=== PATIENT | female | born 1960 | race Caucasian/White ===

== ENCOUNTER 2019-03-16 10:06 | Inpatient (IN) | payer MEDICAID, SELFPAY ==
[2019-03-16] VITALS (21 sets, daily range): BP systolic 80–133; BP diastolic 43–92; PULSE 63–97; RESP 15–21; TEMP 35.6–36.9; O2SAT 92–100; BMI 19.5
--- NOTE | ~2019-03-16 | XR_ITS ---
XR chest 1V portable DATE: 03/23/2019 05:57 INDICATION: Acute respiratory failure TECHNIQUE: Portable AP chest on 03/23/2019 at 0524 hours COMPARISON: 03/22/2019 portable AP chest at 0512 hours FINDINGS: ET tube in satisfactory position 2.2 cm above arsh. NG tube in stomach. No central lines. Persistent patchy infiltrate and/atelectasis is noted, greatest in the lower lung zones, with little interval change since 03/22/2019. Small bilateral pleural effusions are again suggested. IMPRESSION: No significant change since 03/22/2019 Reviewed, dictated and finalized at location A. OM TURNING LATHE TURNER
--- NOTE | ~2019-03-16 | CT_ITS ---
EXAMINATION: CT abdomen pelvis w con DATE: 03/16/2019 11:48 INDICATION: Abdominal pain. TECHNIQUE: Computed tomography (CT) of the abdomen and pelvis was performed with 100 mL Omnipaque 350 intravenous contrast. Automated exposure control and iterative reconstruction technique were employe d. The dose-length product was 241.22 mGy-cm. COMPARISON: None. FINDINGS: The visualized portions of the lung bases demonstrate mild atelectasis. There is smooth sep laura thickening, consistent with mild pulmonary edema. No pleural effusion. The heart size is normal. No pericardial effusion. The liver demonstrates periportal edema. There is focal steatosis adjacent t o ligamentum teres. The spleen is normal. The gallbladder is normal in size. Gallbladder wall thicken ing is likely secondary to interstitial edema. There is fat stranding around the pancreas and low att enuation in the body of the pancreas, consistent with pancreatitis. The adrenal glands and kidneys ar e normal. There are no dilated loops of bowel. The appendix is normal. There are no pathologically en larged lymph nodes. There is a small volume of ascites. There is dextrocurvature of lumbar spine. IMPRESSION: 1. Acute interstitial pancreatitis. 2. Mild pulmonary edema. 3. Small volume of ascites. Reviewed, dictated and finalized at location B. E GRAINER
--- NOTE | ~2019-03-16 | XR_ITS ---
XR abdomen/kub 1V INDICATION: Evaluate OG tube position. TECHNIQUE: Limited KUB perform for evaluating NG tube . COMPARISON: No prior studies for comparison. FINDINGS: OG tube tip in the stomach. Visualized bowel gas pattern is nonspecific. IMPRESSION: 1: NG tube tip in the stomach. Reviewed, dictated and finalized at location A. TIZER
--- NOTE | ~2019-03-16 | XR_ITS ---
XR chest 1V portable DATE: 03/25/2019 05:48 INDICATION: Acute respiratory failure TECHNIQUE: Portable AP chest on 03/25/2019 at 0510 hours COMPARISON: 03/24/2019 portable AP chest FINDINGS: ET tube in satisfactory position 3.2 cm above arsh. NG tube in stomach. No central lines. Bilateral hyperinflation. Mild bilateral apical capping. There is mild improvement of diffuse right pulmonary infiltrate since 03/24/2019. There is persistent left lower lobe atelectasis and/or consolidation. Small pleural effusions are suggested. IMPRESSION: Mild improvement of right lung infiltrate since 03/24/2019; otherwise little interval yonathan nge Reviewed, dictated and finalized at location A. ING CLEANER IMPRESSION: Mild improvement of right lung infiltrate since 03/24/2019; otherwi se little interval change
--- NOTE | ~2019-03-16 | XR_ITS ---
XR chest 1V portable 03/20/2019 14:50 Indication: Respiratory distress. Intubation. Procedure: AP portable chest Comparison: Comparison to multiple prior studies sequentially, with oldest reviewed study dated 12/2018. Findings: Interval placement of endotracheal tube, tube tip 2 cm above the arsh. NG tube passes int o the stomach, tip not evaluated. Persistent diffuse bilateral airspace disease. Impression: 1: Interval placement of endotracheal tube, tip 2 cm above the arsh. 2: Extensive bilateral airspace consolidation. Differential diagnosis includes edema, pneumonia and/ or ARDS. Reviewed, dictated and finalized at location A. AL PHYSIOLOGY TEACHER Impression: 1: Interval placement of endotracheal tube, tip 2 cm above the arsh. 2: Extensive bilateral airspace consolidation. Differential diagnosis includes edema, pneumonia and/or ARDS.
--- NOTE | ~2019-03-16 | XR_ITS ---
XR chest 2V 03/16/2019 11:04 Indication: Cough with weakness Procedure: AP and lateral views of the chest Comparison: No prior studies for comparison. Findings: Heart size is normal. Left lung clear. There are right upper and lower lobe infiltrates, co mpatible with pneumonia. No pleural effusion. Apical pleural thickening/scarring. The lungs are hyper inflated which is consistent with, but not diagnostic of chronic obstructive pulmonary disease. Impression: 1: Patchy right-sided infiltrates, compatible with pneumonia. Reviewed, dictated and finalized at location A. R PRINTING OPERATOR Impression: 1: Patchy right-sided infiltrates, compatible with pneumonia.
--- NOTE | ~2019-03-16 | XR_ITS ---
EXAMINATION: XR chest 1V portable INDICATION: Acute respiratory failure TECHNIQUE: Portable AP chest at 0512 hours COMPARISON: 05/22/2018 FINDINGS: The endotracheal tube ends approximately 3.9 cm above the arsh. The nasogastric tube is f ollowed as far as the stomach. Its tip is beyond the inferior margin of the radiograph. Diffuse inter stitial and airspace opacities persist but have improved. Small pleural effusions are again suggested . There is no pneumothorax. The cardiomediastinal silhouette is stable. IMPRESSION: 1. Diffuse lung disease with continued interval improvement, consistent with pneumonia and/or pulmona ry edema and/or atelectasis. Reviewed, dictated and finalized at location A. FORM PREPARER IMPRESSION: 1. Diffuse lung disease with continued interval improvement, consistent with pn eumonia and/or pulmonary edema and/or atelectasis.
--- NOTE | ~2019-03-16 | XR_ITS ---
XR chest 1V portable DATE: 03/27/2019 05:35 INDICATION: Acute respiratory failure TECHNIQUE: Portable AP chest on 03/27/2019 at 0453 hours COMPARISON: 03/26/2019 portable AP chest at 0510 hours 03/24/2019 portable AP chest FINDINGS: ET tube in satisfactory position 3.2 cm above arsh. Nasogastric tube is present in the pr oximal stomach, the proximal port in the lower thorax. Advancement of the tube is recommended. Heart size is within normal range. There has been serial improvement of bilateral infiltrates since 03/24/2019, but there is residual in terstitial infiltrate throughout much of the right lung, greater in the right lower lung zone, as wel l as persistent left lower lobe atelectasis and/or consolidation. Small pleural effusions. IMPRESSION: Proximal port of NG tube is in lower chest; recommend advancement of NG tube ET tube in satisfactory position Serial improvement of bilateral infiltrates since 03/24/2019, with some residual interstitial infiltr ate scattered throughout the right lung, left lower lung and persistent left lower lobe atelectasis a nd/or consolidation, small pleural effusions Reviewed, dictated and finalized at location A. GER QUALITY COMPLIANCE IMPRESSION: Proximal port of NG tube is in lower chest; recommend advancement o f NG tube ET tube in satisfactory position Serial improvement of bilateral infiltrates since 03/24/2019, with some residua l interstitial infiltrate scattered throughout the right lung, left lower lung and persistent left lower lobe atelectasis and/or consolidation, small pleural effusions
--- NOTE | ~2019-03-16 | XR_ITS ---
EXAMINATION: XR chest 1V portable INDICATION: Respiratory failure, ARDS TECHNIQUE: Portable AP chest at 0512 hours COMPARISON: 03/20/2019 FINDINGS: The endotracheal tube ends approximately 2.8 cm above the arsh. The nasogastric tube is f ollowed as far as the stomach. Its tip is beyond the inferior margin of the radiograph. Diffuse inter stitial and airspace opacities persist with improvement, particularly in the mid and upper lung zones . Small pleural effusions are suggested. There is no pneumothorax. The cardiomediastinal silhouette i s stable. IMPRESSION: 1. Diffuse lung disease with interval improvement, consistent with pneumonia and/or pulmonary edema a nd/or atelectasis. Reviewed, dictated and finalized at location A. MAKER HELPER IMPRESSION: 1. Diffuse lung disease with interval improvement, consistent with pneumonia an d/or pulmonary edema and/or atelectasis.
--- NOTE | ~2019-03-16 | XR_ITS ---
EXAMINATION: XR abdomen NG/feed tube rechec EXAM DATE: 03/24/2019 10:48 INDICATION: Feeding tube placement. TECHNIQUE: Frontal projection(s) of the abdomen for interpretation. Comparison is made to prior exami nation from yesterday. FINDINGS: Feeding tube tip projects over gastric antral region, side port over gastric body. This is adequate. There is patchy bilateral pneumonia or edema with interval improvement compared to yesterd ay. Nonobstructive bowel gas pattern. IMPRESSION: 1. Feeding tube in position. 2. Patchy bilateral edema or pneumonia. Reviewed, dictated and finalized at location B. ATOR SERVICEMAN
--- NOTE | ~2019-03-16 | XR_ITS ---
XR chest 1V portable 03/20/2019 13:23 Indication: Shortness of breath and respiratory failure Procedure: AP portable chest Comparison: Comparison to multiple prior studies sequentially, with oldest reviewed study dated 12/2018. Findings: Heart size normal. There is persistent diffuse bilateral airspace disease. Possible small e ffusions. There is apical pleural thickening/scarring. No significant change compared with 03/19/2019 Impression: 1: Stable diffuse bilateral airspace disease which may reflect edema, pneumonia and/or ARDS. 2: Small pleural effusions. Reviewed, dictated and finalized at location A. RUMENT ASSEMBLER Impression: 1: Stable diffuse bilateral airspace disease which may reflect edema, pneumonia and/or ARDS. 2: Small pleural effusions.
--- NOTE | ~2019-03-16 | XR_ITS ---
XR chest 1V portable DATE: 03/24/2019 05:46 INDICATION: Acute respiratory failure TECHNIQUE: Portable upright AP chest on 03/24/2019 at 0523 hours COMPARISON: 03/23/2019 portable AP chest FINDINGS: ET tube in satisfactory position, tip 3 cm above arsh. NG tube in stomach. No central lines. Bilateral hyperinflation suggesting COPD. There are persistent bilateral patchy infiltrates, involving much of the right lung. There is increas ed density and some air bronchograms in the retrocardiac area on the left consistent with increased l eft lower lobe atelectasis and/or consolidation. Small pleural effusions are suggested, right greater than left. Bilateral apical capping. Diffuse osteopenia. IMPRESSION: Persistent bilateral infiltrates, right greater than left, with increased atelectasis and /or consolidation involving the left lower lobe since 03/23/2019 Small pleural effusions, which appear mildly improved ET and NG tubes in satisfactory position Reviewed, dictated and finalized at location A. RINTENDENT POWER IMPRESSION: Persistent bilateral infiltrates, right greater than left, with inc reased atelectasis and/or consolidation involving the left lower lobe since Small pleural effusions, which appear mildly improved ET and NG tubes in satisfactory position
--- NOTE | ~2019-03-16 | XR_ITS ---
EXAMINATION: XR chest 1V portable DATE: 03/28/2019 05:51 INDICATION: Bilateral pulmonary infiltrates TECHNIQUE: frontal view of the chest was obtained. COMPARISON: Chest radiograph dated 03/27/2019 FINDINGS: Prior endotracheal and nasogastric tubes have been removed. Biapical pleural-parenchymal scarring. Pe rsistent mild opacities primarily reticular throughout the right lung and more hazy at the left lower lung zone. No pneumothorax. Cardiomediastinal silhouette is normal. IMPRESSION: 1. Persistent mild primarily reticular opacities throughout the right lung and hazy opacity left lowe r lung zone. Differential includes mild pulmonary edema, atelectasis or pneumonia possibly superimpos ed over small left pleural effusion. Reviewed, dictated and finalized at location A. ING HOME SOCIAL WORKER IMPRESSION: 1. Persistent mild primarily reticular opacities throughout the right lung and hazy opacity left lower lung zone. Differential includes mild pulmonary edema, atelectasis or pneumonia possibly superimposed over small left pleural effusion .
--- NOTE | ~2019-03-16 | US_ITS ---
EXAMINATION: US right upper quadrant EXAM DATE: 03/23/2019 11:56 INDICATION: Pancreatitis. TECHNIQUE: Multiple grayscale and Doppler images of the abdomen right upper quadrant were obtained (b y a technologist who performed the scan) and subsequently reviewed. Correlation is made to 03/16/2019. FINDINGS: The pancreatic head and body are normal in appearance. The pancreatic tail is not visualized. The l iver has normal echogenicity and contour. There are no focal liver lesions identified. There is no evidence of intrahepatic biliary duct dilation. Portal venous flow was seen in the hepatopedal, nor mal direction and has normal Doppler waveform. No right-sided hydronephrosis. Common bile duct measures 4 mm, which is normal. Gallbladder is contracted with borderline wall thick ness of 3 mm, no pericholecystic fluid. May well be reactive from patient's acute pancreatitis. No ca lcified cholelithiasis. Technologist performing exam reports patient did not demonstrate sonographic Garner's sign. Please note that this sign is less reliable in patients who have received pain medic ation. IMPRESSION: 1. Contracted gallbladder with borderline wall thickness likely reactive. 2. No cholelithiasis. Reviewed, dictated and finalized at location B. ER RESOURCE SPECIALIST
--- NOTE | ~2019-03-16 | XR_ITS ---
XR chest 1V portable DATE: 03/26/2019 05:30 INDICATION: Acute respiratory failure TECHNIQUE: Portable upright AP chest on 03/26/2019 at 0510 hours COMPARISON: 03/25/2019 portable AP chest at 0510 hours FINDINGS: ET tube in satisfactory position 3 x 3 cm above arsh. NG tube in stomach. Bilateral hyperinflation. There are infiltrates and/or atelectasis in the lower lung zones, involving primarily the lower lobes apparently. Small pleural effusions are suggested. There is mild improvement of pulmonary vascular congestion since 03/25/2019. There is a mildly displaced lateral left ninth rib recent fracture. Diffuse osteopenia. IMPRESSION: Mild improvement of pulmonary vascular congestion but persistent bilateral prominently lo wer lobe infiltrate/atelectasis since 03/25/2019 Mildly displaced lateral left ninth rib recent fracture Reviewed, dictated and finalized at location A. Y ASSISTANT IMPRESSION: Mild improvement of pulmonary vascular congestion but persistent bi lateral prominently lower lobe infiltrate/atelectasis since 03/25/2019 Mildly displaced lateral left ninth rib recent fracture
--- NOTE | ~2019-03-16 | XR_ITS ---
EXAMINATION: XR abdomen NG/feed tube insert INDICATION: OG tube placement TECHNIQUE: Portable AP KUB-NG at 2241 hours COMPARISON: 03/20/2019 FINDINGS: The OG tube is in the stomach. The bowel gas pattern is nonspecific. Again noted are airspa ce opacities in the right mid and lower lung zones. IMPRESSION: 1. OG tube in the stomach. Reviewed, dictated and finalized at location A. OR AGRICULTURAL ASSISTANT IMPRESSION: 1. OG tube in the stomach.
--- NOTE | ~2019-03-16 | XR_ITS ---
EXAMINATION: XR chest 1V portable DATE: 03/17/2019 06:10 INDICATION: Pneumonia. COPD. TECHNIQUE: frontal view of the chest was obtained. COMPARISON: Chest radiograph dated 03/16/2019 FINDINGS: Biapical pleural-parenchymal scarring. Increasing airspace opacity in the right upper lobe. Mild incr eased reticular opacities at the lung bases which could represent mild pulmonary edema or atelectasis . No pleural effusion or pneumothorax. The cardiomediastinal silhouette is normal. A couple of midtho racic compression fractures. IMPRESSION: 1. Increasing opacity in the right upper lobe concerning for pneumonia. 2. Mild bibasilar pulmonary edema versus atelectasis. Reviewed, dictated and finalized at location A. OWS FILLER
--- NOTE | ~2019-03-16 | XR_ITS ---
EXAMINATION: XR chest ET placement INDICATION: Endotracheal tube placement TECHNIQUE: Portable AP chest at 2243 hours COMPARISON: 0520 hours FINDINGS: The endotracheal tube is 4.2 cm above the arsh. The nasogastric tube is followed as far a s the stomach. Its tip is beyond the inferior margin of the radiograph. There are increasing airspace opacities in the right mid and lower lung zones. A small right pleural effusion is present. No pneum othorax is identified. The cardiomediastinal silhouette is stable. IMPRESSION: 1. Endotracheal tube 4.2 cm above the arsh. 2. Increasing airspace opacities of the right mid and lower lung zones, consistent with atelectasis a nd/or pneumonia and/or pulmonary edema. 3. Likely small right pleural effusion. Reviewed, dictated and finalized at location A. SEARCH MARKETING ANALYST IMPRESSION: 1. Endotracheal tube 4.2 cm above the arsh. 2. Increasing airspace opacities of the right mid and lower lung zones, consist ent with atelectasis and/or pneumonia and/or pulmonary edema. 3. Likely small right pleural effusion.
--- NOTE | ~2019-03-16 | XR_ITS ---
EXAMINATION: XR chest 1V portable DATE: 03/19/2019 03:55 INDICATION: Acute respiratory failure TECHNIQUE: frontal view of the chest was obtained. COMPARISON: Chest radiograph dated 03/17/2019 FINDINGS: Interval worsening of indistinct interstitial and patchy airspace opacities throughout both lungs spa ring the apices and a portion of the lateral right mid to lower lung zone. Small bilateral pleural ef fusions. No pneumothorax. The cardiomediastinal silhouette is normal. IMPRESSION: 1. Significant increase in bilateral interstitial and airspace disease consistent with moderate pulmo nary edema although could not exclude superimposed pneumonia. 2. Small bilateral pleural effusions. Reviewed, dictated and finalized at location A. SANDER IMPRESSION: 1. Significant increase in bilateral interstitial and airspace disease consiste nt with moderate pulmonary edema although could not exclude superimposed pneumo jennifer. 2. Small bilateral pleural effusions.
--- NOTE | 2019-03-16 10:32 | ECG_ITS ---
Measurements Intervals [place] Rate: 82 P: -14 GA: 171 QRS: 15 QRSD: 114 T: 15 QT: 389 QTc: 456 Interpretive Statements SINUS RHYTHM ATRIAL PREMATURE COMPLEX INTRAVENTRICULAR CONDUCTION DELAY BORDERLINE ECG Electronically Signed On 03-16-2019 10:44:41 DIRECTOR PRESALES by Nick Whitt D.O.
--- NOTE | 2019-03-16 10:57 | ED.GENADULT ---
HPI - General Adult General Chief complaint: Weakness <DO Raina Cooper Last Filed: 03/16/19 12:34> Stated complaint: WEAKNESS <DO Raina Cooper Last Filed: 03/16/19 12:34> Time Seen by Provider: 03/16/19 10:26 <DO Raina Cooper Last Filed: 03/16/19 12:34> Source: patient and family <KESHAWN Kelsey Last Filed: 03/16/19 13:06> Mode of arrival: ambulatory <KESHAWN Kelsey Last Filed: 03/16/19 13:06> Limitations: no limitations <KESHAWN Kelsey Last Filed: 03/16/19 13:06> History of Present Illness HPI narrative: Patient is a 58-year-old female who presents to emergency department for evaluation of generalized weakness noting for the last 6 days she has had congestion rhinorrhea nonproductive cough noting that she also had some emesis on the first day and has had generalized abdominal pain at the same time patient notes history of chronic abdominal pain also admits to frequent alcohol use but has not drank in the last several days given that she has not felt well patient notes she has had some brown stools but denies melena hematemesis patient has not been seen for this complaint and has been lying in bed during this. Patient presents per private vehicle with her partner patient is acutely ill upon arrival. Symptoms are worse with any activity. Symptoms improved with lying and rest <KESHAWN Kelsey Last Filed: 03/16/19 13:06> Related Data Allergies/adverse reactions: Allergies Allergy/AdvReac Type Severity Reaction Status Date / Time Penicillins Allergy Unknown Verified 03/16/19 10:35 <DO Raina Cooper Last Filed: 03/16/19 12:34> Review of Systems Review of Systems: Narrative: CONSTITUTIONAL: Denies fever, chills, or sweats. Positive for fatigue EYES: Denies redness, or discharge. ENT: Positive rhinorrhea, congestion, sore throat, denies otalgia. CARDIOVASCULAR: Denies chest pain, or edema. RESPIRATORY: Positive for cough and dyspnea GASTROINTESTINAL: Positive for abdominal pain, nausea, vomiting, and loose stools. Denies hematemesis rectal bleeding or melena GENITOURINARY: Denies dysuria or hematuria. SKIN: Denies rash or itching. MUSCULOSKELETAL: Denies joint pain, or myalgia. Positive for low back pain NEUROLOGIC: Denies headache, numbness, dizziness <Jose Ceballos PA-C - Last Filed: 03/16/19 13:06> PMFSH Past Medical History Medical History: Medical History History of alcohol abuse <Vincent Sebastian DO - Last Filed: 03/16/19 12:34> Surgical History Surgical History: Surgical History History of section <Vincent Sebastian DO - Last Filed: 03/16/19 12:34> Social History Social History: Social History Smoking status: Never smoker Alcohol intake: current Gender identity (if verbalized by the patient): Female <DO Raina Cooper Last Filed: 03/16/19 12:34> Exam Narrative: Exam Narrative: GENERAL: Ill-appearing, well-nourished, and in no acute distress. HEAD: Normocephalic, atraumatic. EYES: PERRLA and EOMI. ENT: Nares clear, no rhinorrhea or epistaxis. Mucous membranes dry. Oropharynx without tonsillar hypertrophy exudate or other lesions. NECK: Supple. No adenopathy or masses. CHEST: Clear to auscultation. No respiratory distress. Coarse breath sounds on auscultation no wheezes HEART: Regular rate and rhythm. No murmur heard. Normal peripheral pulses. ABDOMEN: Soft, generalized tenderness to palpation, nondistended. Guaiac negative EXTREMITIES: Normal range of motion. No edema. SKIN: Warm, dry, no rash. NEURO: No focal deficits. Alert and oriented x3. Cranial nerves II through XII grossly intact PSYCH: Normal mood and affect. <Jose Ceballos PA-C - Last Filed: 03/16/19 13:06>
[2019-03-16 11:03] LABS: Add Urine Microscopic? YES; Appearance Urine Clear (Clear); Bacteria Urine Trace /hpf; Bilirubin Urine Negative (Negative); Blood Urine 2+ (Negative); Color Urine Yellow (Yellow); Glucose Urine UA Negative (Negative); Hyaline Casts Urine 30-49 /lpf; Ketones Urine Trace mg/dL (Negative); Leukocyte Esterase Ur Negative LEU/UL (Negative); Mucus Urine Rare /lpf; Nitrate Urine Negative (Negative); Protein Urine 1+ mg/dL (Negative); Specific Grav Ur 1.012 (1.001-1.035); Squamous Epithelial Cell Urine Rare /hpf (Few); Urobilinogen Urine Negative mg/dL (<2.0)
[2019-03-16] MEDS: ONDANSETRON INJ 4 MG/2 ML VIAL IV PUSH (11:10)
[2019-03-16] MEDS: FAMOTIDINE 20 MG/2 ML VIAL IV PUSH (11:10)
[2019-03-16 11:17] LABS: INR 1.8; Partial Thromboplastin Time 36.6 SECONDS (22.3-36.8); Prothrombin Time 20.4 Seconds (11.1-14.7)
[2019-03-16 11:19] LABS: Basophils Percent Auto 0.1 % (0.2-1.2); Immature Granulocyte Absolute 0.22 K/mm3 (0.00-0.031); Immature Granulocyte Percent A 1.8 % (0-0.5); Immature Platelet Fraction Pct 2.2 % (0.9-11.2); Lymphocytes Absolute Auto 0.75 K/mm3 (0.9-3.2); Lymphocytes Percent Auto 6.3 % (18.3-44.2); Mean Corpuscular HGB Conc 28.3 g/dl (32-36); Mean Corpuscular Volume 70.6 fl (80-100); Mean Platelet Volume 9.2 fl (7.4-10.4); Monocytes Absolute Auto 0.5 K/mm3 (0.1-0.6); Monocytes Percent Auto 4.4 % (2.6-8.5); Neutrophils Absolute Auto 10.4 K/mm3 (1.3-6.7); Neutrophils Percent Auto 87.4 % (45.5-73.1); Nucleated Red Blood Cells Absolute Auto 0.2 K/mm3 (0.0-0.012); Nucleated Red Blood Cells Perc 1.9 % (0.0-0.2); Platelet Count Result 655 k/mm3 (150-375); Red Cell Distribution Width 19.9 % (11.5-14.5); White Blood Count 11.9 K/mm3 (4.5-10.0)
[2019-03-16 11:20] LABS: Alanine Aminotransferase 189 U/L (4-35); Alkaline Phosphatase 96 U/L (38-126); Aspartate Amino Transferase 589 U/L (14-36); Bilirubin,Total 0.2 mg/dL (0.2-1.3); Blood Urea Nitrogen 15 mg/dL (7-17); CRP 7.6 mg/dL (<1.0); Carbon Dioxide 17 mmol/L (22-30); Chloride 89 mmol/L (98-107); Estimated Glomerular Filt Rate 38; Glucose 103 mg/dL (65-105); Magnesium 2.1 mg/dL (1.6-2.3); Potassium 4.2 mmol/L (3.4-5.0); Sodium 124 mmol/L (137-145)
[2019-03-16] MEDS: LACTATED RINGERS 1,000 ML 999 ML IV CONT (11:20)
[2019-03-16 11:23] LABS: Hemoglobin 3.4 g/dL (12.0-15.0)
[2019-03-16 11:25] LABS: Anisocytosis 2+ (NORMAL); Hypochromasia 2+ (NORMAL); Platelet Estimate Increased (Adequate)
[2019-03-16 11:26] LABS: Stomatocytes 1+ (NORMAL)
--- NOTE | 2019-03-16 11:41 | PC.NURSE ---
Pt in CT, no able to draw blood at this time.
--- NOTE | 2019-03-16 12:02 | PC.NURSE ---
Called pharmacy to verify a banana bag was to be sent up for pt. Pharmacy did not answer, left message
[2019-03-16 12:17] LABS: Hemoglobin 3.1 g/dL (12.0-15.0)
[2019-03-16 12:18] LABS: Hematocrit 11.1 % (37.0-47.0)
[2019-03-16 12:26] LABS: Lipase 2805 U/L (23-300)
[2019-03-16 12:31] LABS: Ethanol < 10 mg/dL (<10)
--- NOTE | 2019-03-16 13:41 | WPDCNINT ---
Assessment and Plan Assessment and plan (1) Anemia: Qualifiers: Anemia type: unspecified type Qualified Code(s): D64.9 - Anemia, unspecified Code(s): D64.9 - Anemia, unspecified Status: Acute Assessment and Plan: severe anemia with hemoglobin of 3.1. Patient has a history of gastritis and colitis. likely GI bleed - CT scan of the abdomen and pelvis showed acute interstitial pancreatitis - patient initially hypotensive, received 2.5 L IV fluids with improvement in blood pressures - transfuse 2 units of packed RBCs re-evaluate hemoglobin and will transfuse further if required - GI has been consulted and await evaluation and recommendation - H&H q.6 hours (2) Acute alcoholic pancreatitis: Qualifiers: Acute pancreatitis complication: unspecified Qualified Code(s): K85.20 - Alcohol induced acute pancreatitis without necrosis or infection Code(s): K85.20 - Alcohol induced acute pancreatitis without necrosis or infection Status: Acute Assessment and Plan: CT scan of the abdomen pelvis showed acute interstitial pancreatitis most likely related to alcohol use - continue NPO with ice chips - will start maintenance IV fluids - recheck lipase in a.m. (3) Acute hyponatremia: Code(s): E87.1 - Hypo-osmolality and hyponatremia Status: Acute Assessment and Plan: likely related to alcohol abuse - continue maintenance IV fluids - will monitor levels, patient currently awake and alert (4) Pneumonia: Qualifiers: Laterality: unspecified laterality Lung location: unspecified part of lung Pneumonia type: due to unspecified organism Qualified Code(s): J18.9 - Pneumonia, unspecified organism Code(s): J18.9 - Pneumonia, unspecified organism Status: Acute Assessment and Plan: chest x-ray shows patchy right-sided infiltrates compatible with pneumonia, patient started on azithromycin and ceftriaxone - CRP of 7.6, WBC count of 11 point - continue supplemental oxygen - blood cultures have been obtained (5) GI bleed: Code(s): K92.2 - Gastrointestinal hemorrhage, unspecified Status: Acute Assessment and Plan: severe anemia likely related to GI bleed - will transfuse packed RBCs and maintain hemoglobin greater than 7.0 - GI has been consulted - started on Protonix infusion (6) Elevated LFTs: Code(s): R94.5 - Abnormal results of liver function studies Status: Acute Assessment and Plan: elevated LFTs likely related to alcoholism, pancreatitis - continue to monitor (7) Acute kidney injury: Code(s): N17.9 - Acute kidney failure, unspecified Status: Acute Assessment and Plan: patient with creatinine of 1.4 on admission, acute kidney injury likely related to hypovolemia secondary to GI bleed and hypotension, hypoxia. - will maintain mean arterial pressure is greater than 65 mmHg - transfuse packed RBCs which will improve oxygenation and blood pressure - monitor urine output, electrolytes and renal function (8) DVT prophylaxis: Code(s): Z29.9 - Encounter for prophylactic measures, unspecified Status: Acute Assessment and Plan: SCDs Additional Plan discussed with patient and her boyfriend and updated them with her condition and plan of care. Will obtain records from the GI doctor in [facility] Code status: full code critical care time spent: 43 minutes Due to a high probability of clinically significant, life threatening deterioration, the patient required my highest level of preparedness to intervene emergently and I personally spent this critical care time directly and personally managing the patient. This critical care time included obtaining a history; examining the patient; pulse oximetry; ordering and review of studies; arranging urgent treatment with development of a management plan; evaluation of patient's response to treatment;
[2019-03-16] MEDS: ALBUTEROL SULFATE NEB 2.5 MG/0.5 ML INH 5 MG INHALATION ×2 (14:38→20:30)
[2019-03-16] MEDS: IPRATROPIUM BR 0.02% INH SOLN 0.5 MG/2.5 ML VIAL INHALATION ×2 (14:38→20:30)
--- NOTE | 2019-03-16 15:20 | PM.IMHP ---
H&P: HPI History of Present Illness Chief complaint: Acute pancreatitis/hyponatremia/anemia/pneumonia Narrative: Anita Cutler is a 58 year old female who came to the emergency room after feeling ill for about 6 days. The patient had some generalized weakness and has cholangitis colitis. When she has episodes like that she does not eat. She has had a poor appetite. She has had some abdominal cramping pain. She said that on some days her stools a little bit darker nothing black or bloody. She did not vomit. Patient has had a cough and fever and chills. Patient was brought in by private vehicle. Her hemoglobin a nasally was 3.4 and with the recheck was 3.1. Her blood pressure initially was 80/69. She was bolused with 2.5 L of fluid. Chest x-ray shows patchy right-sided infiltrates, compatible with pneumonia. Abdominal CT scan showed acute interstitial pancreatitis, mild pulmonary edema, and small volume ascites patient stated she drinks approximately 16 oz of wine per day but has not had anything to drink for a week. Influenza a and B were negative. Lipase 2805. Patient has a sallow color. She has a history of COPD as well.She sees Dr Colvin in [place] for colonoscopy and endoscopy with him in the past and was told that she has cholangio colitis. She has been admitted to ICU for severe anemia, alcoholism, and pancreatitis. Review of Systems Review of Systems: Narrative: Weak and decreased appetite. All systems reviewed & are unremarkable except as noted in HPI and below Constitutional: Constitutional: Reports as per HPI, Reports anorexia, Reports fatigue, Reports fever(s) and Reports poor appetite Eyes: Eyes: Reports as per HPI and Reports no additional eye complaints ENT: Reports system reviewed and no additional complaints, except as documented and Reports hearing normal Cardiovascular: Cardiovascular: Reports no additional cardiovascular complaints Respiratory: Respiratory: Reports no additional respiratory complaints, Reports cough, Reports dyspnea on exertion and Reports wheezing Gastrointestinal: Gastrointestinal: Reports as per HPI and Reports no additional gastrointestinal complaints Musculoskeletal: Musculoskeletal: Reports no additional musculoskeletal complaints Integumentary/Breasts: Skin/Breast: Reports system reviewed and no additional complaints, except as docu and Reports as per HPI Neurologic: Reports system reviewed and no additional complaints, except as documented, Reports as per HPI and Reports Normal hearing present Psychiatric: Psychiatric: Reports no additional psychiatric complaints, Reports as per HPI, Reports anxiety and Reports depression Comments: History of depression and anxiety weaned herself off medication. Endocrine: Endocrine: Reports no additional endocrine complaints Hematologic/Lymphatic: Hematologic/Lymphatic: Reports no additional hematologic/lymphatic complaints Allergic/Immunologic: Allergic/Immunologic: Reports no additional allergic/immunologic complaints [facility] Past Medical History Medical History (Updated 03/16/19 @ 16:16 by Mohamud Sher MD) Alcoholic hepatitis Collagenous colitis COPD (chronic obstructive pulmonary disease) Gastritis GERD (gastroesophageal reflux disease) History of alcohol abuse History of asthma Surgical History Surgical History (Updated 03/16/19 @ 15:38 by Nubia Noel NP) History of bilateral cataract extraction History of section History of D&C History of tonsillectomy Social History Social History (Updated 03/16/19 @ 15:43 by Nubia Noel NP) Social History: Quit smoking about a year back, prior to which she was used to smoke half a packet for many years and prior to that about a packet for many years. Patient drinks 4-8 oz of wine daily for many years. Smokes marijuana occasionally that helps a with her chronic abdominal pain. lives with boyfriend, does not work. Full code. Hiram is the boyfriend who is h
--- NOTE | 2019-03-16 16:06 | WPDGICN ---
Assessment and Plan Assessment and plan (1) Acute alcoholic pancreatitis: Qualifiers: Acute pancreatitis complication: unspecified Qualified Code(s): K85.20 - Alcohol induced acute pancreatitis without necrosis or infection Code(s): K85.20 - Alcohol induced acute pancreatitis without necrosis or infection Status: Acute Assessment and Plan: alcoholic hepatitis, npo. Banana bag, ivf and admitted to ICU. Supportive care (2) Alcoholic hepatitis: Qualifiers: Ascites presence: unspecified Qualified Code(s): K70.10 - Alcoholic hepatitis without ascites Code(s): K70.10 - Alcoholic hepatitis without ascites Status: Acute (3) Elevated LFTs: Code(s): R94.5 - Abnormal results of liver function studies Status: Acute Assessment and Plan: consistent with heavy alcohol use. Normal platelets (Actually elevated c/w inflammatory response). Will get hepatitis panel (4) Severe anemia: Code(s): D64.9 - Anemia, unspecified Status: Acute Assessment and Plan: iv protonix, EGD tomorrow. Also will get recent GI records. (5) Collagenous colitis: Code(s): K52.831 - Collagenous colitis Status: Acute (6) COPD (chronic obstructive pulmonary disease): Qualifiers: COPD type: unspecified COPD Qualified Code(s): J44.9 - Chronic obstructive pulmonary disease, unspecified Code(s): J44.9 - Chronic obstructive pulmonary disease, unspecified Status: Acute (7) Pneumonia: Qualifiers: Laterality: unspecified laterality Lung location: unspecified part of lung Pneumonia type: due to unspecified organism Qualified Code(s): J18.9 - Pneumonia, unspecified organism Code(s): J18.9 - Pneumonia, unspecified organism Status: Acute Assessment and Plan: also pneumonia, on iv abx (8) Acute hyponatremia: Code(s): E87.1 - Hypo-osmolality and hyponatremia Status: Acute GI Consult Note Consult date/time: 03/16/19 16:06 re: severe anemia, abdominal pain, pancreatitis HPI: Anita Cutler is a 58 year old female alcoholic (did not drink for a week because has been sick), former smoker, gastritis on ppi, collagenous colitis using ib-inés (GI physician at [place], Dr Colvin, did EGD and colonoscopy about 1-2 years ago) here with 6 days of anorexia, nausea with worsening epigastric pain, moderate-severe cramping pain. Also cough and chills. Her hemoglobin was 3.4 and Sodium levels of 124, potassium 4.2, chloride 89, CO2 17, BUN 15, creatinine 1.4, glucose 103. WBC count 11.9, platelets 655. INR 1.8, PTT 36.6. Lactic acid of 1.0. AST 589, ALT 189, alk phos 96, C-reactive protein 7.6, total bilirubin 0.2. Lipase 2805. alcohol level <10. Influenza a and B were negative. Chest x-ray shows patchy right-sided infiltrates, compatible with pneumonia. Abdominal CT scan showed acute interstitial pancreatitis, mild pulmonary edema, small volume Ascites. Her blood pressure initially was 80/69. She was bolused with 3 L of fluid. Review of Systems Constitutional: Constitutional: Reports fatigue, Denies headache(s) and Reports malaise Eyes: Eyes: Denies blurry vision ENT: Reports hearing normal, Denies headache(s) and Denies neck pain Cardiovascular: Cardiovascular: Denies chest pain and Denies dyspnea Respiratory: Respiratory: Reports change in phlegm color and Reports cough Gastrointestinal: Gastrointestinal: Reports abdominal pain, Reports GI cramping and Reports nausea Genitourinary: Genitourinary: Denies dysuria Musculoskeletal: Musculoskeletal: Denies neck pain Integumentary/Breasts: Skin/Breast: Denies dry skin Neurologic: Reports Normal hearing present, Denies headache(s) and Denies weakness Psychiatric: Psychiatric: Denies anxiety Endocrine: Endocrine: Denies change in body appearance Hematologic/Lymphatic: Hematologic/Lymphatic: Denies lymphadenopathy Allergic/Immunologic: Allergic/Immu
[2019-03-16] MEDS: TUBING, BLOOD PLUM PUMP TUBING 1 EACH XX (17:30)
[2019-03-16] MEDS: SODIUM CHLORIDE 0.9% IV 250 ML 30 ML IV CONT (17:30)
[2019-03-16] MEDS: PANTOPRAZOLE SODIUM IV 40 MG VIAL IV PUSH (17:31)
[2019-03-16 21:18] LABS: Hematocrit 23.5 % (37.0-47.0); Hemoglobin 7.6 g/dL (12.0-15.0)
[2019-03-17] VITALS (22 sets, daily range): BP systolic 116–174; BP diastolic 56–85; PULSE 81–115; RESP 15–24; TEMP 36.4–37.3; O2SAT 95–100; BMI 20.5
[2019-03-17 01:32] LABS: Hematocrit 24.4 % (37.0-47.0); Hemoglobin 7.6 g/dL (12.0-15.0)
[2019-03-17] MEDS: ALBUTEROL SULFATE NEB 2.5 MG/0.5 ML INH 5 MG INHALATION ×4 (02:58→21:32)
[2019-03-17] MEDS: IPRATROPIUM BR 0.02% INH SOLN 0.5 MG/2.5 ML VIAL INHALATION ×4 (02:58→21:32)
[2019-03-17] MEDS: MORPHINE SULFATE 2 MG/ML INJ IV PUSH (03:21)
[2019-03-17 05:05] LABS: Hemoglobin 7.5 g/dL (12.0-15.0); Mean Corpuscular HGB Conc 32.6 g/dl (32-36); Mean Corpuscular Hemoglobin 25.5 pg (26-34); Mean Corpuscular Volume 78.2 fl (80-100); Mean Platelet Volume 8.6 fl (7.4-10.4); Platelet Count Result 467 k/mm3 (150-375); Red Blood Count 2.94 M/mm3 (4.2-5.4); Red Cell Distribution Width 18.5 % (11.5-14.5)
[2019-03-17 05:16] LABS: INR 1.4; Partial Thromboplastin Time 32.6 SECONDS (22.3-36.8); Prothrombin Time 16.8 Seconds (11.1-14.7)
[2019-03-17 05:22] LABS: Lactic Acid 0.9 mmol/L (0.7-2.1)
[2019-03-17 05:31] LABS: Alanine Aminotransferase 153 U/L (4-35); Albumin Level 2.9 g/dL (3.5-5.1); Alkaline Phosphatase 162 U/L (38-126); Aspartate Amino Transferase 381 U/L (14-36); Bilirubin,Total 1.3 mg/dL (0.2-1.3); Blood Urea Nitrogen 16 mg/dL (7-17); Calcium 7.8 mg/dL (8.4-10.2); Carbon Dioxide 18 mmol/L (22-30); Chloride 95 mmol/L (98-107); Estimated CRCL calculation 40 ml/min; Estimated Glomerular Filt Rate 51; Glucose 90 mg/dL (65-105); Magnesium 2.3 mg/dL (1.6-2.3); Phosphorus 3.3 mg/dL (2.5-4.5); Potassium 3.6 mmol/L (3.4-5.0); Sodium 125 mmol/L (137-145)
[2019-03-17 05:48] LABS: Band Neutrophils Percent 1 % (0-6); Hypochromasia 1+ (NORMAL); Lymphocytes Absolute Manual 0.39 K/mm3 (1.1-4.5); Monocytes Absolute Manual 0.52 K/mm3 (0.1-0.90); Monocytes Percent Manual 4 % (3-9); Neutrophils Absolute Manual 12.09 K/mm3 (1.7-7.2); Neutrophils Percent Manual 92 % (46-73); Nucleated Red Blood Cells 7 %; Ovalocytes 1+ (NORMAL); Platelet Estimate Adequate (Adequate); Total Cells Counted 100
[2019-03-17 05:52] LABS: Hepatitis B Surface Antigen Negative (Negative)
[2019-03-17 05:58] LABS: HAV RESULT Negative (Negative); Hepatitis B Core IgM Result Negative (Negative)
[2019-03-17 06:09] LABS: Hepatitis C Virus Antibody Negative (Negative)
[2019-03-17 06:36] LABS: Lipase 4320 U/L (23-300)
--- NOTE | 2019-03-17 07:25 | WPDINTPN ---
Progress Note: A&P Assessment and Plan (1) GI bleed: Code(s): K92.2 - Gastrointestinal hemorrhage, unspecified Status: Acute Assessment and Plan: Severe anemia likely related to Upper GI bleed Pt was transfused 2 units PRBC. Now Hb stable and no signs of active bleeding Seen by GI. Plan for EGD today Continue PPI infusion Serial Hb Transfuse as needed (2) Anemia: Qualifiers: Anemia type: unspecified type Qualified Code(s): D64.9 - Anemia, unspecified Code(s): D64.9 - Anemia, unspecified Status: Acute Assessment and Plan: See aboves (3) Acute alcoholic pancreatitis: Qualifiers: Acute pancreatitis complication: unspecified Qualified Code(s): K85.20 - Alcohol induced acute pancreatitis without necrosis or infection Code(s): K85.20 - Alcohol induced acute pancreatitis without necrosis or infection Status: Acute Assessment and Plan: CT scan of the abdomen pelvis showed acute interstitial pancreatitis most likely related to alcohol use - continue NPO with ice chips - IV fluids were given but now on hold due to suspected Pulm edema - Monitor lipase - Check trigs - Pain control (4) Pneumonia: Qualifiers: Laterality: unspecified laterality Lung location: unspecified part of lung Pneumonia type: due to unspecified organism Qualified Code(s): J18.9 - Pneumonia, unspecified organism Code(s): J18.9 - Pneumonia, unspecified organism Status: Acute Assessment and Plan: chest x-ray shows patchy right-sided infiltrates compatible with pneumonia, patient started on azithromycin and ceftriaxone - CRP of 7.6, WBC count of 11 point - continue supplemental oxygen - blood cultures have been obtained - On Empiiric Abx (5) Elevated LFTs: Code(s): R94.5 - Abnormal results of liver function studies Status: Acute Assessment and Plan: elevated LFTs likely related to alcoholism, pancreatitis - continue to monitor (6) Acute kidney injury: Code(s): N17.9 - Acute kidney failure, unspecified Status: Acute Assessment and Plan: patient with creatinine of 1.4 on admission, acute kidney injury likely related to hypovolemia secondary to GI bleed and hypotension, ? NSAID induced as pt takes lots of ASA at home - will maintain mean arterial pressure is greater than 65 mmHg - Agriculture Laborer is improving and down to 1.1 - monitor urine output, electrolytes and renal function (7) DVT prophylaxis: Code(s): Z29.9 - Encounter for prophylactic measures, unspecified Status: Acute Assessment and Plan: SCDs (8) Hyponatremia: Code(s): E87.1 - Hypo-osmolality and hyponatremia Status: Acute Assessment and Plan: Acute vs Chronic Baseline unknown Likley secondary to ETOH Monitor levels. Pt asymptomatic at this time (9) COPD (chronic obstructive pulmonary disease): Qualifiers: COPD type: unspecified COPD Qualified Code(s): J44.9 - Chronic obstructive pulmonary disease, unspecified Code(s): J44.9 - Chronic obstructive pulmonary disease, unspecified Status: Acute Assessment and Plan: Appears in Exacerbation with wheezing and cough - Duoned - Start Steroids - Already on Abx - Check BNP and ECHO Subjective Interval history: Pt seen and examined Feels better but continues to have following complaints Headache - Intermittent, mild, chronic, Admits to taking lot of ASA at home Backpain 10/15, intermittent, chronic Cough - Dry, unable to cough out anything Pain in her abdomen at 'diaphragm', -11/15, sharp Unable to sleep last night Last alcohol drink was more than 1 week ago, drinks daily, wine All other systems were reviewed and were negative Review of Systems Review of Systems: All systems reviewed & are unremarkable except as noted in HPI and below Exam Const: General: comfortable and no acute distress HENMT: Mouth: Yes dry mucous
[2019-03-17 08:04] LABS: Triglycerides 69 mg/dL (<150)
--- NOTE | 2019-03-17 08:05 | ECHO_ITS ---
Patient Info Name: Anita Cutler Age: 58 years : 1960 Gender: Female Ht: 63 in Wt: 116 lbs BSA: 1.53 m2 HR: 100 bpm BP: 138 / 79 mmHg Heart Rhythm: Tachycardia, Sinus Rhythm Technical Quality: Good Exam Date: 03/17/2019 10:27 AM Exam Location: [facility] Pulmonary Patient Status: Inpatient Admit Date: 03/16/2019 Staff Ordering Physician: Blair Peck MD Education And Training Coordinator: Akira Sung RDCS Attending Provider: Erica Thomas MD Exam Type: CA echo dop color flow w con Study Info Indications I50.40 - Unspecified combined systolic (congestive) and diastolic (congestive) heart failure Complete two-dimensional, color flow and Doppler transthoracic echocardiogram is performed with contrast to opacify the left ventricle and to improve the deliniation of the left ventricle endocardial borders. Contrast/Agitated Saline Contrast/Ag. Saline: Definity Amount: 3.00 ml Administered By: Benjamin Breen RN History/Risk Factors EtOH abuse; acute pancreatitis, Upper GIB, anemia, CHF w/ BNP 1760. Summary 1. Left ventricular systolic function is normal, estimated at 55-60%. 2. There is no increased left ventricular wall thickness. 3. The left ventricular diastolic function is normal. 4. There is trace tricuspid valve regurgitation. 5. Unable to estimate PA systolic pressure due to poor spectral resolution of tricuspid regurgitant jet. Left Ventricle Left ventricular chamber dimension is normal. Left ventricular systolic function is normal, estimated at 55-60%. There is no increased left ventricular wall thickness. Left ventricular septal wall motion is normal. The left ventricular diastolic function is normal. Right Ventricle Right ventricular chamber dimension is normal. Right ventricular systolic function is normal. Left Atria Left atrial chamber dimension is normal. Right Atria Right atrial chamber dimension is normal. Aortic Valve The aortic valve is probable trileaflet. There is no aortic valve stenosis. There is no aortic valve regurgitation. Pulmonic Valve The pulmonic valve is not well visualized. Mitral Valve The mitral valve has normal leaflets. There is trace mitral valve regurgitation. Tricuspid Valve The tricuspid valve leaflets are normal. There is trace tricuspid valve regurgitation. Unable to estimate PA systolic pressure due to poor spectral resolution of tricuspid regurgitant jet. Pericardium/Pleural The pericardium appears normal. There is no pericardial effusion. Inferior Vena Cava Normal inferior vena cava with >50% collapse upon inspiration consistent with normal right atrial pressure, 5 mmHg. Aorta The aortic root size at the sinus of Valsalva is normal. Left Ventricular Outflow Tract Name Value Normal LVOT 2D LVOT Diameter 2.05 cm LVOT Doppler LVOT Peak Velocity 152.49 cm/s LVOT Peak Gradient 9 mmHg LVOT Mean Gradient 5 mmHg LVOT VTI 24.65 cm LVOT VTI/AV VTI Ratio
[2019-03-17 08:26] LABS: NT Pro B Type Natriuretic Pept 1760 PG/ML (5-100)
--- NOTE | 2019-03-17 08:28 | WPDANESEPPF ---
Anes - Initial Pre Proc Eval Procedure: Operation Date: 03/17/19 08:45 Proposed Procedures p Esophagogastroduodenoscopy - Mohamud Sher MD Date/Time: 03/17/19 08:28 Surgeon: Erica Das MD Pre Op Diagnosis: Acute pancreatitis/hyponatremia/anemia/pneumonia Patient Data Age: 58 Gender: F Height: 1.6 m Weight: 52.6 kg Last Vital Signs Temp 36.8 C 03/17/19 08:15 Pulse 92 03/17/19 08:15 Resp 17 03/17/19 08:15 BP 138/79 03/17/19 08:15 Pulse Ox 100 03/17/19 08:15 Allergies Allergy/AdvReac Type Severity Reaction Status Date / Time Penicillins Allergy Hives Verified 03/17/19 08:17 azithromycin AdvReac Cramping Verified 03/17/19 08:17 of the Muscles bupropion [From Wellbutrin] AdvReac Gastrointestinal Verified 03/17/19 08:17 Upset Home Medications Medication Instructions Recorded Confirmed Type aspirin 650 mg PO DAILY 03/16/19 03/16/19 History Laboratory Tests 03/16/19 03/16/19 03/16/19 10:49 10:59 10:59 WBC 11.9 K/mm3 H K/mm3 (4.5-10.0) RBC 1.70 M/mm3 L M/mm3 (4.2-5.4) Hgb 3.4 g/dL L* g/dL (12.0-15.0) Hct 12.0 % L* % (37.0-47.0) MCV 70.6 fl L fl (80-100) MCH 20.0 pg L pg (26-34) MCHC 28.3 g/dl L g/dl (32-36) RDW 19.9 % H % (11.5-14.5) Plt Count 655 k/mm3 H k/mm3 (150-375) MPV 9.2 fl fl (7.4-10.4) Immature Gran % (Auto) 1.8 % H % (0-0.5) Neut % (Auto) 87.4 % H % (45.5-73.1) Lymph % (Auto) 6.3 % L % (18.3-44.2) Moffat % (Auto) 4.4 % % (2.6-8.5) Eos % (Auto) 0.0 % % (0-4.4) Baso % (Auto) 0.1 % L % (0.2-1.2) Lymph # (Auto) 0.75 K/mm3 L K/mm3 (0.9-3.2) Moffat # (Auto) 0.5 K/mm3 K/mm3 (0.1-0.6) Eos # (Auto) 0.0 K/mm3 K/mm3 (0-0.3) Baso # (Auto) 0.0 K/mm3 K/mm3 (0.0-0.1) Abs Immat Gran (auto) 0.22 K/mm3 H K/mm3 (0.00-0.031) Absolute Neuts (auto) 10.4 K/mm3 H K/mm3 (1.3-6.7) Absolute Nucleated RBC 0.2 K/mm3 H K/mm3 (0.0-0.012) Total Counted Neutrophils % (Manual) Band Neutrophils % Lymphocytes % (Manual) Monocytes % (Manual) Nucleated RBC % 1.9 % H % (0.0-0.2) Abs Neuts (Manual) Abs Lymphs (Manual) Abs Monocytes (Manual) Nucleated RBCs Platelet Estimate Increased (Adequate) % Immature Plt Fraction 2.2 % % (0.9-11.2) Hypochromasia 2+ (NORMAL) Anisocytosis 2+ (NORMAL) Ovalocytes Stomatocytes 1+ (NORMAL) PT 20.4 Seconds H Seconds (11.1-14.7) INR 1.8 APTT 36.6 SECONDS SECONDS (22.3-36.8) Sodium Potassium Chloride Carbon Dioxide BUN Creatinine Estim Creat Clear Calc Estimated GFR Glucose Lactic Acid Calcium Phosphorus Magnesium Total Bilirubin AST ALT Alkaline Phosphatase C-Reactive Protein NT-Pro-B Natriuret Pep Total Protein Albumin Triglycerides Lipase TSH Urine Color Yellow (Yellow) Urine Appearance Clear (Clear) Urine pH 5.0 (5.0-9.0) Ur Specific Loving 1.012 (1.001-1.035) Urine Protein 1+ mg/dL H mg/dL (Negative) Urine Glucose (UA) Negative mg/dL mg/dL (Negative) Urine Ketones Trace mg/dL mg/dL (Negative) Ur Blood (Man) 2+ H (Negative) Urine Nitrate Negative (Negative) Urine Bilirubin Negative (Negative) Urine Urobilinogen Negative m
[2019-03-17] MEDS: LACTATED RINGERS 1,000 ML 150 ML IV CONT (08:29)
[2019-03-17 10:54] LABS: Hematocrit 24.3 % (37.0-47.0); Hemoglobin 7.7 g/dL (12.0-15.0)
[2019-03-17] MEDS: PERFLUTREN LIPID MICROSPHERES 1.5 ML VIAL DILUTED TO 10 ML TOTAL VOLUME IV PUSH (11:00)
[2019-03-17 11:38] LABS: Lipase 3458 U/L (23-300)
[2019-03-17] MEDS: KCL 20 MEQ/SW 100 ML 100 ML 50 MEQ IVPB ×2 (12:26→15:08)
[2019-03-17] MEDS: THIAMINE HCL 200 MG/2 ML VIAL 100 MG IV PUSH (12:30)
[2019-03-17] MEDS: methylPREDNISolone SOD SUCC 125 MG VIAL 60 MG IV PUSH ×2 (12:30→21:25)
[2019-03-17] MEDS: FOLIC ACID 1 MG/0.2 ML INJ IV PUSH (12:34)
--- NOTE | 2019-03-17 13:42 | P.PNIM_ITS ---
Progress Note: A&P Assessment and Plan (1) Severe anemia: Code(s): D64.9 - Anemia, unspecified Status: Acute Assessment and Plan: * due to acute gi blood loss * stabilized after transfusion (2) Acute kidney injury: Code(s): N17.9 - Acute kidney failure, unspecified Status: Acute (3) GI bleed: Qualifiers: GI bleed type/associated pathology: gastric ulcer Qualified Code(s): K25.4 - Chronic or unspecified gastric ulcer with hemorrhage Code(s): K92.2 - Gastrointestinal hemorrhage, unspecified Status: Acute (4) Pneumonia: Qualifiers: Laterality: unspecified laterality Lung location: unspecified part of lung Pneumonia type: due to unspecified organism Qualified Code(s): J18.9 - Pneumonia, unspecified organism Code(s): J18.9 - Pneumonia, unspecified organism Status: Acute Assessment and Plan: * continue azithromycin, ceftriaxone (5) Elevated LFTs: Code(s): R94.5 - Abnormal results of liver function studies Status: Acute Assessment and Plan: * clinically due to acute on chronic alcoholic hepatitis * f/u lab * monitor for sx/signs w/d (by hx last drink 1 wk PRODUCT REPRESENTATIVE) (6) Acute alcoholic pancreatitis: Qualifiers: Acute pancreatitis complication: unspecified Qualified Code(s): K85.20 - Alcohol induced acute pancreatitis without necrosis or infection Code(s): K85.20 - Alcohol induced acute pancreatitis without necrosis or infection Status: Acute Assessment and Plan: * clear liquids * ivf * analgesics (7) Hyponatremia: Code(s): E87.1 - Hypo-osmolality and hyponatremia Status: Acute Assessment and Plan: * likely due to dehydration, alcoholism * 125 `03/17 * continue ivf * f/u lab (8) Gastric ulcer: Code(s): K25.9 - Gastric ulcer, unspecified as acute or chronic, without hemorrhage or perforation Status: Acute Assessment and Plan: * not actively bleeding by 03/17 egd * continue ppi * f/u h/h (9) Collagenous colitis: Code(s): K52.831 - Collagenous colitis Status: Acute Assessment and Plan: * clinically stable Subjective Interval history: * Admitted 03/16 with low hemoglobin * No further bleeding noted * Headache - Intermittent, mild, chronic, Admits to taking lot of ASA at home * Back pain 10/15, intermittent, chronic * Cough rattling, unable to cough out anything, interfering with sleep * Pain in her upper abdomen, 7-11/15, sharp, intermittently waxing and waning * Diarrhea, chronic, intermittent, no bleeding Review of Systems Review of Systems: All systems reviewed & are unremarkable except as noted in HPI and below Exam Narrative: Exam Narrative: HEENT: EOMI, PERRL, pharyngeal mucosa pink and intact NECK: No JVD CHEST: COARSE RHONCHI. Normal effort. HEART: NL S1/S2, regular, no murmur ABDOMEN: BS+, soft, MILD UPPER ABDOMINAL TENDERNESS, no mass, no bruits EXTREMITIES: No cyanosis, edema, or clubbing NEUROLOGIC: CN intact and symmetric to inspection. MUSCULOSKELETAL: Tone and strength symmetric. PSYCH: Alert. Oriented to person, place, and time. Objective Data Vital Signs Vital Signs: Vital Signs - 24 hr 03/16/19 14:00 03/16/19 14:35 03/16/19 14:45 Temperature Pulse Rate 89 86 87 Pulse Rate [Radial Palpation] Respiratory Rate 20 20 20 Blood Pressure 109/65 Pulse Oximet
--- NOTE | 2019-03-17 13:42 | PM.IMPN ---
Progress Note: A&P Assessment and Plan (1) Severe anemia: Code(s): D64.9 - Anemia, unspecified Status: Acute Assessment and Plan: due to acute gi blood loss stabilized after transfusion (2) Acute kidney injury: Code(s): N17.9 - Acute kidney failure, unspecified Status: Acute (3) GI bleed: Qualifiers: GI bleed type/associated pathology: gastric ulcer Qualified Code(s): K25.4 - Chronic or unspecified gastric ulcer with hemorrhage Code(s): K92.2 - Gastrointestinal hemorrhage, unspecified Status: Acute (4) Pneumonia: Qualifiers: Laterality: unspecified laterality Lung location: unspecified part of lung Pneumonia type: due to unspecified organism Qualified Code(s): J18.9 - Pneumonia, unspecified organism Code(s): J18.9 - Pneumonia, unspecified organism Status: Acute Assessment and Plan: continue azithromycin, ceftriaxone (5) Elevated LFTs: Code(s): R94.5 - Abnormal results of liver function studies Status: Acute Assessment and Plan: clinically due to acute on chronic alcoholic hepatitis f/u lab monitor for sx/signs w/d (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) (6) Acute alcoholic pancreatitis: Qualifiers: Acute pancreatitis complication: unspecified Qualified Code(s): K85.20 - Alcohol induced acute pancreatitis without necrosis or infection Code(s): K85.20 - Alcohol induced acute pancreatitis without necrosis or infection Status: Acute Assessment and Plan: clear liquids ivf analgesics (7) Hyponatremia: Code(s): E87.1 - Hypo-osmolality and hyponatremia Status: Acute Assessment and Plan: likely due to dehydration, alcoholism 125 `03/17 continue ivf f/u lab (8) Gastric ulcer: Code(s): K25.9 - Gastric ulcer, unspecified as acute or chronic, without hemorrhage or perforation Status: Acute Assessment and Plan: not actively bleeding by 03/17 egd continue ppi f/u h/h (9) Collagenous colitis: Code(s): K52.831 - Collagenous colitis Status: Acute Assessment and Plan: clinically stable Subjective Interval history: Admitted 03/16 with low hemoglobin No further bleeding noted Headache - Intermittent, mild, chronic, Admits to taking lot of ASA at home Back pain 10/15, intermittent, chronic Cough rattling, unable to cough out anything, interfering with sleep Pain in her upper abdomen, 7-8/10, sharp, intermittently waxing and waning Diarrhea, chronic, intermittent, no bleeding Review of Systems Review of Systems: All systems reviewed & are unremarkable except as noted in HPI and below Exam Narrative: Exam Narrative: HEENT: EOMI, PERRL, pharyngeal mucosa pink and intact NECK: No JVD CHEST: COARSE RHONCHI. Normal effort. HEART: NL S1/S2, regular, no murmur ABDOMEN: BS+, soft, MILD UPPER ABDOMINAL TENDERNESS, no mass, no bruits EXTREMITIES: No cyanosis, edema, or clubbing NEUROLOGIC: CN intact and symmetric to inspection. MUSCULOSKELETAL: Tone and strength symmetric. PSYCH: Alert. Oriented to person, place, and time. Objective Data Vital Signs Vital Signs: Vital Signs - 24 hr 03/16/19 14:00 03/16/19 14:35 03/16/19 14:45 Temperature Pulse Rate 89 86 87 Pulse Rate [Radial Palpation] Respiratory Rate 20 20 20 Blood Pressure 109/65 Pulse Oximetry 100 03/16/19 14:50 03/16/19 14:58 03/16/19 15:00 Temperature 96.0 F L 96.7 F L Pulse Rate 93 97 97 Pulse Rate [Radial Palpation] Respiratory Rate 21 H 19 21 H Blood Pressure 115/64 108/53 L 106/74 Pulse Oximetry 93 100 100 03/16/19 16:00 03/16/19 17:18 03/16/19 17:25 Temperature 98.5 F Pulse Rate 85 88 Pulse Rate [Radial Palpation] Respiratory Rate 20 19 Blood Pressure 101/55 L 102/68 Pulse Oximetry 100 96 100 03/16/19 18:00 03/16/19 20:00 03/16/19 20:30 Temperature 98.5 F Pulse Rate 83 79 74 Pulse Rate [Radial Palpati
--- NOTE | 2019-03-17 14:26 | PC.NURSE ---
pt left unit for EGD at 0800
--- NOTE | 2019-03-17 14:26 | PC.NURSE ---
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
--- NOTE | 2019-03-17 14:27 | PC.NURSE ---
Echo complete 1100
[2019-03-17] MEDS: BENZONATATE 100 MG CAPSULE PO ×2 (14:43→21:25)
--- NOTE | 2019-03-17 18:58 | PC.NURSE ---
Transferred pt to 253, report given to Maggi FALCON
[2019-03-17] MEDS: PANTOPRAZOLE SODIUM IV 40 MG VIAL IV PUSH (21:25)
[2019-03-18] VITALS (13 sets, daily range): BP systolic 133–144; BP diastolic 66–83; PULSE 93–116; RESP 18–20; TEMP 36.4–37.3; O2SAT 90–97
[2019-03-18] MEDS: ALBUTEROL SULFATE NEB 2.5 MG/0.5 ML INH 5 MG INHALATION ×4 (02:22→21:31)
[2019-03-18] MEDS: IPRATROPIUM BR 0.02% INH SOLN 0.5 MG/2.5 ML VIAL INHALATION ×4 (02:23→21:31)
[2019-03-18] MEDS: methylPREDNISolone SOD SUCC 125 MG VIAL 60 MG IV PUSH ×3 (06:08→20:55)
[2019-03-18 06:34] LABS: Hematocrit 24.5 % (37.0-47.0); Hemoglobin 7.7 g/dL (12.0-15.0); Mean Corpuscular HGB Conc 31.4 g/dl (32-36); Mean Corpuscular Hemoglobin 25.4 pg (26-34); Mean Corpuscular Volume 80.9 fl (80-100); Mean Platelet Volume 8.7 fl (7.4-10.4); Platelet Count Result 436 k/mm3 (150-375); Red Blood Count 3.03 M/mm3 (4.2-5.4); White Blood Count 15.5 K/mm3 (4.5-10.0)
[2019-03-18 06:51] LABS: Lipase 1196 U/L (23-300)
[2019-03-18 07:07] LABS: Alanine Aminotransferase 107 U/L (4-35); Alkaline Phosphatase 152 U/L (38-126); Aspartate Amino Transferase 137 U/L (14-36); Bilirubin,Total 0.5 mg/dL (0.2-1.3); Blood Urea Nitrogen 7 mg/dL (7-17); Calcium 8.2 mg/dL (8.4-10.2); Carbon Dioxide 21 mmol/L (22-30); Chloride 101 mmol/L (98-107); Estimated CRCL calculation 71 ml/min; Estimated Glomerular Filt Rate > 60; Glucose 107 mg/dL (65-105); Magnesium 2.2 mg/dL (1.6-2.3); Potassium 3.9 mmol/L (3.4-5.0); Sodium 131 mmol/L (137-145)
[2019-03-18] MEDS: PANTOPRAZOLE SODIUM IV 40 MG VIAL IV PUSH ×2 (08:06→20:55)
[2019-03-18] MEDS: THIAMINE HCL 200 MG/2 ML VIAL 100 MG IV PUSH (08:07)
[2019-03-18] MEDS: FOLIC ACID 1 MG/0.2 ML INJ IV PUSH (09:49)
[2019-03-18] MEDS: BENZONATATE 100 MG CAPSULE PO ×2 (12:28→20:56)
--- NOTE | 2019-03-18 13:14 | WPDGIPROGNO ---
Progress Note: A&P Assessment and Plan (1) Gastric ulcer: Qualifiers: Gastric ulcer chronicity: acute Gastric ulcer complication status: unspecified whether hemorrhage or perforation present Qualified Code(s): K25.3 - Acute gastric ulcer without hemorrhage or perforation Code(s): K25.9 - Gastric ulcer, unspecified as acute or chronic, without hemorrhage or perforation Status: Acute Assessment and Plan: last gastric ulcer found yesterday, no bleeding. Probably from daily aspirin use, etoh, etc. continue with ppi bid. will need EGD in 3-4 months to assess healing (2) Acute blood loss anemia: Code(s): D62 - Acute posthemorrhagic anemia Status: Acute Assessment and Plan: hb mid 7's after blood transfusion and stable now. (3) Acute alcoholic pancreatitis: Qualifiers: Acute pancreatitis complication: unspecified Qualified Code(s): K85.20 - Alcohol induced acute pancreatitis without necrosis or infection Code(s): K85.20 - Alcohol induced acute pancreatitis without necrosis or infection Status: Acute Assessment and Plan: on liquid diet, advance as tolerated. (4) Elevated LFTs: Code(s): R94.5 - Abnormal results of liver function studies Status: Acute (5) Collagenous colitis: Code(s): K52.831 - Collagenous colitis Status: Acute (6) COPD (chronic obstructive pulmonary disease): Qualifiers: COPD type: unspecified COPD Qualified Code(s): J44.9 - Chronic obstructive pulmonary disease, unspecified Code(s): J44.9 - Chronic obstructive pulmonary disease, unspecified Status: Acute (7) Pneumonia: Qualifiers: Laterality: unspecified laterality Lung location: unspecified part of lung Pneumonia type: due to unspecified organism Qualified Code(s): J18.9 - Pneumonia, unspecified organism Code(s): J18.9 - Pneumonia, unspecified organism Status: Acute Assessment and Plan: on iv abx, symptomatic Subjective Interval history: she was moved to floor, no melena. Main complain is cough, shortness of breath. Still with abdominal pain but improving. Review of Systems Review of Systems: All systems reviewed & are unremarkable except as noted in HPI and below Exam Const: General: comfortable, alert, awake and active Other: ill appearing HENMT: General nose exam: nares normal Eyes: General: appearance normal, both eyes and all related structures Neck: Neck: no JVD Resp: Auscultation: rales, rhonchi and wheezes Cardio: Rate: regular rate Rhythm: regular rhythm GI: Inspection: non-distended GI Palp: Yes soft and Yes tender (mild ttp in epigastric area, no rebound) Auscultation: normal bowel sounds Skin: General skin exam: pallor Other: pale Neuro: General: gait normal Speech: normal speech Extrem: General: normal to inspection Psych: Mental Status: mental status grossly normal Objective Data Vital Signs Vital Signs: Vital Signs - 24 hr 03/17/19 16:00 03/17/19 16:31 03/17/19 16:38 Temperature 98.5 F Pulse Rate 100 96 96 Respiratory Rate 18 16 16 Blood Pressure 135/74 Pulse Oximetry 96 03/17/19 19:00 03/17/19 21:34 03/17/19 21:35 Temperature 98.4 F Pulse Rate 107 H 97 Respiratory Rate 18 18 Blood Pressure 145/77 H Pulse Oximetry 97 95 03/17/19 21:44 03/17/19 22:00 03/18/19 02:24 Temperature 98.9 F Pulse Rate 101 H 115 H 96 Respiratory Rate 18 20 18 Blood Pressure 174/85 H Pulse Oximetry 98 03/18/19 02:34 03/18/19 06:00 03/18/19 10:16 Temperature 97.5 F L Pulse Rate 99 97 Respiratory Rate 18 18 Blood Pressure 136/66 Pulse Oximetry 97 91 03/18/19 10:17 03/18/19 10:27 Temperature Pulse Rate 94 93 Respiratory Rate 18 18 Blood Pressure Pulse Oximetry Intake/Output Intake/Output: Intake & Output 03/15/19 03/16/19 03/17/19 03/18/19 23:59 23:59 23:59 23:59 Intake Total 4863.2 1950 1040 O
--- NOTE | 2019-03-18 17:11 | P.PNIM_ITS ---
Progress Note: A&P Assessment and Plan (1) Severe anemia: Code(s): D64.9 - Anemia, unspecified Status: Acute Assessment and Plan: * due to acute gi blood loss * stabilized after transfusion (2) Acute kidney injury: Code(s): N17.9 - Acute kidney failure, unspecified Status: Acute Assessment and Plan: * resolved (3) GI bleed: Qualifiers: GI bleed type/associated pathology: gastric ulcer Qualified Code(s): K25.4 - Chronic or unspecified gastric ulcer with hemorrhage Code(s): K92.2 - Gastrointestinal hemorrhage, unspecified Status: Acute Assessment and Plan: * resolved (4) Pneumonia: Qualifiers: Laterality: unspecified laterality Lung location: unspecified part of lung Pneumonia type: due to unspecified organism Qualified Code(s): J18.9 - Pneumonia, unspecified organism Code(s): J18.9 - Pneumonia, unspecified organism Status: Acute Assessment and Plan: * continue azithromycin, ceftriaxone (5) Elevated LFTs: Code(s): R94.5 - Abnormal results of liver function studies Status: Acute Assessment and Plan: * clinically due to acute on chronic alcoholic hepatitis * f/u lab * monitor for sx/signs w/d (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) (6) Acute alcoholic pancreatitis: Qualifiers: Acute pancreatitis complication: unspecified Qualified Code(s): K85.20 - Alcohol induced acute pancreatitis without necrosis or infection Code(s): K85.20 - Alcohol induced acute pancreatitis without necrosis or infection Status: Acute Assessment and Plan: * clear liquids * analgesics (7) Hyponatremia: Code(s): E87.1 - Hypo-osmolality and hyponatremia Status: Acute Assessment and Plan: * likely due to dehydration, alcoholism * 125 `03/17 * 03/18 131 * f/u lab (8) Gastric ulcer: Qualifiers: Gastric ulcer chronicity: acute Gastric ulcer complication status: unspecified whether hemorrhage or perforation present Qualified Code(s): K25.3 - Acute gastric ulcer without hemorrhage or perforation Code(s): K25.9 - Gastric ulcer, unspecified as acute or chronic, without hemorrhage or perforation Status: Acute Assessment and Plan: * not actively bleeding by 03/17 egd * continue ppi * f/u h/h (9) Collagenous colitis: Code(s): K52.831 - Collagenous colitis Status: Acute Assessment and Plan: * clinically stable (10) COPD (chronic obstructive pulmonary disease): Qualifiers: COPD type: unspecified COPD Qualified Code(s): J44.9 - Chronic obstructive pulmonary disease, unspecified Code(s): J44.9 - Chronic obstructive pulmonary disease, unspecified Status: Acute Assessment and Plan: * with acute LRTI * continue antibiotics, steroids, bronchodilators, pulmonary toilet, mucolytic Subjective Interval history: * Admitted 03/16 with low hemoglobin * No further bleeding noted * Back pain 10/15, intermittent, chronic * Cough rattling, wheezing, unable to cough out anything, interfering with sleep * Diarrhea, chronic, intermittent, no bleeding, now no stool for 2 days Exam Narrative: Exam Narrative: HEENT: EOMI, PERRL, pharyngeal mucosa pink and intact NECK: No JVD CHEST: COARSE RHONCHI. Normal effort. HEART: NL S1/S2, regular, no murmur ABDOMEN: BS+, soft, NO UPPER ABDOMINAL TENDERNESS, no mass, no bruits EXTREMITIES: No cyanosis, edema, or clubbing NEUROLOGIC: CN intact and symmetric to inspection
--- NOTE | 2019-03-18 17:11 | PM.IMPN ---
Progress Note: A&P Assessment and Plan (1) Severe anemia: Code(s): D64.9 - Anemia, unspecified Status: Acute Assessment and Plan: due to acute gi blood loss stabilized after transfusion (2) Acute kidney injury: Code(s): N17.9 - Acute kidney failure, unspecified Status: Acute Assessment and Plan: resolved (3) GI bleed: Qualifiers: GI bleed type/associated pathology: gastric ulcer Qualified Code(s): K25.4 - Chronic or unspecified gastric ulcer with hemorrhage Code(s): K92.2 - Gastrointestinal hemorrhage, unspecified Status: Acute Assessment and Plan: resolved (4) Pneumonia: Qualifiers: Laterality: unspecified laterality Lung location: unspecified part of lung Pneumonia type: due to unspecified organism Qualified Code(s): J18.9 - Pneumonia, unspecified organism Code(s): J18.9 - Pneumonia, unspecified organism Status: Acute Assessment and Plan: continue azithromycin, ceftriaxone (5) Elevated LFTs: Code(s): R94.5 - Abnormal results of liver function studies Status: Acute Assessment and Plan: clinically due to acute on chronic alcoholic hepatitis f/u lab monitor for sx/signs w/d (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) (6) Acute alcoholic pancreatitis: Qualifiers: Acute pancreatitis complication: unspecified Qualified Code(s): K85.20 - Alcohol induced acute pancreatitis without necrosis or infection Code(s): K85.20 - Alcohol induced acute pancreatitis without necrosis or infection Status: Acute Assessment and Plan: clear liquids analgesics (7) Hyponatremia: Code(s): E87.1 - Hypo-osmolality and hyponatremia Status: Acute Assessment and Plan: likely due to dehydration, alcoholism 125 `03/17 03/18 131 f/u lab (8) Gastric ulcer: Qualifiers: Gastric ulcer chronicity: acute Gastric ulcer complication status: unspecified whether hemorrhage or perforation present Qualified Code(s): K25.3 - Acute gastric ulcer without hemorrhage or perforation Code(s): K25.9 - Gastric ulcer, unspecified as acute or chronic, without hemorrhage or perforation Status: Acute Assessment and Plan: not actively bleeding by 03/17 egd continue ppi f/u h/h (9) Collagenous colitis: Code(s): K52.831 - Collagenous colitis Status: Acute Assessment and Plan: clinically stable (10) COPD (chronic obstructive pulmonary disease): Qualifiers: COPD type: unspecified COPD Qualified Code(s): J44.9 - Chronic obstructive pulmonary disease, unspecified Code(s): J44.9 - Chronic obstructive pulmonary disease, unspecified Status: Acute Assessment and Plan: with acute LRTI continue antibiotics, steroids, bronchodilators, pulmonary toilet, mucolytic Subjective Interval history: Admitted 03/16 with low hemoglobin No further bleeding noted Back pain 10/15, intermittent, chronic Cough rattling, wheezing, unable to cough out anything, interfering with sleep Diarrhea, chronic, intermittent, no bleeding, now no stool for 2 days Exam Narrative: Exam Narrative: HEENT: EOMI, PERRL, pharyngeal mucosa pink and intact NECK: No JVD CHEST: COARSE RHONCHI. Normal effort. HEART: NL S1/S2, regular, no murmur ABDOMEN: BS+, soft, NO UPPER ABDOMINAL TENDERNESS, no mass, no bruits EXTREMITIES: No cyanosis, edema, or clubbing NEUROLOGIC: CN intact and symmetric to inspection. MUSCULOSKELETAL: Tone and strength symmetric. PSYCH: Alert. Oriented to person, place, and time. Objective Data Vital Signs Vital Signs: Vital Signs - 24 hr 03/17/19 19:00 03/17/19 21:34 03/17/19 21:35 Temperature 98.4 F Pulse Rate 107 H 97 Respiratory Rate 18 18 Blood Pressure 145/77 H Pulse Oximetry 97 95 03/17/19 21:44 03/17/19 22:00 03/18/19 02:24 Temperature 98.9 F Pulse Rate 101 H 115 H 96 Respiratory Rate 1
[2019-03-19] VITALS (27 sets, daily range): BP systolic 95–143; BP diastolic 59–99; PULSE 24–135; RESP 14–120; TEMP 36.1–36.8; O2SAT 84–100
[2019-03-19] MEDS: ALBUTEROL SULFATE NEB 2.5 MG/0.5 ML INH 5 MG INHALATION ×4 (03:26→19:49)
[2019-03-19] MEDS: IPRATROPIUM BR 0.02% INH SOLN 0.5 MG/2.5 ML VIAL INHALATION ×4 (03:26→19:49)
[2019-03-19] MEDS: FUROSEMIDE INJ 40 MG/4 ML VIAL IV PUSH ×3 (03:53→17:00)
[2019-03-19 03:56] LABS: Alveolar/Arterial O2 Gradient 170.9 mmHg; Base Excess ABG -7.6 mEq/l (+/-2.0); Fractional Inspired Oxygen 36 %; HCO3 ABG 18.2 mEq/l (22.0-26.0); Oxygen Content ABG 9.7 %vol (16.0-22.0); Oxyhemoglobin 71.5 % THb (90.0-100.0); PCO2 ABG 38.1 mmHg (35.0-45.0); PO2 FiO2 Ratio Arterial Blood 1.16 %; Total Hemoglobin 9.6 g/dL (12.0-18.0); pH ABG 7.297 (7.350-7.450)
--- NOTE | 2019-03-19 03:56 | PM.EVENT ---
Event Note Event Note: Called by nursing staff to assess this 58 year old female who is being treated for severe anemia, GI bleed, and pneumonia secondary to acute respiratory distress. On my arrival to bedside the patient is breathing with a respiratory rate in the mid 30s and using accessory muscles. She cannot speak in full sentences. CXR was obtained which demonstrated diffuse pulmonary edema. She is not currently on any IV fluids. ABG was obtained. A/P Acute Hypoxemic respiratory failure secondary to pulmonary edema ~Transfer to IMU ~Check am labs now including ABG, H/H, troponin, CBCd ~Bipap initiation ~Ativan PRN for anxiety ~Continuous pulse oximetry ~Repeat ABG in 1 hour. ~I will continue to reassess as needed overnight.
[2019-03-19 03:58] LABS: PO2 ABG 41.6 mmHg (80.0-100.0)
[2019-03-19 03:59] LABS: Device NASAL CANNULA; Modified Allen's Test Pass; Oxygen Saturation ABG 72.1 % (95.0-100.0); Site Drawn RIGHT RADIAL
--- NOTE | 2019-03-19 03:59 | ECG_ITS ---
Measurements Intervals [place] Rate: 112 P: 63 IL: 124 QRS: 55 QRSD: 104 T: 111 QT: 329 QTc: 449 Interpretive Statements SINUS TACHYCARDIA BORDERLINE ST-T WAVE ABNORMALITY- DIFFUSE LEADS ABNORMAL ECG Electronically Signed On 03-19-2019 7:13:20 DATA MANAGER by Nick Whitt D.O.
--- NOTE | 2019-03-19 04:11 | PC.NURSE ---
Transferred patient to room 200, gave report to EZEKIEL Royal at 0405. All belongings brought with patient. Called family to notify them.
[2019-03-19] MEDS: LORAZEPAM INJ 2 MG/ML VIAL 1 MG IV PUSH (04:23)
[2019-03-19 04:26] LABS: Hematocrit 28.3 % (37.0-47.0); Hemoglobin 8.5 g/dL (12.0-15.0); Mean Corpuscular Hemoglobin 25.1 pg (26-34); Mean Corpuscular Volume 83.5 fl (80-100); Mean Platelet Volume 8.8 fl (7.4-10.4); Platelet Count Result 585 k/mm3 (150-375); Red Blood Count 3.39 M/mm3 (4.2-5.4); Red Cell Distribution Width 20.1 % (11.5-14.5); White Blood Count 25.7 K/mm3 (4.5-10.0)
[2019-03-19 04:42] LABS: Albumin Level 3.3 g/dL (3.5-5.1); Alkaline Phosphatase 184 U/L (38-126); Aspartate Amino Transferase 96 U/L (14-36); Bilirubin,Total 0.8 mg/dL (0.2-1.3); Blood Urea Nitrogen 8 mg/dL (7-17); Calcium 8.7 mg/dL (8.4-10.2); Carbon Dioxide 19 mmol/L (22-30); Chloride 94 mmol/L (98-107); Estimated CRCL calculation 62 ml/min; Estimated Glomerular Filt Rate > 60; Glucose 186 mg/dL (65-105); Magnesium 2.2 mg/dL (1.6-2.3); Potassium 4.6 mmol/L (3.4-5.0); Sodium 128 mmol/L (137-145)
[2019-03-19 04:59] LABS: Alanine Aminotransferase 91 U/L (4-35)
--- NOTE | 2019-03-19 04:59 | PC.NURSE ---
This patient, Anita Cutler, was received from [facility] 03/19/19 0400 TO RM 200 DUE TO RESP. DISTRESS AND BIPAP. Personal belongings list checked and signed. Patient/family oriented to unit policies and routines
[2019-03-19 05:00] LABS: Troponin I 0.136 ng/mL (0.000-0.034)
[2019-03-19 05:59] LABS: Alveolar/Arterial O2 Gradient 303.9 mmHg; Base Excess ABG -2.6 mEq/l (+/-2.0); Fractional Inspired Oxygen 60 %; HCO3 ABG 23.9 mEq/l (22.0-26.0); Oxygen Content ABG 11.9 %vol (16.0-22.0); Oxyhemoglobin 90.6 % THb (90.0-100.0); PCO2 ABG 49.6 mmHg (35.0-45.0); PO2 ABG 69.3 mmHg (80.0-100.0); PO2 FiO2 Ratio Arterial Blood 1.16 %; Total Hemoglobin 9.3 g/dL (12.0-18.0)
[2019-03-19 06:00] LABS: Device NON-INVASIVE VENT; Non-Invasive Expiratory Pressure 6 CMH2O; Non-Invasive Inspiratory Pressure 12 CMH2O; Non-Invasive Vent Rate 14 /MIN; Site Drawn LEFT BRACHIAL
[2019-03-19] MEDS: methylPREDNISolone SOD SUCC 125 MG VIAL 60 MG IV PUSH ×3 (06:12→20:49)
[2019-03-19 08:19] LABS: Lipase 355 U/L (23-300)
--- NOTE | 2019-03-19 08:30 | ECG_ITS ---
Measurements Intervals [place] Rate: 113 P: 77 CT: 146 QRS: 61 QRSD: 104 T: 121 QT: 307 QTc: 422 Interpretive Statements SINUS TACHYCARDIA ST-T WAVE ABNORMALITY IN LATERAL LEADS- CONSIDER ISCHEMIA ABNORMAL ECG Electronically Signed On 03-19-2019 9:37:25 SOFTWARE MAINTENANCE ENGINEER by Nick Whitt D.O.
[2019-03-19 08:46] LABS: Troponin I 0.217 ng/mL (0.000-0.034)
--- NOTE | 2019-03-19 09:23 | P.PNIM_ITS ---
Progress Note: A&P Assessment and Plan (1) Acute respiratory failure: Qualifiers: Respiratory failure complication: hypoxia and hypercapnia Qualified Code(s): J96.01 - Acute respiratory failure with hypoxia; J96.02 - Acute respiratory failure with hypercapnia Code(s): J96.00 - Acute respiratory failure, unspecified whether with hypoxia or hypercapnia Status: Acute Assessment and Plan: * due to pulmonary edema superimposed on pneumonia and copd * continue diuresis, antibiotics, steroids, bronchodilators * wean bipap as tolerated (2) Pulmonary edema: Qualifiers: Chronicity: acute Qualified Code(s): J81.0 - Acute pulmonary edema Code(s): J81.1 - Chronic pulmonary edema Status: Acute Assessment and Plan: * possible redistribution of 3rd spaced fluid * LVEF was good on 03/17 echo (55-60%) * elevated troponin suggests type 2 infarct * ACS less likely * EKG with mild ST depression * repeat troponin * f/u ekg * diuresis * cardiology to see (3) Severe anemia: Code(s): D64.9 - Anemia, unspecified Status: Acute Assessment and Plan: * due to acute gi blood loss * stabilized after transfusion (4) Pneumonia: Qualifiers: Laterality: unspecified laterality Lung location: unspecified part of lung Pneumonia type: due to unspecified organism Qualified Code(s): J18.9 - Pneumonia, unspecified organism Code(s): J18.9 - Pneumonia, unspecified organism Status: Acute Assessment and Plan: * continue azithromycin, ceftriaxone day 4 (5) Acute kidney injury: Code(s): N17.9 - Acute kidney failure, unspecified Status: Acute Assessment and Plan: * resolved (6) Elevated LFTs: Code(s): R94.5 - Abnormal results of liver function studies Status: Acute Assessment and Plan: * clinically due to acute on chronic alcoholic hepatitis * f/u lab * monitor for sx/signs w/d (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) (7) GI bleed: Qualifiers: GI bleed type/associated pathology: gastric ulcer Qualified Code(s): K25.4 - Chronic or unspecified gastric ulcer with hemorrhage Code(s): K92.2 - Gastrointestinal hemorrhage, unspecified Status: Acute Assessment and Plan: * resolved (8) Acute alcoholic pancreatitis: Qualifiers: Acute pancreatitis complication: unspecified Qualified Code(s): K85.20 - Alcohol induced acute pancreatitis without necrosis or infection Code(s): K85.20 - Alcohol induced acute pancreatitis without necrosis or infection Status: Acute Assessment and Plan: * clear liquids * analgesics (9) Hyponatremia: Code(s): E87.1 - Hypo-osmolality and hyponatremia Status: Acute Assessment and Plan: * likely due to dehydration, alcoholism * 125 `03/17 * 03/18 131 * f/u lab (10) Gastric ulcer: Qualifiers: Gastric ulcer chronicity: acute Gastric ulcer complication status: unspecified whether hemorrhage or perforation present Qualified Code(s): K25.3 - Acute gastric ulcer without hemorrhage or perforation Code(s): K25.9 - Gastric ulcer, unspecified as acute or chronic, without hemorrhage or perforation Status: Acute Assessment and Plan: * not actively bleeding by 03/17 egd * continue ppi * f/u h/h (11) Collagenous colitis: Code(s): K52.831 - Collagenous colitis Status: Acute Assessment and Plan: * clinically stable (12) COPD (chronic obstructive pulmonary dise
--- NOTE | 2019-03-19 09:23 | PM.IMPN ---
Progress Note: A&P Assessment and Plan (1) Acute respiratory failure: Qualifiers: Respiratory failure complication: hypoxia and hypercapnia Qualified Code(s): J96.01 - Acute respiratory failure with hypoxia; J96.02 - Acute respiratory failure with hypercapnia Code(s): J96.00 - Acute respiratory failure, unspecified whether with hypoxia or hypercapnia Status: Acute Assessment and Plan: due to pulmonary edema superimposed on pneumonia and copd continue diuresis, antibiotics, steroids, bronchodilators wean bipap as tolerated (2) Pulmonary edema: Qualifiers: Chronicity: acute Qualified Code(s): J81.0 - Acute pulmonary edema Code(s): J81.1 - Chronic pulmonary edema Status: Acute Assessment and Plan: possible redistribution of 3rd spaced fluid LVEF was good on 03/17 echo (55-60%) elevated troponin suggests type 2 infarct ACS less likely EKG with mild ST depression repeat troponin f/u ekg diuresis cardiology to see (3) Severe anemia: Code(s): D64.9 - Anemia, unspecified Status: Acute Assessment and Plan: due to acute gi blood loss stabilized after transfusion (4) Pneumonia: Qualifiers: Laterality: unspecified laterality Lung location: unspecified part of lung Pneumonia type: due to unspecified organism Qualified Code(s): J18.9 - Pneumonia, unspecified organism Code(s): J18.9 - Pneumonia, unspecified organism Status: Acute Assessment and Plan: continue azithromycin, ceftriaxone day 4 (5) Acute kidney injury: Code(s): N17.9 - Acute kidney failure, unspecified Status: Acute Assessment and Plan: resolved (6) Elevated LFTs: Code(s): R94.5 - Abnormal results of liver function studies Status: Acute Assessment and Plan: clinically due to acute on chronic alcoholic hepatitis f/u lab monitor for sx/signs w/d (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) (7) GI bleed: Qualifiers: GI bleed type/associated pathology: gastric ulcer Qualified Code(s): K25.4 - Chronic or unspecified gastric ulcer with hemorrhage Code(s): K92.2 - Gastrointestinal hemorrhage, unspecified Status: Acute Assessment and Plan: resolved (8) Acute alcoholic pancreatitis: Qualifiers: Acute pancreatitis complication: unspecified Qualified Code(s): K85.20 - Alcohol induced acute pancreatitis without necrosis or infection Code(s): K85.20 - Alcohol induced acute pancreatitis without necrosis or infection Status: Acute Assessment and Plan: clear liquids analgesics (9) Hyponatremia: Code(s): E87.1 - Hypo-osmolality and hyponatremia Status: Acute Assessment and Plan: likely due to dehydration, alcoholism 125 `03/17 03/18 131 f/u lab (10) Gastric ulcer: Qualifiers: Gastric ulcer chronicity: acute Gastric ulcer complication status: unspecified whether hemorrhage or perforation present Qualified Code(s): K25.3 - Acute gastric ulcer without hemorrhage or perforation Code(s): K25.9 - Gastric ulcer, unspecified as acute or chronic, without hemorrhage or perforation Status: Acute Assessment and Plan: not actively bleeding by 03/17 egd continue ppi f/u h/h (11) Collagenous colitis: Code(s): K52.831 - Collagenous colitis Status: Acute Assessment and Plan: clinically stable (12) COPD (chronic obstructive pulmonary disease): Qualifiers: COPD type: unspecified COPD Qualified Code(s): J44.9 - Chronic obstructive pulmonary disease, unspecified Code(s): J44.9 - Chronic obstructive pulmonary disease, unspecified Status: Acute Assessment and Plan: with acute LRTI continue antibiotics, steroids, bronchodilators, pulmonary toilet, mucolytic Subjective Interval history: 03/19 PM worsened dyspnea with pulmonary edema on CXR, so transfe
[2019-03-19] MEDS: THIAMINE HCL 200 MG/2 ML VIAL 100 MG IV PUSH (10:34)
[2019-03-19] MEDS: FOLIC ACID 1 MG/0.2 ML INJ IV PUSH (10:36)
[2019-03-19] MEDS: PANTOPRAZOLE SODIUM IV 40 MG VIAL IV PUSH ×2 (10:36→20:49)
[2019-03-19] MEDS: POTASSIUM CHLORIDE 20 MEQ PACKET (FOR LIQUID) PO (10:37)
[2019-03-19 12:23] LABS: Troponin I 0.245 ng/mL (0.000-0.034)
--- NOTE | 2019-03-19 15:39 | PM.CNCAR ---
Assessment and Plan Assessment and plan (1) Acute alcoholic pancreatitis: Qualifiers: Acute pancreatitis complication: unspecified Qualified Code(s): K85.20 - Alcohol induced acute pancreatitis without necrosis or infection Code(s): K85.20 - Alcohol induced acute pancreatitis without necrosis or infection Status: Acute Assessment and Plan: Resolving with bowel rest, hydration. Defer to GI and primary service. (2) Pneumonia: Qualifiers: Laterality: unspecified laterality Lung location: unspecified part of lung Pneumonia type: due to unspecified organism Qualified Code(s): J18.9 - Pneumonia, unspecified organism Code(s): J18.9 - Pneumonia, unspecified organism Status: Acute Assessment and Plan: Continue IV antibiotics per primary service. Chest x-ray suggestive of pneumonia however also pulmonary edema most recent study. (3) Elevated troponin I level: Code(s): R79.89 - Other specified abnormal findings of blood chemistry Status: Acute Assessment and Plan: Most likely type 2 infarct supply demand mismatch not acute coronary syndrome and/or plaque rupture given profound anemia presentation requiring aggressive fluid resuscitation, transfusion in setting of relative hypotension, malnutrition and acute hypoxic respiratory failure. While I cannot exclude underlying CAD she denied prior symptoms of myocardial ischemia. Her EKG nor troponin trend are highly suggestive of acute coronary syndrome. I would exercise caution with diuresis. Continue BiPAP support, bronchodilator, antibiotic therapy. (4) Acute respiratory failure: Qualifiers: Respiratory failure complication: hypoxia and hypercapnia Qualified Code(s): J96.01 - Acute respiratory failure with hypoxia; J96.02 - Acute respiratory failure with hypercapnia Code(s): J96.00 - Acute respiratory failure, unspecified whether with hypoxia or hypercapnia Status: Acute Assessment and Plan: Possibly related to high-output failure aggressive volume resuscitation, myocardial strain with profound anemia and now with hypoxic respiratory failure. I do not feel she had a primary myocardial infarction acutely which further decompensated her, however, this cannot be entirely excluded. Nonetheless, she clearly is not a candidate for antiplatelet and/or anticoagulant therapy given profound anemia, GI blood loss and active acute gastric ulcer. Conservative management. May consider ischemic evaluation infusion which patient has recovered further. Avoid dehydration, hypovolemia with IV diuresis. Accurate input and output. Repeat chest x-ray in a.m.. Repeat 12 lead EKG in a.m.. Patient is very ill and complicated. SCDs for DVT prophylaxis. Patient is not a candidate for antiplatelet and anticoagulant therapy. Caution to avoid hypotension. Follow H&H closely. Further recommendation to follow based on patient's clinical response to therapy. (5) Pulmonary edema: Qualifiers: Chronicity: acute Qualified Code(s): J81.0 - Acute pulmonary edema Code(s): J81.1 - Chronic pulmonary edema Status: Acute Assessment and Plan: As above. (6) Acute blood loss anemia: Code(s): D62 - Acute posthemorrhagic anemia Status: Acute Assessment and Plan: As above, secondary to gastric ulcer. (7) Gastric ulcer: Qualifiers: Gastric ulcer chronicity: acute Gastric ulcer complication status: unspecified whether hemorrhage or perforation present Qualified Code(s): K25.3 - Acute gastric ulcer without hemorrhage or perforation Code(s): K25.9 - Gastric ulcer, unspecified as acute or chronic, without hemorrhage or perforation Status: Acute Assessment and Plan: As above. GI following. Continue IV ppi. Monitor for bleeding. Transfuse as needed. Secondary to NSAID use and alcohol. (8) Alcoholic hepatitis: Qualifiers: A
--- NOTE | 2019-03-19 16:20 | WPDGIPROGNO ---
Progress Note: A&P Assessment and Plan (1) Gastric ulcer: Qualifiers: Gastric ulcer chronicity: acute Gastric ulcer complication status: unspecified whether hemorrhage or perforation present Qualified Code(s): K25.3 - Acute gastric ulcer without hemorrhage or perforation Code(s): K25.9 - Gastric ulcer, unspecified as acute or chronic, without hemorrhage or perforation Status: Acute Assessment and Plan: large gastric ulcer- no need of endoscopic intervention. Continue high dose iv ppi (2) GI bleed: Qualifiers: GI bleed type/associated pathology: gastric ulcer Qualified Code(s): K25.4 - Chronic or unspecified gastric ulcer with hemorrhage Code(s): K92.2 - Gastrointestinal hemorrhage, unspecified Status: Acute (3) Severe anemia: Code(s): D64.9 - Anemia, unspecified Status: Acute Assessment and Plan: hb stable after blood transfusion (4) Pulmonary edema: Qualifiers: Chronicity: acute Qualified Code(s): J81.0 - Acute pulmonary edema Code(s): J81.1 - Chronic pulmonary edema Status: Acute Assessment and Plan: cardiology on board now. (5) Acute respiratory failure: Qualifiers: Respiratory failure complication: hypoxia and hypercapnia Qualified Code(s): J96.01 - Acute respiratory failure with hypoxia; J96.02 - Acute respiratory failure with hypercapnia Code(s): J96.00 - Acute respiratory failure, unspecified whether with hypoxia or hypercapnia Status: Acute Assessment and Plan: she is sicker with pulmonary edema, had more respiratory issues and requiring bipap, on medical treatment. Primary called cardiology. (6) Acute blood loss anemia: Code(s): D62 - Acute posthemorrhagic anemia Status: Acute Assessment and Plan: monitor for signs of rebleeding (7) Alcoholic hepatitis: Qualifiers: Ascites presence: unspecified Qualified Code(s): K70.10 - Alcoholic hepatitis without ascites Code(s): K70.10 - Alcoholic hepatitis without ascites Status: Acute Subjective Interval history: worsening shortness of breath last night and hypoxemia, noted more pulmonary edema also had positive troponin. Now she is on bipap. No report of GI bleeding. Review of Systems Review of Systems: All systems reviewed & are unremarkable except as noted in HPI and below Exam Const: General: alert, awake and acute distress moderate and respiratory Other: ill appearing, using bipap HENMT: General nose exam: nares normal Eyes: General: appearance normal, both eyes and all related structures Neck: Neck: no JVD Resp: Auscultation: crackles, rales, rhonchi and wheezes Cardio: Rate: regular rate Rhythm: regular rhythm GI: Inspection: non-distended GI Palp: Yes soft and Yes tender (mild ttp in epigastric area, no rebound) Auscultation: normal bowel sounds Skin: General skin exam: pallor Other: pale Neuro: General: oriented to place and oriented to time Extrem: General: normal to inspection Psych: Mental Status: mental status grossly normal Objective Data Vital Signs Vital Signs: Vital Signs - 24 hr 03/18/19 20:59 03/18/19 21:32 03/18/19 21:35 Temperature 97.9 F Pulse Rate 116 H 102 H Pulse Rate [Bilateral Pedal (Dorsalis Pedis)] Respiratory Rate 20 18 Blood Pressure 133/77 Pulse Oximetry 90 90 03/18/19 21:40 03/19/19 00:00 03/19/19 03:27 Temperature 97.6 F Pulse Rate 113 H 87 126 H Pulse Rate [Bilateral Pedal (Dorsalis Pedis)] Respiratory Rate 18 20 18 Blood Pressure 143/99 H Pulse Oximetry 100 03/19/19 03:42 03/19/19 04:00 03/19/19 04:04 Temperature 98.2 F Pulse Rate 121 H 125 H 135 H Pulse Rate [Bilateral Pedal (Dorsalis Pedis)] 125 H Respiratory Rate 18 28 H 33 H Blood Pressure 120/87 Pulse Oximetry 94 94 03/19/19 06:00 03/19/19 06:01 03/19/19 08:00 Temperature 97.4 F L Pulse Rate 105 H 120 H 102 H
[2019-03-19] MEDS: LORAZEPAM INJ 2 MG/ML VIAL 0.5 MG IV PUSH (23:34)
[2019-03-20] VITALS (27 sets, daily range): BP systolic 103–132; BP diastolic 64–92; PULSE 77–133; RESP 16–108; TEMP 36.3–37.2; O2SAT 90–100
--- NOTE | 2019-03-20 | ECHOL_ITS ---
Patient Info Name: Anita Cutler Age: 58 years : 1960 Gender: Female Ht: 63 in Wt: 118 lbs BSA: 1.54 m2 HR: 120 bpm BP: 117 / 64 mmHg Heart Rhythm: Sinus Rhythm, Tachycardia Technical Quality: Good Exam Date: 03/20/2019 12:10 PM Exam Location: [facility] Pulmonary Exam Room: 1999-04 Patient Status: Inpatient Admit Date: 03/16/2019 Staff Ordering Physician: Jorge Stubbs MD Sponge Clipper: Rohini Doe RDCS Attending Provider: Erica Thomas MD Referring Physician: Enoc JENNINGS; Exam Type: CA echo limited Study Info Indications - chf elevated trops eval, lv rv pulm htn Limited two-dimensional transthoracic echocardiogram is performed. Summary 1. Left ventricular systolic function is severely reduced, estimated at 25-30%. 2. Akinesis of the apical septal, mid anteroseptal, mid inferoseptal, and mid anterior koehler. There is relative sparing of the apical and basal inferior, basal inferolateral, and mid and basal anterolateral wall. 3. Right ventricular systolic function is mildly reduced. 4. There is trace tricuspid valve regurgitation. 5. No pulmonary hypertension, estimated pulmonary arterial systolic pressure is 24 mmHg. 6. Normal inferior vena cava with >50% collapse upon inspiration consistent with normal right atrial pressure, 10 mmHg. 7. Dilated coronary sinus. 8. Compared to prior study 03/17/2019, severe LV dysfunction with wall motion abnormalities is now appreciated. Left Ventricle Left ventricular chamber dimension is normal. Left ventricular systolic function is severely reduced, estimated at 25-30%. There is no increased left ventricular wall thickness. Akinesis of the apical septal, mid anteroseptal, mid inferoseptal, and mid anterior koehler. There is relative sparing of the apical and basal inferior, basal inferolateral, and mid and basal anterolateral wall. Right Ventricle Right ventricular chamber dimension is normal. Right ventricular systolic function is mildly reduced. Left Atria Left atrial chamber dimension is normal. Right Atria Right atrial chamber dimension is normal. Aortic Valve The aortic valve is trileaflet. Pulmonic Valve The pulmonic valve is normal. Mitral Valve The mitral valve has normal leaflets. Tricuspid Valve The tricuspid valve leaflets are normal. There is trace tricuspid valve regurgitation. No pulmonary hypertension, estimated pulmonary arterial systolic pressure is 24 mmHg. Other Findings Dilated coronary sinus. Pericardium/Pleural The pericardium appears normal. There is trivial pericardial effusion. Inferior Vena Cava Normal inferior vena cava with >50% collapse upon inspiration consistent with normal right atrial pressure, 10 mmHg. Aorta The aortic root size at the sinus of Valsalva is normal. Tricuspid Valve Name Value Normal TV Regurgitation Doppler TR Peak Velocity 187 cm/s TR Peak Gradient 12 mmHg Estimated PAP/RSVP RA Pressure 10 mmHg <=5 PA Systolic Pressure 24 mmHg <36 RV Systolic Pressure 24 mmHg
[2019-03-20] MEDS: ALBUTEROL SULFATE NEB 2.5 MG/0.5 ML INH 5 MG INHALATION ×3 (01:06→14:43)
[2019-03-20] MEDS: IPRATROPIUM BR 0.02% INH SOLN 0.5 MG/2.5 ML VIAL INHALATION ×4 (01:06→20:18)
[2019-03-20 05:04] LABS: Hematocrit 24.7 % (37.0-47.0); Hemoglobin 7.7 g/dL (12.0-15.0); Mean Corpuscular HGB Conc 31.2 g/dl (32-36); Mean Corpuscular Hemoglobin 25.1 pg (26-34); Mean Corpuscular Volume 80.5 fl (80-100); Mean Platelet Volume 8.8 fl (7.4-10.4); Platelet Count Result 412 k/mm3 (150-375); Red Blood Count 3.07 M/mm3 (4.2-5.4); Red Cell Distribution Width 21.2 % (11.5-14.5); White Blood Count 21.5 K/mm3 (4.5-10.0)
[2019-03-20 05:34] LABS: Alanine Aminotransferase 66 U/L (4-35); Albumin Level 2.8 g/dL (3.5-5.1); Alkaline Phosphatase 221 U/L (38-126); Aspartate Amino Transferase 48 U/L (14-36); Bilirubin,Total 0.5 mg/dL (0.2-1.3); Blood Urea Nitrogen 9 mg/dL (7-17); Calcium 8.2 mg/dL (8.4-10.2); Carbon Dioxide 33 mmol/L (22-30); Chloride 90 mmol/L (98-107); Estimated CRCL calculation 62 ml/min; Estimated Glomerular Filt Rate > 60; Glucose 118 mg/dL (65-105); Magnesium 1.9 mg/dL (1.6-2.3); Potassium 3.8 mmol/L (3.4-5.0); Sodium 130 mmol/L (137-145)
[2019-03-20] MEDS: methylPREDNISolone SOD SUCC 125 MG VIAL 60 MG IV PUSH ×3 (05:35→21:50)
[2019-03-20 07:09] LABS: Lipase 487 U/L (23-300)
[2019-03-20] MEDS: FUROSEMIDE INJ 40 MG/4 ML VIAL IV PUSH (09:00)
[2019-03-20] MEDS: PANTOPRAZOLE SODIUM IV 40 MG VIAL IV PUSH ×2 (09:00→21:16)
[2019-03-20] MEDS: THIAMINE HCL 200 MG/2 ML VIAL 100 MG IV PUSH (09:00)
[2019-03-20] MEDS: POTASSIUM CHLORIDE 20 MEQ PACKET (FOR LIQUID) PO (09:01)
[2019-03-20] MEDS: FOLIC ACID 1 MG/0.2 ML INJ IV PUSH (09:06)
[2019-03-20 10:14] LABS: Alveolar/Arterial O2 Gradient 321.4 mmHg; Base Excess ABG 5.7 mEq/l (+/-2.0); Carboxyhemoglobin 0.3 % THb (0-2.0); Fractional Inspired Oxygen 60 %; HCO3 ABG 30.2 mEq/l (22.0-26.0); Methemoglobin ABG 0.1 %THb (0-1.5); Oxygen Content ABG 12.6 %vol (16.0-22.0); Oxygen Saturation ABG 91.6 % (95.0-100.0); Oxyhemoglobin 89.9 % THb (90.0-100.0); PCO2 ABG 43.5 mmHg (35.0-45.0); PO2 ABG 58.6 mmHg (80.0-100.0); PO2 FiO2 Ratio Arterial Blood 0.98 %; Reduced Hemoglobin 9.7 %THb (0-5.0); Total Hemoglobin 9.9 g/dL (12.0-18.0); pH ABG 7.459 (7.350-7.450)
[2019-03-20 10:19] LABS: Modified Allen's Test Pass; Site Drawn LEFT RADIAL
[2019-03-20 10:20] LABS: Device NON-INVASIVE VENT; Non-Invasive Expiratory Pressure 6 CMH2O; Non-Invasive Inspiratory Pressure 12 CMH2O; Non-Invasive Vent Rate 14 /MIN
--- NOTE | 2019-03-20 11:23 | PCDIET ---
Nutrition Follow-Up Complete: Nutrition Diagnosis: Inadequate oral intake related to pancreatitis as evidenced by NPO/clear liquid diet since admission. Nutrition Goal: Intakes >50% on advanced diet. Goal not met. Patient on clear liquid diet with 1L fluid restriction and now requiring bipap. Patient communicates (via notepad) she would be able to tolerate more clear liquids if she could tolerate being off bipap for longer periods of time. Average recorded intake 54% of meals. Last recorded weight is 53.9 kg which is increased. CXR showed possible pulmonary edema. Bowel Motility: Last recorded bowel movement on 03/14/19. Labs Reviewed: Glu (118), Na (130), Lipase (487) Meds Noted: Folic Acid, Lasix, Solu Medrol, Protonix, KCl, Thiamine Additional Notes: Patient does not care for Ensure Clear. If unable to advance diet in the next few days, would consider nutrition support. Recommend adding medication for bowel movement, if medically appropriate. Will follow closely with same goals. Nutrition Monitoring and Evaluation: Follow up in 3 days.
--- NOTE | 2019-03-20 11:48 | PM.PNCARD ---
Progress Note: A&P Assessment and Plan (1) Acute alcoholic pancreatitis: Qualifiers: Acute pancreatitis complication: unspecified Qualified Code(s): K85.20 - Alcohol induced acute pancreatitis without necrosis or infection Code(s): K85.20 - Alcohol induced acute pancreatitis without necrosis or infection Status: Acute Assessment and Plan: Resolving with bowel rest, hydration. Defer to GI and primary service. (2) Pneumonia: Qualifiers: Laterality: unspecified laterality Lung location: unspecified part of lung Pneumonia type: due to unspecified organism Qualified Code(s): J18.9 - Pneumonia, unspecified organism Code(s): J18.9 - Pneumonia, unspecified organism Status: Acute Assessment and Plan: Continue IV antibiotics per primary service. Chest x-ray suggestive of pneumonia however also pulmonary edema most recent study. Less remain compliant with BiPAP. (3) Elevated troponin I level: Code(s): R79.89 - Other specified abnormal findings of blood chemistry Status: Acute Assessment and Plan: Most likely type 2 infarct supply demand mismatch not acute coronary syndrome and/or plaque rupture given profound anemia presentation requiring aggressive fluid resuscitation, transfusion in setting of relative hypotension, malnutrition and acute hypoxic respiratory failure. Continue BiPAP support, bronchodilator, antibiotic therapy. (4) Acute respiratory failure: Qualifiers: Respiratory failure complication: hypoxia and hypercapnia Qualified Code(s): J96.01 - Acute respiratory failure with hypoxia; J96.02 - Acute respiratory failure with hypercapnia Code(s): J96.00 - Acute respiratory failure, unspecified whether with hypoxia or hypercapnia Status: Acute Assessment and Plan: Repeat 2D Echo to assess LV/RV function/size/pulmonary pressures given lack of improvement with IV diuresis. Worsening respiratory status differential includes worsening pneumonia/inflammation, pulmonary edema, pulmonary embolism, less likely OR/CAD although cannot be entirely excluded. Pulmonary consultation. ABG and clinical picture suggestive of probably ARDS, at very least acute lung injury.I would avoid anxiolytics/sedatives given her respiratory status. Repeat Trop I and 12 lead EKG. Repeat CXR. -She is negative 615ml only If PE very dangerous situation as pt is not really a candidate for anticoagulation given presenting profound anemia, s/p transfusions, acute gastric ulcer and GI bleed. Explained all my concerns at the bedside patient and her significant other. They verbalized understanding and agreed with plan of care. All questions answered to their satisfaction. Explained the risks/dangers of anxiolytic, sedating medications with regards to compromised respiratory status potentially leading to intubation mechanical ventilatory support Patient is very ill and complicated. SCDs for DVT prophylaxis. Patient is not a candidate for antiplatelet and anticoagulant therapy. Caution to avoid hypotension. Follow H&H closely. Further recommendation to follow based on patient's clinical response to therapy. (5) Pulmonary edema: Qualifiers: Chronicity: acute Qualified Code(s): J81.0 - Acute pulmonary edema Code(s): J81.1 - Chronic pulmonary edema Status: Acute Assessment and Plan: As above. (6) Acute blood loss anemia: Code(s): D62 - Acute posthemorrhagic anemia Status: Acute Assessment and Plan: As above, secondary to gastric ulcer. (7) Gastric ulcer: Qualifiers: Gastric ulcer chronicity: acute Gastric ulcer complication status: unspecified whether hemorrhage or perforation present Qualified Code(s): K25.3 - Acute gastric ulcer without hemorrhage or perforation Code(s): K25.9 - Gastric ulcer, unspecified as acute or chronic, without hemorrhage or perforation Status: Acute
[2019-03-20 14:00] LABS: Troponin I 0.203 ng/mL (0.000-0.034)
--- NOTE | 2019-03-20 14:25 | WPDINTPN ---
Progress Note: A&P Assessment and Plan (1) ARDS (adult respiratory distress syndrome): Code(s): J80 - Acute respiratory distress syndrome Status: Acute Assessment and Plan: patient with acute respiratory failure, chest x-ray shows bilateral diffuse infiltrates, patient requiring 60% FiO2 on BiPAP, hypoxemic on ABGs - patient successfully intubate on 03/20/2019 - will place patient on low tidal volume and high peep strategy for now, - repeat ABGs - continue ceftriaxone and azithromycin - continue bronchodilators (2) Acute respiratory failure: Qualifiers: Respiratory failure complication: hypoxia and hypercapnia Qualified Code(s): J96.01 - Acute respiratory failure with hypoxia; J96.02 - Acute respiratory failure with hypercapnia Code(s): J96.00 - Acute respiratory failure, unspecified whether with hypoxia or hypercapnia Status: Acute Assessment and Plan: acute respiratory failure likely to related to ARDS, possible due to transfusion related acute lung injury, transfusion associated cardiac overload - patient has been diuresing well - placed on tidal volume 370, rate of 24, peep of 10, 100% FiO2 for now, will wean FiO2 after repeat ABG post intubation - sedation with propofol, maintain RASS of 0 to -2, daily sedation vacation (3) Acute blood loss anemia: Code(s): D62 - Acute posthemorrhagic anemia Status: Acute Assessment and Plan: hemoglobin has been stable - will continue to monitor (4) Gastric ulcer: Qualifiers: Gastric ulcer chronicity: acute Gastric ulcer complication status: unspecified whether hemorrhage or perforation present Qualified Code(s): K25.3 - Acute gastric ulcer without hemorrhage or perforation Code(s): K25.9 - Gastric ulcer, unspecified as acute or chronic, without hemorrhage or perforation Status: Acute Assessment and Plan: GI has been following - patient on PPI IV Q12H (5) COPD (chronic obstructive pulmonary disease): Qualifiers: COPD type: unspecified COPD Qualified Code(s): J44.9 - Chronic obstructive pulmonary disease, unspecified Code(s): J44.9 - Chronic obstructive pulmonary disease, unspecified Status: Acute Assessment and Plan: continue bronchodilators, now intubated (6) Elevated LFTs: Code(s): R94.5 - Abnormal results of liver function studies Status: Acute Assessment and Plan: elevated LFTs likely related to alcoholism, trending down, continue monitor - (7) Elevated troponin: Code(s): R79.89 - Other specified abnormal findings of blood chemistry Status: Acute Assessment and Plan: troponins elevated but plateaued in trending down, cardiology following the patient - likely secondary to respiratory distress /stress. Type 2 infarct /ischemic demand - repeat limited echocardiogram on 04/06/2019 showed a EF of 20-25% (8) Acute alcoholic pancreatitis: Qualifiers: Acute pancreatitis complication: unspecified Qualified Code(s): K85.20 - Alcohol induced acute pancreatitis without necrosis or infection Code(s): K85.20 - Alcohol induced acute pancreatitis without necrosis or infection Status: Acute Assessment and Plan: Alcoholic pancreatitis, patient was given adequate IV fluids on admission - lipase trending up, will hold diuresis and start gentle hydration - will keep NPO for today (9) DVT prophylaxis: Code(s): Z29.9 - Encounter for prophylactic measures, unspecified Status: Acute Assessment and Plan: SCDs Additional Plan discussed with patient prior to intubation updated her with her condition and plan of care. the information technology consultant was also present at bedside, also discussed with Dr. Glass, black top spreader machine operator and they are in agreement for intubation of the patient. Also updated the hospitalist code status: full code critical care time spent:
--- NOTE | 2019-03-20 14:36 | PC.NURSE ---
This patient, Anita Cutler, was transferred to ICU-5 on 03/20/19 at 1405. Personal belongings sent with patient. Belongings list checked and signed with receiving RN. Report given to EZEKIEL Pacheco. Appropriate documentation sent with patient.
[2019-03-20] MEDS: PROPOFOL IV EMULSION 100 ML 1.6 MG IV CONT (15:00)
--- NOTE | 2019-03-20 15:13 | P.PCNBED_ITS ---
Procedures Intubation: Intubation Date: 03/20/19 Intubation Time: 14:14 A pre- procedural Time-Out was completed immediately before starting the procedure and confirmed: Patient Identification, Site, Procedure, Patient Position and the Availability of Requisite Equipment: Yes Sedative: etomidate Paralytic: succinylcholine Laryngoscope: fiber optic video scope Assist device used: fiber optic device ET tube size: 7.5 Tube secured depth (cm): 23 Tube secured location: lips Tube placement confirmation: visualized tube passing through cords, equal breath sounds bilaterally, no breath sounds over epigastrium and confirmation by capnometry Patient tolerated procedure: well and no complications Intubation complications: none Additional comments: After obtaining consent from the Patient and explaining the rationale for intubation. it was decided to go ahead and intubate the patient. The patient was lying in the supine position. Preoxygenation via BVM was provided for a minimum of 3 minutes. The patient had continuous cardiac as well as pulse oximetry monitoring during the procedure. Rapid sequence induction was provided by administration of Etomidate and Succinylcholine. A Glidescope blade 4 was used to directly visualize the vocal cords. A 7.5 mm endotracheal tube was visualized advancing between the cords to a level of 23 cm at the lip. The stylette was then removed. Tube placement was also noted by fogging in the tube, equal and bilateral breath sounds, no sounds over the epigastrium, and end-tidal colorimetric monitoring. The cuff was then inflated with 10 ml of air and the tube secured using a commercially available device. A good pulse oximetry wave form was seen on the monitor throughout the procedure. The patient was then connected to the ventilator at a tidal volume of 370 ml; rate of 24; FiO2 of 100%; and PEEP of 10. A portable chest x-ray has been ordered for placement. Continued sedation will be provided by Propofol and Versed continuous infusion titrated to a RASS of -2. The patient tolerated the procedure well.
[2019-03-20] MEDS: RAPID SEQUENCE INTUBATION KIT 1 EACH (15:29)
[2019-03-20] MEDS: SODIUM CHLORIDE 0.9% IV 1,000 ML 50 ML IV CONT (15:36)
[2019-03-20 15:54] LABS: Alveolar/Arterial O2 Gradient 453.6 mmHg; Base Excess ABG 6.1 mEq/l (+/-2.0); Carboxyhemoglobin 0.3 % THb (0-2.0); Device VENTILATOR; Fractional Inspired Oxygen 100 %; Methemoglobin ABG 0.6 %THb (0-1.5); Modified Allen's Test Pass; Oxygen Content ABG 12.6 %vol (16.0-22.0); Oxygen Saturation ABG 99.5 % (95.0-100.0); Oxyhemoglobin 97.7 % THb (90.0-100.0); PCO2 ABG 40.3 mmHg (35.0-45.0); PO2 ABG 219.1 mmHg (80.0-100.0); PO2 FiO2 Ratio Arterial Blood 2.19 %; Reduced Hemoglobin 1.4 %THb (0-5.0); Site Drawn RIGHT RADIAL; Total Hemoglobin 8.8 g/dL (12.0-18.0); pH ABG 7.489 (7.350-7.450)
[2019-03-20 15:55] LABS: Arterial Blood Gas Minute Volume 0 LPM; Arterial Blood Gas PEEP 10 cmH2O; Arterial Blood Gas Pressure Support 0 cmH2O; Arterial Blood Gas Tidal Volume 370 ml; Arterial Blood Gas Vent Mode CMV; Arterial Blood Gas Ventilator rate 24 /MIN
[2019-03-20] MEDS: MIDAZOLAM HCL 50 MG in DEXTROSE 5% 90 ML IV CONT (15:55)
--- NOTE | 2019-03-20 16:20 | PC.NURSE ---
1400-Patient transferred from [address] Perla at bedside.
--- NOTE | 2019-03-20 16:21 | PC.NURSE ---
3815-Talked to patients son Shant Cutler. Updated son on patients condition and plan of care. All questions answered. Phone number [phone].
--- NOTE | 2019-03-20 16:33 | P.PNIM_ITS ---
Progress Note: A&P Assessment and Plan (1) Acute respiratory failure: Qualifiers: Respiratory failure complication: hypoxia and hypercapnia Qualified Code(s): J96.01 - Acute respiratory failure with hypoxia; J96.02 - Acute respiratory failure with hypercapnia Code(s): J96.00 - Acute respiratory failure, unspecified whether with hypoxia or hypercapnia Status: Acute Assessment and Plan: * due to pulmonary edema superimposed on pneumonia and copd * pt was emergently intubated due to exhaustion and loss of respirastory drive * see above notes (2) Pulmonary edema: Qualifiers: Chronicity: acute Qualified Code(s): J81.0 - Acute pulmonary edema Code(s): J81.1 - Chronic pulmonary edema Status: Acute Assessment and Plan: * sudden loss of EF * hold diuresis as per cardiology note (3) Severe anemia: Code(s): D64.9 - Anemia, unspecified Status: Acute Assessment and Plan: * due to acute gi blood loss, secondary to ulcer hb still low at 7 * stabilized after transfusion (4) Pneumonia: Qualifiers: Laterality: unspecified laterality Lung location: unspecified part of lung Pneumonia type: due to unspecified organism Qualified Code(s): J18.9 - Pneumonia, unspecified organism Code(s): J18.9 - Pneumonia, unspecified organism Status: Acute Assessment and Plan: * continue azithromycin, ceftriaxone day 5 with iv steroids (5) Acute kidney injury: Code(s): N17.9 - Acute kidney failure, unspecified Status: Resolved Assessment and Plan: * resolved (6) Elevated LFTs: Code(s): R94.5 - Abnormal results of liver function studies Status: Acute Assessment and Plan: * clinically due to acute on chronic alcoholic hepatitis * f/u lab * monitor for sx/signs w/d (by hx last drink 1 wk [employer]) (7) GI bleed: Qualifiers: GI bleed type/associated pathology: gastric ulcer Qualified Code(s): K25.4 - Chronic or unspecified gastric ulcer with hemorrhage Code(s): K92.2 - Gastrointestinal hemorrhage, unspecified Status: Acute Assessment and Plan: * resolved, hb still low continue to watch (8) Acute alcoholic pancreatitis: Qualifiers: Acute pancreatitis complication: unspecified Qualified Code(s): K85.20 - Alcohol induced acute pancreatitis without necrosis or infection Code(s): K85.20 - Alcohol induced acute pancreatitis without necrosis or infection Status: Acute Assessment and Plan: * clear liquids * analgesics (9) Hyponatremia: Code(s): E87.1 - Hypo-osmolality and hyponatremia Status: Acute Assessment and Plan: * likely due to dehydration, alcoholism (10) Gastric ulcer: Qualifiers: Gastric ulcer chronicity: acute Gastric ulcer complication status: unspecified whether hemorrhage or perforation present Qualified Code(s): K25.3 - Acute gastric ulcer without hemorrhage or perforation Code(s): K25.9 - Gastric ulcer, unspecified as acute or chronic, without hemorrhage or perforation Status: Acute Assessment and Plan: * not actively bleeding by 03/17 egd * continue ppi * f/u h/h (11) Collagenous colitis: Code(s): K52.831 - Collagenous colitis Status: Acute Assessment and Plan: * clinically stable (12) COPD (chronic obstructive pulmonary disease): Qualifiers: COPD type: unspecified COPD Qualified Code(s): J44.9 - Chronic obstructive pulmonary disease, unspecif
--- NOTE | 2019-03-20 16:33 | PM.IMPN ---
Progress Note: A&P Assessment and Plan (1) Acute respiratory failure: Qualifiers: Respiratory failure complication: hypoxia and hypercapnia Qualified Code(s): J96.01 - Acute respiratory failure with hypoxia; J96.02 - Acute respiratory failure with hypercapnia Code(s): J96.00 - Acute respiratory failure, unspecified whether with hypoxia or hypercapnia Status: Acute Assessment and Plan: due to pulmonary edema superimposed on pneumonia and copd pt was emergently intubated due to exhaustion and loss of respirastory drive see above notes (2) Pulmonary edema: Qualifiers: Chronicity: acute Qualified Code(s): J81.0 - Acute pulmonary edema Code(s): J81.1 - Chronic pulmonary edema Status: Acute Assessment and Plan: sudden loss of EF hold diuresis as per cardiology note (3) Severe anemia: Code(s): D64.9 - Anemia, unspecified Status: Acute Assessment and Plan: due to acute gi blood loss, secondary to ulcer hb still low at 7 stabilized after transfusion (4) Pneumonia: Qualifiers: Laterality: unspecified laterality Lung location: unspecified part of lung Pneumonia type: due to unspecified organism Qualified Code(s): J18.9 - Pneumonia, unspecified organism Code(s): J18.9 - Pneumonia, unspecified organism Status: Acute Assessment and Plan: continue azithromycin, ceftriaxone day 5 with iv steroids (5) Acute kidney injury: Code(s): N17.9 - Acute kidney failure, unspecified Status: Resolved Assessment and Plan: resolved (6) Elevated LFTs: Code(s): R94.5 - Abnormal results of liver function studies Status: Acute Assessment and Plan: clinically due to acute on chronic alcoholic hepatitis f/u lab monitor for sx/signs w/d (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) (7) GI bleed: Qualifiers: GI bleed type/associated pathology: gastric ulcer Qualified Code(s): K25.4 - Chronic or unspecified gastric ulcer with hemorrhage Code(s): K92.2 - Gastrointestinal hemorrhage, unspecified Status: Acute Assessment and Plan: resolved, hb still low continue to watch (8) Acute alcoholic pancreatitis: Qualifiers: Acute pancreatitis complication: unspecified Qualified Code(s): K85.20 - Alcohol induced acute pancreatitis without necrosis or infection Code(s): K85.20 - Alcohol induced acute pancreatitis without necrosis or infection Status: Acute Assessment and Plan: clear liquids analgesics (9) Hyponatremia: Code(s): E87.1 - Hypo-osmolality and hyponatremia Status: Acute Assessment and Plan: likely due to dehydration, alcoholism (10) Gastric ulcer: Qualifiers: Gastric ulcer chronicity: acute Gastric ulcer complication status: unspecified whether hemorrhage or perforation present Qualified Code(s): K25.3 - Acute gastric ulcer without hemorrhage or perforation Code(s): K25.9 - Gastric ulcer, unspecified as acute or chronic, without hemorrhage or perforation Status: Acute Assessment and Plan: not actively bleeding by 03/17 egd continue ppi f/u h/h (11) Collagenous colitis: Code(s): K52.831 - Collagenous colitis Status: Acute Assessment and Plan: clinically stable (12) COPD (chronic obstructive pulmonary disease): Qualifiers: COPD type: unspecified COPD Qualified Code(s): J44.9 - Chronic obstructive pulmonary disease, unspecified Code(s): J44.9 - Chronic obstructive pulmonary disease, unspecified Status: Acute Assessment and Plan: intubated in icu continue antibiotics, steroids, bronchodilators, pulmonary toilet, mucolytic Subjective Interval history: 58 year old female who came to the emergency room after feeling ill for about 6 days. The patient had some generalized weakness and has cholangitis colitis. Pt has histo
[2019-03-20] MEDS: ALBUTEROL SULFATE NEB 2.5 MG/0.5 ML INH INHALATION (20:18)
[2019-03-20] MEDS: PROPOFOL IV EMULSION 100 ML 11.3 MG IV CONT (21:09)
[2019-03-21] VITALS (29 sets, daily range): BP systolic 109–135; BP diastolic 68–92; PULSE 72–99; RESP 15–22; TEMP 36.2–36.8; O2SAT 99–100
[2019-03-21] MEDS: ALBUTEROL SULFATE NEB 2.5 MG/0.5 ML INH INHALATION ×4 (02:10→19:09)
[2019-03-21] MEDS: IPRATROPIUM BR 0.02% INH SOLN 0.5 MG/2.5 ML VIAL INHALATION ×4 (02:10→19:09)
[2019-03-21 04:38] LABS: Basophils Percent Auto 0.2 % (0.2-1.2); Hematocrit 26.5 % (37.0-47.0); Hemoglobin 7.8 g/dL (12.0-15.0); Immature Granulocyte Absolute 0.08 K/mm3 (0.00-0.031); Immature Granulocyte Percent A 0.7 % (0-0.5); Lymphocytes Absolute Auto 0.19 K/mm3 (0.9-3.2); Lymphocytes Percent Auto 1.6 % (18.3-44.2); Mean Corpuscular HGB Conc 29.4 g/dl (32-36); Mean Corpuscular Hemoglobin 25.3 pg (26-34); Mean Platelet Volume 8.9 fl (7.4-10.4); Monocytes Absolute Auto 0.4 K/mm3 (0.1-0.6); Monocytes Percent Auto 3.6 % (2.6-8.5); Neutrophils Percent Auto 93.9 % (45.5-73.1); Nucleated Red Blood Cells Absolute Auto 0.2 K/mm3 (0.0-0.012); Platelet Count Result 326 k/mm3 (150-375); Red Blood Count 3.08 M/mm3 (4.2-5.4); Red Cell Distribution Width 22.4 % (11.5-14.5); White Blood Count 11.7 K/mm3 (4.5-10.0)
[2019-03-21 04:55] LABS: Lactic Acid 1.1 mmol/L (0.7-2.1)
[2019-03-21 04:57] LABS: Alanine Aminotransferase 50 U/L (4-35); Albumin Level 2.8 g/dL (3.5-5.1); Alkaline Phosphatase 189 U/L (38-126); Aspartate Amino Transferase 37 U/L (14-36); Bilirubin,Total 0.7 mg/dL (0.2-1.3); Blood Urea Nitrogen 10 mg/dL (7-17); Calcium 8.4 mg/dL (8.4-10.2); Carbon Dioxide 30 mmol/L (22-30); Chloride 93 mmol/L (98-107); Estimated CRCL calculation 71 ml/min; Estimated Glomerular Filt Rate > 60; Glucose 113 mg/dL (65-105); Magnesium 2.1 mg/dL (1.6-2.3); Potassium 3.4 mmol/L (3.4-5.0); Sodium 131 mmol/L (137-145)
[2019-03-21 05:00] LABS: CRP 3.8 mg/dL (<1.0); Lipase 442 U/L (23-300); Phosphorus 3.3 mg/dL (2.5-4.5)
[2019-03-21 05:02] LABS: Alveolar/Arterial O2 Gradient 146.1 mmHg; Base Excess ABG 7.7 mEq/l (+/-2.0); Carboxyhemoglobin 0.3 % THb (0-2.0); Fractional Inspired Oxygen 40 %; Methemoglobin ABG 0.4 %THb (0-1.5); Oxygen Content ABG 14.1 %vol (16.0-22.0); Oxygen Saturation ABG 98.3 % (95.0-100.0); Oxyhemoglobin 96.4 % THb (90.0-100.0); PCO2 ABG 33.5 mmHg (35.0-45.0); PO2 ABG 100.6 mmHg (80.0-100.0); PO2 FiO2 Ratio Arterial Blood 2.51 %; Reduced Hemoglobin 2.9 %THb (0-5.0); Total Hemoglobin 10.3 g/dL (12.0-18.0)
[2019-03-21 05:04] LABS: Device VENTILATOR; Site Drawn LEFT BRACHIAL
[2019-03-21 05:05] LABS: Arterial Blood Gas PEEP 10 cmH2O; Arterial Blood Gas Tidal Volume 370 ml; Arterial Blood Gas Vent Mode CMV; Arterial Blood Gas Ventilator rate 20 /MIN
[2019-03-21] MEDS: methylPREDNISolone SOD SUCC 125 MG VIAL 60 MG IV PUSH ×3 (06:14→21:11)
[2019-03-21] MEDS: MIDAZOLAM HCL 50 MG in DEXTROSE 5% 90 ML 6 MG IV CONT ×2 (06:45→22:08)
[2019-03-21] MEDS: PANTOPRAZOLE SODIUM IV 40 MG VIAL IV PUSH ×2 (08:08→21:11)
[2019-03-21] MEDS: THIAMINE HCL 200 MG/2 ML VIAL 100 MG IV PUSH (08:09)
[2019-03-21] MEDS: POTASSIUM CHLORIDE 20 MEQ PACKET (FOR LIQUID) 40 MEQ PO (08:15)
[2019-03-21] MEDS: FOLIC ACID 1 MG/0.2 ML INJ IV PUSH (08:15)
[2019-03-21] MEDS: SODIUM CHLORIDE 0.9% IV 1,000 ML 50 ML IV CONT (08:37)
--- NOTE | 2019-03-21 10:37 | WPDINTPN ---
Progress Note: A&P Assessment and Plan (1) ARDS (adult respiratory distress syndrome): Code(s): J80 - Acute respiratory distress syndrome Status: Acute Assessment and Plan: patient with acute respiratory failure, chest x-ray shows bilateral diffuse infiltrates, patient requiring 60% FiO2 on BiPAP, hypoxemic on ABGs - patient successfully intubate on 03/20/2019 - patient on low tidal volume and high peep strategy for now, - chest x-ray shows improvement in bilateral infiltrates, ABGs reviewed, ventilator adjusted - continue ceftriaxone and azithromycin - continue bronchodilators (2) Acute respiratory failure: Qualifiers: Respiratory failure complication: hypoxia and hypercapnia Qualified Code(s): J96.01 - Acute respiratory failure with hypoxia; J96.02 - Acute respiratory failure with hypercapnia Code(s): J96.00 - Acute respiratory failure, unspecified whether with hypoxia or hypercapnia Status: Acute Assessment and Plan: acute respiratory failure likely to related to ARDS, possible due to transfusion related acute lung injury, transfusion associated cardiac overload - as above - sedation with propofol, maintain RASS of 0 to -2, daily sedation vacation (3) Acute blood loss anemia: Code(s): D62 - Acute posthemorrhagic anemia Status: Acute Assessment and Plan: hemoglobin has been stable - will continue to monitor (4) Gastric ulcer: Qualifiers: Gastric ulcer chronicity: acute Gastric ulcer complication status: unspecified whether hemorrhage or perforation present Qualified Code(s): K25.3 - Acute gastric ulcer without hemorrhage or perforation Code(s): K25.9 - Gastric ulcer, unspecified as acute or chronic, without hemorrhage or perforation Status: Acute Assessment and Plan: GI has been following - patient on PPI IV Q12H (5) COPD (chronic obstructive pulmonary disease): Qualifiers: COPD type: unspecified COPD Qualified Code(s): J44.9 - Chronic obstructive pulmonary disease, unspecified Code(s): J44.9 - Chronic obstructive pulmonary disease, unspecified Status: Acute Assessment and Plan: continue bronchodilators, now intubated (6) Elevated LFTs: Code(s): R94.5 - Abnormal results of liver function studies Status: Acute Assessment and Plan: elevated LFTs likely related to alcoholism, trending down, continue monitor - (7) Elevated troponin: Code(s): R79.89 - Other specified abnormal findings of blood chemistry Status: Acute Assessment and Plan: troponins elevated but plateaued in trending down, cardiology following the patient - likely secondary to respiratory distress /stress. Type 2 infarct /ischemic demand - repeat limited echocardiogram on 04/06/2019 showed a EF of 20-25% (8) Acute alcoholic pancreatitis: Qualifiers: Acute pancreatitis complication: unspecified Qualified Code(s): K85.20 - Alcohol induced acute pancreatitis without necrosis or infection Code(s): K85.20 - Alcohol induced acute pancreatitis without necrosis or infection Status: Acute Assessment and Plan: Alcoholic pancreatitis, patient was given adequate IV fluids on admission - lipase trending down this morning, continue NPO, gentle hydration - may start tube feeds on 03/22/2019 (9) DVT prophylaxis: Code(s): Z29.9 - Encounter for prophylactic measures, unspecified Status: Acute Assessment and Plan: SCDs, unable to give chemoprophylaxis as patient presented with severe anemia with hemoglobin of 3.1. Additional Plan Discussed with significant other and updated with her condition and plan of care. I answered all questions. He is aware that the chest x-ray has slightly improved code status: full code critical care time spent: 35 minutes Due to a high probability of clinically significant, lif
--- NOTE | 2019-03-21 12:25 | PM.PNCARD ---
Progress Note: A&P Assessment and Plan (1) Acute alcoholic pancreatitis: Qualifiers: Acute pancreatitis complication: unspecified Qualified Code(s): K85.20 - Alcohol induced acute pancreatitis without necrosis or infection Code(s): K85.20 - Alcohol induced acute pancreatitis without necrosis or infection Status: Acute Assessment and Plan: Resolving with bowel rest, hydration. Defer to GI and primary service. (2) Pneumonia: Qualifiers: Laterality: unspecified laterality Lung location: unspecified part of lung Pneumonia type: due to unspecified organism Qualified Code(s): J18.9 - Pneumonia, unspecified organism Code(s): J18.9 - Pneumonia, unspecified organism Status: Acute Assessment and Plan: Continue IV antibiotics per primary service. Chest x-ray suggestive of pneumonia however also pulmonary edema most recent study. Less remain compliant with BiPAP. (3) Elevated troponin I level: Code(s): R79.89 - Other specified abnormal findings of blood chemistry Status: Acute Assessment and Plan: Most likely type 2 infarct supply demand mismatch not acute coronary syndrome and/or plaque rupture given profound anemia presentation requiring aggressive fluid resuscitation, transfusion in setting of relative hypotension, malnutrition and acute hypoxic respiratory failure. Continue BiPAP support, bronchodilator, antibiotic therapy. (4) Acute respiratory failure: Qualifiers: Respiratory failure complication: hypoxia and hypercapnia Qualified Code(s): J96.01 - Acute respiratory failure with hypoxia; J96.02 - Acute respiratory failure with hypercapnia Code(s): J96.00 - Acute respiratory failure, unspecified whether with hypoxia or hypercapnia Status: Acute Assessment and Plan: ARDS s/p intubation, improving on vent. FIO2 requirements reduced. Wean vent as tolerated per Critical Care. Pt does not appear to be volume overloaded at this time. Hold diuretics but monitor volume status given LV dysfunction. Patient is critically ill. SCDs for DVT prophylaxis. Patient is not a candidate for antiplatelet or anticoagulant therapy. (5) Pulmonary edema: Qualifiers: Chronicity: acute Qualified Code(s): J81.0 - Acute pulmonary edema Code(s): J81.1 - Chronic pulmonary edema Status: Acute Assessment and Plan: Morer consistent with ARDS. Improving on current therapy. (6) Acute blood loss anemia: Code(s): D62 - Acute posthemorrhagic anemia Status: Acute Assessment and Plan: As above, secondary to gastric ulcer. H/H stable, avoid NSAIDs. (7) Gastric ulcer: Qualifiers: Gastric ulcer chronicity: acute Gastric ulcer complication status: unspecified whether hemorrhage or perforation present Qualified Code(s): K25.3 - Acute gastric ulcer without hemorrhage or perforation Code(s): K25.9 - Gastric ulcer, unspecified as acute or chronic, without hemorrhage or perforation Status: Acute Assessment and Plan: As above. GI following. Continue IV PPI. Monitor for bleeding. Transfuse as needed. Secondary to NSAID use and alcohol. (8) Alcoholic hepatitis: Qualifiers: Ascites presence: unspecified Qualified Code(s): K70.10 - Alcoholic hepatitis without ascites Code(s): K70.10 - Alcoholic hepatitis without ascites Status: Acute Assessment and Plan: Improving. Alcohol withdrawal protocol. Nutritional support. Monitor coagulation given coagulopathy presentation. Counseled on the importance of abstinence from alcohol. Patient and verbalized understanding. (9) Acute kidney injury: Code(s): N17.9 - Acute kidney failure, unspecified Status: Resolved Assessment and Plan: Resolved with volume resuscitation. (10) Elevated LFTs: Code(s): R94.5 - Abnormal results of liver function studies Status: Acute
[2019-03-21] MEDS: PROPOFOL IV EMULSION 100 ML 11.3 MG IV CONT ×2 (14:19→22:05)
[2019-03-21 15:18] LABS: Alveolar/Arterial O2 Gradient 107.4 mmHg; Arterial Blood Gas Vent Mode CMV; Arterial Blood Gas Ventilator rate 15 /MIN; Base Excess ABG 3.2 mEq/l (+/-2.0); Carboxyhemoglobin 0.3 % THb (0-2.0); Device VENTILATOR; Fractional Inspired Oxygen 35 %; HCO3 ABG 26.6 mEq/l (22.0-26.0); Methemoglobin ABG 0.6 %THb (0-1.5); Modified Allen's Test Pass; Oxygen Content ABG 11.8 %vol (16.0-22.0); Oxyhemoglobin 95.2 % THb (90.0-100.0); PCO2 ABG 35.9 mmHg (35.0-45.0); PO2 ABG 100.4 mmHg (80.0-100.0); PO2 FiO2 Ratio Arterial Blood 2.87 %; Reduced Hemoglobin 3.9 %THb (0-5.0); Site Drawn RIGHT RADIAL; Total Hemoglobin 8.7 g/dL (12.0-18.0); pH ABG 7.488 (7.350-7.450)
[2019-03-21 15:19] LABS: Arterial Blood Gas PEEP 10 cmH2O; Arterial Blood Gas Tidal Volume 370 ml
--- NOTE | 2019-03-21 16:12 | P.PNIM_ITS ---
Progress Note: A&P Assessment and Plan (1) Acute respiratory failure: Qualifiers: Respiratory failure complication: hypoxia and hypercapnia Qualified Code(s): J96.01 - Acute respiratory failure with hypoxia; J96.02 - Acute respiratory failure with hypercapnia Code(s): J96.00 - Acute respiratory failure, unspecified whether with hypoxia or hypercapnia Status: Acute Assessment and Plan: * due to pulmonary edema superimposed on pneumonia and copd * pt was emergently intubated due to exhaustion and loss of respirastory drive * see above notes (2) Pulmonary edema: Qualifiers: Chronicity: acute Qualified Code(s): J81.0 - Acute pulmonary edema Code(s): J81.1 - Chronic pulmonary edema Status: Acute Assessment and Plan: * sudden loss of EF * stress induced cardiomyopathy (3) Severe anemia: Code(s): D64.9 - Anemia, unspecified Status: Acute Assessment and Plan: * due to acute gi blood loss, secondary to ulcer hb still low at 7 * stabilized after transfusion * secondary to ASA, ibuprofen and Alcholol (4) Pneumonia: Qualifiers: Laterality: unspecified laterality Lung location: unspecified part of lung Pneumonia type: due to unspecified organism Qualified Code(s): J18.9 - Pneumonia, unspecified organism Code(s): J18.9 - Pneumonia, unspecified organism Status: Acute Assessment and Plan: * continue azithromycin, ceftriaxone day 6 with iv steroids (5) Acute kidney injury: Code(s): N17.9 - Acute kidney failure, unspecified Status: Resolved Assessment and Plan: * resolved (6) Elevated LFTs: Code(s): R94.5 - Abnormal results of liver function studies Status: Acute Assessment and Plan: * clinically due to acute on chronic alcoholic hepatitis (7) GI bleed: Qualifiers: GI bleed type/associated pathology: gastric ulcer Qualified Code(s): K25.4 - Chronic or unspecified gastric ulcer with hemorrhage Code(s): K92.2 - Gastrointestinal hemorrhage, unspecified Status: Acute Assessment and Plan: * resolved, hb still low continue to watch (8) Acute alcoholic pancreatitis: Qualifiers: Acute pancreatitis complication: unspecified Qualified Code(s): K85.20 - Alcohol induced acute pancreatitis without necrosis or infection Code(s): K85.20 - Alcohol induced acute pancreatitis without necrosis or infection Status: Acute Assessment and Plan: * most likley alcholol related * analgesics (9) Hyponatremia: Code(s): E87.1 - Hypo-osmolality and hyponatremia Status: Acute Assessment and Plan: * likely due to dehydration, alcoholism (10) Gastric ulcer: Qualifiers: Gastric ulcer chronicity: acute Gastric ulcer complication status: unspecified whether hemorrhage or perforation present Qualified Code(s): K25.3 - Acute gastric ulcer without hemorrhage or perforation Code(s): K25.9 - Gastric ulcer, unspecified as acute or chronic, without hemorrhage or perforation Status: Acute Assessment and Plan: * not actively bleeding by 03/17 egd * continue ppi * f/u h/h (11) Collagenous colitis: Code(s): K52.831 - Collagenous colitis Status: Acute Assessment and Plan: * clinically stable (12) COPD (chronic obstructive pulmonary disease): Qualifiers: COPD type: unspecified COPD Qualified Code(s): J44.9 - Chronic obstructive pulmonary disease, unspecified
--- NOTE | 2019-03-21 16:12 | PM.IMPN ---
Progress Note: A&P Assessment and Plan (1) Acute respiratory failure: Qualifiers: Respiratory failure complication: hypoxia and hypercapnia Qualified Code(s): J96.01 - Acute respiratory failure with hypoxia; J96.02 - Acute respiratory failure with hypercapnia Code(s): J96.00 - Acute respiratory failure, unspecified whether with hypoxia or hypercapnia Status: Acute Assessment and Plan: due to pulmonary edema superimposed on pneumonia and copd pt was emergently intubated due to exhaustion and loss of respirastory drive see above notes (2) Pulmonary edema: Qualifiers: Chronicity: acute Qualified Code(s): J81.0 - Acute pulmonary edema Code(s): J81.1 - Chronic pulmonary edema Status: Acute Assessment and Plan: sudden loss of EF stress induced cardiomyopathy (3) Severe anemia: Code(s): D64.9 - Anemia, unspecified Status: Acute Assessment and Plan: due to acute gi blood loss, secondary to ulcer hb still low at 7 stabilized after transfusion secondary to ASA, ibuprofen and Alcholol (4) Pneumonia: Qualifiers: Laterality: unspecified laterality Lung location: unspecified part of lung Pneumonia type: due to unspecified organism Qualified Code(s): J18.9 - Pneumonia, unspecified organism Code(s): J18.9 - Pneumonia, unspecified organism Status: Acute Assessment and Plan: continue azithromycin, ceftriaxone day 6 with iv steroids (5) Acute kidney injury: Code(s): N17.9 - Acute kidney failure, unspecified Status: Resolved Assessment and Plan: resolved (6) Elevated LFTs: Code(s): R94.5 - Abnormal results of liver function studies Status: Acute Assessment and Plan: clinically due to acute on chronic alcoholic hepatitis (7) GI bleed: Qualifiers: GI bleed type/associated pathology: gastric ulcer Qualified Code(s): K25.4 - Chronic or unspecified gastric ulcer with hemorrhage Code(s): K92.2 - Gastrointestinal hemorrhage, unspecified Status: Acute Assessment and Plan: resolved, hb still low continue to watch (8) Acute alcoholic pancreatitis: Qualifiers: Acute pancreatitis complication: unspecified Qualified Code(s): K85.20 - Alcohol induced acute pancreatitis without necrosis or infection Code(s): K85.20 - Alcohol induced acute pancreatitis without necrosis or infection Status: Acute Assessment and Plan: most likley alcholol related analgesics (9) Hyponatremia: Code(s): E87.1 - Hypo-osmolality and hyponatremia Status: Acute Assessment and Plan: likely due to dehydration, alcoholism (10) Gastric ulcer: Qualifiers: Gastric ulcer chronicity: acute Gastric ulcer complication status: unspecified whether hemorrhage or perforation present Qualified Code(s): K25.3 - Acute gastric ulcer without hemorrhage or perforation Code(s): K25.9 - Gastric ulcer, unspecified as acute or chronic, without hemorrhage or perforation Status: Acute Assessment and Plan: not actively bleeding by 03/17 egd continue ppi f/u h/h (11) Collagenous colitis: Code(s): K52.831 - Collagenous colitis Status: Acute Assessment and Plan: clinically stable (12) COPD (chronic obstructive pulmonary disease): Qualifiers: COPD type: unspecified COPD Qualified Code(s): J44.9 - Chronic obstructive pulmonary disease, unspecified Code(s): J44.9 - Chronic obstructive pulmonary disease, unspecified Status: Acute Assessment and Plan: intubated in icu continue antibiotics, steroids, bronchodilators, pulmonary toilet, mucolytic Subjective Interval history: 58 year old female who came to the emergency room after feeling ill for about 6 days. The patient had some generalized weakness and has cholangitis colitis. Pt has history of pne
[2019-03-22] VITALS (31 sets, daily range): BP systolic 109–148; BP diastolic 65–104; PULSE 85–110; RESP 14–24; TEMP 36.7–37.1; O2SAT 92–100
[2019-03-22] MEDS: IPRATROPIUM BR 0.02% INH SOLN 0.5 MG/2.5 ML VIAL INHALATION ×4 (01:54→19:54)
[2019-03-22] MEDS: ALBUTEROL SULFATE NEB 2.5 MG/0.5 ML INH INHALATION ×4 (01:54→19:54)
[2019-03-22 04:03] LABS: Hematocrit 25.2 % (37.0-47.0); Hemoglobin 7.6 g/dL (12.0-15.0); Mean Corpuscular HGB Conc 30.2 g/dl (32-36); Mean Corpuscular Hemoglobin 25.2 pg (26-34); Mean Corpuscular Volume 83.4 fl (80-100); Mean Platelet Volume 8.9 fl (7.4-10.4); Platelet Count Result 356 k/mm3 (150-375); Red Blood Count 3.02 M/mm3 (4.2-5.4); Red Cell Distribution Width 22.1 % (11.5-14.5); White Blood Count 16.8 K/mm3 (4.5-10.0)
[2019-03-22 04:15] LABS: Lactic Acid 0.8 mmol/L (0.7-2.1)
[2019-03-22] MEDS: SODIUM CHLORIDE 0.9% IV 1,000 ML 50 ML IV CONT ×2 (04:16→22:43)
[2019-03-22 04:17] LABS: Alanine Aminotransferase 39 U/L (4-35); Albumin Level 2.7 g/dL (3.5-5.1); Alkaline Phosphatase 149 U/L (38-126); Aspartate Amino Transferase 26 U/L (14-36); Bilirubin,Total 0.6 mg/dL (0.2-1.3); Blood Urea Nitrogen 16 mg/dL (7-17); Calcium 8.6 mg/dL (8.4-10.2); Carbon Dioxide 29 mmol/L (22-30); Chloride 96 mmol/L (98-107); Estimated CRCL calculation 71 ml/min; Estimated Glomerular Filt Rate > 60; Glucose 135 mg/dL (65-105); Magnesium 2.1 mg/dL (1.6-2.3); Potassium 4.1 mmol/L (3.4-5.0); Sodium 132 mmol/L (137-145)
[2019-03-22 04:21] LABS: Lipase 452 U/L (23-300); Phosphorus 3.9 mg/dL (2.5-4.5)
[2019-03-22 05:07] LABS: Alveolar/Arterial O2 Gradient 171.3 mmHg; Base Excess ABG 4.8 mEq/l (+/-2.0); Carboxyhemoglobin 0.3 % THb (0-2.0); Fractional Inspired Oxygen 35 %; HCO3 ABG 28.6 mEq/l (22.0-26.0); Methemoglobin ABG 0.5 %THb (0-1.5); Oxyhemoglobin 64.1 % THb (90.0-100.0); PCO2 ABG 38.9 mmHg (35.0-45.0); PO2 FiO2 Ratio Arterial Blood 0.94 %; Reduced Hemoglobin 35.1 %THb (0-5.0); Total Hemoglobin 8.9 g/dL (12.0-18.0); pH ABG 7.484 (7.350-7.450)
[2019-03-22 05:09] LABS: Arterial Blood Gas Vent Mode CMV; Arterial Blood Gas Ventilator rate 15 /MIN; Device VENTILATOR; Modified Allen's Test Pass; Oxygen Saturation ABG 68.4 % (95.0-100.0); Site Drawn LEFT RADIAL
[2019-03-22 05:10] LABS: Arterial Blood Gas PEEP 10 cmH2O; Arterial Blood Gas Tidal Volume 370 ml
[2019-03-22 06:22] LABS: Alveolar/Arterial O2 Gradient 115.4 mmHg; Base Excess ABG 3.7 mEq/l (+/-2.0); Carboxyhemoglobin 0.3 % THb (0-2.0); Fractional Inspired Oxygen 35 %; HCO3 ABG 27.3 mEq/l (22.0-26.0); Methemoglobin ABG 0.4 %THb (0-1.5); Oxygen Content ABG 12.6 %vol (16.0-22.0); Oxygen Saturation ABG 97.5 % (95.0-100.0); Oxyhemoglobin 95.4 % THb (90.0-100.0); PCO2 ABG 37.1 mmHg (35.0-45.0); Reduced Hemoglobin 3.9 %THb (0-5.0); Total Hemoglobin 9.3 g/dL (12.0-18.0); pH ABG 7.485 (7.350-7.450)
[2019-03-22 06:23] LABS: Device VENTILATOR; Modified Allen's Test Pass; Site Drawn LEFT RADIAL
[2019-03-22 06:24] LABS: Arterial Blood Gas PEEP 10 cmH2O; Arterial Blood Gas Tidal Volume 370 ml; Arterial Blood Gas Vent Mode CMV; Arterial Blood Gas Ventilator rate 15 /MIN
[2019-03-22] MEDS: methylPREDNISolone SOD SUCC 125 MG VIAL 60 MG IV PUSH ×3 (06:54→21:20)
[2019-03-22] MEDS: PROPOFOL IV EMULSION 100 ML 11.3 MG IV CONT (07:04)
[2019-03-22] MEDS: PANTOPRAZOLE SODIUM IV 40 MG VIAL IV PUSH ×2 (08:50→21:20)
[2019-03-22] MEDS: POTASSIUM CHLORIDE 20 MEQ PACKET (FOR LIQUID) PO (08:52)
[2019-03-22] MEDS: THIAMINE HCL 200 MG/2 ML VIAL 100 MG IV PUSH (08:52)
[2019-03-22] MEDS: FOLIC ACID 1 MG/0.2 ML INJ IV PUSH (09:18)
--- NOTE | 2019-03-22 11:11 | WPDINTPN ---
Progress Note: A&P Assessment and Plan (1) ARDS (adult respiratory distress syndrome): Code(s): J80 - Acute respiratory distress syndrome Status: Acute Assessment and Plan: patient with acute respiratory failure, chest x-ray shows bilateral diffuse infiltrates, patient requiring 60% FiO2 on BiPAP, hypoxemic on ABGs - patient successfully intubate on 03/20/2019 - patient on low tidal volume and high peep strategy for now, - chest x-ray shows improvement in bilateral infiltrates, ABGs reviewed, ventilator adjusted, currently on 35% FiO2 - continue ceftriaxone and azithromycin - continue bronchodilators (2) Acute respiratory failure: Qualifiers: Respiratory failure complication: hypoxia and hypercapnia Qualified Code(s): J96.01 - Acute respiratory failure with hypoxia; J96.02 - Acute respiratory failure with hypercapnia Code(s): J96.00 - Acute respiratory failure, unspecified whether with hypoxia or hypercapnia Status: Acute Assessment and Plan: acute respiratory failure likely to related to ARDS, possible due to transfusion related acute lung injury, transfusion associated cardiac overload - as above - sedation with Versed and propofol, maintain RASS of 0 to -2, daily sedation vacation (3) Acute blood loss anemia: Code(s): D62 - Acute posthemorrhagic anemia Status: Acute Assessment and Plan: hemoglobin has been stable - will continue to monitor (4) Gastric ulcer: Qualifiers: Gastric ulcer chronicity: acute Gastric ulcer complication status: unspecified whether hemorrhage or perforation present Qualified Code(s): K25.3 - Acute gastric ulcer without hemorrhage or perforation Code(s): K25.9 - Gastric ulcer, unspecified as acute or chronic, without hemorrhage or perforation Status: Acute Assessment and Plan: GI has been following - patient on PPI IV Q12H (5) COPD (chronic obstructive pulmonary disease): Qualifiers: COPD type: unspecified COPD Qualified Code(s): J44.9 - Chronic obstructive pulmonary disease, unspecified Code(s): J44.9 - Chronic obstructive pulmonary disease, unspecified Status: Acute Assessment and Plan: continue bronchodilators, steroids, now intubated (6) Elevated LFTs: Code(s): R94.5 - Abnormal results of liver function studies Status: Acute Assessment and Plan: elevated LFTs likely related to alcoholism, trending down, continue monitor - (7) Elevated troponin: Code(s): R79.89 - Other specified abnormal findings of blood chemistry Status: Acute Assessment and Plan: troponins elevated but plateaued in trending down, cardiology following the patient - likely secondary to respiratory distress /stress. Type 2 infarct /ischemic demand - repeat limited echocardiogram on 04/06/2019 showed a EF of 20-25% (8) Acute alcoholic pancreatitis: Qualifiers: Acute pancreatitis complication: unspecified Qualified Code(s): K85.20 - Alcohol induced acute pancreatitis without necrosis or infection Code(s): K85.20 - Alcohol induced acute pancreatitis without necrosis or infection Status: Acute Assessment and Plan: Alcoholic pancreatitis, patient was given adequate IV fluids on admission - lipase trending down this morning, continue NPO, gentle hydration - will start tube feeds today (9) DVT prophylaxis: Code(s): Z29.9 - Encounter for prophylactic measures, unspecified Status: Acute Assessment and Plan: SCDs, unable to give chemoprophylaxis as patient presented with severe anemia with hemoglobin of 3.1. Additional Plan Discussed with significant other and her sister and updated them with patient' s condition and plan of care. I answered all questions. I did showed that the radiology films on the laptop and discuss with them lab results. Will start tube feeds today
--- NOTE | 2019-03-22 12:11 | PM.PNCARD ---
Progress Note: A&P Assessment and Plan (1) Acute alcoholic pancreatitis: Qualifiers: Acute pancreatitis complication: unspecified Qualified Code(s): K85.20 - Alcohol induced acute pancreatitis without necrosis or infection Code(s): K85.20 - Alcohol induced acute pancreatitis without necrosis or infection Status: Acute Assessment and Plan: Resolving with bowel rest, hydration. Defer to GI and primary service. (2) Pneumonia: Qualifiers: Laterality: unspecified laterality Lung location: unspecified part of lung Pneumonia type: due to unspecified organism Qualified Code(s): J18.9 - Pneumonia, unspecified organism Code(s): J18.9 - Pneumonia, unspecified organism Status: Acute Assessment and Plan: Continue IV antibiotics per primary service. (3) Elevated troponin I level: Code(s): R79.89 - Other specified abnormal findings of blood chemistry Status: Acute Assessment and Plan: Most likely type 2 infarct supply demand mismatch not acute coronary syndrome and/or plaque rupture given profound anemia presentation requiring aggressive fluid resuscitation, transfusion in setting of relative hypotension, malnutrition and acute hypoxic respiratory failure. Continue BiPAP support, bronchodilator, antibiotic therapy. (4) Acute respiratory failure: Qualifiers: Respiratory failure complication: hypoxia and hypercapnia Qualified Code(s): J96.01 - Acute respiratory failure with hypoxia; J96.02 - Acute respiratory failure with hypercapnia Code(s): J96.00 - Acute respiratory failure, unspecified whether with hypoxia or hypercapnia Status: Acute Assessment and Plan: Significant improvement. Resolving ARDS s/p intubation, improving on vent. FIO2 requirements reduced. Wean vent as tolerated per Critical Care. Pt does not appear to be volume overloaded at this time. Hold diuretics but monitor volume status given LV dysfunction. Patient is critically ill. SCDs for DVT prophylaxis. Patient is not a candidate for antiplatelet or anticoagulant therapy. (5) Pulmonary edema: Qualifiers: Chronicity: acute Qualified Code(s): J81.0 - Acute pulmonary edema Code(s): J81.1 - Chronic pulmonary edema Status: Acute Assessment and Plan: No evidence of volume overload. Diuretics held. (6) Acute blood loss anemia: Code(s): D62 - Acute posthemorrhagic anemia Status: Acute Assessment and Plan: As above, secondary to gastric ulcer. H/H stable, avoid NSAIDs. (7) Gastric ulcer: Qualifiers: Gastric ulcer chronicity: acute Gastric ulcer complication status: unspecified whether hemorrhage or perforation present Qualified Code(s): K25.3 - Acute gastric ulcer without hemorrhage or perforation Code(s): K25.9 - Gastric ulcer, unspecified as acute or chronic, without hemorrhage or perforation Status: Acute Assessment and Plan: As above. GI following. Continue IV PPI. Monitor for bleeding. Transfuse as needed. Secondary to NSAID use and alcohol. (8) Alcoholic hepatitis: Qualifiers: Ascites presence: unspecified Qualified Code(s): K70.10 - Alcoholic hepatitis without ascites Code(s): K70.10 - Alcoholic hepatitis without ascites Status: Acute Assessment and Plan: Improving. Alcohol withdrawal protocol. Nutritional support. Monitor coagulation given coagulopathy presentation. Counseled on the importance of abstinence from alcohol. Patient and verbalized understanding. (9) Acute kidney injury: Code(s): N17.9 - Acute kidney failure, unspecified Status: Resolved Assessment and Plan: Resolved with volume resuscitation. (10) Elevated LFTs: Code(s): R94.5 - Abnormal results of liver function studies Status: Acute Assessment and Plan: As above, secondary to alcoholic hepatitis. (11) Stress-induced
--- NOTE | 2019-03-22 15:00 | PM.IMPN ---
Progress Note: A&P Assessment and Plan (1) Acute respiratory failure: Qualifiers: Respiratory failure complication: hypoxia and hypercapnia Qualified Code(s): J96.01 - Acute respiratory failure with hypoxia; J96.02 - Acute respiratory failure with hypercapnia Code(s): J96.00 - Acute respiratory failure, unspecified whether with hypoxia or hypercapnia Status: Acute Assessment and Plan: due to pulmonary edema superimposed on pneumonia and copd pt was emergently intubated due to exhaustion and loss of respirastory drive see above notes (2) Pulmonary edema: Qualifiers: Chronicity: acute Qualified Code(s): J81.0 - Acute pulmonary edema Code(s): J81.1 - Chronic pulmonary edema Status: Acute Assessment and Plan: sudden loss of EF stress induced cardiomyopathy (3) Severe anemia: Code(s): D64.9 - Anemia, unspecified Status: Acute Assessment and Plan: due to acute gi blood loss, secondary to ulcer hb still low at 7.6, continue to monitor sp transfusion secondary to ASA, ibuprofen and Alcholol (4) Pneumonia: Qualifiers: Laterality: unspecified laterality Lung location: unspecified part of lung Pneumonia type: due to unspecified organism Qualified Code(s): J18.9 - Pneumonia, unspecified organism Code(s): J18.9 - Pneumonia, unspecified organism Status: Acute Assessment and Plan: continue azithromycin, ceftriaxone day 7 with iv steroids, pt is weaning on ventilator cxr is looking better today (5) Acute kidney injury: Code(s): N17.9 - Acute kidney failure, unspecified Status: Resolved Assessment and Plan: resolved, creat is normal (6) Elevated LFTs: Code(s): R94.5 - Abnormal results of liver function studies Status: Acute Assessment and Plan: clinically due to acute on chronic alcoholic hepatitis (7) GI bleed: Qualifiers: GI bleed type/associated pathology: gastric ulcer Qualified Code(s): K25.4 - Chronic or unspecified gastric ulcer with hemorrhage Code(s): K92.2 - Gastrointestinal hemorrhage, unspecified Status: Acute Assessment and Plan: acute bleed resolved pt had EGD on 03/17, hb still low continue to watch (8) Acute alcoholic pancreatitis: Qualifiers: Acute pancreatitis complication: unspecified Qualified Code(s): K85.20 - Alcohol induced acute pancreatitis without necrosis or infection Code(s): K85.20 - Alcohol induced acute pancreatitis without necrosis or infection Status: Acute Assessment and Plan: most likley alcholol related and secondary to ASA and NSAID use (9) Hyponatremia: Code(s): E87.1 - Hypo-osmolality and hyponatremia Status: Acute Assessment and Plan: likely due to dehydration, alcoholism (10) Gastric ulcer: Qualifiers: Gastric ulcer chronicity: acute Gastric ulcer complication status: unspecified whether hemorrhage or perforation present Qualified Code(s): K25.3 - Acute gastric ulcer without hemorrhage or perforation Code(s): K25.9 - Gastric ulcer, unspecified as acute or chronic, without hemorrhage or perforation Status: Acute Assessment and Plan: not actively bleeding by 03/17 egd continue ppi f/u h/h (11) Collagenous colitis: Code(s): K52.831 - Collagenous colitis Status: Acute Assessment and Plan: clinically stable (12) COPD (chronic obstructive pulmonary disease): Qualifiers: COPD type: unspecified COPD Qualified Code(s): J44.9 - Chronic obstructive pulmonary disease, unspecified Code(s): J44.9 - Chronic obstructive pulmonary disease, unspecified Status: Acute Assessment and Plan: intubated in icu, improving slowly continue antibiotics, steroids, bronchodilators, pulmonary toilet, mucolytic Subjective Interval history: 58 year old female w
--- NOTE | 2019-03-22 15:01 | PC.NURSE ---
Dr. Perla notified of 8 beat run Vta, will continue to monitor closely.
[2019-03-22] MEDS: PROPOFOL IV EMULSION 100 ML 11.7 MG IV CONT (15:09)
[2019-03-22] MEDS: MIDAZOLAM HCL 50 MG in DEXTROSE 5% 90 ML IV CONT (15:28)
[2019-03-22] MEDS: carvediloL 3.125 MG TABLET PO (20:16)
[2019-03-22] MEDS: PROPOFOL IV EMULSION 100 ML 10 MG IV CONT (22:43)
[2019-03-22 22:57] LABS: Glucose Point of Care 151 (65-105)
[2019-03-23] VITALS (59 sets, daily range): BP systolic 113–152; BP diastolic 72–109; PULSE 73–132; RESP 15–39; TEMP 36.1–37; O2SAT 87–100; BMI 21.7
[2019-03-23] MEDS: IPRATROPIUM BR 0.02% INH SOLN 0.5 MG/2.5 ML VIAL INHALATION ×5 (02:07→23:52)
[2019-03-23] MEDS: ALBUTEROL SULFATE NEB 2.5 MG/0.5 ML INH INHALATION ×3 (02:07→14:47)
[2019-03-23 04:53] LABS: Hematocrit 27.6 % (37.0-47.0); Hemoglobin 7.9 g/dL (12.0-15.0); Mean Corpuscular HGB Conc 28.6 g/dl (32-36); Mean Corpuscular Hemoglobin 25.2 pg (26-34); Mean Corpuscular Volume 87.9 fl (80-100); Mean Platelet Volume 8.7 fl (7.4-10.4); Platelet Count Result 354 k/mm3 (150-375); Red Blood Count 3.14 M/mm3 (4.2-5.4); Red Cell Distribution Width 22.6 % (11.5-14.5); White Blood Count 17.9 K/mm3 (4.5-10.0)
[2019-03-23 05:02] LABS: Alveolar/Arterial O2 Gradient 70.3 mmHg; Base Excess ABG 2.3 mEq/l (+/-2.0); Carboxyhemoglobin 0.3 % THb (0-2.0); Fractional Inspired Oxygen 30 %; HCO3 ABG 26.1 mEq/l (22.0-26.0); Methemoglobin ABG 0.4 %THb (0-1.5); Oxygen Content ABG 11.7 %vol (16.0-22.0); Oxygen Saturation ABG 97.9 % (95.0-100.0); PCO2 ABG 36.9 mmHg (35.0-45.0); PO2 ABG 100.2 mmHg (80.0-100.0); PO2 FiO2 Ratio Arterial Blood 3.34 %; Reduced Hemoglobin 3.3 %THb (0-5.0); Total Hemoglobin 8.5 g/dL (12.0-18.0); pH ABG 7.467 (7.350-7.450)
[2019-03-23 05:03] LABS: Device VENTILATOR; Modified Allen's Test Pass; Site Drawn LEFT RADIAL
[2019-03-23 05:04] LABS: Arterial Blood Gas Vent Mode CMV; Arterial Blood Gas Ventilator rate 15 /MIN
[2019-03-23 05:05] LABS: Arterial Blood Gas Minute Volume 8 LPM; Arterial Blood Gas PEEP 10 cmH2O; Arterial Blood Gas Tidal Volume 370 ml
[2019-03-23 05:13] LABS: Alanine Aminotransferase 37 U/L (4-35); Alkaline Phosphatase 132 U/L (38-126); Aspartate Amino Transferase 30 U/L (14-36); Bilirubin,Total 0.5 mg/dL (0.2-1.3); Blood Urea Nitrogen 20 mg/dL (7-17); Calcium 8.8 mg/dL (8.4-10.2); Carbon Dioxide 26 mmol/L (22-30); Chloride 99 mmol/L (98-107); Estimated CRCL calculation 84 ml/min; Estimated Glomerular Filt Rate > 60; Glucose 114 mg/dL (65-105); Lipase 798 U/L (23-300); Magnesium 2.2 mg/dL (1.6-2.3); Phosphorus 3.9 mg/dL (2.5-4.5); Potassium 4.5 mmol/L (3.4-5.0); Sodium 132 mmol/L (137-145)
[2019-03-23] MEDS: methylPREDNISolone SOD SUCC 125 MG VIAL 60 MG IV PUSH ×3 (05:25→23:00)
--- NOTE | 2019-03-23 07:33 | WPDINTPN ---
Progress Note: A&P Assessment and Plan (1) ARDS (adult respiratory distress syndrome): Code(s): J80 - Acute respiratory distress syndrome Status: Acute Assessment and Plan: patient with acute respiratory failure; chest x-ray shows bilateral diffuse infiltrates, patient requiring 30% FiO2 - patient successfully intubated on 03/20/2019 - patient on low tidal volume and high peep strategy for now, anticipate SBT today. SAT underway. - chest x-ray shows improvement in bilateral infiltrates, ABGs reviewed - continue ceftriaxone and azithromycin - continue bronchodilators (2) Acute respiratory failure: Qualifiers: Respiratory failure complication: hypoxia and hypercapnia Qualified Code(s): J96.01 - Acute respiratory failure with hypoxia; J96.02 - Acute respiratory failure with hypercapnia Code(s): J96.00 - Acute respiratory failure, unspecified whether with hypoxia or hypercapnia Status: Acute Assessment and Plan: acute respiratory failure likely to related to ARDS; not TRALI or TACO based upon timing of symptoms related to transfusion timing - as above - SAT/SBT this AM (3) Acute blood loss anemia: Code(s): D62 - Acute posthemorrhagic anemia Status: Acute Assessment and Plan: hemoglobin has been stable - will continue to monitor (4) Gastric ulcer: Qualifiers: Gastric ulcer chronicity: acute Gastric ulcer complication status: unspecified whether hemorrhage or perforation present Qualified Code(s): K25.3 - Acute gastric ulcer without hemorrhage or perforation Code(s): K25.9 - Gastric ulcer, unspecified as acute or chronic, without hemorrhage or perforation Status: Acute Assessment and Plan: GI has been following - patient on PPI IV Q12H (5) COPD (chronic obstructive pulmonary disease): Qualifiers: COPD type: unspecified COPD Qualified Code(s): J44.9 - Chronic obstructive pulmonary disease, unspecified Code(s): J44.9 - Chronic obstructive pulmonary disease, unspecified Status: Acute Assessment and Plan: continue bronchodilators, steroids, now intubated (6) Elevated LFTs: Code(s): R94.5 - Abnormal results of liver function studies Status: Acute Assessment and Plan: elevated LFTs likely related to alcoholism, trending down, continue monitor - (7) Elevated troponin: Code(s): R79.89 - Other specified abnormal findings of blood chemistry Status: Acute Assessment and Plan: troponins elevated but plateaued in trending down, cardiology following the patient - likely secondary to respiratory distress /stress. Type 2 infarct /ischemic demand - repeat limited echocardiogram on 04/06/2019 showed a EF of 20-25% (8) Acute alcoholic pancreatitis: Qualifiers: Acute pancreatitis complication: unspecified Qualified Code(s): K85.20 - Alcohol induced acute pancreatitis without necrosis or infection Code(s): K85.20 - Alcohol induced acute pancreatitis without necrosis or infection Status: Acute Assessment and Plan: Alcoholic pancreatitis, patient was given adequate IV fluids on admission - lipase increased this AM, likely related to tube feed initiation, monitor - check RUQ U/S (9) DVT prophylaxis: Code(s): Z29.9 - Encounter for prophylactic measures, unspecified Status: Acute Assessment and Plan: SCDs, consider starting heparin SC if H/H stable tomorrow. Additional Plan Discussed with significant other and her sister and updated them with patient' s condition and plan of care. I answered all questions. code status: full code critical care time spent: 35 minutes Due to a high probability of clinically significant, life threatening deterioration, the patient required my highest level of preparedness to intervene emergently and I personally spent this critical care time directly
[2019-03-23] MEDS: carvediloL 3.125 MG TABLET PO (08:38)
[2019-03-23] MEDS: POTASSIUM CHLORIDE 20 MEQ PACKET (FOR LIQUID) PO (08:39)
[2019-03-23] MEDS: THIAMINE HCL 200 MG/2 ML VIAL 100 MG IV PUSH (08:39)
[2019-03-23] MEDS: PANTOPRAZOLE SODIUM IV 40 MG VIAL IV PUSH ×2 (08:40→23:45)
--- NOTE | 2019-03-23 09:23 | PM.PNCARD ---
Progress Note: A&P Assessment and Plan (1) Stress-induced cardiomyopathy: Code(s): I51.81 - Takotsubo syndrome Status: Acute Assessment and Plan: New, abrupt severe LV dysfunction with varied wall motion abnormalities on Echo 03/20/19 EF 25-30% (03/17/19 Echo EF 55% without WMA), flat Trop I not consistent with ACS/acute plaque rupture as explanation for marked change in LV function and wall motion abnormalities. This is most likely consistent with stress induced cardiomyopathy. She will require appropriate support with BB, MIKE-I when able. Continue Coreg 3.125mg BID. Initiate Ramipril 2.5mg daily once extubated. Further workup deferred until she recovers (2) Elevated troponin I level: Code(s): R79.89 - Other specified abnormal findings of blood chemistry Status: Acute Assessment and Plan: Most likely type 2 infarct supply demand mismatch not acute coronary syndrome and/or plaque rupture given profound anemia presentation requiring aggressive fluid resuscitation, transfusion in setting of relative hypotension, malnutrition and acute hypoxic respiratory failure. Continue supportive therapy (3) Pneumonia: Qualifiers: Laterality: unspecified laterality Lung location: unspecified part of lung Pneumonia type: due to unspecified organism Qualified Code(s): J18.9 - Pneumonia, unspecified organism Code(s): J18.9 - Pneumonia, unspecified organism Status: Acute Assessment and Plan: Continue IV antibiotics per primary service. (4) Acute respiratory failure: Qualifiers: Respiratory failure complication: hypoxia and hypercapnia Qualified Code(s): J96.01 - Acute respiratory failure with hypoxia; J96.02 - Acute respiratory failure with hypercapnia Code(s): J96.00 - Acute respiratory failure, unspecified whether with hypoxia or hypercapnia Status: Acute Assessment and Plan: Continues to improve.. Resolving ARDS s/p intubation. Plan is for extubation today. SCDs for DVT prophylaxis. She is not a candidate for antiplatelet or anticoagulant therapy. (5) Pulmonary edema: Qualifiers: Chronicity: acute Qualified Code(s): J81.0 - Acute pulmonary edema Code(s): J81.1 - Chronic pulmonary edema Status: Acute Assessment and Plan: No evidence of volume overload. Continue to hold diuretics. (6) Acute blood loss anemia: Code(s): D62 - Acute posthemorrhagic anemia Status: Acute Assessment and Plan: Secondary to gastric ulcer. H/H stable, avoid NSAIDs. (7) Gastric ulcer: Qualifiers: Gastric ulcer chronicity: acute Gastric ulcer complication status: unspecified whether hemorrhage or perforation present Qualified Code(s): K25.3 - Acute gastric ulcer without hemorrhage or perforation Code(s): K25.9 - Gastric ulcer, unspecified as acute or chronic, without hemorrhage or perforation Status: Acute Assessment and Plan: As above. GI following. Continue IV PPI. Monitor for bleeding. Transfuse as needed. Secondary to NSAID use and alcohol. (8) Alcoholic hepatitis: Qualifiers: Ascites presence: unspecified Qualified Code(s): K70.10 - Alcoholic hepatitis without ascites Code(s): K70.10 - Alcoholic hepatitis without ascites Status: Acute Assessment and Plan: Improving. Alcohol withdrawal protocol. Nutritional support. (9) Acute kidney injury: Code(s): N17.9 - Acute kidney failure, unspecified Status: Resolved Assessment and Plan: Resolved with volume resuscitation. (10) Elevated LFTs: Code(s): R94.5 - Abnormal results of liver function studies Status: A
[2019-03-23] MEDS: FOLIC ACID 1 MG/0.2 ML INJ IV PUSH (09:57)
--- NOTE | 2019-03-23 10:21 | PCDIET ---
Nutrition Follow-Up Complete: Nutrition Diagnosis: Inadequate oral intake related to pancreatitis as evidenced by NPO/clear liquid diet since admission. Nutrition Goal: Intakes >50% on advanced diet. Goal not met. Patient previously tolerating Vital 1.2 tube feedings at 40mL/hr, but feedings held for increased lipase and possible extubation today. Last recorded weight is 55.5 kg which is increased. I/O positive x 2 days. Bowel Motility: Abdomen soft with +BS, but still no documented bowel movement. Labs Reviewed: Lipase (798), Glu (114), Na (132), Alb (3.0), Hgb (7.9), Hct (27.6) Meds Noted: Folic Acid, Solu Medrol, Thiamine, Versed, Protonix, KCl Additional Notes: Propofol on hold. Vital 1.2 at 40mL/hr was providing 1056kcal, 77g protein and 735mL free water over 22 hours/day. Recommend swallow evaluation prior to diet advancement post-extubation. Patient may benefit from post-pyloric feedings (past Ligament of Treitz) if does not pass swallow or unable to tolerate low fat diet. Will continue to monitor with same goal. Nutrition Monitoring and Evaluation: Follow up in 3 days. Follow daily in ICU rounds.
[2019-03-23 10:58] LABS: Alveolar/Arterial O2 Gradient 82.5 mmHg; Base Excess ABG -1.7 mEq/l (+/-2.0); Fractional Inspired Oxygen 30 %; HCO3 ABG 21.5 mEq/l (22.0-26.0); Oxygen Content ABG 12.5 %vol (16.0-22.0); Oxygen Saturation ABG 97.7 % (95.0-100.0); Oxyhemoglobin 95.5 % THb (90.0-100.0); PCO2 ABG 30.7 mmHg (35.0-45.0); PO2 ABG 95.3 mmHg (80.0-100.0); PO2 FiO2 Ratio Arterial Blood 3.18 %; Total Hemoglobin 9.2 g/dL (12.0-18.0); pH ABG 7.464 (7.350-7.450)
[2019-03-23 10:59] LABS: Device VENTILATOR; Modified Allen's Test Pass; Site Drawn RIGHT RADIAL
[2019-03-23 11:00] LABS: Arterial Blood Gas PEEP 5 cmH2O; Arterial Blood Gas Pressure Support 5 cmH2O; Arterial Blood Gas Vent Mode SPONTANEOUS
[2019-03-23 12:43] LABS: Glucose Point of Care 149 (65-105)
[2019-03-23] MEDS: METOPROLOL TARTRATE INJ 5 MG/5 ML VIAL IV PUSH (15:22)
--- NOTE | 2019-03-23 15:28 | P.PNIM_ITS ---
Progress Note: A&P Assessment and Plan (1) Acute respiratory failure: Qualifiers: Respiratory failure complication: hypoxia and hypercapnia Qualified Code(s): J96.01 - Acute respiratory failure with hypoxia; J96.02 - Acute respiratory failure with hypercapnia Code(s): J96.00 - Acute respiratory failure, unspecified whether with hypoxia or hypercapnia Status: Acute Assessment and Plan: * due to pulmonary edema superimposed on pneumonia and copd * pt was emergently intubated due to exhaustion and loss of respirastory drive * see above notes, extubated today (2) Pulmonary edema: Qualifiers: Chronicity: acute Qualified Code(s): J81.0 - Acute pulmonary edema Code(s): J81.1 - Chronic pulmonary edema Status: Acute Assessment and Plan: * sudden loss of EF * stress induced cardiomyopathy (3) Severe anemia: Code(s): D64.9 - Anemia, unspecified Status: Acute Assessment and Plan: * due to acute gi blood loss, secondary to ulcer hb still low at 7.6, continue to monitor * sp transfusion * secondary to ASA, ibuprofen and Alcholol (4) Pneumonia: Qualifiers: Laterality: unspecified laterality Lung location: unspecified part of lung Pneumonia type: due to unspecified organism Qualified Code(s): J18.9 - Pneumonia, unspecified organism Code(s): J18.9 - Pneumonia, unspecified organism Status: Acute Assessment and Plan: * continue azithromycin, ceftriaxone day 8 with iv steroids, pt is extubated today (5) Acute kidney injury: Code(s): N17.9 - Acute kidney failure, unspecified Status: Resolved Assessment and Plan: * Resolved, creat is normal (6) Elevated LFTs: Code(s): R94.5 - Abnormal results of liver function studies Status: Acute Assessment and Plan: * clinically due to acute on chronic alcoholic hepatitis (7) GI bleed: Qualifiers: GI bleed type/associated pathology: gastric ulcer Qualified Code(s): K25.4 - Chronic or unspecified gastric ulcer with hemorrhage Code(s): K92.2 - Gastrointestinal hemorrhage, unspecified Status: Acute Assessment and Plan: * Acute bleed resolved pt had EGD on 03/17, hb still low continue to watch (8) Acute alcoholic pancreatitis: Qualifiers: Acute pancreatitis complication: unspecified Qualified Code(s): K85.20 - Alcohol induced acute pancreatitis without necrosis or infection Code(s): K85.20 - Alcohol induced acute pancreatitis without necrosis or infection Status: Acute Assessment and Plan: * most likley alcholol related * and secondary to ASA and NSAID use (9) Hyponatremia: Code(s): E87.1 - Hypo-osmolality and hyponatremia Status: Acute Assessment and Plan: * likely due to dehydration, alcoholism (10) Gastric ulcer: Qualifiers: Gastric ulcer chronicity: acute Gastric ulcer complication status: un specified whether hemorrhage or perforation present Qualified Code(s): K25.3 - Acute gastric ulcer without hemorrhage or perforation Code(s): K25.9 - Gastric ulcer, unspecified as acute or chronic, without hemorrhage or perforation Status: Acute Assessment and Plan: * not actively bleeding by 03/17 egd * continue ppi * f/u h/h (11) Collagenous colitis: Code(s): K52.831 - Collagenous colitis Status: Acute Assessment and Plan: * clinically stable (12) COPD (chronic obstructive pulmonary disease): Qualif
--- NOTE | 2019-03-23 15:28 | PM.IMPN ---
Progress Note: A&P Assessment and Plan (1) Acute respiratory failure: Qualifiers: Respiratory failure complication: hypoxia and hypercapnia Qualified Code(s): J96.01 - Acute respiratory failure with hypoxia; J96.02 - Acute respiratory failure with hypercapnia Code(s): J96.00 - Acute respiratory failure, unspecified whether with hypoxia or hypercapnia Status: Acute Assessment and Plan: due to pulmonary edema superimposed on pneumonia and copd pt was emergently intubated due to exhaustion and loss of respirastory drive see above notes, extubated today (2) Pulmonary edema: Qualifiers: Chronicity: acute Qualified Code(s): J81.0 - Acute pulmonary edema Code(s): J81.1 - Chronic pulmonary edema Status: Acute Assessment and Plan: sudden loss of EF stress induced cardiomyopathy (3) Severe anemia: Code(s): D64.9 - Anemia, unspecified Status: Acute Assessment and Plan: due to acute gi blood loss, secondary to ulcer hb still low at 7.6, continue to monitor sp transfusion secondary to ASA, ibuprofen and Alcholol (4) Pneumonia: Qualifiers: Laterality: unspecified laterality Lung location: unspecified part of lung Pneumonia type: due to unspecified organism Qualified Code(s): J18.9 - Pneumonia, unspecified organism Code(s): J18.9 - Pneumonia, unspecified organism Status: Acute Assessment and Plan: continue azithromycin, ceftriaxone day 8 with iv steroids, pt is extubated today (5) Acute kidney injury: Code(s): N17.9 - Acute kidney failure, unspecified Status: Resolved Assessment and Plan: Resolved, creat is normal (6) Elevated LFTs: Code(s): R94.5 - Abnormal results of liver function studies Status: Acute Assessment and Plan: clinically due to acute on chronic alcoholic hepatitis (7) GI bleed: Qualifiers: GI bleed type/associated pathology: gastric ulcer Qualified Code(s): K25.4 - Chronic or unspecified gastric ulcer with hemorrhage Code(s): K92.2 - Gastrointestinal hemorrhage, unspecified Status: Acute Assessment and Plan: Acute bleed resolved pt had EGD on 03/17, hb still low continue to watch (8) Acute alcoholic pancreatitis: Qualifiers: Acute pancreatitis complication: unspecified Qualified Code(s): K85.20 - Alcohol induced acute pancreatitis without necrosis or infection Code(s): K85.20 - Alcohol induced acute pancreatitis without necrosis or infection Status: Acute Assessment and Plan: most likley alcholol related and secondary to ASA and NSAID use (9) Hyponatremia: Code(s): E87.1 - Hypo-osmolality and hyponatremia Status: Acute Assessment and Plan: likely due to dehydration, alcoholism (10) Gastric ulcer: Qualifiers: Gastric ulcer chronicity: acute Gastric ulcer complication status: unspecified whether hemorrhage or perforation present Qualified Code(s): K25.3 - Acute gastric ulcer without hemorrhage or perforation Code(s): K25.9 - Gastric ulcer, unspecified as acute or chronic, without hemorrhage or perforation Status: Acute Assessment and Plan: not actively bleeding by 03/17 egd continue ppi f/u h/h (11) Collagenous colitis: Code(s): K52.831 - Collagenous colitis Status: Acute Assessment and Plan: clinically stable (12) COPD (chronic obstructive pulmonary disease): Qualifiers: COPD type: unspecified COPD Qualified Code(s): J44.9 - Chronic obstructive pulmonary disease, unspecified Code(s): J44.9 - Chronic obstructive pulmonary disease, unspecified Status: Acute Assessment and Plan: extubated in icu continue antibiotics, steroids, bronchodilators, pulmonary toilet, mucolytic, change to xoponex BT, pt is very wheezy after extubation Subjective Interval his
[2019-03-23] MEDS: FUROSEMIDE INJ 40 MG/4 ML VIAL IV PUSH (16:33)
[2019-03-23] MEDS: LEVALBUTEROL NEB 1.25 MG/3 ML (16:40)
[2019-03-23 16:54] LABS: Glucose Point of Care 164 (65-105)
[2019-03-23] MEDS: LEVALBUTEROL NEB 1.25 MG/3 ML 0.63 MG INHALATION ×2 (19:19→23:52)
[2019-03-23 21:45] LABS: Alveolar/Arterial O2 Gradient 231.4 mmHg; Base Excess ABG -2.1 mEq/l (+/-2.0); Carboxyhemoglobin 0.3 % THb (0-2.0); Fractional Inspired Oxygen 50 %; HCO3 ABG 25.4 mEq/l (22.0-26.0); Methemoglobin ABG 0.4 %THb (0-1.5); Oxygen Content ABG 12.5 %vol (16.0-22.0); PCO2 ABG 57.5 mmHg (35.0-45.0); PO2 ABG 60.4 mmHg (80.0-100.0); PO2 FiO2 Ratio Arterial Blood 1.21 %; Reduced Hemoglobin 14.3 %THb (0-5.0); Total Hemoglobin 10.4 g/dL (12.0-18.0)
[2019-03-23 21:46] LABS: Device OTHER DEVICE; Modified Allen's Test Pass; Site Drawn LEFT RADIAL; pH ABG 7.263 (7.350-7.450)
--- NOTE | 2019-03-23 22:00 | PC.NURSE ---
Patient states that she feels tired and unable to breathe. Patient had been attempted to be suctioned numerous times with minimal secretions, patient has hardly any gag reflex at this time. ABG was related to Dr. Hickman. Plan to intubate patient. Patient agrees with intubation. See procedure note.
--- NOTE | 2019-03-23 22:10 | WPDPROCEDUR ---
Procedures Intubation: Intubation Date: 03/23/19 Intubation Time: 22:13 Consent: Consent given by patient prior to procedure. A pre-procedural Time-Out was completed immediately before starting the procedure and confirmed: Patient Identification, Site, Procedure, Patient Position and the Availability of Requisite Equipment: Yes Sedative: etomidate (10) Paralytic: succinylcholine (50) Laryngoscope: fiber optic video scope ET tube size: 7.5 Tube secured depth (cm): 23 Tube secured location: lips Tube placement confirmation: visualized tube passing through cords, equal breath sounds bilaterally, no breath sounds over epigastrium and confirmation by capnometry Patient tolerated procedure: well and no complications Intubation complications: none Additional comments: Dr. Jose L Hickman made the decision to have the patient reintubated, and I was notified of this by her nurse Jairon. Vent settings and sedation orders were provided per Dr. Hickman. Chest x-ray pending at the time of this dictation.
[2019-03-23] MEDS: PROPOFOL IV EMULSION 100 ML 11.7 MG IV CONT (22:20)
[2019-03-23] MEDS: RAPID SEQUENCE INTUBATION KIT 1 EACH (22:59)
[2019-03-24] VITALS (60 sets, daily range): BP systolic 121–140; BP diastolic 80–97; PULSE 89–112; RESP 0–38; TEMP 36.6–37.1; O2SAT 97–100
[2019-03-24] MEDS: MIDAZOLAM HCL 2 MG/2 ML VIAL IV PUSH ×2 (03:29→05:27)
[2019-03-24] MEDS: LEVALBUTEROL NEB 1.25 MG/3 ML 0.63 MG INHALATION ×5 (03:54→20:35)
[2019-03-24] MEDS: IPRATROPIUM BR 0.02% INH SOLN 0.5 MG/2.5 ML VIAL INHALATION ×5 (03:54→20:34)
[2019-03-24] MEDS: ACETYLCYSTEINE 20% PO (03:55)
[2019-03-24] MEDS: INHAL PO (03:55)
[2019-03-24 04:31] LABS: Hematocrit 25.8 % (37.0-47.0); Hemoglobin 7.7 g/dL (12.0-15.0); Mean Corpuscular HGB Conc 29.8 g/dl (32-36); Mean Corpuscular Hemoglobin 25.1 pg (26-34); Mean Platelet Volume 8.8 fl (7.4-10.4); Platelet Count Result 383 k/mm3 (150-375); Red Blood Count 3.07 M/mm3 (4.2-5.4); White Blood Count 18.8 K/mm3 (4.5-10.0)
[2019-03-24] MEDS: PROPOFOL IV EMULSION 100 ML 11.7 MG IV CONT (04:51)
[2019-03-24 04:53] LABS: Alanine Aminotransferase 105 U/L (4-35); Albumin Level 2.8 g/dL (3.5-5.1); Alkaline Phosphatase 135 U/L (38-126); Aspartate Amino Transferase 94 U/L (14-36); Bilirubin,Total 0.6 mg/dL (0.2-1.3); Blood Urea Nitrogen 26 mg/dL (7-17); Calcium 8.8 mg/dL (8.4-10.2); Carbon Dioxide 27 mmol/L (22-30); Chloride 97 mmol/L (98-107); Estimated CRCL calculation 71 ml/min; Estimated Glomerular Filt Rate > 60; Glucose 113 mg/dL (65-105); Lipase 426 U/L (23-300); Magnesium 1.9 mg/dL (1.6-2.3); Phosphorus 4.4 mg/dL (2.5-4.5); Potassium 4.5 mmol/L (3.4-5.0); Sodium 132 mmol/L (137-145)
[2019-03-24 05:20] LABS: Alveolar/Arterial O2 Gradient 156.2 mmHg; Base Excess ABG 3.4 mEq/l (+/-2.0); Carboxyhemoglobin 0.3 % THb (0-2.0); Fractional Inspired Oxygen 40 %; HCO3 ABG 27.6 mEq/l (22.0-26.0); Methemoglobin ABG 0.5 %THb (0-1.5); Oxygen Saturation ABG 96.6 % (95.0-100.0); Oxyhemoglobin 94.7 % THb (90.0-100.0); PCO2 ABG 40.3 mmHg (35.0-45.0); PO2 ABG 82.7 mmHg (80.0-100.0); PO2 FiO2 Ratio Arterial Blood 2.07 %; Reduced Hemoglobin 4.5 %THb (0-5.0); Site Drawn LEFT RADIAL; Total Hemoglobin 8.9 g/dL (12.0-18.0); pH ABG 7.453 (7.350-7.450)
[2019-03-24 05:21] LABS: Arterial Blood Gas PEEP 5 cmH2O; Arterial Blood Gas Tidal Volume 370 ml; Arterial Blood Gas Vent Mode CMV; Arterial Blood Gas Ventilator rate 15 /MIN; Device VENTILATOR; Modified Allen's Test Pass
[2019-03-24] MEDS: methylPREDNISolone SOD SUCC 125 MG VIAL 60 MG IV PUSH (05:27)
--- NOTE | 2019-03-24 07:45 | WPDINTPN ---
Progress Note: A&P Assessment and Plan (1) ARDS (adult respiratory distress syndrome): Code(s): J80 - Acute respiratory distress syndrome Status: Acute Assessment and Plan: - patient successfully intubated on 03/20/2019; she passed SBT and was extubated on 03/23, but had poor cough/secretion clearance and was reintubated on 03/23 evening - daily SAT/SBT - albuterol, Pulmozyme, guaifenesin, and vest therapy for pulmonary toilet - PT/OT for early mobility - CXR 03/23 evening with developing R sided infiltrates, suspect silent aspiration - will need speech evaluation after extubation - continue ceftriaxone and azithromycin - continue bronchodilators (2) Acute respiratory failure: Qualifiers: Respiratory failure complication: hypoxia and hypercapnia Qualified Code(s): J96.01 - Acute respiratory failure with hypoxia; J96.02 - Acute respiratory failure with hypercapnia Code(s): J96.00 - Acute respiratory failure, unspecified whether with hypoxia or hypercapnia Status: Acute Assessment and Plan: acute respiratory failure likely to related to ARDS; not TRALI or TACO based upon timing of symptoms related to transfusion timing - as above - SAT/SBT daily (3) Acute blood loss anemia: Code(s): D62 - Acute posthemorrhagic anemia Status: Acute Assessment and Plan: hemoglobin has been stable - will continue to monitor (4) Gastric ulcer: Qualifiers: Gastric ulcer chronicity: acute Gastric ulcer complication status: unspecified whether hemorrhage or perforation present Qualified Code(s): K25.3 - Acute gastric ulcer without hemorrhage or perforation Code(s): K25.9 - Gastric ulcer, unspecified as acute or chronic, without hemorrhage or perforation Status: Acute Assessment and Plan: GI has been following - patient on PPI IV Q12H (5) COPD (chronic obstructive pulmonary disease): Qualifiers: COPD type: unspecified COPD Qualified Code(s): J44.9 - Chronic obstructive pulmonary disease, unspecified Code(s): J44.9 - Chronic obstructive pulmonary disease, unspecified Status: Acute Assessment and Plan: continue bronchodilators; start weaning steroids today due to risk for critical illness myopathy (6) Elevated LFTs: Code(s): R94.5 - Abnormal results of liver function studies Status: Acute Assessment and Plan: elevated LFTs likely related to alcoholism, but worse today - ?related to hypoxic insult/ischemic hepatitis after extubation - trend (7) Elevated troponin: Code(s): R79.89 - Other specified abnormal findings of blood chemistry Status: Acute Assessment and Plan: troponins elevated but plateaued in trending down, cardiology following the patient - likely secondary to respiratory distress /stress. Type 2 infarct /ischemic demand - repeat limited echocardiogram on 04/06/2019 showed a EF of 20-25% (8) Acute alcoholic pancreatitis: Qualifiers: Acute pancreatitis complication: unspecified Qualified Code(s): K85.20 - Alcohol induced acute pancreatitis without necrosis or infection Code(s): K85.20 - Alcohol induced acute pancreatitis without necrosis or infection Status: Acute Assessment and Plan: Alcoholic pancreatitis, patient was given adequate IV fluids on admission - lipase increased 12/16 AM, likely related to tube feed initiation; better today and will restart TF at trickle rate - if lipase worsen tomorrow consider TPN - RUQ U/S negative for gallstones - triglycerides WNL (9) DVT prophylaxis: Code(s): Z29.9 - Encounter for prophylactic measures, unspecified Status: Acute Assessment and Plan: Start heparin SC today. Additional Plan Discussed with significant other and her sister and updated them with patient' s condition and plan of care. I answered all questions. code status: full co
[2019-03-24] MEDS: THIAMINE HCL 200 MG/2 ML VIAL 100 MG IV PUSH (09:15)
[2019-03-24] MEDS: PANTOPRAZOLE SODIUM IV 40 MG VIAL IV PUSH ×2 (09:16→21:01)
[2019-03-24] MEDS: carvediloL 3.125 MG TABLET PO ×2 (09:20→21:01)
[2019-03-24] MEDS: FOLIC ACID 1 MG/0.2 ML INJ IV PUSH (09:21)
[2019-03-24] MEDS: PROPOFOL IV EMULSION 100 ML 13.3 MG IV CONT ×2 (11:11→17:52)
--- NOTE | 2019-03-24 11:37 | PCDIET ---
Nutrition Follow-Up Complete: Nutrition Diagnosis: Inadequate oral intake related to pancreatitis as evidenced by NPO/clear liquid diet since admission. Nutrition Goal: Intakes >50% on advanced diet. Goal not met. Patient extubated yesterday, then reintubated. Discussed possibility of post-pyloric feedings with recommendation to feed beyond Ligament of Trietz. MD ordered feeding tube advancement by 10cm. Recommend Vital 1.2 at 10mL/hr. Last recorded weight is 52.5 kg which is decreased. I/O negative today; previously positive. Bowel Motility: BM x 1 today. Labs Reviewed: Glu (113), BUN (26), Cr (0.6), Na 9132), Alb (2.8), Lipase (426) Meds Noted: Rocephin, Thiamine, Folic Acid, Versed, Solu Medrol, Propofol (currently at 13.3mL/hr which provides 351kcal per 24 hours) Additional Notes: No documented skin breakdown. Nutrition Monitoring and Evaluation: Follow up every Saturday/Saturday. Follow daily in ICU rounds.
[2019-03-24] MEDS: DORNASE ALFA INH SOLN 1 MG/ML 2.5 ML AMP 2.5 MG INHALATION ×2 (12:27→20:35)
--- NOTE | 2019-03-24 12:31 | PM.PNCARD ---
Progress Note: A&P Assessment and Plan (1) Stress-induced cardiomyopathy: Code(s): I51.81 - Takotsubo syndrome Status: Acute Assessment and Plan: New, abrupt severe LV dysfunction with varied wall motion abnormalities on Echo 03/20/19 EF 25-30% (03/17/19 Echo EF 55% without WMA), flat Trop I consistent with stress induced cardiomyopathy. She will require appropriate support with BB, MIKE-I. Not much volume overload noted. Good urine output yesterday. Continue Coreg 3.125mg BID. Initiate Ramipril 2.5mg daily since blood pressure stable. Further workup deferred until she recovers (2) Elevated troponin I level: Code(s): R79.89 - Other specified abnormal findings of blood chemistry Status: Acute Assessment and Plan: Most likely type 2 infarct supply demand mismatch not acute coronary syndrome and/or plaque rupture given profound anemia presentation requiring aggressive fluid resuscitation, transfusion in setting of relative hypotension, malnutrition and acute hypoxic respiratory failure. Continue supportive therapy (3) Pneumonia: Qualifiers: Laterality: unspecified laterality Lung location: unspecified part of lung Pneumonia type: due to unspecified organism Qualified Code(s): J18.9 - Pneumonia, unspecified organism Code(s): J18.9 - Pneumonia, unspecified organism Status: Acute Assessment and Plan: Required re-intubation. Continue IV antibiotics per primary service. (4) Acute respiratory failure: Qualifiers: Respiratory failure complication: hypoxia and hypercapnia Qualified Code(s): J96.01 - Acute respiratory failure with hypoxia; J96.02 - Acute respiratory failure with hypercapnia Code(s): J96.00 - Acute respiratory failure, unspecified whether with hypoxia or hypercapnia Status: Acute Assessment and Plan: Continues to improve.. Resolving ARDS s/p intubation. Plan is for extubation today. SCDs for DVT prophylaxis. She is not a candidate for antiplatelet or anticoagulant therapy. (5) Pulmonary edema: Qualifiers: Chronicity: acute Qualified Code(s): J81.0 - Acute pulmonary edema Code(s): J81.1 - Chronic pulmonary edema Status: Acute Assessment and Plan: No evidence of volume overload. Continue to hold diuretics. (6) Acute blood loss anemia: Code(s): D62 - Acute posthemorrhagic anemia Status: Acute Assessment and Plan: Secondary to gastric ulcer. H/H stable, avoid NSAIDs. (7) Gastric ulcer: Qualifiers: Gastric ulcer chronicity: acute Gastric ulcer complication status: unspecified whether hemorrhage or perforation present Qualified Code(s): K25.3 - Acute gastric ulcer without hemorrhage or perforation Code(s): K25.9 - Gastric ulcer, unspecified as acute or chronic, without hemorrhage or perforation Status: Acute Assessment and Plan: As above. GI following. Continue IV PPI. Monitor for bleeding. Transfuse as needed. Secondary to NSAID use and alcohol. (8) Alcoholic hepatitis: Qualifiers: Ascites presence: unspecified Qualified Code(s): K70.10 - Alcoholic hepatitis without ascites Code(s): K70.10 - Alcoholic hepatitis without ascites Status: Acute Assessment and Plan: Improving. Alcohol withdrawal protocol. Nutritional support. (9) Acute kidney injury: Code(s): N17.9 - Acute kidney failure, unspecified Status: Resolved Assessment and Plan: Resolved with volume resuscitation. (10) Elevated LFTs: Code(s): R94.5 - Abnormal results of liver function studies Status: Acute Assessment and Plan: Improving, second
--- NOTE | 2019-03-24 15:09 | PM.IMPN ---
Progress Note: A&P Assessment and Plan (1) Acute respiratory failure: Qualifiers: Respiratory failure complication: hypoxia and hypercapnia Qualified Code(s): J96.01 - Acute respiratory failure with hypoxia; J96.02 - Acute respiratory failure with hypercapnia Code(s): J96.00 - Acute respiratory failure, unspecified whether with hypoxia or hypercapnia Status: Acute Assessment and Plan: due to pulmonary edema superimposed on pneumonia and copd pt was reintubated yesterday due to heavy secretions and exhaustion (2) Pulmonary edema: Qualifiers: Chronicity: acute Qualified Code(s): J81.0 - Acute pulmonary edema Code(s): J81.1 - Chronic pulmonary edema Status: Acute Assessment and Plan: sudden loss of EF stress induced cardiomyopathy seen by cardiology (3) Severe anemia: Code(s): D64.9 - Anemia, unspecified Status: Acute Assessment and Plan: due to acute gi blood loss, secondary to ulcer hb still low at 7.7, continue to monitor sp transfusion secondary to ASA, ibuprofen and alcholol (4) Pneumonia: Qualifiers: Laterality: unspecified laterality Lung location: unspecified part of lung Pneumonia type: due to unspecified organism Qualified Code(s): J18.9 - Pneumonia, unspecified organism Code(s): J18.9 - Pneumonia, unspecified organism Status: Acute Assessment and Plan: continue azithromycin, ceftriaxone day 9 with iv steroids, pt is reintubated (5) Acute kidney injury: Code(s): N17.9 - Acute kidney failure, unspecified Status: Resolved Assessment and Plan: Resolved, creat is normal (6) Elevated LFTs: Code(s): R94.5 - Abnormal results of liver function studies Status: Acute Assessment and Plan: clinically due to acute on chronic alcoholic hepatitis (7) GI bleed: Qualifiers: GI bleed type/associated pathology: gastric ulcer Qualified Code(s): K25.4 - Chronic or unspecified gastric ulcer with hemorrhage Code(s): K92.2 - Gastrointestinal hemorrhage, unspecified Status: Acute Assessment and Plan: Acute bleed resolved pt had EGD on 03/17, hb still low continue to watch (8) Acute alcoholic pancreatitis: Qualifiers: Acute pancreatitis complication: unspecified Qualified Code(s): K85.20 - Alcohol induced acute pancreatitis without necrosis or infection Code(s): K85.20 - Alcohol induced acute pancreatitis without necrosis or infection Status: Acute Assessment and Plan: most likley alcholol related and secondary to ASA and NSAID use (9) Hyponatremia: Code(s): E87.1 - Hypo-osmolality and hyponatremia Status: Acute Assessment and Plan: likely due to dehydration, alcoholism (10) Gastric ulcer: Qualifiers: Gastric ulcer chronicity: acute Gastric ulcer complication status: unspecified whether hemorrhage or perforation present Qualified Code(s): K25.3 - Acute gastric ulcer without hemorrhage or perforation Code(s): K25.9 - Gastric ulcer, unspecified as acute or chronic, without hemorrhage or perforation Status: Acute Assessment and Plan: not actively bleeding by 03/17 egd continue ppi f/u h/h (11) Collagenous colitis: Code(s): K52.831 - Collagenous colitis Status: Acute Assessment and Plan: clinically stable (12) COPD (chronic obstructive pulmonary disease): Qualifiers: COPD type: unspecified COPD Qualified Code(s): J44.9 - Chronic obstructive pulmonary disease, unspecified Code(s): J44.9 - Chronic obstructive pulmonary disease, unspecified Status: Acute Assessment and Plan: reintubated last night due to heavy secretions, wheezing, resp distress and exhaustion continue antibiotics, steroids, bronchodilators, pulmonary toilet, mucolytic, change to xoponex BT Subjective Int
[2019-03-24] MEDS: RAMIPRIL 1.25 MG CAPSULE 2.5 MG FEED TUBE (16:12)
[2019-03-24] MEDS: GUAIFENESIN 200 MG/10 ML UDC PO ×2 (16:13→21:01)
[2019-03-24] MEDS: methylPREDNISolone SOD SUCC 40 MG VIAL IV PUSH (17:52)
[2019-03-24] MEDS: HEPARIN SODIUM 5,000 UNITS/ML VIAL 5000 UNITS SUB-Q (21:01)
[2019-03-25] VITALS (30 sets, daily range): BP systolic 100–122; BP diastolic 55–77; PULSE 66–95; RESP 15–19; TEMP 36.6–37.2; O2SAT 98–100
[2019-03-25] MEDS: PROPOFOL IV EMULSION 100 ML 13.3 MG IV CONT ×2 (00:01→06:39)
[2019-03-25] MEDS: IPRATROPIUM BR 0.02% INH SOLN 0.5 MG/2.5 ML VIAL INHALATION ×7 (00:02→23:01)
[2019-03-25] MEDS: LEVALBUTEROL NEB 1.25 MG/3 ML 0.63 MG INHALATION ×7 (00:03→23:00)
[2019-03-25] MEDS: GUAIFENESIN 200 MG/10 ML UDC PO ×6 (00:05→20:05)
[2019-03-25 04:31] LABS: Alveolar/Arterial O2 Gradient 75.3 mmHg; Base Excess ABG 4.8 mEq/l (+/-2.0); Carboxyhemoglobin 0.3 % THb (0-2.0); Fractional Inspired Oxygen 30 %; HCO3 ABG 28.5 mEq/l (22.0-26.0); Methemoglobin ABG 0.5 %THb (0-1.5); Oxygen Content ABG 10.9 %vol (16.0-22.0); Oxygen Saturation ABG 97.7 % (95.0-100.0); Oxyhemoglobin 95.4 % THb (90.0-100.0); PCO2 ABG 38.2 mmHg (35.0-45.0); PO2 ABG 93.7 mmHg (80.0-100.0); PO2 FiO2 Ratio Arterial Blood 3.12 %; Reduced Hemoglobin 3.8 %THb (0-5.0)
[2019-03-25 04:36] LABS: Arterial Blood Gas Ventilator rate 15 /MIN; Device VENTILATOR; Modified Allen's Test Pass; Site Drawn RIGHT RADIAL
[2019-03-25 04:37] LABS: Arterial Blood Gas PEEP 5 cmH2O; Arterial Blood Gas Tidal Volume 370 ml; Arterial Blood Gas Vent Mode CMV
[2019-03-25 04:50] LABS: Hematocrit 23.6 % (37.0-47.0); Hemoglobin 7.1 g/dL (12.0-15.0); Mean Corpuscular HGB Conc 30.1 g/dl (32-36); Mean Corpuscular Hemoglobin 25.4 pg (26-34); Mean Corpuscular Volume 84.3 fl (80-100); Mean Platelet Volume 8.8 fl (7.4-10.4); Platelet Count Result 402 k/mm3 (150-375); White Blood Count 17.7 K/mm3 (4.5-10.0)
[2019-03-25 04:57] LABS: INR 1.1; Prothrombin Time 14.3 Seconds (11.1-14.7)
[2019-03-25 05:05] LABS: Alanine Aminotransferase 68 U/L (4-35); Albumin Level 2.3 g/dL (3.5-5.1); Alkaline Phosphatase 104 U/L (38-126); Aspartate Amino Transferase 39 U/L (14-36); Bilirubin,Total 0.5 mg/dL (0.2-1.3); Blood Urea Nitrogen 19 mg/dL (7-17); Calcium 8.3 mg/dL (8.4-10.2); Carbon Dioxide 29 mmol/L (22-30); Chloride 96 mmol/L (98-107); Estimated CRCL calculation 84 ml/min; Estimated Glomerular Filt Rate > 60; Glucose 101 mg/dL (65-105); Lipase 462 U/L (23-300); Phosphorus 3.7 mg/dL (2.5-4.5); Sodium 130 mmol/L (137-145)
[2019-03-25] MEDS: methylPREDNISolone SOD SUCC 40 MG VIAL IV PUSH (05:37)
[2019-03-25] MEDS: DORNASE ALFA INH SOLN 1 MG/ML 2.5 ML AMP 2.5 MG INHALATION ×2 (08:05→20:25)
[2019-03-25] MEDS: carvediloL 3.125 MG TABLET PO ×2 (08:47→20:04)
[2019-03-25] MEDS: FOLIC ACID 1 MG/0.2 ML INJ IV PUSH (08:48)
[2019-03-25] MEDS: RAMIPRIL 1.25 MG CAPSULE 2.5 MG FEED TUBE (08:48)
[2019-03-25] MEDS: PANTOPRAZOLE SODIUM IV 40 MG VIAL IV PUSH ×2 (08:48→20:05)
[2019-03-25] MEDS: THIAMINE HCL 200 MG/2 ML VIAL 100 MG IV PUSH (08:49)
--- NOTE | 2019-03-25 09:01 | PM.PNCARD ---
Progress Note: A&P Additional Plan Continue current regimen of beta-tito and MIKE-inhibitor treatment for presumed takotsubo stress cardiomyopathy Inciting event appears to be clearly related to severe anemia and myocardial ischemia secondary to this No plans are in place to conduct an ischemia evaluation at this time Time Spent With Patient Time with patient: 15 - 25 minutes Subjective Interval history: Date of service 03/25/2019 Follow-up visit for presumed takotsubo stress cardiomyopathy occurring in the setting of profound anemia Significant pancreatitis presumed alcoholic in etiology Exam Const: General: no acute distress Other: Patient appears remarkably comfortable despite being intubated Eyes: Sclera: sclerae normal Pupils: PERRL Neck: Neck: no JVD Thyroid: thyroid normal Resp: Effort & Inspection: normal respiratory effort Other: Few scattered rhonchi are noted Cardio: Rate: regular rate Rhythm: regular rhythm Other: No murmur no gallop GI: Auscultation: normal bowel sounds Skin: General skin exam: normal color Extrem: General: normal to inspection Other: Extremities warm and well perfused Objective Data Vital Signs Vital Signs: Vital Signs - 24 hr 03/24/19 09:20 03/24/19 10:00 03/24/19 12:00 Temperature 36.6 C Pulse Rate 107 H 107 H 97 Respiratory Rate 20 20 Blood Pressure 121/83 126/80 Pulse Oximetry 98 98 03/24/19 12:33 03/24/19 12:37 03/24/19 12:54 Temperature Pulse Rate 92 96 96 Respiratory Rate 15 17 Blood Pressure Pulse Oximetry 99 03/24/19 14:00 03/24/19 16:00 03/24/19 16:38 Temperature 36.6 C Pulse Rate 101 H 101 H 97 Respiratory Rate 18 18 19 Blood Pressure 137/92 H 132/84 Pulse Oximetry 100 99 03/24/19 16:49 03/24/19 16:52 03/24/19 18:00 Temperature Pulse Rate 99 92 101 H Respiratory Rate 20 18 Blood Pressure 127/84 Pulse Oximetry 100 99 03/24/19 20:00 03/24/19 20:42 03/24/19 20:53 Temperature 36.8 C Pulse Rate 102 H 99 96 Respiratory Rate 20 16 Blood Pressure 125/80 Pulse Oximetry 99 98 03/24/19 21:01 03/24/19 22:00 03/24/19 23:38 Temperature 36.9 C Pulse Rate 102 H 95 98 Respiratory Rate 17 20 Blood Pressure 126/80 Pulse Oximetry 98 97 03/25/19 00:00 03/25/19 01:47 03/25/19 02:00 Temperature 36.6 C 36.9 C Pulse Rate 95 91 82 Respiratory Rate 16 15 Blood Pressure 122/72 116/71 Pulse Oximetry 100 99 98 03/25/19 04:00 03/25/19 04:28 03/25/19 06:00 Temperature 37.0 C 36.7 C Pulse Rate 85 83 81 Respiratory Rate 16 16 15 Blood Pressure 108/66 122/77 Pulse Oximetry 100 100 100 03/25/19 08:05 03/25/19 08:13 03/25/19 08:47 Temperature Pulse Rate 68 78 77 Respiratory Rate 15 18 Blood Pressure Pulse Oximetry 100 Intake/Output Intake/Output: Intake & Output 03/22/19 03/23/19 03/24/19 03/25/19 23:59 23:59 23:59 23:59 Intake Total 2354 1626 615 399 Output Total 378 696 2679 550 Balance 8818 7732 -8186 -577 Meds/Results Medications: Active Medications Generic Name Dose Route Start Last Admin Trade Name Freq PRN Reason Stop Dose Admin Carvedilol 3.125 mg 03/22/19 21:00 03/25/19 08:47 Coreg PO 3.125 mg Q12HR EFRAIN Administration Dornase Nick 2.5 mg 03/24/19 08:07 03/25/19 08:05 Pulmozyme INHALATION 03/27/19 23:59 2.5 mg Q12HRT EFRAIN Administration Folic Acid 1 mg 03/17/19 09:00 03/25/19 08:48 Folic Acid Inj IV PUSH 1 mg QAM EFRAIN Administration Guaifenesin 200 mg 03/24/19 13:00 03/25/19 08:48 Guaifenesin Liq PO 200 mg Q4HR EFRAIN Administration Heparin Sodium (Porcine) 5,000 units 03/24/19 21:00 03/24/19 21:01 Heparin Sodium SUB-Q 5,000 units Q12HR EFRAIN Administration Azithromycin 500 mg in 250 mls @ 250 mls/hr 03/19/19 10:00 03/24/19 11:10 Zithromax IVPB Infused DAILY@1000 EFRAIN Infusion Propofol 100 mls @ 13.32 mls/hr 03/24/19 18:00 03/25/19 06:39 Diprivan IV CONT 40 mcg/kg/min .Q7H3
--- NOTE | 2019-03-25 10:31 | PCDIET ---
ICU Rounding Note: Patient receiving Vital 1.2 @ 10mL/hr. Tolerating well, although lipase remains elevated (stable). Last recorded weight is 57.6kg which is increased, despite negative I/O yesterday. Bowel Motility: BM x 1 yesterday. Labs Reviewed: Lipase (462), Na (130), Alb (2.3) Meds Noted: Folic Acid, Protonix, Thiamine Inj, Propofol (currently at 11.7mL/hr which provides 308kcal over 24 hour period) Additional Notes: No reported skin breakdown. MD ordered increase by only 10mL/hr due to fact lipase remains elevated. Following daily in ICU rounds. Assessing/reassessing every Saturday/Saturday.
--- NOTE | 2019-03-25 11:37 | WPDINTPN ---
Progress Note: A&P Assessment and Plan (1) ARDS (adult respiratory distress syndrome): Code(s): J80 - Acute respiratory distress syndrome Status: Acute Assessment and Plan: patient with acute respiratory failure, chest x-ray shows bilateral diffuse infiltrates, patient requiring 60% FiO2 on BiPAP, hypoxemic on ABGs - initially intubated on 03/20/2019, extaubted on 03/23, and reintubated on 03/23 evening. - patient on low tidal volume and high peep strategy for now, - chest x-ray shows improvement in bilateral infiltrates, ABGs reviewed, ventilator adjusted, currently on 45% FiO2 - continue ceftriaxone and azithromycin - continue bronchodilators, pulmozyme, chest PT, guaifenesin. Aggressive pulmonary toilet (2) Acute respiratory failure: Qualifiers: Respiratory failure complication: hypoxia and hypercapnia Qualified Code(s): J96.01 - Acute respiratory failure with hypoxia; J96.02 - Acute respiratory failure with hypercapnia Code(s): J96.00 - Acute respiratory failure, unspecified whether with hypoxia or hypercapnia Status: Acute Assessment and Plan: acute respiratory failure likely to related to ARDS, - sedation with Versed and propofol, maintain RASS of 0 to -2, daily sedation vacation (3) Acute blood loss anemia: Code(s): D62 - Acute posthemorrhagic anemia Status: Acute Assessment and Plan: hemoglobin dropped to 7.1 this am. will hold heparin SQ - will continue to monitor (4) Gastric ulcer: Qualifiers: Gastric ulcer chronicity: acute Gastric ulcer complication status: unspecified whether hemorrhage or perforation present Qualified Code(s): K25.3 - Acute gastric ulcer without hemorrhage or perforation Code(s): K25.9 - Gastric ulcer, unspecified as acute or chronic, without hemorrhage or perforation Status: Acute Assessment and Plan: GI has been following - patient on PPI IV Q12H (5) COPD (chronic obstructive pulmonary disease): Qualifiers: COPD type: unspecified COPD Qualified Code(s): J44.9 - Chronic obstructive pulmonary disease, unspecified Code(s): J44.9 - Chronic obstructive pulmonary disease, unspecified Status: Acute Assessment and Plan: continue bronchodilators, stop steroids, (6) Elevated LFTs: Code(s): R94.5 - Abnormal results of liver function studies Status: Acute Assessment and Plan: elevated LFTs likely related to alcoholism, trending down, continue monitor - (7) Elevated troponin: Code(s): R79.89 - Other specified abnormal findings of blood chemistry Status: Acute Assessment and Plan: troponins elevated but plateaued in trending down, cardiology following the patient - likely secondary to respiratory distress /stress. Type 2 infarct /ischemic demand - repeat limited echocardiogram on 04/06/2019 showed a EF of 20-25% - Cardiology following the pt - contiue beta tito and MIKE inhibitor for presumed Takatsubo stress cardiomyopathy (8) Acute alcoholic pancreatitis: Qualifiers: Acute pancreatitis complication: unspecified Qualified Code(s): K85.20 - Alcohol induced acute pancreatitis without necrosis or infection Code(s): K85.20 - Alcohol induced acute pancreatitis without necrosis or infection Status: Acute Assessment and Plan: Alcoholic pancreatitis, patient was given adequate IV fluids on admission - lipase stable - will increase TF gradually (9) DVT prophylaxis: Code(s): Z29.9 - Encounter for prophylactic measures, unspecified Status: Acute Assessment and Plan: SCDs, unable to give chemoprophylaxis as patient presented with severe anemia with hemoglobin of 3.1. Additional Plan Discussed with significant other and updated them with patient' s condition and plan of care. I answered all questions. code status: full code critical care markus
--- NOTE | 2019-03-25 14:06 | PM.IMPN ---
Progress Note: A&P Assessment and Plan (1) Acute respiratory failure: Qualifiers: Respiratory failure complication: hypoxia and hypercapnia Qualified Code(s): J96.01 - Acute respiratory failure with hypoxia; J96.02 - Acute respiratory failure with hypercapnia Code(s): J96.00 - Acute respiratory failure, unspecified whether with hypoxia or hypercapnia Status: Acute Assessment and Plan: due to pulmonary edema superimposed on pneumonia and copd pt was reintubated yesterday due to heavy secretions and exhaustion (2) Pulmonary edema: Qualifiers: Chronicity: acute Qualified Code(s): J81.0 - Acute pulmonary edema Code(s): J81.1 - Chronic pulmonary edema Status: Acute Assessment and Plan: sudden loss of EF stress induced cardiomyopathy seen by cardiology (3) Severe anemia: Code(s): D64.9 - Anemia, unspecified Status: Acute Assessment and Plan: due to acute gi blood loss, secondary to ulcer hb still low at 7.1, continue to monitor sp transfusion secondary to ASA, ibuprofen and alcholol stop IV steroids today (4) Pneumonia: Qualifiers: Laterality: unspecified laterality Lung location: unspecified part of lung Pneumonia type: due to unspecified organism Qualified Code(s): J18.9 - Pneumonia, unspecified organism Code(s): J18.9 - Pneumonia, unspecified organism Status: Acute Assessment and Plan: continue azithromycin, ceftriaxone day 10, pt is reintubated on 03/23 (5) Acute kidney injury: Code(s): N17.9 - Acute kidney failure, unspecified Status: Resolved Assessment and Plan: Resolved, creat is normal (6) Elevated LFTs: Code(s): R94.5 - Abnormal results of liver function studies Status: Acute Assessment and Plan: clinically due to acute on chronic alcoholic hepatitis (7) GI bleed: Qualifiers: GI bleed type/associated pathology: gastric ulcer Qualified Code(s): K25.4 - Chronic or unspecified gastric ulcer with hemorrhage Code(s): K92.2 - Gastrointestinal hemorrhage, unspecified Status: Acute Assessment and Plan: Acute bleed resolved pt had EGD on 03/17, hb still low continue to watch, hb remains low, IV steroids stopped (8) Acute alcoholic pancreatitis: Qualifiers: Acute pancreatitis complication: unspecified Qualified Code(s): K85.20 - Alcohol induced acute pancreatitis without necrosis or infection Code(s): K85.20 - Alcohol induced acute pancreatitis without necrosis or infection Status: Acute Assessment and Plan: most likley alcholol related and secondary to ASA and NSAID use (9) Hyponatremia: Code(s): E87.1 - Hypo-osmolality and hyponatremia Status: Acute Assessment and Plan: likely due to dehydration, alcoholism (10) Gastric ulcer: Qualifiers: Gastric ulcer chronicity: acute Gastric ulcer complication status: unspecified whether hemorrhage or perforation present Qualified Code(s): K25.3 - Acute gastric ulcer without hemorrhage or perforation Code(s): K25.9 - Gastric ulcer, unspecified as acute or chronic, without hemorrhage or perforation Status: Acute Assessment and Plan: not actively bleeding by 03/17 egd continue ppi f/u h/h (11) Collagenous colitis: Code(s): K52.831 - Collagenous colitis Status: Acute Assessment and Plan: clinically stable (12) COPD (chronic obstructive pulmonary disease): Qualifiers: COPD type: unspecified COPD Qualified Code(s): J44.9 - Chronic obstructive pulmonary disease, unspecified Code(s): J44.9 - Chronic obstructive pulmonary disease, unspecified Status: Acute Assessment and Plan: Pt reintubated on 03/23 continue antibiotics, steroids, bronchodilators, pulmonary toilet, mucolytic, change to xoponex BT Subjective Date/time
[2019-03-25] MEDS: PROPOFOL IV EMULSION 100 ML 11.7 MG IV CONT ×2 (14:11→21:23)
[2019-03-25] MEDS: MIDAZOLAM HCL 2 MG/2 ML VIAL IV PUSH (20:21)
[2019-03-26] VITALS (32 sets, daily range): BP systolic 83–116; BP diastolic 55–79; PULSE 66–89; RESP 12–25; TEMP 36.9–37.2; O2SAT 100
[2019-03-26] MEDS: MIDAZOLAM HCL 2 MG/2 ML VIAL IV PUSH (01:51)
[2019-03-26] MEDS: GUAIFENESIN 200 MG/10 ML UDC PO ×6 (01:51→20:10)
[2019-03-26] MEDS: LEVALBUTEROL NEB 1.25 MG/3 ML 0.63 MG INHALATION ×5 (03:00→21:23)
[2019-03-26] MEDS: IPRATROPIUM BR 0.02% INH SOLN 0.5 MG/2.5 ML VIAL INHALATION ×5 (03:00→21:23)
[2019-03-26 04:19] LABS: Basophils Percent Auto 0.1 % (0.2-1.2); Eosinophils Absolute Auto 0.1 K/mm3 (0-0.3); Eosinophils Percent Auto 0.5 % (0-4.4); Hematocrit 26.5 % (37.0-47.0); Hemoglobin 7.9 g/dL (12.0-15.0); Immature Granulocyte Absolute 0.22 K/mm3 (0.00-0.031); Immature Granulocyte Percent A 1.3 % (0-0.5); Lymphocytes Absolute Auto 1.02 K/mm3 (0.9-3.2); Lymphocytes Percent Auto 6.2 % (18.3-44.2); Mean Corpuscular HGB Conc 29.8 g/dl (32-36); Mean Corpuscular Hemoglobin 25.2 pg (26-34); Mean Corpuscular Volume 84.7 fl (80-100); Mean Platelet Volume 8.4 fl (7.4-10.4); Monocytes Absolute Auto 0.8 K/mm3 (0.1-0.6); Monocytes Percent Auto 5.1 % (2.6-8.5); Neutrophils Absolute Auto 14.4 K/mm3 (1.3-6.7); Neutrophils Percent Auto 86.8 % (45.5-73.1); Platelet Count Result 402 k/mm3 (150-375); Red Blood Count 3.13 M/mm3 (4.2-5.4); Red Cell Distribution Width 22.1 % (11.5-14.5); White Blood Count 16.5 K/mm3 (4.5-10.0)
[2019-03-26 04:35] LABS: Alanine Aminotransferase 50 U/L (4-35); Albumin Level 2.4 g/dL (3.5-5.1); Alkaline Phosphatase 97 U/L (38-126); Aspartate Amino Transferase 29 U/L (14-36); Bilirubin,Total 0.4 mg/dL (0.2-1.3); Blood Urea Nitrogen 14 mg/dL (7-17); Calcium 8.3 mg/dL (8.4-10.2); Carbon Dioxide 27 mmol/L (22-30); Chloride 98 mmol/L (98-107); Estimated CRCL calculation 102 ml/min; Estimated Glomerular Filt Rate > 60; Glucose 90 mg/dL (65-105); Lipase 430 U/L (23-300); Phosphorus 3.6 mg/dL (2.5-4.5); Potassium 3.4 mmol/L (3.4-5.0); Sodium 132 mmol/L (137-145)
[2019-03-26 04:46] LABS: Triglycerides 172 mg/dL (<150)
[2019-03-26 04:47] LABS: Alveolar/Arterial O2 Gradient 72.8 mmHg; Base Excess ABG 4.2 mEq/l (+/-2.0); Carboxyhemoglobin 0.3 % THb (0-2.0); Fractional Inspired Oxygen 30 %; HCO3 ABG 27.1 mEq/l (22.0-26.0); Methemoglobin ABG 0.4 %THb (0-1.5); Oxygen Content ABG 12.1 %vol (16.0-22.0); Oxygen Saturation ABG 98.2 % (95.0-100.0); Oxyhemoglobin 96.3 % THb (90.0-100.0); PCO2 ABG 33.8 mmHg (35.0-45.0); PO2 ABG 101.4 mmHg (80.0-100.0); PO2 FiO2 Ratio Arterial Blood 3.38 %; Total Hemoglobin 8.8 g/dL (12.0-18.0)
[2019-03-26 04:50] LABS: pH ABG 7.522 (7.350-7.450)
[2019-03-26 04:51] LABS: Device VENTILATOR; Modified Allen's Test Pass; Site Drawn LEFT RADIAL
[2019-03-26 04:52] LABS: Arterial Blood Gas Minute Volume 8 LPM; Arterial Blood Gas PEEP 5 cmH2O; Arterial Blood Gas Tidal Volume 370 ml; Arterial Blood Gas Vent Mode CMV; Arterial Blood Gas Ventilator rate 15 /MIN
[2019-03-26] MEDS: PROPOFOL IV EMULSION 100 ML 15 MG IV CONT ×4 (04:56→21:55)
[2019-03-26] MEDS: POTASSIUM CHLORIDE 20 MEQ PACKET (FOR LIQUID) 40 MEQ FEED TUBE (08:17)
[2019-03-26] MEDS: carvediloL 3.125 MG TABLET PO ×2 (08:18→20:11)
[2019-03-26] MEDS: RAMIPRIL 1.25 MG CAPSULE 2.5 MG FEED TUBE (08:19)
[2019-03-26] MEDS: THIAMINE HCL 200 MG/2 ML VIAL 100 MG IV PUSH (08:19)
[2019-03-26] MEDS: PANTOPRAZOLE SODIUM IV 40 MG VIAL IV PUSH ×2 (08:20→20:10)
[2019-03-26] MEDS: DORNASE ALFA INH SOLN 1 MG/ML 2.5 ML AMP 2.5 MG INHALATION ×2 (08:22→21:24)
--- NOTE | 2019-03-26 08:40 | WPDINTPN ---
Progress Note: A&P Assessment and Plan (1) ARDS (adult respiratory distress syndrome): Code(s): J80 - Acute respiratory distress syndrome Status: Acute Assessment and Plan: patient with acute respiratory failure, chest x-ray shows bilateral diffuse infiltrates, patient requiring 60% FiO2 on BiPAP, hypoxemic on ABGs - initially intubated on 03/20/2019, extaubted on 03/23, and reintubated on 03/23 evening. - patient on low tidal volume and high peep strategy for now, - chest x-ray shows improvement in bilateral infiltrates, ABGs reviewed, ventilator adjusted, currently on 30% FiO2 - continue ceftriaxone and azithromycin - continue bronchodilators, pulmozyme, chest PT, guaifenesin. Aggressive pulmonary toilet - patient placed on pressure support ventilation 03/12, patient is significantly awake show allowed to breathe on her own as to exercise her respiratory muscles (2) Acute respiratory failure: Qualifiers: Respiratory failure complication: hypoxia and hypercapnia Qualified Code(s): J96.01 - Acute respiratory failure with hypoxia; J96.02 - Acute respiratory failure with hypercapnia Code(s): J96.00 - Acute respiratory failure, unspecified whether with hypoxia or hypercapnia Status: Acute Assessment and Plan: acute respiratory failure likely to related to ARDS, - sedation with Versed and propofol, maintain RASS of 0 , daily sedation vacation (3) Acute blood loss anemia: Code(s): D62 - Acute posthemorrhagic anemia Status: Acute Assessment and Plan: hemoglobin stable. - will restart subcutaneous heparin - will continue to monitor (4) Gastric ulcer: Qualifiers: Gastric ulcer chronicity: acute Gastric ulcer complication status: unspecified whether hemorrhage or perforation present Qualified Code(s): K25.3 - Acute gastric ulcer without hemorrhage or perforation Code(s): K25.9 - Gastric ulcer, unspecified as acute or chronic, without hemorrhage or perforation Status: Acute Assessment and Plan: GI has been following - patient on PPI IV Q12H (5) COPD (chronic obstructive pulmonary disease): Qualifiers: COPD type: unspecified COPD Qualified Code(s): J44.9 - Chronic obstructive pulmonary disease, unspecified Code(s): J44.9 - Chronic obstructive pulmonary disease, unspecified Status: Acute Assessment and Plan: continue bronchodilators, off steroids, (6) Elevated LFTs: Code(s): R94.5 - Abnormal results of liver function studies Status: Acute Assessment and Plan: elevated LFTs likely related to alcoholism, LFTs have normalized, continue monitor - (7) Elevated troponin: Code(s): R79.89 - Other specified abnormal findings of blood chemistry Status: Acute Assessment and Plan: troponins elevated but plateaued in trending down, cardiology following the patient - likely secondary to respiratory distress /stress. Type 2 infarct /ischemic demand - repeat limited echocardiogram on 04/06/2019 showed a EF of 20-25% - Cardiology following the pt - contiue beta tito and MIKE inhibitor for presumed Takatsubo stress cardiomyopathy (8) Acute alcoholic pancreatitis: Qualifiers: Acute pancreatitis complication: unspecified Qualified Code(s): K85.20 - Alcohol induced acute pancreatitis without necrosis or infection Code(s): K85.20 - Alcohol induced acute pancreatitis without necrosis or infection Status: Acute Assessment and Plan: Alcoholic pancreatitis, patient was given adequate IV fluids on admission - lipase stable - will increase TF gradually (9) DVT prophylaxis: Code(s): Z29.9 - Encounter for prophylactic measures, unspecified Status: Acute Assessment and Plan: SCDs, unable to give chemoprophylaxis as patient presented with severe anemia with hemoglobin of 3.1. Additional Plan
[2019-03-26] MEDS: HEPARIN SODIUM 5,000 UNITS/ML VIAL 5000 UNITS SUB-Q ×2 (08:59→20:10)
[2019-03-26] MEDS: FOLIC ACID 1 MG/0.2 ML INJ IV PUSH (08:59)
--- NOTE | 2019-03-26 11:04 | PCDIET ---
ICU Rounding Note: Patient tolerating Vital 1.2 @ 20mL/hr with stable lipase level. MD order to increase rate to 30mL/hr. Last recorded weight is 54.6kg which is decreased. I/O negative. Bowel Motility: Last documented bowel movement 03/24/19. Labs Reviewed: TG (172), Na (132), Alb (2.4), Lipase (430) Meds Noted: Propofol (currently at 15mL/hr which provides 396kcal over 24 hour period), Thiamine, Folic Acid, Protonix, s/p KCl Additional Notes: No documented skin breakdown. Recommend keeping tube feeding at 30mL/hr x 22 hours daily (792kcal, 50g protein) while on Propofol at current rate. Following daily in ICU rounds. Assessing/reassessing every Saturday/Saturday.
--- NOTE | 2019-03-26 11:38 | PM.PNCARD ---
Progress Note: A&P Assessment and Plan (1) Stress-induced cardiomyopathy: Code(s): I51.81 - Takotsubo syndrome Status: Acute Assessment and Plan: Continue carvedilol 3.125 mg b.i.d.. Continue ramipril 2.5 mg daily. (2) Elevated troponin I level: Code(s): R79.89 - Other specified abnormal findings of blood chemistry Status: Acute Assessment and Plan: Most likely type 2 infarct supply demand mismatch not acute coronary syndrome and/or plaque rupture given profound anemia presentation requiring aggressive fluid resuscitation, transfusion in setting of relative hypotension, malnutrition and acute hypoxic respiratory failure. Continue supportive therapy (3) Pneumonia: Qualifiers: Laterality: unspecified laterality Lung location: unspecified part of lung Pneumonia type: due to unspecified organism Qualified Code(s): J18.9 - Pneumonia, unspecified organism Code(s): J18.9 - Pneumonia, unspecified organism Status: Acute Assessment and Plan: Continue IV antibiotics per primary service. (4) Acute respiratory failure: Qualifiers: Respiratory failure complication: hypoxia and hypercapnia Qualified Code(s): J96.01 - Acute respiratory failure with hypoxia; J96.02 - Acute respiratory failure with hypercapnia Code(s): J96.00 - Acute respiratory failure, unspecified whether with hypoxia or hypercapnia Status: Acute Assessment and Plan: Continues to improve.. Resolving ARDS s/p intubation. Extubated 03/23/2019. Reintubated later same evening. Management per machine packaging technician (5) Pulmonary edema: Qualifiers: Chronicity: acute Qualified Code(s): J81.0 - Acute pulmonary edema Code(s): J81.1 - Chronic pulmonary edema Status: Acute Assessment and Plan: No evidence of volume overload. No diuretics needed at this time. (6) Acute blood loss anemia: Code(s): D62 - Acute posthemorrhagic anemia Status: Acute Assessment and Plan: Secondary to gastric ulcer. H/H stable, avoid NSAIDs. (7) Gastric ulcer: Qualifiers: Gastric ulcer chronicity: acute Gastric ulcer complication status: unspecified whether hemorrhage or perforation present Qualified Code(s): K25.3 - Acute gastric ulcer without hemorrhage or perforation Code(s): K25.9 - Gastric ulcer, unspecified as acute or chronic, without hemorrhage or perforation Status: Acute Assessment and Plan: As above. GI following. Continue IV PPI. Monitor for bleeding. (8) Alcoholic hepatitis: Qualifiers: Ascites presence: unspecified Qualified Code(s): K70.10 - Alcoholic hepatitis without ascites Code(s): K70.10 - Alcoholic hepatitis without ascites Status: Acute Assessment and Plan: Improving. Alcohol withdrawal protocol. Nutritional support. (9) Acute kidney injury: Code(s): N17.9 - Acute kidney failure, unspecified Status: Resolved Assessment and Plan: Resolved with volume resuscitation. (10) Elevated LFTs: Code(s): R94.5 - Abnormal results of liver function studies Status: Acute Assessment and Plan: As above, secondary to alcoholic hepatitis. (11) Acute alcoholic pancreatitis: Qualifiers: Acute pancreatitis complication: unspecified Qualified Code(s): K85.20 - Alcohol induced acute pancreatitis without necrosis or infection Code(s): K85.20 - Alcohol induced acute pancreatitis without necrosis or infection Status: Acute Assessment and Plan: Resolved. Defer to GI and primary service. Additional Plan Will follow-up p.r.n.. P
--- NOTE | 2019-03-26 16:15 | P.PNIM_ITS ---
Progress Note: A&P Assessment and Plan (1) Acute respiratory failure: Qualifiers: Respiratory failure complication: hypoxia and hypercapnia Qualified Code(s): J96.01 - Acute respiratory failure with hypoxia; J96.02 - Acute respiratory failure with hypercapnia Code(s): J96.00 - Acute respiratory failure, unspecified whether with hypoxia or hypercapnia Status: Acute Assessment and Plan: * due to pulmonary edema superimposed on pneumonia and copd * pt was reintubated, due to heavy secretions and exhaustion * pt is on tube feeds (2) Pulmonary edema: Qualifiers: Chronicity: acute Qualified Code(s): J81.0 - Acute pulmonary edema Code(s): J81.1 - Chronic pulmonary edema Status: Acute Assessment and Plan: * sudden loss of EF * stress induced cardiomyopathy * seen by cardiology (3) Severe anemia: Code(s): D64.9 - Anemia, unspecified Status: Acute Assessment and Plan: * due to acute gi blood loss, secondary to ulcer hb still low at 7.1, continue to monitor * sp transfusion * secondary to ASA, ibuprofen and alcholol (4) Pneumonia: Qualifiers: Laterality: unspecified laterality Lung location: unspecified part of lung Pneumonia type: due to unspecified organism Qualified Code(s): J18.9 - Pneumonia, unspecified organism Code(s): J18.9 - Pneumonia, unspecified organism Status: Acute Assessment and Plan: * continue azithromycin, ceftriaxone day 10, pt is reintubated on 03/23 (5) Acute kidney injury: Code(s): N17.9 - Acute kidney failure, unspecified Status: Resolved Assessment and Plan: * Resolved, creat is normal (6) Elevated LFTs: Code(s): R94.5 - Abnormal results of liver function studies Status: Acute Assessment and Plan: * clinically due to acute on chronic alcoholic hepatitis (7) GI bleed: Qualifiers: GI bleed type/associated pathology: gastric ulcer Qualified Code(s): K25.4 - Chronic or unspecified gastric ulcer with hemorrhage Code(s): K92.2 - Gastrointestinal hemorrhage, unspecified Status: Acute Assessment and Plan: * Acute bleed resolved pt had EGD on 03/17, hb still low continue to watch, hb remains low, IV steroids stopped (8) Acute alcoholic pancreatitis: Qualifiers: Acute pancreatitis complication: unspecified Qualified Code(s): K85.20 - Alcohol induced acute pancreatitis without necrosis or infection Code(s): K85.20 - Alcohol induced acute pancreatitis without necrosis or infection Status: Acute Assessment and Plan: * most likley alcholol related * and secondary to ASA and NSAID use (9) Hyponatremia: Code(s): E87.1 - Hypo-osmolality and hyponatremia Status: Acute Assessment and Plan: * likely due to dehydration, alcoholism (10) Gastric ulcer: Qualifiers: Gastric ulcer chronicity: acute Gastric ulcer complication status: unspecified whether hemorrhage or perforation present Qualified Code(s): K25.3 - Acute gastric ulcer without hemorrhage or perforation Code(s): K25.9 - Gastric ulcer, unspecified as acute or chronic, without hemorrhage or perforation Status: Acute Assessment and Plan: * not actively bleeding by 03/17 egd * continue ppi * f/u h/h (11) Collagenous colitis: Code(s): K52.831 - Collagenous colitis Status: Acute Assessment and Plan: * clinically stable (12) COPD (chronic obstructive pulmonary dise
--- NOTE | 2019-03-26 16:15 | PM.IMPN ---
Progress Note: A&P Assessment and Plan (1) Acute respiratory failure: Qualifiers: Respiratory failure complication: hypoxia and hypercapnia Qualified Code(s): J96.01 - Acute respiratory failure with hypoxia; J96.02 - Acute respiratory failure with hypercapnia Code(s): J96.00 - Acute respiratory failure, unspecified whether with hypoxia or hypercapnia Status: Acute Assessment and Plan: due to pulmonary edema superimposed on pneumonia and copd pt was reintubated, due to heavy secretions and exhaustion pt is on tube feeds (2) Pulmonary edema: Qualifiers: Chronicity: acute Qualified Code(s): J81.0 - Acute pulmonary edema Code(s): J81.1 - Chronic pulmonary edema Status: Acute Assessment and Plan: sudden loss of EF stress induced cardiomyopathy seen by cardiology (3) Severe anemia: Code(s): D64.9 - Anemia, unspecified Status: Acute Assessment and Plan: due to acute gi blood loss, secondary to ulcer hb still low at 7.1, continue to monitor sp transfusion secondary to ASA, ibuprofen and alcholol (4) Pneumonia: Qualifiers: Laterality: unspecified laterality Lung location: unspecified part of lung Pneumonia type: due to unspecified organism Qualified Code(s): J18.9 - Pneumonia, unspecified organism Code(s): J18.9 - Pneumonia, unspecified organism Status: Acute Assessment and Plan: continue azithromycin, ceftriaxone day 10, pt is reintubated on 03/23 (5) Acute kidney injury: Code(s): N17.9 - Acute kidney failure, unspecified Status: Resolved Assessment and Plan: Resolved, creat is normal (6) Elevated LFTs: Code(s): R94.5 - Abnormal results of liver function studies Status: Acute Assessment and Plan: clinically due to acute on chronic alcoholic hepatitis (7) GI bleed: Qualifiers: GI bleed type/associated pathology: gastric ulcer Qualified Code(s): K25.4 - Chronic or unspecified gastric ulcer with hemorrhage Code(s): K92.2 - Gastrointestinal hemorrhage, unspecified Status: Acute Assessment and Plan: Acute bleed resolved pt had EGD on 03/17, hb still low continue to watch, hb remains low, IV steroids stopped (8) Acute alcoholic pancreatitis: Qualifiers: Acute pancreatitis complication: unspecified Qualified Code(s): K85.20 - Alcohol induced acute pancreatitis without necrosis or infection Code(s): K85.20 - Alcohol induced acute pancreatitis without necrosis or infection Status: Acute Assessment and Plan: most likley alcholol related and secondary to ASA and NSAID use (9) Hyponatremia: Code(s): E87.1 - Hypo-osmolality and hyponatremia Status: Acute Assessment and Plan: likely due to dehydration, alcoholism (10) Gastric ulcer: Qualifiers: Gastric ulcer chronicity: acute Gastric ulcer complication status: unspecified whether hemorrhage or perforation present Qualified Code(s): K25.3 - Acute gastric ulcer without hemorrhage or perforation Code(s): K25.9 - Gastric ulcer, unspecified as acute or chronic, without hemorrhage or perforation Status: Acute Assessment and Plan: not actively bleeding by 03/17 egd continue ppi f/u h/h (11) Collagenous colitis: Code(s): K52.831 - Collagenous colitis Status: Acute Assessment and Plan: clinically stable (12) COPD (chronic obstructive pulmonary disease): Qualifiers: COPD type: unspecified COPD Qualified Code(s): J44.9 - Chronic obstructive pulmonary disease, unspecified Code(s): J44.9 - Chronic obstructive pulmonary disease, unspecified Status: Acute Assessment and Plan: Pt reintubated on 03/23 continue antibiotics, steroids, bronchodilators, pulmonary toilet, mucolytic, change to xoponex BT Subjective Date/time seen: 03/26/
[2019-03-27] VITALS (32 sets, daily range): BP systolic 89–138; BP diastolic 53–79; PULSE 78–93; RESP 10–25; TEMP 36.6–36.9; O2SAT 99–100
[2019-03-27] MEDS: IPRATROPIUM BR 0.02% INH SOLN 0.5 MG/2.5 ML VIAL INHALATION ×7 (00:14→23:20)
[2019-03-27] MEDS: LEVALBUTEROL NEB 1.25 MG/3 ML 0.63 MG INHALATION ×7 (00:14→23:20)
[2019-03-27] MEDS: MIDAZOLAM HCL 2 MG/2 ML VIAL IV PUSH (00:21)
[2019-03-27] MEDS: GUAIFENESIN 200 MG/10 ML UDC PO ×3 (00:21→08:22)
[2019-03-27] MEDS: PROPOFOL IV EMULSION 100 ML 16.7 MG IV CONT ×2 (03:49→09:31)
[2019-03-27 04:23] LABS: Basophils Percent Auto 0.2 % (0.2-1.2); Eosinophils Absolute Auto 0.2 K/mm3 (0-0.3); Eosinophils Percent Auto 1.5 % (0-4.4); Hematocrit 26.1 % (37.0-47.0); Hemoglobin 7.8 g/dL (12.0-15.0); Immature Granulocyte Absolute 0.32 K/mm3 (0.00-0.031); Immature Granulocyte Percent A 2.5 % (0-0.5); Lymphocytes Absolute Auto 0.57 K/mm3 (0.9-3.2); Lymphocytes Percent Auto 4.4 % (18.3-44.2); Mean Corpuscular HGB Conc 29.9 g/dl (32-36); Mean Corpuscular Hemoglobin 25.4 pg (26-34); Mean Platelet Volume 8.6 fl (7.4-10.4); Monocytes Absolute Auto 0.7 K/mm3 (0.1-0.6); Monocytes Percent Auto 5.4 % (2.6-8.5); Neutrophils Absolute Auto 11.2 K/mm3 (1.3-6.7); Platelet Count Result 413 k/mm3 (150-375); Red Blood Count 3.07 M/mm3 (4.2-5.4); Red Cell Distribution Width 22.4 % (11.5-14.5)
[2019-03-27 04:28] LABS: Alveolar/Arterial O2 Gradient 91.1 mmHg; Base Excess ABG 4.5 mEq/l (+/-2.0); Carboxyhemoglobin 0.3 % THb (0-2.0); Device VENTILATOR; Fractional Inspired Oxygen 30 %; HCO3 ABG 28.3 mEq/l (22.0-26.0); Methemoglobin ABG 0.7 %THb (0-1.5); Oxygen Content ABG 11.5 %vol (16.0-22.0); Oxygen Saturation ABG 96.2 % (95.0-100.0); Oxyhemoglobin 93.9 % THb (90.0-100.0); PCO2 ABG 38.9 mmHg (35.0-45.0); PO2 ABG 77.1 mmHg (80.0-100.0); PO2 FiO2 Ratio Arterial Blood 2.57 %; Reduced Hemoglobin 5.1 %THb (0-5.0); Site Drawn RIGHT BRACHIAL; Total Hemoglobin 8.6 g/dL (12.0-18.0)
[2019-03-27 04:29] LABS: Arterial Blood Gas PEEP 5 cmH2O; Arterial Blood Gas Pressure Support 12 cmH2O; Arterial Blood Gas Vent Mode SPONTANEOUS
[2019-03-27] MEDS: ONDANSETRON INJ 4 MG/2 ML VIAL IV PUSH (04:34)
[2019-03-27 04:40] LABS: Alanine Aminotransferase 37 U/L (4-35); Albumin Level 2.3 g/dL (3.5-5.1); Alkaline Phosphatase 94 U/L (38-126); Aspartate Amino Transferase 23 U/L (14-36); Bilirubin,Total 0.2 mg/dL (0.2-1.3); Blood Urea Nitrogen 10 mg/dL (7-17); Calcium 7.7 mg/dL (8.4-10.2); Carbon Dioxide 28 mmol/L (22-30); Chloride 99 mmol/L (98-107); Estimated CRCL calculation 102 ml/min; Estimated Glomerular Filt Rate > 60; Glucose 94 mg/dL (65-105); Lipase 299 U/L (23-300); Magnesium 1.8 mg/dL (1.6-2.3); Phosphorus 3.5 mg/dL (2.5-4.5); Potassium 3.6 mmol/L (3.4-5.0); Sodium 132 mmol/L (137-145)
[2019-03-27 04:49] LABS: Hypochromasia 1+ (NORMAL); Microcytosis 1+ (NORMAL); Platelet Estimate Adequate (Adequate)
[2019-03-27 04:50] LABS: Macrocytosis 1+ (NORMAL)
--- NOTE | 2019-03-27 08:12 | WPDINTPN ---
Progress Note: A&P Assessment and Plan (1) ARDS (adult respiratory distress syndrome): Code(s): J80 - Acute respiratory distress syndrome Status: Acute Assessment and Plan: patient with acute respiratory failure, chest x-ray shows bilateral diffuse infiltrates, patient requiring 60% FiO2 on BiPAP, hypoxemic on ABGs - initially intubated on 03/20/2019, extaubted on 03/23, and reintubated on 03/23 evening. - chest x-ray shows improvement in bilateral infiltrates, ABGs reviewed, ventilator adjusted, currently on 30% FiO2 - continue ceftriaxone and azithromycin - continue bronchodilators, pulmozyme, chest PT, guaifenesin. Aggressive pulmonary toilet - patient has been tolerating pressure support ventilation 12/5 all day yesterday and overnight. Patient is very frail, decrease pressure support to 10/5 this morning and further dropped to 8/5 and evaluate for extubation - if extubated, patient may benefit from BiPAP initially (2) Acute respiratory failure: Qualifiers: Respiratory failure complication: hypoxia and hypercapnia Qualified Code(s): J96.01 - Acute respiratory failure with hypoxia; J96.02 - Acute respiratory failure with hypercapnia Code(s): J96.00 - Acute respiratory failure, unspecified whether with hypoxia or hypercapnia Status: Acute Assessment and Plan: acute respiratory failure likely to related to ARDS, - sedation with Versed and propofol, maintain RASS of 0 , daily sedation vacation (3) Acute blood loss anemia: Code(s): D62 - Acute posthemorrhagic anemia Status: Acute Assessment and Plan: hemoglobin stable. - ON subcutaneous heparin - will continue to monitor (4) Gastric ulcer: Qualifiers: Gastric ulcer chronicity: acute Gastric ulcer complication status: unspecified whether hemorrhage or perforation present Qualified Code(s): K25.3 - Acute gastric ulcer without hemorrhage or perforation Code(s): K25.9 - Gastric ulcer, unspecified as acute or chronic, without hemorrhage or perforation Status: Acute Assessment and Plan: GI has been following - patient on PPI IV Q12H (5) COPD (chronic obstructive pulmonary disease): Qualifiers: COPD type: unspecified COPD Qualified Code(s): J44.9 - Chronic obstructive pulmonary disease, unspecified Code(s): J44.9 - Chronic obstructive pulmonary disease, unspecified Status: Acute Assessment and Plan: continue bronchodilators, off steroids, (6) Elevated LFTs: Code(s): R94.5 - Abnormal results of liver function studies Status: Acute Assessment and Plan: elevated LFTs likely related to alcoholism, LFTs have normalized, continue monitor - (7) Elevated troponin: Code(s): R79.89 - Other specified abnormal findings of blood chemistry Status: Acute Assessment and Plan: troponins elevated but plateaued in trending down, cardiology following the patient - likely secondary to respiratory distress /stress. Type 2 infarct /ischemic demand - repeat limited echocardiogram on 04/06/2019 showed a EF of 20-25% - Cardiology following the pt - contiue beta tito and MIKE inhibitor for presumed Takatsubo stress cardiomyopathy (8) Acute alcoholic pancreatitis: Qualifiers: Acute pancreatitis complication: unspecified Qualified Code(s): K85.20 - Alcohol induced acute pancreatitis without necrosis or infection Code(s): K85.20 - Alcohol induced acute pancreatitis without necrosis or infection Status: Acute Assessment and Plan: Alcoholic pancreatitis, patient was given adequate IV fluids on admission - lipase improving - tolerating tube feeds (9) DVT prophylaxis: Code(s): Z29.9 - Encounter for prophylactic measures, unspecified Status: Acute Assessment and Plan: SCDs, unable to give chemoprophylaxis as patient presented with severe anemia
[2019-03-27] MEDS: MAGNESIUM SULF 2 GM/WATER 50ML 2 GM/50 ML BAG IVPB (08:21)
[2019-03-27] MEDS: POTASSIUM CHLORIDE 20 MEQ PACKET (FOR LIQUID) 40 MEQ FEED TUBE (08:21)
[2019-03-27] MEDS: THIAMINE HCL 200 MG/2 ML VIAL 100 MG IV PUSH (08:22)
[2019-03-27] MEDS: PANTOPRAZOLE SODIUM IV 40 MG VIAL IV PUSH ×2 (08:22→20:01)
[2019-03-27] MEDS: carvediloL 3.125 MG TABLET PO (08:22)
[2019-03-27] MEDS: RAMIPRIL 1.25 MG CAPSULE 2.5 MG FEED TUBE (08:23)
[2019-03-27] MEDS: HEPARIN SODIUM 5,000 UNITS/ML VIAL 5000 UNITS SUB-Q ×2 (09:00→20:01)
[2019-03-27] MEDS: DORNASE ALFA INH SOLN 1 MG/ML 2.5 ML AMP 2.5 MG INHALATION ×2 (09:03→21:05)
[2019-03-27] MEDS: FOLIC ACID 1 MG/0.2 ML INJ IV PUSH (10:21)
[2019-03-27 10:56] LABS: Alveolar/Arterial O2 Gradient 67.5 mmHg; Base Excess ABG 1.8 mEq/l (+/-2.0); Carboxyhemoglobin 0.3 % THb (0-2.0); Fractional Inspired Oxygen 30 %; HCO3 ABG 25.7 mEq/l (22.0-26.0); Methemoglobin ABG 0.5 %THb (0-1.5); Oxygen Content ABG 13.3 %vol (16.0-22.0); PCO2 ABG 37.1 mmHg (35.0-45.0); PO2 ABG 102.8 mmHg (80.0-100.0); PO2 FiO2 Ratio Arterial Blood 3.43 %; Reduced Hemoglobin 3.2 %THb (0-5.0); Total Hemoglobin 9.7 g/dL (12.0-18.0); pH ABG 7.458 (7.350-7.450)
[2019-03-27 10:58] LABS: Device VENTILATOR; Modified Allen's Test Pass; Site Drawn RIGHT RADIAL
[2019-03-27 10:59] LABS: Arterial Blood Gas PEEP 5 cmH2O; Arterial Blood Gas Pressure Support 8 cmH2O; Arterial Blood Gas Vent Mode SPONTANEOUS
--- NOTE | 2019-03-27 11:47 | PCDIET ---
Nutrition Follow-Up Complete: Nutrition Diagnosis: Inadequate oral intake related to pancreatitis as evidenced by NPO/clear liquid diet since admission. Nutrition Goal: Intakes >50% on advanced diet. Goal not met, although patient has been tolerating Vital 1.2 @ 30mL/hr (currently on hold for possible extubation today). Last recorded weight is 55.2 kg which is increased, despite negative I/O Bowel Motility: +BM on 03/24/19 Labs Reviewed: Lipase (299), Na (132), Alb (2.3) Meds Noted: Rocephin, Folic Acid, Versed, Protonix, Thiamine, Propofol at 16.7mL/hr (440kcal over 24 hour period). 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 No documented skin breakdown. Recommend resuming tube feedings (Vital 1.2 @ 30mL/hr) if unable to extubate today. If patient is extubated, would consider swallow evaluation prior to diet advancement. Will continue to monitor with same goals. Nutrition Monitoring and Evaluation: Follow up every Saturday/Saturday. Follow daily in ICU rounds.
--- NOTE | 2019-03-27 15:49 | PM.IMPN ---
Progress Note: A&P Assessment and Plan (1) Acute respiratory failure: Qualifiers: Respiratory failure complication: hypoxia and hypercapnia Qualified Code(s): J96.01 - Acute respiratory failure with hypoxia; J96.02 - Acute respiratory failure with hypercapnia Code(s): J96.00 - Acute respiratory failure, unspecified whether with hypoxia or hypercapnia Status: Acute Assessment and Plan: due to pulmonary edema superimposed on pneumonia and copd pt was reintubated, due to heavy secretions and exhaustion pt is on tube feeds pt is off vent now still having heavy secretions (2) Pulmonary edema: Qualifiers: Chronicity: acute Qualified Code(s): J81.0 - Acute pulmonary edema Code(s): J81.1 - Chronic pulmonary edema Status: Acute Assessment and Plan: sudden loss of EF stress induced cardiomyopathy seen by cardiology (3) Severe anemia: Code(s): D64.9 - Anemia, unspecified Status: Acute Assessment and Plan: due to acute gi blood loss, secondary to ulcer hb still low at 7.1, continue to monitor sp transfusion secondary to ASA, ibuprofen and alcholol (4) Pneumonia: Qualifiers: Laterality: unspecified laterality Lung location: unspecified part of lung Pneumonia type: due to unspecified organism Qualified Code(s): J18.9 - Pneumonia, unspecified organism Code(s): J18.9 - Pneumonia, unspecified organism Status: Acute Assessment and Plan: continue azithromycin, ceftriaxone day 11, pt is reintubated on 03/23, off vent now (5) Acute kidney injury: Code(s): N17.9 - Acute kidney failure, unspecified Status: Resolved Assessment and Plan: Resolved, creat is normal (6) Elevated LFTs: Code(s): R94.5 - Abnormal results of liver function studies Status: Acute Assessment and Plan: clinically due to acute on chronic alcoholic hepatitis (7) GI bleed: Qualifiers: GI bleed type/associated pathology: gastric ulcer Qualified Code(s): K25.4 - Chronic or unspecified gastric ulcer with hemorrhage Code(s): K92.2 - Gastrointestinal hemorrhage, unspecified Status: Acute Assessment and Plan: Acute bleed resolved pt had EGD on 03/17, hb still low continue to watch, hb remains low, IV steroids stopped (8) Acute alcoholic pancreatitis: Qualifiers: Acute pancreatitis complication: unspecified Qualified Code(s): K85.20 - Alcohol induced acute pancreatitis without necrosis or infection Code(s): K85.20 - Alcohol induced acute pancreatitis without necrosis or infection Status: Acute Assessment and Plan: most likley alcholol related and secondary to ASA and NSAID use (9) Hyponatremia: Code(s): E87.1 - Hypo-osmolality and hyponatremia Status: Acute Assessment and Plan: likely due to dehydration and alcoholism, resolving with fluids and tube feeds (10) Gastric ulcer: Qualifiers: Gastric ulcer chronicity: acute Gastric ulcer complication status: unspecified whether hemorrhage or perforation present Qualified Code(s): K25.3 - Acute gastric ulcer without hemorrhage or perforation Code(s): K25.9 - Gastric ulcer, unspecified as acute or chronic, without hemorrhage or perforation Status: Acute Assessment and Plan: not actively bleeding by 03/17 egd continue ppi f/u h/h (11) Collagenous colitis: Code(s): K52.831 - Collagenous colitis Status: Acute Assessment and Plan: clinically stable (12) COPD (chronic obstructive pulmonary disease): Qualifiers: COPD type: unspecified COPD Qualified Code(s): J44.9 - Chronic obstructive pulmonary disease, unspecified Code(s): J44.9 - Chronic obstructive pulmonary disease, unspecified Status: Acute Assessment and Plan: Pt reintubated on 03/23, extubated now continue a
--- NOTE | 2019-03-27 15:49 | P.PNIM_ITS ---
Progress Note: A&P Assessment and Plan (1) Acute respiratory failure: Qualifiers: Respiratory failure complication: hypoxia and hypercapnia Qualified Code(s): J96.01 - Acute respiratory failure with hypoxia; J96.02 - Acute respiratory failure with hypercapnia Code(s): J96.00 - Acute respiratory failure, unspecified whether with hypoxia or hypercapnia Status: Acute Assessment and Plan: * due to pulmonary edema superimposed on pneumonia and copd * pt was reintubated, due to heavy secretions and exhaustion * pt is on tube feeds * pt is off vent now * still having heavy secretions (2) Pulmonary edema: Qualifiers: Chronicity: acute Qualified Code(s): J81.0 - Acute pulmonary edema Code(s): J81.1 - Chronic pulmonary edema Status: Acute Assessment and Plan: * sudden loss of EF * stress induced cardiomyopathy * seen by cardiology (3) Severe anemia: Code(s): D64.9 - Anemia, unspecified Status: Acute Assessment and Plan: * due to acute gi blood loss, secondary to ulcer hb still low at 7.1, continue to monitor * sp transfusion * secondary to ASA, ibuprofen and alcholol (4) Pneumonia: Qualifiers: Laterality: unspecified laterality Lung location: unspecified part of lung Pneumonia type: due to unspecified organism Qualified Code(s): J18.9 - Pneumonia, unspecified organism Code(s): J18.9 - Pneumonia, unspecified organism Status: Acute Assessment and Plan: * continue azithromycin, ceftriaxone day 11, pt is reintubated on 03/23, off vent now (5) Acute kidney injury: Code(s): N17.9 - Acute kidney failure, unspecified Status: Resolved Assessment and Plan: * Resolved, creat is normal (6) Elevated LFTs: Code(s): R94.5 - Abnormal results of liver function studies Status: Acute Assessment and Plan: * clinically due to acute on chronic alcoholic hepatitis (7) GI bleed: Qualifiers: GI bleed type/associated pathology: gastric ulcer Qualified Code(s): K25.4 - Chronic or unspecified gastric ulcer with hemorrhage Code(s): K92.2 - Gastrointestinal hemorrhage, unspecified Status: Acute Assessment and Plan: * Acute bleed resolved pt had EGD on 03/17, hb still low continue to watch, hb remains low, IV steroids stopped (8) Acute alcoholic pancreatitis: Qualifiers: Acute pancreatitis complication: unspecified Qualified Code(s): K85.20 - Alcohol induced acute pancreatitis without necrosis or infection Code(s): K85.20 - Alcohol induced acute pancreatitis without necrosis or infection Status: Acute Assessment and Plan: * most likley alcholol related * and secondary to ASA and NSAID use (9) Hyponatremia: Code(s): E87.1 - Hypo-osmolality and hyponatremia Status: Acute Assessment and Plan: * likely due to dehydration and alcoholism, resolving with fluids and tube feeds (10) Gastric ulcer: Qualifiers: Gastric ulcer chronicity: acute Gastric ulcer complication status: unspecified whether hemorrhage or perforation present Qualified Code(s): K25.3 - Acute gastric ulcer without hemorrhage or perforation Code(s): K25.9 - Gastric ulcer, unspecified as acute or chronic, without hemorrhage or perforation Status: Acute Assessment and Plan: * not actively bleeding by 03/17 egd * continue ppi * f/u h/h (11) Collagenous colitis: Code(s): K52.831 - Collagenous coliti
--- NOTE | 2019-03-27 16:36 | PC.NURSE ---
At 1615 pt and pt's boyfriend complained that pt could not breath, RT called, oxygen sats stayed at 100%, lungs clear diminished in bases, RT came placed on BI-pap, breathing treatment given, see med section, during this entire time and many times after pt's significant other was constantly asking pt questions and would not let her rest
[2019-03-28] VITALS (29 sets, daily range): BP systolic 123–154; BP diastolic 40–90; PULSE 79–121; RESP 12–27; TEMP 36.6–37; O2SAT 96–100
[2019-03-28] MEDS: IPRATROPIUM BR 0.02% INH SOLN 0.5 MG/2.5 ML VIAL INHALATION ×6 (03:12→23:21)
[2019-03-28] MEDS: LEVALBUTEROL NEB 1.25 MG/3 ML 0.63 MG INHALATION ×6 (03:12→23:21)
[2019-03-28 04:35] LABS: Basophils Percent Auto 0.2 % (0.2-1.2); Eosinophils Absolute Auto 0.2 K/mm3 (0-0.3); Eosinophils Percent Auto 1.5 % (0-4.4); Hemoglobin 7.7 g/dL (12.0-15.0); Immature Granulocyte Absolute 0.21 K/mm3 (0.00-0.031); Immature Granulocyte Percent A 1.8 % (0-0.5); Lymphocytes Percent Auto 6.1 % (18.3-44.2); Mean Corpuscular HGB Conc 29.6 g/dl (32-36); Mean Corpuscular Hemoglobin 25.8 pg (26-34); Mean Platelet Volume 8.6 fl (7.4-10.4); Monocytes Absolute Auto 0.6 K/mm3 (0.1-0.6); Monocytes Percent Auto 5.5 % (2.6-8.5); Neutrophils Absolute Auto 9.7 K/mm3 (1.3-6.7); Neutrophils Percent Auto 84.9 % (45.5-73.1); Platelet Count Result 429 k/mm3 (150-375); Red Blood Count 2.99 M/mm3 (4.2-5.4); Red Cell Distribution Width 22.3 % (11.5-14.5); White Blood Count 11.4 K/mm3 (4.5-10.0)
[2019-03-28 04:52] LABS: Alanine Aminotransferase 36 U/L (4-35); Albumin Level 2.7 g/dL (3.5-5.1); Alkaline Phosphatase 99 U/L (38-126); Aspartate Amino Transferase 30 U/L (14-36); Bilirubin,Total 0.6 mg/dL (0.2-1.3); Blood Urea Nitrogen 10 mg/dL (7-17); Calcium 7.9 mg/dL (8.4-10.2); Carbon Dioxide 23 mmol/L (22-30); Chloride 100 mmol/L (98-107); Estimated CRCL calculation 102 ml/min; Estimated Glomerular Filt Rate > 60; Glucose 61 mg/dL (65-105); Lipase 169 U/L (23-300); Magnesium 2.2 mg/dL (1.6-2.3); Phosphorus 2.5 mg/dL (2.5-4.5); Potassium 4.1 mmol/L (3.4-5.0); Sodium 132 mmol/L (137-145)
[2019-03-28 04:59] LABS: Hypochromasia 1+ (NORMAL); Macrocytosis 1+ (NORMAL); Microcytosis 1+ (NORMAL); Ovalocytes 1+ (NORMAL); Platelet Estimate Adequate (Adequate)
[2019-03-28] MEDS: HYDROMORPHONE HCL 1 MG/ML INJ IV PUSH (05:05)
[2019-03-28] MEDS: THIAMINE HCL 200 MG/2 ML VIAL 100 MG IV PUSH (09:29)
[2019-03-28] MEDS: HEPARIN SODIUM 5,000 UNITS/ML VIAL 5000 UNITS SUB-Q ×2 (09:29→21:23)
[2019-03-28] MEDS: PANTOPRAZOLE SODIUM IV 40 MG VIAL IV PUSH ×2 (09:30→21:23)
[2019-03-28] MEDS: FOLIC ACID 1 MG/0.2 ML INJ IV PUSH (09:30)
--- NOTE | 2019-03-28 10:26 | WPDINTPN ---
Progress Note: A&P Assessment and Plan (1) ARDS (adult respiratory distress syndrome): Code(s): J80 - Acute respiratory distress syndrome Status: Acute Assessment and Plan: patient with acute respiratory failure, chest x-ray shows bilateral diffuse infiltrates, patient requiring 60% FiO2 on BiPAP, hypoxemic on ABGs - initially intubated on 03/20/2019, extaubted on 03/23, and reintubated on 03/23 evening. - patient successfully extubated on 03/27/2019 - will encourage incentive spirometry, increase activity, up in chair - will stop antibiotics - ceftriaxone and azithromycin - continue bronchodilators, pulmozyme, chest PT, guaifenesin. - p.r.n. BiPAP and scheduled BiPAP at night (2) Acute respiratory failure: Qualifiers: Respiratory failure complication: hypoxia and hypercapnia Qualified Code(s): J96.01 - Acute respiratory failure with hypoxia; J96.02 - Acute respiratory failure with hypercapnia Code(s): J96.00 - Acute respiratory failure, unspecified whether with hypoxia or hypercapnia Status: Acute Assessment and Plan: Resolved: patient extubated on 03/27/2019: acute respiratory failure likely to related to ARDS, (3) Acute blood loss anemia: Code(s): D62 - Acute posthemorrhagic anemia Status: Acute Assessment and Plan: hemoglobin stable. - ON subcutaneous heparin - will continue to monitor (4) Gastric ulcer: Qualifiers: Gastric ulcer chronicity: acute Gastric ulcer complication status: unspecified whether hemorrhage or perforation present Qualified Code(s): K25.3 - Acute gastric ulcer without hemorrhage or perforation Code(s): K25.9 - Gastric ulcer, unspecified as acute or chronic, without hemorrhage or perforation Status: Acute Assessment and Plan: GI has been following - patient on PPI IV Q12H - patient with epigastric pain, lipase levels are normal, will add Carafate once patient passes his swallow test - discuss with GI (5) COPD (chronic obstructive pulmonary disease): Qualifiers: COPD type: unspecified COPD Qualified Code(s): J44.9 - Chronic obstructive pulmonary disease, unspecified Code(s): J44.9 - Chronic obstructive pulmonary disease, unspecified Status: Acute Assessment and Plan: continue bronchodilators, off steroids, (6) Elevated LFTs: Code(s): R94.5 - Abnormal results of liver function studies Status: Acute Assessment and Plan: initially LFTs were elevated likely due to alcoholism - LFTs have normalized, continue monitor (7) Elevated troponin: Code(s): R79.89 - Other specified abnormal findings of blood chemistry Status: Acute Assessment and Plan: troponins elevated but plateaued in trending down, cardiology following the patient - likely secondary to respiratory distress /stress. Type 2 infarct /ischemic demand - repeat limited echocardiogram on 04/06/2019 showed a EF of 20-25% - Cardiology following the pt - contiue beta tito and MIKE inhibitor for presumed Takatsubo stress cardiomyopathy (8) Acute alcoholic pancreatitis: Qualifiers: Acute pancreatitis complication: unspecified Qualified Code(s): K85.20 - Alcohol induced acute pancreatitis without necrosis or infection Code(s): K85.20 - Alcohol induced acute pancreatitis without necrosis or infection Status: Acute Assessment and Plan: Alcoholic pancreatitis, patient was given adequate IV fluids on admission - lipase normal (9) DVT prophylaxis: Code(s): Z29.9 - Encounter for prophylactic measures, unspecified Status: Acute Assessment and Plan: SCDs, unable to give chemoprophylaxis as patient presented with severe anemia with hemoglobin of 3.1. Additional Plan Discussed with significant other and updated them with patient' s condition and plan of care. continue PT/OT. Will have sw
[2019-03-28] MEDS: BELLADONNA ALK/PHENOB ELIX 10 ML, MAG HYDROX/ALUMINUM HYD/SIMETH 30 ML, LIDOCAINE HCL 2... PO (11:47)
[2019-03-28] MEDS: SUCRALFATE 1 GM TABLET PO ×3 (11:48→21:23)
--- NOTE | 2019-03-28 13:45 | P.PNIM_ITS ---
Progress Note: A&P Assessment and Plan (1) Acute respiratory failure: Qualifiers: Respiratory failure complication: hypoxia and hypercapnia Qualified Code(s): J96.01 - Acute respiratory failure with hypoxia; J96.02 - Acute respiratory failure with hypercapnia Code(s): J96.00 - Acute respiratory failure, unspecified whether with hypoxia or hypercapnia Status: Acute Assessment and Plan: * due to pulmonary edema superimposed on pneumonia and copd * pt was reintubated, due to heavy secretions and exhaustion * pt is off vent now * still having heavy secretions * stable on BIPAP can be transfered to medical floor (2) Pulmonary edema: Qualifiers: Chronicity: acute Qualified Code(s): J81.0 - Acute pulmonary edema Code(s): J81.1 - Chronic pulmonary edema Status: Acute Assessment and Plan: * sudden loss of EF * stress induced cardiomyopathy * seen by cardiology (3) Severe anemia: Code(s): D64.9 - Anemia, unspecified Status: Acute Assessment and Plan: * due to acute gi blood loss, secondary to ulcer hb still low at 7.1, continue to monitor * sp transfusion * secondary to ASA, ibuprofen and alcholol (4) Pneumonia: Qualifiers: Laterality: unspecified laterality Lung location: unspecified part of lung Pneumonia type: due to unspecified organism Qualified Code(s): J18.9 - Pneumonia, unspecified organism Code(s): J18.9 - Pneumonia, unspecified organism Status: Acute Assessment and Plan: * continue azithromycin, ceftriaxone stopped (5) Acute kidney injury: Code(s): N17.9 - Acute kidney failure, unspecified Status: Resolved Assessment and Plan: * Resolved, creat is normal (6) Elevated LFTs: Code(s): R94.5 - Abnormal results of liver function studies Status: Acute Assessment and Plan: * clinically due to acute on chronic alcoholic hepatitis (7) GI bleed: Qualifiers: GI bleed type/associated pathology: gastric ulcer Qualified Code(s): K25.4 - Chronic or unspecified gastric ulcer with hemorrhage Code(s): K92.2 - Gastrointestinal hemorrhage, unspecified Status: Acute Assessment and Plan: * Acute bleed resolved pt had EGD on 03/17, hb still low continue to watch, hb remains low 7.7 today continue to monitor (8) Acute alcoholic pancreatitis: Qualifiers: Acute pancreatitis complication: unspecified Qualified Code(s): K85.20 - Alcohol induced acute pancreatitis without necrosis or infection Code(s): K85.20 - Alcohol induced acute pancreatitis without necrosis or infection Status: Acute Assessment and Plan: * most likley alcholol related * and secondary to ASA and NSAID use (9) Hyponatremia: Code(s): E87.1 - Hypo-osmolality and hyponatremia Status: Acute Assessment and Plan: * likely due to dehydration and alcoholism, resolving with fluids and tube feeds (10) Gastric ulcer: Qualifiers: Gastric ulcer chronicity: acute Gastric ulcer complication status: unspecified whether hemorrhage or perforation present Qualified Code(s): K25.3 - Acute gastric ulcer without hemorrhage or perforation Code(s): K25.9 - Gastric ulcer, unspecified as acute or chronic, without hemorrhage or perforation Status: Acute Assessment and Plan: * not actively bleeding by 03/17 egd * continue ppi * f/u h/h (11) Collagenous colitis: Code(s): K52.831 - Collagenous coliti
--- NOTE | 2019-03-28 13:45 | PM.IMPN ---
Progress Note: A&P Assessment and Plan (1) Acute respiratory failure: Qualifiers: Respiratory failure complication: hypoxia and hypercapnia Qualified Code(s): J96.01 - Acute respiratory failure with hypoxia; J96.02 - Acute respiratory failure with hypercapnia Code(s): J96.00 - Acute respiratory failure, unspecified whether with hypoxia or hypercapnia Status: Acute Assessment and Plan: due to pulmonary edema superimposed on pneumonia and copd pt was reintubated, due to heavy secretions and exhaustion pt is off vent now still having heavy secretions stable on BIPAP can be transfered to medical floor (2) Pulmonary edema: Qualifiers: Chronicity: acute Qualified Code(s): J81.0 - Acute pulmonary edema Code(s): J81.1 - Chronic pulmonary edema Status: Acute Assessment and Plan: sudden loss of EF stress induced cardiomyopathy seen by cardiology (3) Severe anemia: Code(s): D64.9 - Anemia, unspecified Status: Acute Assessment and Plan: due to acute gi blood loss, secondary to ulcer hb still low at 7.1, continue to monitor sp transfusion secondary to ASA, ibuprofen and alcholol (4) Pneumonia: Qualifiers: Laterality: unspecified laterality Lung location: unspecified part of lung Pneumonia type: due to unspecified organism Qualified Code(s): J18.9 - Pneumonia, unspecified organism Code(s): J18.9 - Pneumonia, unspecified organism Status: Acute Assessment and Plan: continue azithromycin, ceftriaxone stopped (5) Acute kidney injury: Code(s): N17.9 - Acute kidney failure, unspecified Status: Resolved Assessment and Plan: Resolved, creat is normal (6) Elevated LFTs: Code(s): R94.5 - Abnormal results of liver function studies Status: Acute Assessment and Plan: clinically due to acute on chronic alcoholic hepatitis (7) GI bleed: Qualifiers: GI bleed type/associated pathology: gastric ulcer Qualified Code(s): K25.4 - Chronic or unspecified gastric ulcer with hemorrhage Code(s): K92.2 - Gastrointestinal hemorrhage, unspecified Status: Acute Assessment and Plan: Acute bleed resolved pt had EGD on 03/17, hb still low continue to watch, hb remains low 7.7 today continue to monitor (8) Acute alcoholic pancreatitis: Qualifiers: Acute pancreatitis complication: unspecified Qualified Code(s): K85.20 - Alcohol induced acute pancreatitis without necrosis or infection Code(s): K85.20 - Alcohol induced acute pancreatitis without necrosis or infection Status: Acute Assessment and Plan: most likley alcholol related and secondary to ASA and NSAID use (9) Hyponatremia: Code(s): E87.1 - Hypo-osmolality and hyponatremia Status: Acute Assessment and Plan: likely due to dehydration and alcoholism, resolving with fluids and tube feeds (10) Gastric ulcer: Qualifiers: Gastric ulcer chronicity: acute Gastric ulcer complication status: unspecified whether hemorrhage or perforation present Qualified Code(s): K25.3 - Acute gastric ulcer without hemorrhage or perforation Code(s): K25.9 - Gastric ulcer, unspecified as acute or chronic, without hemorrhage or perforation Status: Acute Assessment and Plan: not actively bleeding by 03/17 egd continue ppi f/u h/h (11) Collagenous colitis: Code(s): K52.831 - Collagenous colitis Status: Acute Assessment and Plan: clinically stable (12) COPD (chronic obstructive pulmonary disease): Qualifiers: COPD type: unspecified COPD Qualified Code(s): J44.9 - Chronic obstructive pulmonary disease, unspecified Code(s): J44.9 - Chronic obstructive pulmonary disease, unspecified Status: Acute Assessment and Plan: Pt reintubated on 03/23, extubated now continue
--- NOTE | 2019-03-28 14:38 | PM.PNCARD ---
Progress Note: A&P Assessment and Plan (1) Stress-induced cardiomyopathy: Code(s): I51.81 - Takotsubo syndrome Status: Acute Assessment and Plan: BP better during day but soft at night so won't titrate meds at this time. Continue carvedilol 3.125 mg b.i.d.. Continue ramipril 2.5 mg daily. Will follow periodically. (2) Elevated troponin I level: Code(s): R79.89 - Other specified abnormal findings of blood chemistry Status: Acute Assessment and Plan: Most likely type 2 infarct supply demand mismatch not acute coronary syndrome and/or plaque rupture given profound anemia presentation requiring aggressive fluid resuscitation, transfusion in setting of relative hypotension, malnutrition and acute hypoxic respiratory failure. Continue supportive therapy (3) Pneumonia: Qualifiers: Laterality: unspecified laterality Lung location: unspecified part of lung Pneumonia type: due to unspecified organism Qualified Code(s): J18.9 - Pneumonia, unspecified organism Code(s): J18.9 - Pneumonia, unspecified organism Status: Acute Assessment and Plan: Continue IV antibiotics per primary service. (4) Acute respiratory failure: Qualifiers: Respiratory failure complication: hypoxia and hypercapnia Qualified Code(s): J96.01 - Acute respiratory failure with hypoxia; J96.02 - Acute respiratory failure with hypercapnia Code(s): J96.00 - Acute respiratory failure, unspecified whether with hypoxia or hypercapnia Status: Acute Assessment and Plan: Continues to improve.. Resolving ARDS s/p intubation. Reintubated05/24/18 and extubate . Management per appliance service representative (5) Pulmonary edema: Qualifiers: Chronicity: acute Qualified Code(s): J81.0 - Acute pulmonary edema Code(s): J81.1 - Chronic pulmonary edema Status: Acute Assessment and Plan: Possible LLL effusion but otherwise not volume overloaded. (6) Acute blood loss anemia: Code(s): D62 - Acute posthemorrhagic anemia Status: Acute Assessment and Plan: Secondary to gastric ulcer. H/H stable, avoid NSAIDs. (7) Gastric ulcer: Qualifiers: Gastric ulcer chronicity: acute Gastric ulcer complication status: unspecified whether hemorrhage or perforation present Qualified Code(s): K25.3 - Acute gastric ulcer without hemorrhage or perforation Code(s): K25.9 - Gastric ulcer, unspecified as acute or chronic, without hemorrhage or perforation Status: Acute Assessment and Plan: As above. GI following. Continue IV PPI. Monitor for bleeding. (8) Alcoholic hepatitis: Qualifiers: Ascites presence: unspecified Qualified Code(s): K70.10 - Alcoholic hepatitis without ascites Code(s): K70.10 - Alcoholic hepatitis without ascites Status: Acute Assessment and Plan: Improving. Alcohol withdrawal protocol. Nutritional support. (9) Acute kidney injury: Code(s): N17.9 - Acute kidney failure, unspecified Status: Resolved Assessment and Plan: Resolved with volume resuscitation. (10) Elevated LFTs: Code(s): R94.5 - Abnormal results of liver function studies Status: Acute Assessment and Plan: As above, secondary to alcoholic hepatitis. (11) Acute alcoholic pancreatitis: Qualifiers: Acute pancreatitis complication: unspecified Qualified Code(s): K85.20 - Alcohol induced acute pancreatitis without necrosis or infection Code(s): K85.20 - Alcohol induced acute pancreatitis without necrosis or infection Status: Acute Assessment and Plan: Resolve
--- NOTE | 2019-03-28 15:26 | PC.NURSE ---
This patient, Anita Cutler, was transferred to [ 200] on 03/28/19 at 1510. Personal belongings sent with patient. Belongings list checked and signed with receiving [ ]. Report given to [marisol santoyo rn ]. Appropriate documentation sent with patient.
[2019-03-28] MEDS: GUAIFENESIN 200 MG/10 ML UDC PO ×2 (17:52→21:23)
[2019-03-28] MEDS: carvediloL 3.125 MG TABLET PO (21:23)
[2019-03-29] VITALS (26 sets, daily range): BP systolic 122–155; BP diastolic 65–90; PULSE 72–105; RESP 14–30; TEMP 36.1–36.9; O2SAT 97–100
[2019-03-29] MEDS: LEVALBUTEROL NEB 1.25 MG/3 ML 0.63 MG INHALATION ×4 (04:43→22:00)
[2019-03-29] MEDS: IPRATROPIUM BR 0.02% INH SOLN 0.5 MG/2.5 ML VIAL INHALATION ×4 (04:43→22:00)
[2019-03-29] MEDS: GUAIFENESIN 200 MG/10 ML UDC PO ×5 (05:06→22:40)
[2019-03-29 05:07] LABS: Hematocrit 24.9 % (37.0-47.0); Hemoglobin 7.4 g/dL (12.0-15.0); Mean Corpuscular HGB Conc 29.7 g/dl (32-36); Mean Corpuscular Hemoglobin 25.7 pg (26-34); Mean Corpuscular Volume 86.5 fl (80-100); Mean Platelet Volume 8.8 fl (7.4-10.4); Platelet Count Result 479 k/mm3 (150-375); Red Blood Count 2.88 M/mm3 (4.2-5.4); White Blood Count 10.6 K/mm3 (4.5-10.0)
[2019-03-29 05:21] LABS: Blood Urea Nitrogen 5 mg/dL (7-17); Calcium 8.1 mg/dL (8.4-10.2); Carbon Dioxide 24 mmol/L (22-30); Chloride 99 mmol/L (98-107); Estimated CRCL calculation 130 ml/min; Estimated Glomerular Filt Rate > 60; Glucose 74 mg/dL (65-105); Potassium 3.9 mmol/L (3.4-5.0); Sodium 130 mmol/L (137-145)
[2019-03-29] MEDS: SUCRALFATE 1 GM TABLET PO ×4 (06:48→22:26)
[2019-03-29] MEDS: PANTOPRAZOLE SODIUM IV 40 MG VIAL IV PUSH ×2 (08:18→22:26)
[2019-03-29] MEDS: THIAMINE HCL 100 MG TABLET PO (08:18)
[2019-03-29] MEDS: carvediloL 3.125 MG TABLET PO ×2 (08:18→22:26)
[2019-03-29] MEDS: HEPARIN SODIUM 5,000 UNITS/ML VIAL 5000 UNITS SUB-Q ×2 (08:19→22:26)
--- NOTE | 2019-03-29 10:38 | PM.PNCARD ---
Progress Note: A&P Assessment and Plan (1) Stress-induced cardiomyopathy: Code(s): I51.81 - Takotsubo syndrome Status: Acute Assessment and Plan: Euvolemic. BP More robust so can titrate heart medications meds at this time. Continue carvedilol 3.125 mg b.i.d.. increase ramipril 2.5 mg back to b.i.d.. (2) Elevated troponin I level: Code(s): R79.89 - Other specified abnormal findings of blood chemistry Status: Acute Assessment and Plan: Most likely type 2 infarct supply demand mismatch not acute coronary syndrome and/or plaque rupture given profound anemia presentation requiring aggressive fluid resuscitation, transfusion in setting of relative hypotension, malnutrition and acute hypoxic respiratory failure. (3) Pneumonia: Qualifiers: Laterality: unspecified laterality Lung location: unspecified part of lung Pneumonia type: due to unspecified organism Qualified Code(s): J18.9 - Pneumonia, unspecified organism Code(s): J18.9 - Pneumonia, unspecified organism Status: Acute Assessment and Plan: Continue IV antibiotics per primary service. (4) Acute respiratory failure: Qualifiers: Respiratory failure complication: hypoxia and hypercapnia Qualified Code(s): J96.01 - Acute respiratory failure with hypoxia; J96.02 - Acute respiratory failure with hypercapnia Code(s): J96.00 - Acute respiratory failure, unspecified whether with hypoxia or hypercapnia Status: Acute Assessment and Plan: Reintubated05/24/18 and extubated . Doing well (5) Pulmonary edema: Qualifiers: Chronicity: acute Qualified Code(s): J81.0 - Acute pulmonary edema Code(s): J81.1 - Chronic pulmonary edema Status: Acute Assessment and Plan: euvolemic (6) Acute blood loss anemia: Code(s): D62 - Acute posthemorrhagic anemia Status: Acute Assessment and Plan: Secondary to gastric ulcer. H/H stable, avoid NSAIDs. (7) Gastric ulcer: Qualifiers: Gastric ulcer chronicity: acute Gastric ulcer complication status: unspecified whether hemorrhage or perforation present Qualified Code(s): K25.3 - Acute gastric ulcer without hemorrhage or perforation Code(s): K25.9 - Gastric ulcer, unspecified as acute or chronic, without hemorrhage or perforation Status: Acute Assessment and Plan: As above. GI following. Continue IV PPI. Monitor for bleeding. (8) Alcoholic hepatitis: Qualifiers: Ascites presence: unspecified Qualified Code(s): K70.10 - Alcoholic hepatitis without ascites Code(s): K70.10 - Alcoholic hepatitis without ascites Status: Acute Assessment and Plan: Improving. Nutritional support. (9) Acute kidney injury: Code(s): N17.9 - Acute kidney failure, unspecified Status: Resolved Assessment and Plan: Resolved with volume resuscitation. (10) Elevated LFTs: Code(s): R94.5 - Abnormal results of liver function studies Status: Acute Assessment and Plan: As above, secondary to alcoholic hepatitis. (11) Acute alcoholic pancreatitis: Qualifiers: Acute pancreatitis complication: unspecified Qualified Code(s): K85.20 - Alcohol induced acute pancreatitis without necrosis or infection Code(s): K85.20 - Alcohol induced acute pancreatitis without necrosis or infection Status: Acute Assessment and Plan: Resolved. Defer to GI and primary service. Additional Plan Will follow-up p.r.n.. Subjective Date/time seen: 03/29/19 10:38 Interval history: 58 year old female who came to the
[2019-03-29] MEDS: RAMIPRIL 1.25 MG CAPSULE 2.5 MG PO ×2 (11:33→22:26)
--- NOTE | 2019-03-29 17:08 | PM.IMPN ---
Progress Note: A&P Assessment and Plan (1) Acute respiratory failure: Qualifiers: Respiratory failure complication: hypoxia and hypercapnia Qualified Code(s): J96.01 - Acute respiratory failure with hypoxia; J96.02 - Acute respiratory failure with hypercapnia Code(s): J96.00 - Acute respiratory failure, unspecified whether with hypoxia or hypercapnia Status: Acute Assessment and Plan: Patient is a 58 year female with history of alcohol abuse GI bleeding patient presented emergency department with a complaint of shortness of breath see was quite hypoxic chest x-ray showed patchy infiltrate most likely patient had pneumonia and emergently intubated and transferred to ICU, patient was extubated on 03/23 however was immediately intubated again due to have secretion and hypoxia, since then she has improved she was extubated on 03/28 and transfer out of ICU in IMU on 03/28, today patient is feeling much better not a short of breath over feels tired and weak not able to stand up or ambulate, denies any abdominal pain nausea or vomiting fever or chills (2) Pulmonary edema: Qualifiers: Chronicity: acute Qualified Code(s): J81.0 - Acute pulmonary edema Code(s): J81.1 - Chronic pulmonary edema Status: Acute Assessment and Plan: Patient with a acute on chronic systolic congestive heart failure with poor ejection fraction most likely secondary to call related cardiomyopathy (3) Acute blood loss anemia: Code(s): D62 - Acute posthemorrhagic anemia Status: Acute Assessment and Plan: Patient with history of alcohol abuse and peptic ulcer disease most likely acute blood loss patient was given transfusion hemoglobin is now stable (4) Hyponatremia: Code(s): E87.1 - Hypo-osmolality and hyponatremia Status: Acute Assessment and Plan: Most likely secondary to alcohol abuse and dehydration will gently hydrate the patient and monitor (5) Alcoholic hepatitis: Qualifiers: Ascites presence: unspecified Qualified Code(s): K70.10 - Alcoholic hepatitis without ascites Code(s): K70.10 - Alcoholic hepatitis without ascites Status: Acute Assessment and Plan: Patient is clinically stable (6) Severe anemia: Code(s): D64.9 - Anemia, unspecified Status: Acute (7) COPD (chronic obstructive pulmonary disease): Qualifiers: COPD type: unspecified COPD Qualified Code(s): J44.9 - Chronic obstructive pulmonary disease, unspecified Code(s): J44.9 - Chronic obstructive pulmonary disease, unspecified Status: Acute Assessment and Plan: Patient clinically stable symptoms have improved will continue to updraft (8) Elevated troponin: Code(s): R79.89 - Other specified abnormal findings of blood chemistry Status: Acute Assessment and Plan: Patient with elevated tropes most likely most likely type 2 myocardial infarction secondary to hypoxia intubation unlikely acute coronary syndrome patient is seen by urologist does not suspect acute plaque rupture and no ischemic workup is recommended (9) Stress-induced cardiomyopathy: Code(s): I51.81 - Takotsubo syndrome Status: Acute Assessment and Plan: Patient with history of alcohol abuse most likely has a chronic alcohol cardiomyopathy patient is seen by resort desk clerk further recommendation to follow Subjective Date/time seen: 03/29/19 17:08 Patient is a 58 year female with history of alcohol abuse GI bleeding patient presented emergency department with a complaint of shortness of breath see was quite hypoxic chest x-ray showed patchy infiltrate most likely patient had pneumonia and emergently intubated and transferred to ICU, patient was extubated on 03/23 however was immediately intubated again due to have secretion and hypoxia, since then she has improved she was extubated on 03/28 and transfer out of ICU in IMU on 03/28, today pat
[2019-03-30] VITALS (20 sets, daily range): BP systolic 102–151; BP diastolic 69–87; PULSE 84–110; RESP 14–20; TEMP 36.4–36.8; O2SAT 97–99
[2019-03-30] MEDS: LEVALBUTEROL NEB 1.25 MG/3 ML 0.63 MG INHALATION ×4 (03:17→19:29)
[2019-03-30] MEDS: IPRATROPIUM BR 0.02% INH SOLN 0.5 MG/2.5 ML VIAL INHALATION ×4 (03:18→19:30)
[2019-03-30 05:37] LABS: Hematocrit 28.6 % (37.0-47.0); Hemoglobin 8.7 g/dL (12.0-15.0); Mean Corpuscular HGB Conc 30.4 g/dl (32-36); Mean Corpuscular Hemoglobin 25.7 pg (26-34); Mean Corpuscular Volume 84.6 fl (80-100); Mean Platelet Volume 8.6 fl (7.4-10.4); Platelet Count Result 552 k/mm3 (150-375); Red Blood Count 3.38 M/mm3 (4.2-5.4); Red Cell Distribution Width 21.3 % (11.5-14.5); White Blood Count 10.3 K/mm3 (4.5-10.0)
[2019-03-30 05:55] LABS: Blood Urea Nitrogen 7 mg/dL (7-17); Calcium 8.5 mg/dL (8.4-10.2); Carbon Dioxide 22 mmol/L (22-30); Chloride 94 mmol/L (98-107); Estimated CRCL calculation 102 ml/min; Estimated Glomerular Filt Rate > 60; Glucose 89 mg/dL (65-105); Magnesium 1.8 mg/dL (1.6-2.3); Potassium 3.2 mmol/L (3.4-5.0); Sodium 125 mmol/L (137-145)
[2019-03-30] MEDS: GUAIFENESIN 200 MG/10 ML UDC PO ×4 (07:36→21:02)
[2019-03-30] MEDS: SUCRALFATE 1 GM TABLET PO ×4 (07:36→21:04)
[2019-03-30] MEDS: RAMIPRIL 1.25 MG CAPSULE 2.5 MG PO ×2 (09:08→21:03)
[2019-03-30] MEDS: carvediloL 3.125 MG TABLET PO (09:09)
[2019-03-30] MEDS: THIAMINE HCL 100 MG TABLET PO (09:09)
[2019-03-30] MEDS: HEPARIN SODIUM 5,000 UNITS/ML VIAL 5000 UNITS SUB-Q ×2 (09:09→21:03)
[2019-03-30] MEDS: PANTOPRAZOLE SODIUM IV 40 MG VIAL IV PUSH ×2 (09:09→21:02)
[2019-03-30] MEDS: POTASSIUM CHLORIDE 20 MEQ PACKET (FOR LIQUID) 40 MEQ PO (09:18)
--- NOTE | 2019-03-30 11:06 | PM.PNCARD ---
Progress Note: A&P Assessment and Plan (1) Stress-induced cardiomyopathy: Code(s): I51.81 - Takotsubo syndrome Status: Acute Assessment and Plan: Euvolemic. BP More robust so can titrate heart medications meds at this time. Keep ramipril at current dose. Increase carvedilol to 6.25 mg bid (2) Elevated troponin I level: Code(s): R79.89 - Other specified abnormal findings of blood chemistry Status: Acute Assessment and Plan: Most likely type 2 infarct supply demand mismatch not acute coronary syndrome and/or plaque rupture given profound anemia presentation requiring aggressive fluid resuscitation, transfusion in setting of relative hypotension, malnutrition and acute hypoxic respiratory failure. (3) Pneumonia: Qualifiers: Laterality: unspecified laterality Lung location: unspecified part of lung Pneumonia type: due to unspecified organism Qualified Code(s): J18.9 - Pneumonia, unspecified organism Code(s): J18.9 - Pneumonia, unspecified organism Status: Acute Assessment and Plan: Continue IV antibiotics per primary service. (4) Acute respiratory failure: Qualifiers: Respiratory failure complication: hypoxia and hypercapnia Qualified Code(s): J96.01 - Acute respiratory failure with hypoxia; J96.02 - Acute respiratory failure with hypercapnia Code(s): J96.00 - Acute respiratory failure, unspecified whether with hypoxia or hypercapnia Status: Acute Assessment and Plan: Reintubated05/24/18 and extubated . Doing well (5) Pulmonary edema: Qualifiers: Chronicity: acute Qualified Code(s): J81.0 - Acute pulmonary edema Code(s): J81.1 - Chronic pulmonary edema Status: Acute Assessment and Plan: euvolemic (6) Acute blood loss anemia: Code(s): D62 - Acute posthemorrhagic anemia Status: Acute Assessment and Plan: Secondary to gastric ulcer. H/H stable, avoid NSAIDs. (7) Gastric ulcer: Qualifiers: Gastric ulcer chronicity: acute Gastric ulcer complication status: unspecified whether hemorrhage or perforation present Qualified Code(s): K25.3 - Acute gastric ulcer without hemorrhage or perforation Code(s): K25.9 - Gastric ulcer, unspecified as acute or chronic, without hemorrhage or perforation Status: Acute Assessment and Plan: As above. GI following. Continue IV PPI. Monitor for bleeding. (8) Alcoholic hepatitis: Qualifiers: Ascites presence: unspecified Qualified Code(s): K70.10 - Alcoholic hepatitis without ascites Code(s): K70.10 - Alcoholic hepatitis without ascites Status: Acute Assessment and Plan: Improving. Nutritional support. (9) Acute kidney injury: Code(s): N17.9 - Acute kidney failure, unspecified Status: Resolved Assessment and Plan: Resolved with volume resuscitation. (10) Elevated LFTs: Code(s): R94.5 - Abnormal results of liver function studies Status: Acute Assessment and Plan: As above, secondary to alcoholic hepatitis. (11) Acute alcoholic pancreatitis: Qualifiers: Acute pancreatitis complication: unspecified Qualified Code(s): K85.20 - Alcohol induced acute pancreatitis without necrosis or infection Code(s): K85.20 - Alcohol induced acute pancreatitis without necrosis or infection Status: Acute Assessment and Plan: Resolved. Defer to GI and primary service. Subjective Date/time seen: 03/30/19 11:06 Interval history: 58 year old female who came to the emergency room after feeling ill for about 6 days. The p
--- NOTE | 2019-03-30 12:18 | PCDIET ---
Nutrition Follow-Up Complete: Inadequate oral intake related to pancreatitis as evidenced by NPO/clear liquid diet since admission. Intakes >50% on advanced diet. Goal:Progressing towards goal. Pt current nutrition is Minced and Moist,Level 5 with Ensure Compact BID. Nutrition recommendation: Agree. Last recorded weight is 51.9 kg. Bowel Motility:+BM Labs Reviewed:Cr 0.4,Na 125,K 3.2 Meds Noted: Vit B, Protonix Additional Notes: Diet order has advanced to a Minced and Moist, Level 5. Patient states to eating yogurt (100%) and applesauce (at least 50%) for breakfast. MD orders for Ensure Compact BID providing an additional 220 kcals and 9 gms protein. Follow up in 3 days.
[2019-03-30] MEDS: carvediloL 6.25 MG TABLET PO ×2 (14:38→21:03)
--- NOTE | 2019-03-30 16:06 | PM.IMPN ---
Progress Note: A&P Assessment and Plan (1) Acute respiratory failure: Qualifiers: Respiratory failure complication: hypoxia and hypercapnia Qualified Code(s): J96.01 - Acute respiratory failure with hypoxia; J96.02 - Acute respiratory failure with hypercapnia Code(s): J96.00 - Acute respiratory failure, unspecified whether with hypoxia or hypercapnia Status: Acute Assessment and Plan: Patient is a 58 year female with history of alcohol abuse GI bleeding patient presented emergency department with a complaint of shortness of breath see was quite hypoxic chest x-ray showed patchy infiltrate most likely patient had pneumonia and emergently intubated and transferred to ICU, patient was extubated on 03/23 however was immediately intubated again due to have secretion and hypoxia, since then she has improved she was extubated on 03/28 and transfer out of ICU in IMU on 03/28, on 03/29 patient was feeling much better not as short of breath, however felt tired and weak not able to stand up or ambulate, simitlarly again today patient c/o weak and unable to stand on her denies any abdominal pain nausea or vomiting fever or chills, her is present in the room, will have PT/OT evaluate and treat, patient will benefit going to rehab before going home. 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, patientis seen by curriculum assistant (3) Acute blood loss anemia: Code(s): D62 - Acute posthemorrhagic anemia Status: Acute Assessment and Plan: Patient with history of alcohol abuse and peptic ulcer disease most likely acute blood loss patient was given transfusion hemoglobin is now stable (4) Hyponatremia: Code(s): E87.1 - Hypo-osmolality and hyponatremia Status: Acute Assessment and Plan: Most likely secondary to alcohol abuse not sure if 125 is her baseline, will consult box maker for furthe recommendation, (5) Alcoholic hepatitis: Qualifiers: Ascites presence: unspecified Qualified Code(s): K70.10 - Alcoholic hepatitis without ascites Code(s): K70.10 - Alcoholic hepatitis without ascites Status: Acute Assessment and Plan: Patient is clinically stable (6) Severe anemia: Code(s): D64.9 - Anemia, unspecified Status: Acute (7) COPD (chronic obstructive pulmonary disease): Qualifiers: COPD type: unspecified COPD Qualified Code(s): J44.9 - Chronic obstructive pulmonary disease, unspecified Code(s): J44.9 - Chronic obstructive pulmonary disease, unspecified Status: Acute Assessment and Plan: Patient clinically stable symptoms have improved will continue to updraft (8) Elevated troponin: Code(s): R79.89 - Other specified abnormal findings of blood chemistry Status: Acute Assessment and Plan: Patient with elevated tropes most likely most likely type 2 myocardial infarction secondary to hypoxia intubation unlikely acute coronary syndrome patient is seen by urologist does not suspect acute plaque rupture and no ischemic workup is recommended (9) Stress-induced cardiomyopathy: Code(s): I51.81 - Takotsubo syndrome Status: Acute Assessment and Plan: Patient with history of alcohol abuse most likely has a chronic alcohol cardiomyopathy patient is seen by curriculum assistant further recommendation to follow Subjective Date/time seen: 03/30/19 16:06 Interval history: Patient is a 58 year female with history of alcohol abuse GI bleeding patient presented emergency department with a complaint of shortness of breath see was quite hypoxic chest x-ray showed patchy infiltrate m
--- NOTE | 2019-03-30 17:35 | PM.CNNEP ---
Assessment and Plan Assessment and plan (1) Hyponatremia: Code(s): E87.1 - Hypo-osmolality and hyponatremia Status: Acute (2) Elevated troponin I level: Code(s): R79.89 - Other specified abnormal findings of blood chemistry Status: Acute (3) Acute respiratory failure: Qualifiers: Respiratory failure complication: hypoxia and hypercapnia Qualified Code(s): J96.01 - Acute respiratory failure with hypoxia; J96.02 - Acute respiratory failure with hypercapnia Code(s): J96.00 - Acute respiratory failure, unspecified whether with hypoxia or hypercapnia Status: Acute (4) Pneumonia: Qualifiers: Laterality: unspecified laterality Lung location: unspecified part of lung Pneumonia type: due to unspecified organism Qualified Code(s): J18.9 - Pneumonia, unspecified organism Code(s): J18.9 - Pneumonia, unspecified organism Status: Acute (5) Stress-induced cardiomyopathy: Code(s): I51.81 - Takotsubo syndrome Status: Acute Additional Plan Anita has hyponatremia that apparently has been relatively stable since her admission here to [facility]. As already mentioned, I am unclear the acuity versus chronicity of this condition although she does have multiple risk factors for hyponatremia in general. She has a history of alcohol abuse, underlying lung disease with regard to COPD and of course her acute illness, add LIP liver disease although without evidence of decompensation, recent diagnosis of stress-induced cardiomyopathy, and fluctuating oral intake in the last several days. For further evaluation of this issue, I will check an SPEP, UPEP, TSH, cortisol level, urine electrolytes, and try to obtain old records from her primary care physician or a previous hospitalization to see what her sodium level was at that time in effort to try to determine whether or not this is an acute or chronic problem. As far as I can tell, she is otherwise asymptomatic from this issue so I do not think any direct intervention needs to be done but I would follow the trend of her sodium level to ensure they remain stable while she is hospitalized and if necessary, we consider a fluid restriction if her sodium level continues to precipitously dropped. I will continue to follow patient with you while she remains hospitalized make further recommendations during hospital course. Thank you for allowing the [facility] in care this patient. History of Present Illness Reason for Consult Consult date: 03/30/19 Reason for consult: hyponatremia Chief Complaint Chief complaint: Acute pancreatitis/hyponatremia/anemia/pneumonia History of Present Illness Narrative: The patient is a 58 year old female with a past medical history as outlined below who presented to [facility] with complaints of shortness of breath. She apparently was was quite hypoxic and her chest x-ray showed patchy infiltrate thought to be pneumonia. Her respiratory status continued to decline so she was emergently intubated and transferred to ICU for ongoing management. She was eventually extubated on 03/23 but was then immediately re-intubated issues relating to inability to clear her secretions in association with hypoxia. However, she was eventually extubated on 03/28 and maintainer her airway and respiratory status. She was able to be transferred out of ICU in IMU a few days ago and has been relatively stable from a respiratory standpoint. Renal consultation was requested due to her fluctuating hyponatremia that has been noted since admission. From review of her records while she has been admitted here at [facility], her sodium level has fluctuated anywhere from 125 to 132 millimoles per L. it is not entirely clear if this is a acute or chronic problem and the patient's self does not recall any recent issues / problems with this type of phenomenon although she does relate to me that years ago she had an
[2019-03-30 21:23] LABS: Total Protein Urine Random 20 mg/dL
[2019-03-30 21:28] LABS: Creatinine Urine 29.3 mg/dL; Total Protein Urine Random 20 mg/dL
[2019-03-31] VITALS (10 sets, daily range): BP systolic 147; BP diastolic 81; PULSE 82–99; RESP 16; TEMP 36.5; O2SAT 97–100
[2019-03-31] MEDS: IPRATROPIUM BR 0.02% INH SOLN 0.5 MG/2.5 ML VIAL INHALATION ×3 (02:00→14:23)
[2019-03-31] MEDS: LEVALBUTEROL NEB 1.25 MG/3 ML 0.63 MG INHALATION ×3 (02:01→14:23)
[2019-03-31 05:56] LABS: Hematocrit 28.8 % (37.0-47.0); Hemoglobin 8.8 g/dL (12.0-15.0); Mean Corpuscular HGB Conc 30.6 g/dl (32-36); Mean Corpuscular Hemoglobin 25.8 pg (26-34); Mean Corpuscular Volume 84.5 fl (80-100); Platelet Count Result 565 k/mm3 (150-375); Red Blood Count 3.41 M/mm3 (4.2-5.4); Red Cell Distribution Width 21.4 % (11.5-14.5); White Blood Count 8.6 K/mm3 (4.5-10.0)
[2019-03-31] MEDS: GUAIFENESIN 200 MG/10 ML UDC PO ×2 (06:34→12:01)
[2019-03-31] MEDS: SUCRALFATE 1 GM TABLET PO ×2 (06:34→12:01)
[2019-03-31 06:42] LABS: Albumin Level 3.4 g/dL (3.5-5.1); Blood Urea Nitrogen 5 mg/dL (7-17); Calcium 8.8 mg/dL (8.4-10.2); Carbon Dioxide 24 mmol/L (22-30); Chloride 95 mmol/L (98-107); Estimated CRCL calculation 84 ml/min; Estimated Glomerular Filt Rate > 60; Glucose 104 mg/dL (65-105); Magnesium 1.7 mg/dL (1.6-2.3); Phosphorus 1.9 mg/dL (2.5-4.5); Potassium 3.7 mmol/L (3.4-5.0); Sodium 130 mmol/L (137-145)
[2019-03-31] MEDS: THIAMINE HCL 100 MG TABLET PO (08:25)
[2019-03-31] MEDS: carvediloL 6.25 MG TABLET PO (08:25)
[2019-03-31] MEDS: PANTOPRAZOLE SODIUM IV 40 MG VIAL IV PUSH (08:25)
[2019-03-31] MEDS: HEPARIN SODIUM 5,000 UNITS/ML VIAL 5000 UNITS SUB-Q (08:26)
[2019-03-31] MEDS: RAMIPRIL 1.25 MG CAPSULE 2.5 MG PO (08:27)
--- NOTE | 2019-03-31 10:01 | PM.PNCARD ---
Progress Note: A&P Assessment and Plan (1) Stress-induced cardiomyopathy: Code(s): I51.81 - Takotsubo syndrome Status: Acute Assessment and Plan: Euvolemic. BP More robust so can titrate heart medications meds at this time. Keep ramipril and carvediolol at current dose. DC telemetry (2) Elevated troponin I level: Code(s): R79.89 - Other specified abnormal findings of blood chemistry Status: Acute Assessment and Plan: Most likely type 2 infarct supply demand mismatch not acute coronary syndrome and/or plaque rupture given profound anemia presentation requiring aggressive fluid resuscitation, transfusion in setting of relative hypotension, malnutrition and acute hypoxic respiratory failure. (3) Pneumonia: Qualifiers: Laterality: unspecified laterality Lung location: unspecified part of lung Pneumonia type: due to unspecified organism Qualified Code(s): J18.9 - Pneumonia, unspecified organism Code(s): J18.9 - Pneumonia, unspecified organism Status: Acute Assessment and Plan: Continue IV antibiotics per primary service. (4) Acute respiratory failure: Qualifiers: Respiratory failure complication: hypoxia and hypercapnia Qualified Code(s): J96.01 - Acute respiratory failure with hypoxia; J96.02 - Acute respiratory failure with hypercapnia Code(s): J96.00 - Acute respiratory failure, unspecified whether with hypoxia or hypercapnia Status: Acute Assessment and Plan: Reintubated05/24/18 and extubated . Doing well (5) Pulmonary edema: Qualifiers: Chronicity: acute Qualified Code(s): J81.0 - Acute pulmonary edema Code(s): J81.1 - Chronic pulmonary edema Status: Acute Assessment and Plan: euvolemic (6) Acute blood loss anemia: Code(s): D62 - Acute posthemorrhagic anemia Status: Acute Assessment and Plan: Secondary to gastric ulcer. H/H stable, avoid NSAIDs. (7) Gastric ulcer: Qualifiers: Gastric ulcer chronicity: acute Gastric ulcer complication status: unspecified whether hemorrhage or perforation present Qualified Code(s): K25.3 - Acute gastric ulcer without hemorrhage or perforation Code(s): K25.9 - Gastric ulcer, unspecified as acute or chronic, without hemorrhage or perforation Status: Acute Assessment and Plan: As above. GI following. Continue IV PPI. Monitor for bleeding. (8) Alcoholic hepatitis: Qualifiers: Ascites presence: unspecified Qualified Code(s): K70.10 - Alcoholic hepatitis without ascites Code(s): K70.10 - Alcoholic hepatitis without ascites Status: Acute Assessment and Plan: Improving. Nutritional support. (9) Acute kidney injury: Code(s): N17.9 - Acute kidney failure, unspecified Status: Resolved Assessment and Plan: Resolved with volume resuscitation. (10) Elevated LFTs: Code(s): R94.5 - Abnormal results of liver function studies Status: Acute Assessment and Plan: As above, secondary to alcoholic hepatitis. (11) Acute alcoholic pancreatitis: Qualifiers: Acute pancreatitis complication: unspecified Qualified Code(s): K85.20 - Alcohol induced acute pancreatitis without necrosis or infection Code(s): K85.20 - Alcohol induced acute pancreatitis without necrosis or infection Status: Acute Assessment and Plan: Resolved. Defer to GI and primary service. Subjective Date/time seen: 03/31/19 10:01 Interval history: 58 year old female who came to the emergency room after feeling ill for about 6 days. The pat
[2019-03-31] MEDS: LIDOCAINE 5% PATCH 1 PATCH TRANSDERM (12:01)
--- NOTE | 2019-03-31 14:05 | PM.DS ---
DS: Diagnosis Admitting Diagnosis Admitting Diagnosis: Anemia, unspecified Discharge Diagnosis (1) Acute respiratory failure: Qualifiers: Respiratory failure complication: hypoxia and hypercapnia Qualified Code(s): J96.01 - Acute respiratory failure with hypoxia; J96.02 - Acute respiratory failure with hypercapnia Code(s): J96.00 - Acute respiratory failure, unspecified whether with hypoxia or hypercapnia Status: Acute Assessment and Plan: Patient is a 58 year female with history of alcohol abuse GI bleeding patient presented emergency department with a complaint of shortness of breath see was quite hypoxic chest x-ray showed patchy infiltrate most likely patient had pneumonia and emergently intubated and transferred to ICU, patient was extubated on 03/23 however was immediately intubated again due to have secretion and hypoxia, since then she has improved she was extubated on 03/28 and transfer out of ICU in IMU on 03/28, on 03/29 patient was feeling much better not as short of breath, however felt tired and weak not able to stand up or ambulate, simitlarly again today patient c/o weak and unable to stand on her denies any abdominal pain nausea or vomiting fever or chills, her is present in the room, will have PT/OT evaluate and treat, patient will benefit going to rehab before going home. 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, patientis seen by white mixing operator (3) Acute blood loss anemia: Code(s): D62 - Acute posthemorrhagic anemia Status: Acute Assessment and Plan: Patient with history of alcohol abuse and peptic ulcer disease most likely acute blood loss patient was given transfusion hemoglobin is now stable (4) Hyponatremia: Code(s): E87.1 - Hypo-osmolality and hyponatremia Status: Acute Assessment and Plan: Most likely secondary to alcohol abuse not sure if 125 is her baseline, will consult garden worker for furthe recommendation, (5) Alcoholic hepatitis: Qualifiers: Ascites presence: unspecified Qualified Code(s): K70.10 - Alcoholic hepatitis without ascites Code(s): K70.10 - Alcoholic hepatitis without ascites Status: Acute Assessment and Plan: Patient is clinically stable (6) Severe anemia: Code(s): D64.9 - Anemia, unspecified Status: Acute (7) COPD (chronic obstructive pulmonary disease): Qualifiers: COPD type: unspecified COPD Qualified Code(s): J44.9 - Chronic obstructive pulmonary disease, unspecified Code(s): J44.9 - Chronic obstructive pulmonary disease, unspecified Status: Acute Assessment and Plan: Patient clinically stable symptoms have improved will continue to updraft (8) Elevated troponin: Code(s): R79.89 - Other specified abnormal findings of blood chemistry Status: Acute Assessment and Plan: Patient with elevated tropes most likely most likely type 2 myocardial infarction secondary to hypoxia intubation unlikely acute coronary syndrome patient is seen by urologist does not suspect acute plaque rupture and no ischemic workup is recommended (9) Stress-induced cardiomyopathy: Code(s): I51.81 - Takotsubo syndrome Status: Acute Assessment and Plan: Patient with history of alcohol abuse 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 The patient had some generalized weakness and has cho
--- NOTE | 2019-03-31 14:22 | PM.PNNEP ---
Progress Note: A&P Assessment and Plan (1) Hyponatremia: Code(s): E87.1 - Hypo-osmolality and hyponatremia Status: Acute Assessment and Plan: acute versus chronic?? multiple risk factors noted: - alcohol abuse history - lung disease/COPD/smoking hx - liver disease - previous episodes of hyponatremia with SSRI use (per patient) - fluctuating oral/fluid intake prior to and with hospitalization labs in 2018 demonstrated a normal sodium level work-up/evaluation ongoing (multiple tests are still pending) sodium better today otherwise, appears asymptomatic follow trend of repeat sodium levels (2) Acute respiratory failure: Qualifiers: Respiratory failure complication: hypoxia and hypercapnia Qualified Code(s): J96.01 - Acute respiratory failure with hypoxia; J96.02 - Acute respiratory failure with hypercapnia Code(s): J96.00 - Acute respiratory failure, unspecified whether with hypoxia or hypercapnia Status: Acute Assessment and Plan: resolved due to pneumonia in the context of COPD respiratory status relative stable continue supportive therapy (3) Stress-induced cardiomyopathy: Code(s): I51.81 - Takotsubo syndrome Status: Acute Assessment and Plan: Cardiology following titrate BP medications as tolerated (4) Debility: Code(s): R53.81 - Other malaise Status: Acute Assessment and Plan: PT/OT as tolerated noted plans for transfer to [facility] Will continue to follow - not opposed to transfer to [facility] from renal perspectibe. Subjective Date/time seen: 03/31/19 14:22 Overall, seems to be doing reasonably well; accepted to [facility] given deconditioning during this hospital stay; no other apparent issues or problems to report. Exam Narrative: Exam Narrative: General: WD/WN female in NAD Heart: normal S1 and S2; no rub Lungs: clear anteriorly Abdomen: soft, nontender, nondistended, positive bowel sounds Extremities: no cyanosis or clubbing; no edema Skin: warm and dry Objective Data Vital Signs Vital Signs: Vital Signs Temp Pulse Resp BP Pulse Ox 03/31/19 08:25 95 03/31/19 08:00 93 03/31/19 07:41 84 16 03/31/19 07:33 87 16 97 03/31/19 04:00 36.5 C 95 16 147/81 H 100 03/31/19 02:15 82 16 03/31/19 02:01 95 16 03/31/19 00:00 87 03/30/19 21:18 95 16 97 03/30/19 21:03 95 03/30/19 20:00 36.7 C 93 16 131/70 97 03/30/19 19:45 95 16 03/30/19 19:30 94 16 03/30/19 18:00 36.7 C 105 H 16 102/71 99 03/30/19 16:00 104 H 03/30/19 14:59 96 16 03/30/19 14:48 99 18 03/30/19 14:38 99 Intake/Output Intake/Output: Intake & Output 03/28/19 03/29/19 03/30/19 03/31/19 23:59 23:59 23:59 23:59 Intake Total 50 790 1240 300 Output Total 1050 1800 1300 1250 Balance -1000 -1010 -60 -950 Meds/Results Medications: Active Medications Generic Name Dose Route Start Last Admin Trade Name Freq PRN Reason Stop Dose Admin Carvedilol 6.25 mg 03/30/19 12:45 03/31/19 08:25 Coreg PO 6.25 mg Q12HR EFRAIN Administration Guaifenesin 200 mg 03/24/19 13:00 03/31/19 12:01 Guaifenesin Liq PO 200 mg Q4HR EFRAIN Administration Heparin Sodium (Porcine) 5,000 units 03/24/19 21:00 03/31/19 08:26 Heparin Sodium SUB-Q 5,000 units Q12HR EFRAIN Administration Ipratropium Alvin 0.5 mg 03/29/19 20:00 03/31/19 07:31 Atrovent Neb INHALATION 0.5 mg Q6HRT EFRAIN Administration Levalbuterol HCl 0.63 mg 03/29/19 20:00 03/31/19 07:31 Xopenex 1.25 Mg/3 Ml INHALATION 0.63 mg Q6HRT EFRAIN Administration Lidocaine 1 patch 03/31/19 11:20 03/31/19 12:01 Lidoderm TRANSDERM 1 patch DAILY EFRAIN Administration Pantoprazole Sodium 40 mg 03/17/19 21:00 03/31/19 08:25 Protonix Iv IV PUSH 40 mg Q12HR EFRAIN Administration Ramipril 2.5 mg 03/29/19 11:00 03/31/19 08:27
[2019-04-03 04:55] LABS: Alpha 1 Globulin 0.5 g/dL (0.2-0.3); Alpha 2 Globulin 0.7 g/dL (0.5-0.9); Beta 1 Globulin 0.5 g/dL (0.4-0.6); Gamma Globulin 0.6 g/dL (0.8-1.7); Protein, Total 5.5 g/dL (6.1-8.1)
[2019-04-03 05:23] LABS: Osmolality, Urine 215 mOsm/kg (50-1200)
[2019-04-04 14:39] LABS: Creatinine, Random Urine 30 mg/dL (20-275); Total Protein/Creatinine Ratio 667 mg/g creat (21-161)
== END 2019-03-31 15:09 | DRG 282 ==
LOC: ANHED 12:44 → ANHICU 13:06 → ANHIMU 03-19 04:57 → ANH3MED 03-31 14:05 → ANH2MED 04-02 10:27 → ANH3MED 04-02 10:27 → ANHICU 04-02 10:27 → ANHIMU 04-02 10:27
PROVIDERS: Emergency Medicine Emergency Medical Services; Family Medicine; Internal Medicine; Internal Medicine Cardiovascular Disease; Internal Medicine Critical Care Medicine; Internal Medicine Gastroenterology; Internal Medicine Nephrology; Admitting Provider Hospitalist; Emergency Provider Emergency Medicine; PCP Nurse Practitioner Family; Visit Provider Family Medicine
PROC: 0DJ08ZZ Inspection of Upper Intestinal Tract, Via Natural or Artificial Opening Endoscopic (ICD-10-PCS; CPT 43235; principal; 2019-03-17 08:45)
DX: K85.20 Alcohol induced acute pancreatitis without necrosis or infection (principal); J18.9 Pneumonia, unspecified organism; N17.9 Acute kidney failure, unspecified; F10.20 Alcohol dependence, uncomplicated; K29.20 Alcoholic gastritis without bleeding; J96.01 Acute respiratory failure with hypoxia; Z87.891 Personal history of nicotine dependence; E87.1 Hypo-osmolality and hyponatremia; J44.9 Chronic obstructive pulmonary disease, unspecified; D62 Acute posthemorrhagic anemia; K25.0 Acute gastric ulcer with hemorrhage; K70.11 Alcoholic hepatitis with ascites; Z23 Encounter for immunization; I51.81 Takotsubo syndrome; I50.23 Acute on chronic systolic (congestive) heart failure; I42.6 Alcoholic cardiomyopathy; K52.831 Collagenous colitis; E86.0 Dehydration; J96.02 Acute respiratory failure with hypercapnia; I21.A1 Myocardial infarction type 2; K21.9 Gastro-esophageal reflux disease without esophagitis
CPT/HCPCS: 31500; 36415; 36430; 36600; 51701; 71045; 71046; 74018; 74177; 76705; 80048; 80053; 80069; 80307; 81001; 81050; 82375; 82533; 82570; 82805; 83050; 83605; 83690; 83735; 83880; 83930; 83935; 84100; 84155; 84156; 84165; 84166; 84443; 84478; 84484; 85014; 85018; 85025; 85027; 85610; 85730; 86140; 86850; 86900; 86901; 86923; 87040; 87070; 87081; 87086; 87205; 87804; 88305; 88342; 90471; 90686; 92610; 93005; 93308; 94002; 94003; 94640; 94667; 94668; 94669; 96365; 96366; 96367; 96368; 96375; 97110; 97116; 97161; 97164; 97165; 97530; 97535; 99285; A9270; C8929; C9113; G0008; J0131; J0456; J0696; J1170; J1644; J1940; J2060; J2250; J2270; J2405; J2704; J2920; J2930; J3411; J3475; J3480; J7030; J7050; J7060; J7120; P9016; Q9957; Q9967

== ENCOUNTER 2019-07-17 09:19 | Emergency (ER) | payer BC, SELFPAY ==
--- NOTE | ~2019-07-17 | XR_ITS ---
EXAMINATION: XR humerus RT INDICATION: Right shoulder pain, initial encounter TECHNIQUE: Two views of the right humerus are obtained on four radiographs. COMPARISON: None available FINDINGS: There is an acute, traumatic, comminuted fracture of the proximal humerus. A transverse com ponent involves the surgical neck of the humerus. The greater tuberosity is seen as a separate fractu re fragment. There is overlying soft tissue swelling. There is a questionable acute fracture at the a nterolateral aspect of the right ninth rib. IMPRESSION: 1. Comminuted proximal humerus fracture. 2. Possible right ninth rib fracture. Recommend correlation for chest wall tenderness. Reviewed, dictated and finalized at location B. IMPRESSION: 1. Comminuted proximal humerus fracture. 2. Possible right ninth rib fracture. Recommend correlation for chest wall tend erness.
--- NOTE | 2019-07-17 09:35 | ED.UPPEXIN ---
HPI - Extremity Injury (Upper) General Chief Complaint: Extremity Injury, Upper Stated Complaint: Fall Right shoulder pain Time Seen by Provider: 07/17/19 09:35 Source: patient and RN notes reviewed History of Present Illness HPI narrative: Patient is a 58-year-old female presents the urgent care with complaints of a right shoulder injury after falling down her stairs last night at approximately 6 PM. Patient states that she fell forward landing on her right side. Patient states that her shoulder is been in extreme pain ever since the fall. Patient has not taken anything for the pain. Patient denies hitting her head or any loss of consciousness. No other acute complaints. Patient does look visibly uncomfortable. Patient aware of the plan of care. Related Data Allergies Allergy/AdvReac Type Severity Reaction Status Date / Time erythromycin base Allergy Unknown Verified 07/17/19 09:59 Penicillins Allergy Hives Verified 03/17/19 08:17 azithromycin AdvReac Cramping Verified 03/17/19 08:17 of the Muscles bupropion [From Wellbutrin] AdvReac Gastrointestinal Verified 03/17/19 08:17 Upset Review of Systems Review of Systems: Narrative: CONSTITUTIONAL: Denies fever, chills, or sweats. EYES: Denies visual changes, redness, or discharge. ENT: Denies rhinorrhea, congestion, sore throat, or otalgia. CARDIOVASCULAR: Denies chest pain, palpitations, or edema. RESPIRATORY: Denies cough or dyspnea. GASTROINTESTINAL: Denies abdominal pain, nausea, vomiting, or diarrhea. GENITOURINARY: Denies dysuria or hematuria. SKIN: Denies rash or itching. MUSCULOSKELETAL: Reports of severe right shoulder pain due to fall NEUROLOGIC: Denies headache, numbness, or weakness. All other systems reviewed are negative, except as documented in HPI. [facility] Past Medical History Medical History (Updated 07/17/19 @ 10:06 by MANJU Anderson) Acute blood loss anemia Acute respiratory failure Alcoholic hepatitis Collagenous colitis Collagenous colitis COPD (chronic obstructive pulmonary disease) Diarrhea Gastric ulcer Gastritis GERD (gastroesophageal reflux disease) History of alcohol abuse History of asthma Pulmonary edema Surgical History Surgical History History of bilateral cataract extraction History of section History of D&C History of tonsillectomy Social History Social History Social History: Quit smoking about a year back, prior to which she was used to smoke half a packet for many years and prior to that about a packet for many years. Patient drinks 4-8 oz of wine daily for many years. Smokes marijuana occasionally that helps a with her chronic abdominal pain. lives with boyfriend, does not work. Full code. Hiram is the boyfriend who is her poa. Years smoked: 20 Smoking status: Former smoker Tobacco type: cigarettes Smoking end date: 04/16/18 Alcohol intake: current Drinks per week: 28 Substance use: former Substance use type: marijuana Other substance usage details: Marijuana maybe once a week Gender identity (if verbalized by the patient): Female Spiritual care concerns: No Agree to blood products: Yes Comments At the time of my signature, I reviewed and agree with the nursing past medical, surgical, social, and family history. There is no relevant family history pertinent to the patient complaint. Exam Narrative: Exam Narrative: GENERAL: This is a well-nourished, well-developed patient, in no apparent distress. HEAD: normocephalic, atraumatic. EYES: PERRL. Sclera clear/white. Vision is grossly intact. EARS: External ears normal NOSE: External nose normal with no obvious nasal discharge THROAT: Mucous membranes moist NECK: Neck supple CARDIOVASCULAR: Regular rate and rhythm without murmurs, gallops, or rubs. RESPIRATORY: Clear to auscultation. Breath sounds equal bilatera
[2019-07-17 09:50] VITALS: BP 149/90; PULSE 113; RESP 18; TEMP 36.6; O2SAT 100
--- NOTE | 2019-07-17 10:27 | PC.NURSE ---
waiting on orthopedic to return phone call, pt aware. No further needs at this time.
== END 2019-07-17 10:40 | disposition home or self-care (01) ==
PROVIDERS: Emergency Provider Nurse Practitioner Family; PCP Nurse Practitioner Family
DX: S42.201A Unspecified fracture of upper end of right humerus, initial encounter for closed fracture (principal); S22.31XA Fracture of one rib, right side, initial encounter for closed fracture; W10.9XXA Fall (on) (from) unspecified stairs and steps, initial encounter; K21.9 Gastro-esophageal reflux disease without esophagitis; J45.909 Unspecified asthma, uncomplicated; Z87.891 Personal history of nicotine dependence
CPT/HCPCS: 73060; 99214; A4565; G0463

== ENCOUNTER 2023-10-08 11:10 | Inpatient (IN) | payer BC, SELFPAY ==
[2023-10-08] VITALS (29 sets, daily range): BP systolic 116–155; BP diastolic 67–103; PULSE 103–126; RESP 18–36; TEMP 36.4–37.1; O2SAT 85–100; BMI 19.9
--- NOTE | ~2023-10-08 | XR_ITS ---
EXAMINATION: XR chest 1V portable DATE: 10/10/2023 05:32 INDICATION: Pulmonary edema. Pneumonia. TECHNIQUE: A single frontal view of the chest was obtained. COMPARISON: Chest single view 10/09/2023 FINDINGS: There are lucencies in the lungs, consistent with emphysema. There is mild scarring at the lung apices. There is a diffuse interstitial pattern in the lungs. There are airspace opacities at th e lung bases. No pleural effusion or pneumothorax. Cardiomegaly is noted. The endotracheal tube tip i s 1.8 cm above the arsh. There is a total right shoulder arthroplasty. The nasogastric tube tip is beyond the inferior margin of the radiograph, but at least to the stomach. IMPRESSION: 1. Stable diffuse lung disease, likely mild pulmonary edema and basilar atelectasis. Pneumonia cannot be excluded. 2. Emphysema. 3. Cardiomegaly. Reviewed, dictated and finalized at location E. IMPRESSION: 1. Stable diffuse lung disease, likely mild pulmonary edema and basilar atelect asis. Pneumonia cannot be excluded. 2. Emphysema. 3. Cardiomegaly.
--- NOTE | ~2023-10-08 | XR_ITS ---
Portable chest x-ray Comparison: 10/08/2023 Clinical History: Intubation Findings: Endotracheal tube and NG tube are in satisfactory positions. There is diffuse groundglass and interstitial pulmonary disease, improved from prior exam. Cardiomediastinal silhouette is stable . Right shoulder arthroplasty present. Impression: Mild interval improvement in diffuse hazy and interstitial pulmonary disease. Support tubes, as above. Reviewed, dictated and finalized at location . Impression: Mild interval improvement in diffuse hazy and interstitial pulmonary disease. Support tubes, as above.
--- NOTE | ~2023-10-08 | XR_ITS ---
EXAMINATION: XR chest 1V portable DATE: 10/12/2023 06:02 INDICATION: Pulmonary edema. Pneumonia. TECHNIQUE: A single frontal view of the chest was obtained. COMPARISON: Chest single view 10/11/[address] 10/08/2023 FINDINGS: There is mild scarring at the lung apices. There is mild atelectasis at the lung bases. The re is a diffuse interstitial pattern in the lungs. No pleural effusion or pneumothorax. Cardiomegaly is noted. There is a total right shoulder arthroplasty. IMPRESSION: 1. Diffuse interstitial pattern in the lungs, likely mild pulmonary edema. 2. Mild scarring at the lung apices and mild atelectasis at the lung bases. 3. Cardiomegaly. Reviewed, dictated and finalized at location A.
--- NOTE | ~2023-10-08 | XR_ITS ---
Portable chest x-ray Comparison: 10/10/2023 Clinical History: Pulmonary edema Findings: Endotracheal tube and NG tube are in satisfactory positions. There is mild bibasilar hazin ess/interstitial pulmonary disease. Cardiomediastinal silhouette is stable. Bones and soft tissues a re stable. Impression: Stable bibasilar haziness and interstitial pulmonary disease. Correlate for pulmonary edema, chronic interstitial disease, atypical infection. Support tubes, as above. Reviewed, dictated and finalized at location . Impression: Stable bibasilar haziness and interstitial pulmonary disease. Correlate for pul monary edema, chronic interstitial disease, atypical infection. Support tubes, as above.
--- NOTE | ~2023-10-08 | CT_ITS ---
EXAMINATION: CTA chest abdomen pelvis DATE: 10/08/2023 15:21 INDICATION: Generalized weakness. Abdominal cramping. Transaminitis. Sepsis. TECHNIQUE: Computed tomographic angiography (CTA) of the chest, abdomen, and pelvis was performed wit h 100 mL Omnipaque-350 intravenous contrast. Automated exposure control and iterative reconstruction technique were employed. The dose-length product was 435.72 mGy-cm. Maximum intensity projection 3D-r econstructions of the aorta and other arteries were constructed by the technologist on a separate wor kstation. COMPARISON: CT abdomen and pelvis 03/16/2019 FINDINGS: CHEST CTA: There is moderate emphysema. There is mild scarring at the lung apices. There is crazy paving and sep laura thickening involving all lobes with a mid and lower lung zone predominance. No pleural effusion. Cardiomegaly is noted. No pericardial effusion. There is no pulmonary embolus. Thoracic aorta is norm al. There is mild mediastinal lymphadenopathy, likely reactive. There is mild thoracic spondylosis. T here are chronic compression fractures of T8 and T9. ABDOMEN AND PELVIS CTA: The liver, gallbladder, spleen, pancreas, and adrenal glands are normal. The kidneys demonstrate stri ated nephrograms, consistent with pyelonephritis. There is a 4 mm cyst in left kidney. There are no d ilated loops of bowel. The appendix is not visualized. Aortic atherosclerosis is noted. There is no s ignificant stenosis of celiac axis, superior mesenteric artery, the renal arteries, or inferior mesen teric artery. There are no pathologically enlarged lymph nodes. There is no free intraperitoneal flui d. There is mild lumbar spondylosis. IMPRESSION: 1. Diffuse lung disease, consistent with pulmonary edema versus pneumonia. 2. Mild mediastinal lymphadenopathy, likely reactive. 3. Bilateral pyelonephritis. 4. Mild aortic atherosclerosis. No aneurysm or dissection. Reviewed, dictated and finalized at location A.
--- NOTE | ~2023-10-08 | XR_ITS ---
EXAMINATION: XR chest 1V portable DATE: 10/13/2023 05:44 INDICATION: Pulmonary edema. Pneumonia. TECHNIQUE: A single frontal view of the chest was obtained. COMPARISON: Chest single view 10/12/2023 FINDINGS: There are lucencies in the lungs, consistent with emphysema. There is mild scarring at the lung apices. There is mild atelectasis at the lung bases. No pleural effusion or pneumothorax. Cardio megaly is noted. There is a total right shoulder arthroplasty. IMPRESSION: 1. Emphysema. 2. Mild scarring at the lung apices and mild atelectasis at the lung bases. 3. Cardiomegaly. Reviewed, dictated and finalized at location E.
--- NOTE | ~2023-10-08 | XR_ITS ---
EXAMINATION: XR chest ET placement Exam Date/Time: 10/08/2023 22:30 CDT HISTORY: After intubation to confirm ET placement Comparison: 10/08/2023 at 12:45 PM. RESULT: Lines, tubes, and devices: Endotracheal tube terminating 1.8 cm above the arsh. Lungs and pleura: Worsening patchy bilateral airspace disease with upper lobe sparing. Emphysematous change. Cardiomediastinal silhouette: Stable. Other: No acute osseous or upper abdominal finding. IMPRESSION: Low positioned endotracheal tube, consider 2 cm retraction. Worsening pulmonary opacities likely repr esenting worsening pulmonary edema. Reviewed, dictated and finalized at location K. IMPRESSION: Low positioned endotracheal tube, consider 2 cm retraction. Worsening pulmonary opacities likely representing worsening pulmonary edema.
--- NOTE | ~2023-10-08 | XR_ITS ---
EXAMINATION: XR barium swallow modified DATE: 10/12/2023 10:43 INDICATION: Aspiration. TECHNIQUE: The patient was given barium-containing material of multiple consistencies to swallow by t he speech pathologist while I performed fluoroscopy. Fluoroscopy exposure time was 5.5 minutes. The n umber of fluoroscopy images saved to the PACS was 1. Dose-area product was 3.04 Gy-cm^2. FINDINGS: There is reduced laryngeal elevation, reduced laryngeal adduction, reduced tongue base retraction, va llecular residue, and pharyngeal wall residue. There is laryngeal penetration or aspiration of thin l iquids and mildly thin liquids. IMPRESSION: 1. Aspiration. 2. Please refer to the speech therapy report for recommendations. Reviewed, dictated and finalized at location A.
--- NOTE | ~2023-10-08 | US_ITS ---
EXAMINATION: US venous doppler [facility] DATE: 10/08/2023 18:22 INDICATION: bilateral lower extremity edema . TECHNIQUE: Grayscale images without and with compression and Doppler images of the bilateral lower ex tremity veins were obtained. COMPARISON: None FINDINGS: The right common femoral vein, profunda (deep) femoral vein, femoral vein, popliteal vein, peroneal v ein, posterior tibial veins, and greater saphenous vein are patent. The left common femoral vein, profunda (deep) femoral vein, femoral vein, popliteal vein, peroneal v ein, posterior tibial veins, and greater saphenous vein are patent. IMPRESSION: Patent bilateral lower extremity veins. No evidence of deep venous thrombosis. Reviewed, dictated and finalized at location K.
--- NOTE | ~2023-10-08 | CT_ITS ---
EXAMINATION: CT abdomen pelvis w con DATE: 10/14/2023 12:19 INDICATION: Abdominal pain TECHNIQUE: Computed tomography (CT) of the abdomen and pelvis was performed with 100 mL Omnipaque-350 intravenous contrast. Automated exposure control and iterative reconstruction technique were employe d. The dose-length product was 283.43 mGy-cm. COMPARISON: for FINDINGS: Emphysema with mild atelectasis and mild bronchiectatic changes at the bilateral lower lungs. The gabriela or diffuse groundglass opacities have resolved. New 9 x 5 mm nodule at the costophrenic angle of the left lower lobe likely related to atelectasis given if development in the less than a week. Heart size is normal. Atherosclerotic coronary artery calcification is. No pericardial or pleural eff usion. Focal hepatic steatosis at the ligamentum teres. Subcentimeter low-attenuation hepatic cyst. N o intrahepatic biliary ductal dilation. Spleen and bilateral adrenal glands are normal. Mild dilation of the main pancreatic duct which measures 3.5 cm the head of the pancreas tapering to 2 mm the tail of the pancreas. Pancreas otherwise normal appearance with no peripancreatic stranding. There is als o borderline dilation of the common bile duct which measures up to 6 mm and with subtle increased lum inal density at the distalmost duct suggests possibility of partially obstructing sludge or gallstone s. There are couple subcentimeter low-attenuation left renal cysts. Right kidney is normal. There is some contrast material scattered throughout the colon and also extending into a normal appendix. No b owel obstruction. Gas and a [place]wood catheter within the normal-appearing bladder. Uterus and bilateral adnexa are unremarkable. There is calcified atherosclerosis of the aorta and many of the other arteri es. No free intraperitoneal gas or fluid. No pathologically enlarged abdominal or pelvic lymphadenop athy. Mild lumbar dextrocurvature with mild spondylosis. IMPRESSION: 1. Borderline dilation of the common bile duct and main pancreatic duct with subtle increased intralu ayaka density at the distal common bile duct which suggests possibility of partially obstructing gall stones or sludge. Correlate with liver function tests, lipase levels and could consider MRCP for more definitive determination. Reviewed, dictated and finalized at location A. IMPRESSION: 1. Borderline dilation of the common bile duct and main pancreatic duct with chow btle increased intraluminal density at the distal common bile duct which sugges ts possibility of partially obstructing gallstones or sludge. Correlate with li sonya function tests, lipase levels and could consider MRCP for more definitive d etermination.
--- NOTE | ~2023-10-08 | XR_ITS ---
EXAMINATION: XR chest 1V portable DATE: 10/08/2023 12:48 INDICATION: Hypoxia. TECHNIQUE: A single frontal view of the chest was obtained. COMPARISON: Chest view 03/28/2019, CT abdomen and pelvis 03/16/2019 FINDINGS: There are airspace and interstitial opacities in all lung zones bilaterally. There is mild scarring at the lung apices. No pleural effusion. Cardiomegaly is noted. There is a total right shoul hafsa arthroplasty. IMPRESSION: 1. Worsening diffuse lung disease, consistent with pulmonary edema versus pneumonia. 2. Cardiomegaly. Reviewed, dictated and finalized at location A. IMPRESSION: 1. Worsening diffuse lung disease, consistent with pulmonary edema versus pneum onia. 2. Cardiomegaly.
--- NOTE | ~2023-10-08 | XR_ITS ---
Portable chest x-ray Comparison: 10/13/2023 Clinical History: Pulmonary edema Findings: There is mild haziness in the right lung base. There is COPD pattern of the lungs. Cardio mediastinal silhouette is stable. Bones and soft tissues are unremarkable, aside from right shoulder arthroplasty. Impression: COPD with nonspecific stable haziness the right lung base. Correlate for chronic interstitial change versus possibly acute pneumonia. Reviewed, dictated and finalized at location . Impression: COPD with nonspecific stable haziness the right lung base. Correlate for chroni c interstitial change versus possibly acute pneumonia.
--- NOTE | ~2023-10-08 | US_ITS ---
EXAMINATION: US abdomen limited DATE: 10/09/2023 11:06 INDICATION: Abnormal liver function tests. TECHNIQUE: Multiple grayscale and Doppler ultrasound images of the abdomen were obtained. COMPARISON: CT abdomen and pelvis 10/08/2023 FINDINGS: The visualized portions of the head and body of the pancreas are normal. The liver is domingo l without focal lesion. There is no liver surface nodularity. There is antegrade flow in main portal vein. The gallbladder is normal in size. No gallstones or gallbladder wall thickening. There is no so nographic Garner's sign. The common duct is normal and measures 4 mm. IMPRESSION: 1. Normal right upper quadrant ultrasound. Reviewed, dictated and finalized at location A.
--- NOTE | ~2023-10-08 | XR_ITS ---
MODIFIED ESOPHAGRAM HISTORY: Reevaluation for aspiration TECHNIQUE: Modified barium esophagram was performed on 10/17/2023. I administered fluoroscopy and perf ormed the exam with speech pathologist. Patient was seated for lateral fluoroscopic imaging for claudia stion of thin liquids, pudding, solids and quantified amounts, followed by thin liquids in uncontroll ed amounts. This was recorded on tape. A single fluoroscopic spot image was also recorded. The DAP fo r this procedure was 0.838 Gycm2. The amount of fluoroscopy time used during this procedure was 1.8 m inutes. FINDINGS: Oral stage: Adequate function. Pharyngeal stage: Reduced laryngeal elevation. Trace laryngeal penetration with uncontrolled thin liq uids. No aspiration. Cervical/esophageal stage: Adequate function. IMPRESSION: Pharyngeal dysphagia with trace laryngeal penetration with thin liquids without aspiratio n. Please correlate with speech pathologist findings and specific feeding recommendations. Reviewed, dictated and finalized at location A. IMPRESSION: Pharyngeal dysphagia with trace laryngeal penetration with thin liq uids without aspiration. Please correlate with speech pathologist findings and specific feeding recommendations.
--- NOTE | ~2023-10-08 | MR_ITS ---
EXAMINATION: MR MRCP wo/w con/w 3D wo ind DATE: 10/15/2023 10:06 INDICATION: Abnormal CT scan with possible stone in the common bile duct. TECHNIQUE: Magnetic resonance imaging (MRI) of the abdomen was performed without and with 10 mL Multi verna intravenous contrast. Sequences included coronal T2-weighted SS-FSE, coronal T2-weighted FS SS- FSE, coronal T2-weighted FS FIESTA, axial T2-weighted FS FIESTA, axial T2-weighted FIESTA, sagittal T 2-weighted SS-FSE, axial T1-weighted dual-echo FSPGR, axial T2-weighted SS-FSE, axial T1-weighted LAV A, axial T2-weighted STIR FSE. Thick-slab T2-weighted FRFSE-XL images were obtained for magnetic reso nance cholangiopancreatography (MRCP). Rotating maximum intensity projection 3-D reconstructions of t he volumetric data were created by the technologist. Postcontrast sequences included a time course of axial T1-weighted LAVA. COMPARISON: CT abdomen pelvis dated 10/14/2023 FINDINGS: ABDOMEN MRI: Heart size is normal. No pericardial or pleural effusion. Again seen are a few linear and small nodul ar opacities at the bilateral lung bases most likely related atelectasis as described on prior CT wit h differential including pneumonia. For millimeter nonenhancing T2 hyperintense hepatic cysts. Minima l central intrahepatic biliary ductal dilation. Liver is otherwise unremarkable. Spleen, bilateral ad renal glands and kidneys are normal. There is persistent dilation of the main pancreatic duct which m easures 5 mm diameter at the head of the pancreas tapering to 2 mm at the body but increasing to 2.5 mm in diameter at the tail where there are also multiple mildly prominent side branches which suggest s sequela of chronic pancreatitis. Pancreas is otherwise unremarkable with no pancreatic or peripancr eatic edema to suggest acute interstitial pancreatitis. There is a gradient of increasing dependent T 1 and decreased in T2 signal in the normal-appearing gallbladder likely representing sludge with no l ow signal intensity gallstones. There is no wall thickening pericholecystic edema to suggest acute ch olecystitis. Visualized portions of bowels are unremarkable. No pathologically enlarged abdominal or upper pelvic lymphadenopathy. Mild lumbar dextrocurvature with mild spondylosis. Normal bone marrow s ignal throughout. ABDOMEN MRCP: In addition to the minimal central intrahepatic biliary ductal dilation there is dilation of the comm on hepatic duct to 8 mm in maximal diameter. There is a long cystic duct which is dilated distally to 5 mm with a 21 [place] with the common hepatic duct and a short common bile duct which measures up to 7 mm diamet er but which tapers at the ampulla without evident obstructing stone or mass. There is small amount o f dependently layering slightly lower T2 hyperintense likely sludge in the distal common bile duct. S maller there is no evident obstructing stone or compressing mass at the distal main pancreatic duct. IMPRESSION: 1. Mild dilation of the common bile and hepatic ducts with minimal central intrahepatic biliary ducta l dilation without evident cholelithiasis/choledocholithiasis. There does appear to be some sludge wi thin the gallbladder and in the distal common bile duct bladder likely accounting for the increased d ensity on prior CT. 2. Dilation of the main pancreatic duct and multiple sidebranch at the tail the pancreas without evid ent obstructing stone or mass which suggests sequela of chronic pancreatitis. Correlate with clinical history. Reviewed, dictated and finalized at location A. IMPRESSION: 1. Mild dilation of the common bile and hepatic ducts with minimal central intr ahepatic biliary ductal dilation without evident cholelithiasis/choledocholithi asis. There does appear to be some sludge within the gallbladder and
--- NOTE | 2023-10-08 12:26 | ECG_ITS ---
Test Date: 2023-10-08 13:18:07 Measurements Intervals [place] Rate: 110 P: 48 OR: 112 QRS: 15 QRSD: 108 T: 128 QT: 300 QTc: 406 Interpretive Statements SINUS TACHYCARDIA WITH SHORT OR INTERVAL POSSIBLE LEFT ATRIAL ENLARGEMENT [-0.1mV P WAVE IN V1/V2] ST DEVIATION AND MODERATE T-WAVE ABNORMALITY, CONSIDER ANTEROLAT/HIGH LAT ISCHEMIA ABNORMAL ECG No previous ECG available for comparison Electronically Signed On 10-08-2023 16:41:34 CDT by Nick Whitt D.O.
[2023-10-08 12:47] LABS: Basophils Percent Auto 0.2 % (0.2-1.2); Eosinophils Percent Auto 0.1 % (0-4.4); Hematocrit 33.6 % (37.0-47.0); Hemoglobin 9.7 g/dL (12.0-15.0); Immature Granulocyte Percent A 1.7 % (0-0.5); Lymphocytes Absolute Auto 0.32 K/mm3 (0.9-3.2); Lymphocytes Percent Auto 1.8 % (18.3-44.2); Mean Corpuscular HGB Conc 28.9 g/dl (32-36); Mean Corpuscular Hemoglobin 24.3 pg (26-34); Mean Platelet Volume 9.5 fl (7.4-10.4); Monocytes Absolute Auto 1.4 K/mm3 (0.1-0.6); Monocytes Percent Auto 7.7 % (2.6-8.5); Neutrophils Absolute Auto 15.9 K/mm3 (1.3-6.7); Neutrophils Percent Auto 88.5 % (45.5-73.1); Nucleated Red Blood Cells Perc 1.9 % (0.0-0.2); Platelet Count Result 438 k/mm3 (150-375); Red Cell Distribution Width 16.5 % (11.5-14.5)
[2023-10-08] MEDS: FUROSEMIDE INJ 40 MG/4 ML VIAL IV PUSH (12:54)
[2023-10-08 13:00] LABS: Albumin Level 4.1 g/dL (3.5-5.1); Alkaline Phosphatase 176 U/L (38-126); Anion Gap 22 mmol/L (4-12); Bilirubin,Total 2.8 mg/dL (0.2-1.3); Blood Urea Nitrogen 21 mg/dL (7-17); Calcium 8.8 mg/dL (8.4-10.2); Carbon Dioxide 15 mmol/L (22-30); Chloride 95 mmol/L (98-107); Estimated Glomerular Filt Rate > 60; Glucose 35 mg/dL (65-110); Lipase 99 U/L (23-300); Magnesium 2.3 mg/dL (1.6-2.3); Potassium 4.2 mmol/L (3.4-5.0); Sodium 132 mmol/L (137-145)
[2023-10-08] MEDS: DEXTROSE 50% 25 GM/50 ML SYRINGE (13:00)
[2023-10-08 13:01] LABS: INR 1.8; Prothrombin Time 21.5 Seconds (11.1-14.7)
[2023-10-08 13:02] LABS: Partial Thromboplastin Time 28.1 Seconds (22.3-36.8)
[2023-10-08 13:16] LABS: Alanine Aminotransferase 682 U/L (6-35); NT Pro B Type Natriuretic Pept 29900 pg/mL (19.9-100); Troponin I 0.061 ng/mL (0.000-0.034)
[2023-10-08 13:39] LABS: Aspartate Amino Transferase 1123 U/L (14-36)
--- NOTE | 2023-10-08 13:46 | ED.GENADULT ---
HPI - General Adult General Chief complaint: Shortness of Breath/Dyspnea Stated complaint: weakness, SOB Time Seen by Provider: 10/08/23 11:32 History of Present Illness HPI narrative: This is a 62-year-old female with history of CHF presenting for weakness and shortness of breath. Patient says she has been feeling unwell for the last week. She reports fevers up to 101. She then started developed swelling of her lower extremities, orthopnea worsening shortness of breath. She denies productive cough, chest pain, abdominal pain, nausea vomiting or diarrhea. Related Data Allergies Allergy/AdvReac Type Severity Reaction Status Date / Time erythromycin base Allergy Unknown Verified 07/17/19 09:59 Penicillins Allergy Hives Verified 03/17/19 08:17 azithromycin AdvReac Cramping Verified 03/17/19 08:17 of the Muscles bupropion [From Wellbutrin] AdvReac Gastrointestinal Verified 03/17/19 08:17 Upset PMFSH Past Medical History Medical History Acute blood loss anemia Acute respiratory failure Alcoholic hepatitis Collagenous colitis Collagenous colitis COPD (chronic obstructive pulmonary disease) Diarrhea Gastric ulcer Gastritis GERD (gastroesophageal reflux disease) History of alcohol abuse History of asthma Pulmonary edema Surgical History Surgical History History of bilateral cataract extraction History of section History of D&C History of tonsillectomy Family History Family History Father Pneumonia Mother Chronic obstructive pulmonary disease Social History Social History Social History: Quit smoking about a year back, prior to which she was used to smoke half a packet for many years and prior to that about a packet for many years. Patient drinks 4-8 oz of wine daily for many years. Smokes marijuana occasionally that helps a with her chronic abdominal pain. lives with boyfriend, does not work. Full code. Hiram is the boyfriend who is her poa. Years smoked: 20 Smoking status: Former smoker Tobacco type: cigarettes Smoking end date: 04/16/18 Alcohol intake: current Drinks per week: 28 Alcohol use details: Drinks boxed wine 4 oz glass 3-4 glasses daily. stated that she has not drank in one week Substance use: former Substance use type: marijuana Other substance usage details: Marijuana maybe once a week Gender identity (if verbalized by the patient): Female Spiritual care concerns: No Agree to blood products: Yes Exam Narrative: APPEARANCE: patient appears older than her stated age Head: atraumatic. EYES: EOMI, NOSE: Atraumatic NECK: Trachea midline RESPIRATORY: tachypneic, bibasilar crackles CARDIOVASCULAR: tachycardic, pitting edema lower extremities ABDOMINAL: Non-distended, soft nontender MUSCULOSKELETAl: No obvious deformities NEURO: Alert. Moving 4/4 extremities SKIN:: Warm, dry. Normal color PSYCHIATRIC: Normal affect Course Vital Signs Vital signs: Vital Signs Temperature 98.8 F 10/08/23 11:13 Pulse Rate 119 H 10/08/23 11:13 Respiratory Rate 22 H 10/08/23 11:13 Blood Pressure 149/85 H 10/08/23 11:13 Pulse Oximetry 85 L 10/08/23 11:13 Oxygen Delivery Room Air 10/08/23 11:13 Temperature 98.8 F 10/08/23 11:13 Pulse Rate 111 H 10/08/23 13:01 Respiratory Rate 28 H 10/08/23 13:01 Blood Pressure 142/80 H 10/08/23 13:01 Pulse Oximetry 100 10/08/23 13:01 Oxygen Delivery Nasal Cannula 10/08/23 12:00 Oxygen Flow Rate 5 10/08/23 12:00 Medical Decision Making MDM Narrative Medical decision making narrative: -Course: 62-year-old female presenting with shortness of breath. Full sepsis workup ordered. patient initially hypoxic and placed on supplemental oxygen. Physical exam
[2023-10-08 13:52] LABS: Lactic Acid Reflex 14.5 mmol/L (0.7-2.0)
[2023-10-08 13:59] LABS: Influenza A QL RT-PCR Negative (Negative); Influenza B QL RT-PCR Negative (Negative); RSV RNA, RT-PCR Negative (Negative); SARS-CoV-2 RNA PCR Negative (Negative)
[2023-10-08 14:09] LABS: Glucose Point of Care 180 mg/dl (65-105)
[2023-10-08 14:23] LABS: Appearance Urine Clear (Clear); Bilirubin Urine Negative (Negative); Blood Urine Negative (Negative); Color Urine Yellow (Yellow); Glucose Urine UA Trace mg/dL (Negative); Ketones Urine Trace mg/dL (Negative); Leukocyte Esterase Ur Negative LEU/UL (Negative); Nitrate Urine Negative (Negative); Protein Urine Negative (Negative); Specific Grav Ur 1.007 (1.001-1.035); Urobilinogen Urine 0.2 mg/dL (<2.0); pH Urine 5.5 (5.0-9.0)
[2023-10-08 14:25] LABS: Add Urine Microscopic? NO
--- NOTE | 2023-10-08 14:45 | PC.NURSE ---
PT WAS TAKEN TO CT PRIOR TO GOING TO FLOOR OR STARTING DOXYCYCLINE
--- NOTE | 2023-10-08 14:50 | PC.NURSE ---
[facility] THAT THE PT IS NOT TO GO UP UNTIL THE LABS THAT JAG ORDERED ARE OBTAINED AND RESULTED.
[2023-10-08] MEDS: DOXYCYCLINE 100 MG/NS 100 ML 100 MG/100 ML BAG IVPB (15:20)
[2023-10-08 15:39] LABS: Lactic Acid Reflex 9.8 mmol/L (0.7-2.0)
[2023-10-08 16:19] LABS: Reflex Lactic Acid Yes or No Add Lactic
[2023-10-08 16:47] LABS: Alveolar/Arterial O2 Gradient 143.4 mmHg; Base Excess ABG -2.2 mEq/l (+/-2.0); Carboxyhemoglobin 0.5 % THb (0-2.0); Fractional Inspired Oxygen 32 %; HCO3 ABG 20.7 mEq/l (22.0-26.0); Methemoglobin ABG 0.2 %THb (0-1.5); Oxygen Content ABG 12.8 %vol (16.0-22.0); Oxygen Saturation ABG 88.6 % (95.0-100.0); PCO2 ABG 29.2 mmHg (35.0-45.0); PO2 ABG 50.6 mmHg (80.0-100.0); PO2 FiO2 Ratio Arterial Blood 1.58 %; Reduced Hemoglobin 14.5 %THb (0-5.0); Total Hemoglobin 10.7 g/dL (12.0-18.0); pH ABG 7.468 (7.350-7.450)
[2023-10-08 16:49] LABS: Device NASAL CANNULA; Modified Allen's Test Pass; Oxyhemoglobin 84.8 % THb (90.0-100.0); Site Drawn RIGHT RADIAL
--- NOTE | 2023-10-08 17:10 | PM.IMHP ---
H&P: HPI History of Present Illness Date/Time: 10/08/23 17:15 Chief Complaint: Shortness of breath and weakness. Narrative: This is a pleasant 62-year-old female with with history of chronic obstructive pulmonary disease, systolic congestive heart failure with an EF of 25 to 30% in March 2019, adult respiratory distress syndrome, gastroesophageal reflux disease, peptic ulcers, pancreatitis, diverticulitis, and other comorbidities who presented to the emergency department for evaluation of shortness of breath and weakness. The patient provides the following history. About 2-1/2 weeks ago she developed sinus congestion and fever up to 101? F. Last week she had nausea and vomiting for several days but that has since resolved. In fact her appetite is improving. As the week has gone on however she has developed a cough which is occasionally productive of clear phlegm, increasing shortness of breath, significant lower extremity edema, and orthopnea. She has had a few episodes of brief squeezing pain in her chest and occasional pleuritic like pain as well. These past 3 days she has been significantly short of breath in today she felt it would be best to come in for evaluation. She has not had a fever at least in the last several days and denies headache, neck ache, palpitations, abdominal pain, nausea, vomiting, diarrhea (she instead complains of constipation), and dysuria. In the ED: She was afebrile on arrival with a blood pressure of 149/85 and respiratory rate of 22. SpO2 was reportedly in the 70s on arrival to triage however that is not documented. She has been tachycardic in the 120s. ABG showed a pH of 7.468, pCO2 29.9, PO2 50.6, bicarb 20.7. Labs were significant for WBC count of 18.0, hemoglobin 9.7, platelets 438, PTT 21.5, INR 1.8, PTT 28.1, sodium 132, potassium 4.2, chloride 95, carbon dioxide 15, anion gap 22, BUN 21, creatinine 0.90, glucose 35, lactic acid 14.5, magnesium 2.3, total bilirubin 2.8, AST 1123, ALT 62, alkaline phosphatase 176, proBNP 32374, procalcitonin 0.6, TSH 0.53. Urine was positive for trace glucose and trace ketones. Respiratory panel was negative. Lower extremity venous Doppler ultrasounds were negative for DVT. Chest x-ray showed worsening diffuse lung disease consistent with pulmonary edema versus pneumonia and cardiomegaly. CTA of the chest, abdomen, and pelvis showed diffuse lung disease consistent with pulmonary edema versus pneumonia, mild mediastinal lymphadenopathy, bilateral pyelonephritis (asymptomatic), and mild aortic atherosclerosis. She received 40 mg IV furosemide, 1 g ceftriaxone, and 100 mg doxycycline. She is being admitted to the ICU in this setting for close monitoring and further treatment and evaluation. Throughout the evening the patient had increasing oxygen requirements and became anxious and agitated. She did not tolerate the BiPAP and was intubated due to impending respiratory failure. Review of Systems Review of Systems: 12 systems were reviewed and are negative except for as per HPI. [facility] Past Medical History Medical History (Updated 10/08/23 @ 20:54 by Jayshree Lazo PA-C) Adult respiratory distress syndrome (03/2019) Chronic obstructive pulmonary disease Collagenous colitis Diarrhea Gastric ulcer Gastritis Gastroesophageal reflux disease History of alcohol abuse Quit drinking in March 2019. History of tobacco abuse Quit smoking in March 2019. Systolic congestive heart failure Surgical History Surgical History History of bilateral cataract extraction History of section History of D&C History of tonsillectomy Family History Family History Father Pneumonia Mother Chronic obstructive pulmonary disease Social History Social History (Updated 10/08/23 @ 20:47 by Jayshree Lazo PA-C) Social History: Surrogate medical decision maker:
--- NOTE | 2023-10-08 17:22 | PC.NURSE ---
This patient, Anita Cutler, was admitted to Intensive Care Unit-3. Patient/family oriented to hospital policies and general routines including ID bracelet, bed and alarms, visiting hours, pain management, procedures, bathroom and other care routines, personal items, smoking policy, room service/diet, and visiting hours. Information on how to activate the Rapid Response Team has been discussed. Patient/Family are encouraged to report perceived risks to care and to ask questions if they do not understand what they are told or what they should do.
[2023-10-08 18:30] LABS: CRP 6.3 mg/dL (<1.0); Creatine Kinase 81 U/L (30-135)
[2023-10-08] MEDS: VANCOMYCIN 1,500 MG/NS 500 ML 1,500 MG/500 ML BAG 250 MG IVPB (18:33)
[2023-10-08 18:35] LABS: Lactic Acid 7.5 mmol/L (0.7-2.0)
[2023-10-08 18:39] LABS: Glucose Point of Care 118 mg/dl (65-105)
[2023-10-08 18:47] LABS: Troponin I 0.067 ng/mL (0.000-0.034)
[2023-10-08 19:05] LABS: Erythrocyte Sedimentation Rate 16 mm/hr (0-20)
[2023-10-08 19:23] LABS: Iron 20 ug/dL (37-170)
[2023-10-08 19:25] LABS: Vitamin B12 > 1000.0 pg/mL (239-931)
--- NOTE | 2023-10-08 19:31 | PC.NURSE ---
Updated Jayshree WORTHINGTON on patient condition, Jayshree to evaluate patient.
[2023-10-08 19:32] LABS: Percent Iron Saturation 5 % (20-50)
[2023-10-08 19:41] LABS: Procalcitonin 0.6 ng/mL
[2023-10-08 19:55] LABS: Thyroid Stimulating Hormone Reflex 0.538 uIU/mL (0.465-4.68)
[2023-10-08 20:15] LABS: Hepatitis B Surface Antigen Negative (Negative)
[2023-10-08 20:16] LABS: Lactic Acid Reflex 8.7 mmol/L (0.7-2.0)
[2023-10-08 20:21] LABS: HAV RESULT Negative (Negative); Hepatitis B Core IgM Result Negative (Negative)
[2023-10-08 20:33] LABS: Hepatitis C Virus Antibody Negative (Negative)
[2023-10-08] MEDS: FUROSEMIDE INJ 100 MG/10 ML VIAL 60 MG IV PUSH (20:38)
--- NOTE | 2023-10-08 20:47 | PC.NURSE ---
60mg IV Lasix given per Jayshree WORTHINGTON, patient noted to be in tripod position, Jayshree notified, Bipap order to be placed per Jayshree. Alexa GONZALEZ notified.
[2023-10-08] MEDS: IPRATROPIUM BR 0.02% INH SOLN 0.5 MG/2.5 ML VIAL INHALATION (21:12)
[2023-10-08] MEDS: LORazepam INJ (*CRX) 2 MG/ML VIAL 0.25 MG IV PUSH (21:23)
[2023-10-08] MEDS: FAMOTIDINE 20 MG/2 ML VIAL IV PUSH (21:30)
--- NOTE | 2023-10-08 22:12 | WPDPROCEDUR ---
Procedures Intubation Intubation Date: 10/08/23 Intubation Time: 22:05 Consent: Patient gave verbal consent. A pre-procedural Time-Out was completed immediately before starting the procedure and confirmed: Patient Identification, Site, Procedure, Patient Position and the Availability of Requisite Equipment: Yes Sedative: etomidate Mg given: 20 Paralytic: succinylcholine Mg given: 80 Laryngoscope: fiber optic video scope Assist device used: fiber optic device ET tube size: 7.5 Tube secured depth (cm): 25 Tube secured location: teeth Tube placement confirmation: visualized tube passing through cords, equal breath sounds bilaterally, no breath sounds over epigastrium and confirmation by capnometry Patient tolerated procedure: well Intubation complications: none Additional comments: The patient has had increasing oxygen requirements and was getting restless and agitated. She did not tolerate the BiPAP and reported that she was feeling tired. Due to impending respiratory failure decision was made to electively intubate. Patient was preoxygenated on 100% FiO2 for several minutes prior to induction. She was intubated easily and atraumatically using the glide scope. 7.5 ET tube was seen passing through the vocal cords. Lung sounds were auscultated bilaterally, there was positive CO2 color matter change, and fogging was noted in the ET tube. Vent settings and sedation orders were given per the top lift scourer. The patient tolerated the procedure well was hemodynamically stable throughout.
[2023-10-08] MEDS: FENTANYL 2,500MCG/NS250ML(*CRX 2,500 MCG/250 ML BAG 7.5 MCG IV CONT (22:14)
[2023-10-08] MEDS: MIDAZOLAM 100MG/NS 100ML(*CRX) 100 MG/100 ML BAG IV CONT (22:15)
[2023-10-08] MEDS: DEXTROSE 50% 25 GM/50 ML SYRINGE IV PUSH (22:16)
[2023-10-08] MEDS: MINERAL OIL/WHITE PETROLATUM OINTMENT 1 APPLIC EACH EYE (22:16)
[2023-10-08 22:48] LABS: Glucose Point of Care 76 mg/dl (65-105)
[2023-10-08 22:48] LABS: Glucose Point of Care < 20 mg/dl (65-105)
[2023-10-08 23:14] LABS: Albumin Level 3.8 g/dL (3.5-5.1); Alkaline Phosphatase 179 U/L (38-126); Anion Gap 21 mmol/L (4-12); Bilirubin,Total 2.5 mg/dL (0.2-1.3); Blood Urea Nitrogen 26 mg/dL (7-17); Calcium 8.8 mg/dL (8.4-10.2); Carbon Dioxide 17 mmol/L (22-30); Chloride 92 mmol/L (98-107); Estimated CRCL calculation 55 ml/min; Estimated Glomerular Filt Rate > 60; Potassium 5.1 mmol/L (3.4-5.0); Sodium 130 mmol/L (137-145)
[2023-10-08 23:22] LABS: Alanine Aminotransferase 1799 U/L (6-35)
[2023-10-08 23:27] LABS: Aspartate Amino Transferase 3821 U/L (14-36)
[2023-10-08 23:34] LABS: Alveolar/Arterial O2 Gradient 222.7 mmHg; Base Excess ABG -7.4 mEq/l (+/-2.0); Carboxyhemoglobin 0.3 % THb (0-2.0); Device VENTILATOR; Fractional Inspired Oxygen 60 %; HCO3 ABG 17.7 mEq/l (22.0-26.0); Methemoglobin ABG 0.1 %THb (0-1.5); Modified Allen's Test Unable to perform; Oxygen Content ABG 14.8 %vol (16.0-22.0); Oxyhemoglobin 98.8 % THb (90.0-100.0); PO2 ABG 167.7 mmHg (80.0-100.0); PO2 FiO2 Ratio Arterial Blood 2.79 %; Reduced Hemoglobin 0.8 %THb (0-5.0); Site Drawn RIGHT RADIAL; Total Hemoglobin 10.4 g/dL (12.0-18.0); pH ABG 7.334 (7.350-7.450)
[2023-10-08 23:35] LABS: Arterial Blood Gas PEEP 8 cmH2O; Arterial Blood Gas Tidal Volume 450 ml; Arterial Blood Gas Vent Mode CMV; Arterial Blood Gas Ventilator rate 20 /MIN
[2023-10-08 23:43] LABS: Glucose Point of Care 89 mg/dl (65-105)
[2023-10-09] VITALS (36 sets, daily range): BP systolic 92–119; BP diastolic 61–85; PULSE 83–105; RESP 20–28; TEMP 36.4–37.1; O2SAT 97–100; BMI 20.2
--- NOTE | 2023-10-09 00:23 | P.PCNBED_ITS ---
Procedures Central Line Placement Right Femoral: Central Line Date: 10/08/23 Central Line Time: 23:55 Discussed w/ the patient/family/POA,the placement of a central venous catheter, including its clinical necessity/indication & associated potential risks, benifits and alternatives.: Yes The patient/family/POA understand(s) and acknowledge(s) the need to proceed with central venous catheter insertion as an important element of the patient's clinical management.: Yes Consent: I have discussed with the patient and/or surrogate, the non-emergent placement of a central venous catheter, including its clinical necessity/indication and associated potential risks and complications. The patient and/or surrogate understand(s) and acknowledge(s) the need to proceed with central venous catheter insertion as an important element of the patient's clinical management. Time Out Performed: Yes Patient Position: supine Patient placed on monitor/pulse ox: Yes Provider Prep: mask, sterile gown, sterile gloves, Max. sterile barrier precautions, cap and hand hygiene with conventional soap/water or alcohol based hand rub Central line prep: 2% Chlorhexidine scrub Local anesthesia used: lidocaine 1% Amount of anesthesia used (ml): 3 Sterile US Technique with sterile gel/sterile probe covers: Yes Central line lumen inserted: triple Martiniquais: 7 Length (cm): 20 Post Procedure: sutured in place, good blood return, all ports aspirated, flushed, capped, transparent dressing, hemostatic product, antimicrobial product and aseptic technique maintained throughout procedure Post procedure x-ray: other (n/a with femoral placement) Complications: none
[2023-10-09] MEDS: DOXYCYCLINE 100 MG/NS 100 ML 100 MG/100 ML BAG IVPB ×3 (00:40→21:24)
[2023-10-09 00:47] LABS: Glucose Point of Care 86 mg/dl (65-105)
[2023-10-09 00:59] LABS: Folic Acid > 20.0 ng/mL (2.76->20)
[2023-10-09 01:04] LABS: Lactate Dehydrogenase > 5000 U/L (120-246)
--- NOTE | 2023-10-09 01:38 | PC.NURSE ---
D20 IV started at 50ml/hr per order. Unable to scan medication, stating that no administration time exist for drip. [facility] aware, unable to fix problem at this time. Started at 50ml/hr per order.
[2023-10-09] MEDS: IPRATROPIUM BR 0.02% INH SOLN 0.5 MG/2.5 ML VIAL INHALATION ×4 (02:00→19:52)
--- NOTE | 2023-10-09 02:20 | PC.NURSE ---
D20 titrated down to 40ml/hr for stable blood sugar.
[2023-10-09 02:22] LABS: Glucose Point of Care 89 mg/dl (65-105)
[2023-10-09 03:34] LABS: MRSA (PCR) NOT DETECTED (NOT DETECTE)
--- NOTE | 2023-10-09 03:39 | PC.NURSE ---
D20 drip turn down to 30ml/hr for stable blood sugars .
[2023-10-09 03:40] LABS: Glucose Point of Care 107 mg/dl (65-105)
[2023-10-09 04:20] LABS: Basophils Percent Auto 0.3 % (0.2-1.2); Hematocrit 29.7 % (37.0-47.0); Hemoglobin 9.2 g/dL (12.0-15.0); Immature Granulocyte Absolute 0.14 K/mm3 (0.00-0.031); Immature Granulocyte Percent A 1.2 % (0-0.5); Lymphocytes Absolute Auto 0.64 K/mm3 (0.9-3.2); Lymphocytes Percent Auto 5.5 % (18.3-44.2); Mean Corpuscular Hemoglobin 24.5 pg (26-34); Mean Platelet Volume 9.8 fl (7.4-10.4); Monocytes Absolute Auto 0.5 K/mm3 (0.1-0.6); Monocytes Percent Auto 4.2 % (2.6-8.5); Neutrophils Absolute Auto 10.3 K/mm3 (1.3-6.7); Neutrophils Percent Auto 88.8 % (45.5-73.1); Nucleated Red Blood Cells Perc 0.3 % (0.0-0.2); Platelet Count Result 265 k/mm3 (150-375); Red Blood Count 3.76 M/mm3 (4.2-5.4); Red Cell Distribution Width 16.4 % (11.5-14.5); White Blood Count 11.6 K/mm3 (4.5-10.0)
--- NOTE | 2023-10-09 04:38 | PC.NURSE ---
D20 drip turned down to 20ml/hr for stable blood sugar.
[2023-10-09 04:40] LABS: Glucose Point of Care 98 mg/dl (65-105)
[2023-10-09 04:40] LABS: INR 1.8; Prothrombin Time 21.6 Seconds (11.1-14.7)
[2023-10-09 04:48] LABS: Albumin Level 3.3 g/dL (3.5-5.1); Alkaline Phosphatase 143 U/L (38-126); Anion Gap 13 mmol/L (4-12); Bilirubin,Total 2.1 mg/dL (0.2-1.3); Blood Urea Nitrogen 29 mg/dL (7-17); Calcium 8.6 mg/dL (8.4-10.2); Carbon Dioxide 23 mmol/L (22-30); Chloride 94 mmol/L (98-107); Estimated CRCL calculation 50 ml/min; Estimated Glomerular Filt Rate > 60; Glucose 110 mg/dL (65-110); Magnesium 2.1 mg/dL (1.6-2.3); Sodium 130 mmol/L (137-145)
[2023-10-09 06:00] LABS: Alveolar/Arterial O2 Gradient 89.1 mmHg; Base Excess ABG 7.2 mEq/l (+/-2.0); Carboxyhemoglobin 0.3 % THb (0-2.0); Fractional Inspired Oxygen 30 %; HCO3 ABG 29.8 mEq/l (22.0-26.0); Methemoglobin ABG 0.2 %THb (0-1.5); Oxygen Saturation ABG 97.4 % (95.0-100.0); Oxyhemoglobin 96.5 % THb (90.0-100.0); PCO2 ABG 34.5 mmHg (35.0-45.0); PO2 ABG 84.3 mmHg (80.0-100.0); PO2 FiO2 Ratio Arterial Blood 2.81 %; Total Hemoglobin 9.5 g/dL (12.0-18.0)
[2023-10-09 06:01] LABS: pH ABG 7.554 (7.350-7.450)
[2023-10-09 06:02] LABS: Arterial Blood Gas PEEP 8 cmH2O; Arterial Blood Gas Tidal Volume 450 ml; Arterial Blood Gas Vent Mode CMV; Arterial Blood Gas Ventilator rate 20 /MIN; Device VENTILATOR; Modified Allen's Test Unable to perform; Site Drawn RIGHT RADIAL
[2023-10-09] MEDS: CENTRAL LINE FLUSH 10 ML IV PUSH ×3 (06:06→21:24)
[2023-10-09 06:18] LABS: Lactic Acid Reflex 1.8 mmol/L (0.7-2.0)
[2023-10-09 06:23] LABS: Glucose Point of Care 91 mg/dl (65-105)
[2023-10-09] MEDS: DEXTROSE 20% 500 ML 20 ML IV CONT (06:52)
[2023-10-09 07:28] LABS: Alanine Aminotransferase 1690 U/L (6-35); Aspartate Amino Transferase 2948 U/L (14-36)
[2023-10-09] MEDS: PERFLUTREN LIPID MICROSPHERES 1.5 ML VIAL DILUTED TO 10 ML TOTAL VOLUME IV PUSH (08:00)
[2023-10-09 08:03] LABS: Glucose Point of Care 92 mg/dl (65-105)
[2023-10-09] MEDS: FUROSEMIDE INJ 40 MG/4 ML VIAL IV PUSH ×2 (08:05→16:40)
[2023-10-09] MEDS: MINERAL OIL/WHITE PETROLATUM OINTMENT 1 APPLIC EACH EYE ×2 (08:06→21:25)
[2023-10-09] MEDS: FAMOTIDINE 20 MG/2 ML VIAL IV PUSH (08:06)
--- NOTE | 2023-10-09 09:01 | IVDEFINITY ---
Prior to administration of IV Definity the patient was educated on the risks and benefits of the imaging enhancing agent including potential adverse side effects. The patient verbalized understanding. Allergies were verified. No exclusion criteria were identified and at least one of the following inclusion criteria were met: 1) physician request, 2) patient technically difficult to image (per the [place] [employer] guidelines of two or more segments not discernable within the apical view), or 3) questionable left ventricular function. ?
--- NOTE | 2023-10-09 09:09 | WPDCNINT ---
Assessment and Plan Assessment and plan (1) Acute respiratory failure: Qualifiers: Respiratory failure complication: hypoxia and hypercapnia Qualified Code(s): J96.01 - Acute respiratory failure with hypoxia; J96.02 - Acute respiratory failure with hypercapnia Code(s): J96.00 - Acute respiratory failure, unspecified whether with hypoxia or hypercapnia Status: Acute Assessment and Plan: Patient presented with acute respiratory failure, increasing shortness of breath, hypoxic in the ER with O2 sats in the 70s on room air on admission. CTA showed diffuse lung disease consistent with pulmonary edema versus pneumonia. -10/07: Lead evening patient was intubated for impending respiratory failure, increasing oxygen requirements and not able to tolerate BiPAP. -patient has diuresed well -chest x-ray this morning: Mild interval improvement in diffuse hazy and interstitial pulmonary disease. -continue CMV mode of ventilation, peep of 8, 30% FiO2 -ABGs reviewed, will decrease tidal volume to 400 mL -continue Xopenex and ipratropium nebulizers -sedated with fentanyl and Versed infusion, maintain RASS of 0 to -2, daily sedation vacation 10/08/2023:CTA scan chest abdomen and pelvis IMPRESSION: 1. Diffuse lung disease, consistent with pulmonary edema versus pneumonia. 2. Mild mediastinal lymphadenopathy, likely reactive. 3. Bilateral pyelonephritis. 4. Mild aortic atherosclerosis. No aneurysm or dissection. (2) Acute on chronic systolic congestive heart failure: Code(s): I50.23 - Acute on chronic systolic (congestive) heart failure Status: Acute Assessment and Plan: Acute on chronic systolic failure, EF of 25-30% on echocardiogram in March 2019 -patient presented with acute respiratory failure, chest x-ray and CTA chest showed pulmonary edema, -continue IV diuresis -cardiology has been consulted, D/W cardiology, continue diuresis and heparin infusion for now -new echocardiogram as below, worsening cardiomyopathy 10/09/2023: Echocardiogram Summary 1. Left ventricular chamber dimension is normal. 2. Left ventricular systolic function is severely reduced, estimated at 15-20%. 3. There is thrombus in the apex of the left ventricle, which measures approximately 1.46cm x 2.05cm. 4. The left ventricular diastolic function is grade I diastolic dysfunction. 5. Right ventricular systolic function is reduced. 6. There is mild tricuspid valve regurgitation. 7. Normal inferior vena cava with no collapse upon inspiration consistent with elevated right atrial pressure, 8 mmHg (3) LV (left ventricular) mural thrombus: Code(s): I51.3 - Intracardiac thrombosis, not elsewhere classified Status: Acute Assessment and Plan: LV thrombus on echocardiogram done this morning on 10/09/2023 -will start heparin infusion per Cardiology (4) Chronic obstructive pulmonary disease: Code(s): J44.9 - Chronic obstructive pulmonary disease, unspecified Status: Acute Assessment and Plan: History of COPD, quit smoking in 2019 -CTA chest with moderate emphysema, no pulmonary embolism -10/07: Lower extremity venous Dopplers were negative for DVTs (5) Hypoglycemia: Code(s): E16.2 - Hypoglycemia, unspecified Status: Acute Assessment and Plan: Patient developed hyperglycemia overnight requiring D20 infusion. Could be related secondary to decreased appetite and oral intake prior to admission, sepsis, -will start tube feeds today (6) Sepsis: Code(s): A41.9 - Sepsis, unspecified organism Status: Acute Assessment and Plan: Elevated lactic acid, tachycardia, shortness of breath, tachypnea, hypoxia, elevated LFTs -10/07: Blood cultures have been obtained and pending -10/07: Urine culture obtained and pending -10/07: Sputum culture obtained and pending -started on ceftriaxone, doxycycline and vancomycin (10/07) -10/08: Will increase ceftriaxone
[2023-10-09] MEDS: HEPARIN SOD/D5W 100 UNITS/ML 25,000 UNITS/250 ML BAG 10 UNITS IV CONT (09:48)
--- NOTE | 2023-10-09 10:22 | PM.CNCAR ---
Assessment and Plan Assessment and plan (1) Acute on chronic heart failure with reduced ejection fraction (HFrEF, <= 40%) and combined systolic and diastolic dysfunction: Code(s): I50.43 - Acute on chronic combined systolic (congestive) and diastolic (congestive) heart failure Status: Acute Assessment and Plan: Continue with Lasix 40mg IV BID. Please monitor strict I/Os. Since blood pressure is on the softer side at this time, will not initiate heart failure GDMT to avoid hypotension and to have blood pressure room for diuresis. Eventually will plan to add ARNI, Spironolactone, beta tito, SGLT2 inhibitor. (2) LV (left ventricular) mural thrombus: Code(s): I51.3 - Intracardiac thrombosis, not elsewhere classified Status: Acute Assessment and Plan: Start Heparin drip. Eventually transition to NOAC prior to discharge. Will need a follow up outpatient echocardiogram in 3 months to assess for resolution of thrombus. Patient is at high risk of embolization of thrombus which can lead to stroke. (3) Acute respiratory failure with hypoxia: Code(s): J96.01 - Acute respiratory failure with hypoxia Status: Acute Assessment and Plan: Due to acute on chronic HFrEF. Continue IV diuresis. Continue ventilator management as per ICU team. (4) Sepsis: Code(s): A41.9 - Sepsis, unspecified organism Status: Acute Assessment and Plan: On antibiotics as per ICU team. (5) Anemia: Qualifiers: Anemia type: unspecified type Qualified Code(s): D64.9 - Anemia, unspecified Code(s): D64.9 - Anemia, unspecified Status: Acute Assessment and Plan: Workup and management as per primary team. Plan Recommendations and plan discussed with Registration Representative, Dr. Perla. History of Present Illness History of Present Illness Consult date/time: 10/09/23 10:22 Requesting physician: Amy Perla MD Consult reason: congestive heart failure Reason For Visit: respiratory failure Narrative: This is a 62 year old female with heart failure with reduced LVEF noted in 2019, COPD, history of adult respiratory distress syndrome, GERD, history of pancreatitis who presented with shortness of breath and weakness. Patient is currently intubated at the time of my evaluation, therefore, unable to obtain any history from the patient. No family at bedside to provide history. Therefore, history obtained from the patient's chart and medical team. Patient developed sinus congestion and fevers up to 101 degree F about 2.5 weeks ago. Then had nausea and vomiting for several days. Then developed cough, shortness of breath, lower extremity edema. She was afebrile on arrival with a blood pressure of 149/85 and respiratory rate of 22. SpO2 was reportedly in the 70s on arrival to triage however that is not documented. She had been tachycardic in the 120s. ABG showed a pH of 7.468, pCO2 29.9, PO2 50.6, bicarb 20.7. Labs were significant for WBC count of 18.0, hemoglobin 9.7, platelets 438, PTT 21.5, INR 1.8, PTT 28.1, sodium 132, potassium 4.2, chloride 95, carbon dioxide 15, anion gap 22, BUN 21, creatinine 0.90, glucose 35, lactic acid 14.5, magnesium 2.3, total bilirubin 2.8, AST 1123, ALT 62, alkaline phosphatase 176, proBNP 01422, procalcitonin 0.6, TSH 0.53. Lower extremity venous Doppler ultrasounds were negative for DVT. Chest x-ray showed worsening diffuse lung disease consistent with pulmonary edema versus pneumonia and cardiomegaly. CTA of the chest, abdomen, and pelvis showed diffuse lung disease consistent with pulmonary edema versus pneumonia, mild mediastinal lymphadenopathy, bilateral pyelonephritis, and mild aortic atherosclerosis. Throughout the evening the patient had increasing oxygen requirements and became anxious and agitated. She did not tolerate the BiPAP and was intubated due to impending respiratory failure. On IV Lasix due to acute on chronic CHF. Per reports, patient has n
[2023-10-09 11:47] LABS: Glucose Point of Care 100 mg/dl (65-105)
[2023-10-09] MEDS: cefTRIAXone 2 GM/NS 100 ML 2 GM/100 ML BAG IVPB (14:07)
[2023-10-09] MEDS: LEVALBUTEROL NEB 1.25 MG/3 ML 0.63 MG INHALATION ×2 (14:18→19:53)
--- NOTE | 2023-10-09 15:19 | PM.IMPN ---
Progress Note: A&P Assessment and Plan (1) Acute respiratory failure with hypoxia: Code(s): J96.01 - Acute respiratory failure with hypoxia Status: Acute Assessment and Plan: CT shows pneumonia and pulmonary edema continuing to treat both in icu pt is on a vent icu managing vent (2) Acute on chronic systolic congestive heart failure: Code(s): I50.23 - Acute on chronic systolic (congestive) heart failure Status: Deleted Assessment and Plan: continue to diuresis with iv lasix Echo shows LV thrombus anticoagulate with heparin heparin drip started cardiology rounding (3) Lactic acidosis: Code(s): E87.20 - Acidosis, unspecified Status: Acute Assessment and Plan: lactic level is better continue to watch levels (4) Pneumonia: Code(s): J18.9 - Pneumonia, unspecified organism Status: Acute Assessment and Plan: watch cultures Continue ceftriaxone, doxycycline, and vancomycin watch cbc (5) Sepsis: Code(s): A41.9 - Sepsis, unspecified organism Status: Acute Assessment and Plan: resolving sepsis (6) Transaminitis: Code(s): R74.01 - Elevation of levels of liver transaminase levels Status: Acute Assessment and Plan: LFTs are elevated, most consistent with hepatocellular pattern. (7) Hypoglycemia: Code(s): E16.2 - Hypoglycemia, unspecified Status: Acute Assessment and Plan: Glucose was 35 on arrival for which she was given dextrose. Continued hypoglycemia, started on D20 drip. sugars are better now (8) Chronic obstructive pulmonary disease: Code(s): J44.9 - Chronic obstructive pulmonary disease, unspecified Status: Acute Assessment and Plan: There is no significant wheezing on exam thus no indication for steroids. Subjective Date/time seen: 10/09/23 15:19 Interval history: Pt is intubated in situ treated for sepsis, pneumonia and acute on chronic systolic CHF Slow improvement cxr much the same Echo shows LV thrombus on echocardiogram done this morning on 10/09/2023 heparin infusion added Cardiology and ICU MD are rounding Pt gradually weaning off vent Review of Systems Review of Systems: Ongoing SOB Exam Narrative: Pt is intubated on vent HENMT: Head: normal to inspection Chest: Other: BL decreased BS BL Resp: Effort & Inspection: respiratory distress Auscultation: no rhonchi and no wheezes Cardio: Rate: regular rate Rhythm: regular rhythm GI: Inspection: normal to inspection GI Palp: No abdominal tenderness, No Guarding due to palpation present (GI) and No Hepatomegaly present Auscultation: normal bowel sounds Objective Data Vital Signs Vital Signs: Vital Signs - 24 hr 10/08/23 15:28 10/08/23 16:30 10/08/23 17:05 Temperature Pulse Rate 116 H 112 H Respiratory Rate 24 H 24 H Blood Pressure 142/67 H 140/82 Pulse Oximetry 97 94 95 Oxygen Delivery Nasal Cannula Oxygen Flow Rate 4 Fraction of Inspired Oxygen 10/08/23 17:56 10/08/23 17:50 10/08/23 17:40 Temperature 36.4 C Pulse Rate 121 H Respiratory Rate 28 H Blood Pressure 148/103 H Pulse Oximetry 93 93 100 Oxygen Delivery High Flow Nasal Cannula Non-Rebreather Mask Oxygen Flow Rate 10 15 Fraction of Inspired Oxygen 10/08/23 18:01 10/08/23 18:00 10/08/23 18:00 Temperature Pulse Rate 122 H Respiratory Rate 28 H Blood Pressure 155/100 H Pulse Oximetry 95 92 92 Oxygen Delivery High Flow Nasal Cannula High Flow Nasal Cannula Oxygen Flow Rate 15 15 Fraction of Inspired Oxygen 10/08/23 18:00 10/08/23 19:54 10/08/23 20:00 Temperature 36.6 C Pulse Rate 122 H 120 H 119 H Respiratory Rate 26 H 25 H Blood Pressure 131/82 Pulse Oximetry 99 99 Oxygen Delivery High Flow Nasal Cannula Oxygen Flow Rate 15 Fraction of Inspired Oxygen 10/08/23 20:00
[2023-10-09 15:38] LABS: Glucose Point of Care 96 mg/dl (65-105)
--- NOTE | 2023-10-09 15:52 | ECHO_ITS ---
Patient Info Name: Anita Cutler Age: 62 years : 1960 Gender: Female Ht: 66 in Wt: 125 lbs BSA: 1.62 m2 HR: 96 bpm BP: 103 / 85 mmHg Heart Rhythm: Sinus Rhythm Technical Quality: Fair Exam Date: 10/09/2023 7:53 AM Exam Location: Echo Lab Patient Status: Inpatient Admit Date: 10/08/2023 Staff Ordering Physician: Jayshree Lazo PA-C Mica Builder: Albertina Desai RDCS Attending Provider: Jose Carlos MD Referring Physician: Clifton NICOLE; Exam Type: CA echo dop color flow w con Study Info Indications - decompensated CHF Complete two-dimensional, color flow and Doppler transthoracic echocardiogram is performed with contrast to opacify the left ventricle and to improve the deliniation of the left ventricle endocardial borders. Contrast/Agitated Saline Contrast/Ag. Saline: Definity Amount: 2.00 ml Administered By: Albertina Desai RDCS Existing IV Access: Yes IV Access Condition: patent with no signs of infiltration Summary 1. Left ventricular chamber dimension is normal. 2. Left ventricular systolic function is severely reduced, estimated at 15-20%. 3. There is thrombus in the apex of the left ventricle, which measures approximately 1.46cm x 2.05cm. 4. The left ventricular diastolic function is grade I diastolic dysfunction. 5. Right ventricular systolic function is reduced. 6. There is mild tricuspid valve regurgitation. 7. Normal inferior vena cava with no collapse upon inspiration consistent with elevated right atrial pressure, 8 mmHg. Left Ventricle There is thrombus in the apex of the left ventricle, which measures approximately 1.46cm x 2.05cm. Left ventricular chamber dimension is normal. Left ventricular systolic function is severely reduced, estimated at 15-20%. There is no increased left ventricular wall thickness. The left ventricular diastolic function is grade I diastolic dysfunction. Right Ventricle Right ventricular chamber dimension is normal. Right ventricular systolic function is reduced. Left Atria Left atrial chamber dimension is normal. Right Atria Right atrial chamber dimension is normal. Atrial Septum Intact interatrial septum visualized by color flow imaging. Aortic Valve The aortic valve is trileaflet. There is mild aortic valve sclerosis. There is no aortic valve stenosis. There is no aortic valve regurgitation. Pulmonic Valve The pulmonic valve is not well visualized. There is trace pulmonic regurgitation. Mitral Valve There is trace mitral valve regurgitation. Tricuspid Valve There is mild tricuspid valve regurgitation. Pericardium/Pleural There is no pericardial effusion. Inferior Vena Cava Normal inferior vena cava with no collapse upon inspiration consistent with elevated right atrial pressure, 8 mmHg. Aorta The aortic root size at the sinus of Valsalva is normal. Left Ventricular Outflow Tract Name Value Normal LVOT 2D LVOT Diameter 2.00 cm LVOT Doppler LVOT Peak Gradient 1 mmHg LVOT Mean Gradient 0 mmHg LVOT VTI 5.57 cm LVOT VTI/AV VTI Ratio 0.39
[2023-10-09 15:59] LABS: Partial Thromboplastin Time 101.9 Seconds (22.3-36.8)
[2023-10-09] MEDS: VANCOMYCIN 1,000 MG/NS 250 ML 1,000 MG/250 ML BAG 250 MG IVPB (17:30)
[2023-10-09 19:34] LABS: Glucose Point of Care 55 mg/dl (65-105)
[2023-10-09] MEDS: DEXTROSE 50% 25 GM/50 ML SYRINGE IV PUSH (19:34)
[2023-10-09 19:57] LABS: Glucose Point of Care 133 mg/dl (65-105)
[2023-10-09] MEDS: PANTOPRAZOLE SODIUM IV 40 MG VIAL IV PUSH (21:24)
[2023-10-09 22:11] LABS: Partial Thromboplastin Time 142.4 Seconds (22.3-36.8)
[2023-10-10] VITALS (43 sets, daily range): BP systolic 91–127; BP diastolic 52–79; PULSE 89–118; RESP 15–35; TEMP 36.4–36.9; O2SAT 96–99
[2023-10-10] MEDS: DEXTROSE 50% 25 GM/50 ML SYRINGE IV PUSH (00:10)
[2023-10-10 00:39] LABS: Glucose Point of Care 96 mg/dl (65-105)
[2023-10-10 00:39] LABS: Glucose Point of Care 56 mg/dl (65-105)
[2023-10-10] MEDS: LEVALBUTEROL NEB 1.25 MG/3 ML 0.63 MG INHALATION ×4 (02:24→20:28)
[2023-10-10] MEDS: IPRATROPIUM BR 0.02% INH SOLN 0.5 MG/2.5 ML VIAL INHALATION ×4 (02:25→20:28)
[2023-10-10 02:55] LABS: Glucose Point of Care 88 mg/dl (65-105)
[2023-10-10 03:01] LABS: Glucose Point of Care 72 mg/dl (65-105)
[2023-10-10] MEDS: GLUCAGON FOR INJ 1 MG VIAL IM (03:02)
[2023-10-10 03:43] LABS: Glucose Point of Care 130 mg/dl (65-105)
[2023-10-10 05:23] LABS: Basophils Percent Auto 0.3 % (0.2-1.2); Eosinophils Absolute Auto 0.2 K/mm3 (0-0.3); Hematocrit 29.5 % (37.0-47.0); Immature Granulocyte Absolute 0.12 K/mm3 (0.00-0.031); Lymphocytes Absolute Auto 1.61 K/mm3 (0.9-3.2); Lymphocytes Percent Auto 13.4 % (18.3-44.2); Mean Corpuscular HGB Conc 30.5 g/dl (32-36); Mean Corpuscular Hemoglobin 24.1 pg (26-34); Mean Corpuscular Volume 78.9 fl (80-100); Mean Platelet Volume 9.5 fl (7.4-10.4); Monocytes Absolute Auto 0.6 K/mm3 (0.1-0.6); Monocytes Percent Auto 5.3 % (2.6-8.5); Neutrophils Absolute Auto 9.4 K/mm3 (1.3-6.7); Platelet Count Result 315 k/mm3 (150-375); Red Blood Count 3.74 M/mm3 (4.2-5.4); Red Cell Distribution Width 16.3 % (11.5-14.5)
[2023-10-10 05:38] LABS: Partial Thromboplastin Time 57.8 Seconds (22.3-36.8)
[2023-10-10 05:41] LABS: Lactic Acid Reflex 1.1 mmol/L (0.7-2.0)
[2023-10-10 05:43] LABS: Alveolar/Arterial O2 Gradient 69.9 mmHg; Base Excess ABG 7.5 mEq/l (+/-2.0); Carboxyhemoglobin 0.1 % THb (0-2.0); Fractional Inspired Oxygen 30 %; HCO3 ABG 30.9 mEq/l (22.0-26.0); Methemoglobin ABG 0.2 %THb (0-1.5); Oxygen Content ABG 13.9 %vol (16.0-22.0); Oxyhemoglobin 97.6 % THb (90.0-100.0); PCO2 ABG 38.7 mmHg (35.0-45.0); PO2 ABG 98.5 mmHg (80.0-100.0); PO2 FiO2 Ratio Arterial Blood 3.28 %; Reduced Hemoglobin 2.1 %THb (0-5.0)
[2023-10-10 05:44] LABS: Device VENTILATOR; Modified Allen's Test Pass; Site Drawn RIGHT RADIAL
[2023-10-10 05:45] LABS: Arterial Blood Gas PEEP 8 cmH2O; Arterial Blood Gas Tidal Volume 400 ml; Arterial Blood Gas Vent Mode CMV; Arterial Blood Gas Ventilator rate 20 /MIN
[2023-10-10 05:49] LABS: Alkaline Phosphatase 134 U/L (38-126); Anion Gap 4 mmol/L (4-12); Bilirubin,Total 0.9 mg/dL (0.2-1.3); Blood Urea Nitrogen 32 mg/dL (7-17); Calcium 7.8 mg/dL (8.4-10.2); Carbon Dioxide 33 mmol/L (22-30); Chloride 95 mmol/L (98-107); Estimated CRCL calculation 50 ml/min; Estimated Glomerular Filt Rate > 60; Glucose 95 mg/dL (65-110); Lipase 144 U/L (23-300); Magnesium 1.8 mg/dL (1.6-2.3); Sodium 132 mmol/L (137-145)
[2023-10-10 05:55] LABS: Alanine Aminotransferase 1000 U/L (6-35); Aspartate Amino Transferase 812 U/L (14-36)
[2023-10-10] MEDS: CENTRAL LINE FLUSH 10 ML IV PUSH ×3 (06:41→21:45)
[2023-10-10 06:44] LABS: Glucose Point of Care 118 mg/dl (65-105)
[2023-10-10 06:44] LABS: Glucose Point of Care 103 mg/dl (65-105)
[2023-10-10 06:44] LABS: Glucose Point of Care 93 mg/dl (65-105)
[2023-10-10] MEDS: HEPARIN SODIUM 5,000 UNITS/ML VIAL 2500 UNITS IV PUSH (06:44)
[2023-10-10 07:34] LABS: Glucose Point of Care 74 mg/dl (65-105)
[2023-10-10] MEDS: KCL 40 MEQ/WATER 100 ML 100 ML 25 ML IVPB (08:06)
[2023-10-10] MEDS: DOXYCYCLINE 100 MG/NS 100 ML 100 MG/100 ML BAG IVPB ×2 (08:06→21:43)
[2023-10-10] MEDS: POTASSIUM CHLORIDE 20 MEQ PACKET (FOR LIQUID) 40 MEQ FEED TUBE (08:07)
[2023-10-10] MEDS: PANTOPRAZOLE SODIUM IV 40 MG VIAL IV PUSH ×2 (08:08→21:43)
[2023-10-10] MEDS: MINERAL OIL/WHITE PETROLATUM OINTMENT 1 APPLIC EACH EYE ×2 (08:08→21:44)
[2023-10-10] MEDS: FUROSEMIDE INJ 40 MG/4 ML VIAL IV PUSH ×2 (08:08→17:05)
[2023-10-10] MEDS: POTASSIUM/PHOSPHORUS/SODIUM 1.5 GM PACKET 1 PACKET PO (08:08)
[2023-10-10] MEDS: MAGNESIUM SULF 2 GM/WATER 50ML 2 GM/50 ML BAG IVPB (08:10)
--- NOTE | 2023-10-10 08:15 | WPDINTPN ---
Progress Note: A&P Assessment and Plan (1) Acute respiratory failure: Qualifiers: Respiratory failure complication: hypoxia and hypercapnia Qualified Code(s): J96.01 - Acute respiratory failure with hypoxia; J96.02 - Acute respiratory failure with hypercapnia Code(s): J96.00 - Acute respiratory failure, unspecified whether with hypoxia or hypercapnia Status: Acute Assessment and Plan: Patient presented with acute respiratory failure, increasing shortness of breath, hypoxic in the ER with O2 sats in the 70s on room air on admission. CTA showed diffuse lung disease consistent with pulmonary edema versus pneumonia. -10/07: Lead evening patient was intubated for impending respiratory failure, increasing oxygen requirements and not able to tolerate BiPAP. -patient has diuresed well -chest x-ray this morning: Stable diffuse lung disease, likely mild pulmonary edema and basilar atelectasis. Pneumonia cannot be excluded. Emphysema.. Cardiomegaly. -continue CMV mode of ventilation, peep of 5, 30% FiO2 -ABGs reviewed, decrease rate to 16 -continue Xopenex and ipratropium nebulizers Care and -have asked the bedside RN to wean off sedation, will place patient on SBT and evaluate for extubation -if patient does not tolerate being off sedation will repeat start Precedex infusion 10/08/2023:CTA scan chest abdomen and pelvis IMPRESSION: 1. Diffuse lung disease, consistent with pulmonary edema versus pneumonia. 2. Mild mediastinal lymphadenopathy, likely reactive. 3. Bilateral pyelonephritis. 4. Mild aortic atherosclerosis. No aneurysm or dissection. (2) Acute on chronic systolic congestive heart failure: Code(s): I50.23 - Acute on chronic systolic (congestive) heart failure Status: Deleted Assessment and Plan: Acute on chronic systolic failure, EF of 25-30% on echocardiogram in March 2019 -patient presented with acute respiratory failure, chest x-ray and CTA chest showed pulmonary edema, -echo cardiogram on 10/09/2023 showed EF of 15-20% as under with worsening cardiomyopathy -continue IV diuresis -cardiology has been consulted, D/W cardiology, continue diuresis and heparin infusion for now 10/09/2023: Echocardiogram Summary 1. Left ventricular chamber dimension is normal. 2. Left ventricular systolic function is severely reduced, estimated at 15-20%. 3. There is thrombus in the apex of the left ventricle, which measures approximately 1.46cm x 2.05cm. 4. The left ventricular diastolic function is grade I diastolic dysfunction. 5. Right ventricular systolic function is reduced. 6. There is mild tricuspid valve regurgitation. 7. Normal inferior vena cava with no collapse upon inspiration consistent with elevated right atrial pressure, 8 mmHg (3) LV (left ventricular) mural thrombus: Code(s): I51.3 - Intracardiac thrombosis, not elsewhere classified Status: Acute Assessment and Plan: LV thrombus on echocardiogram done this morning on 10/09/2023 -continue heparin infusion per cardiology (4) Chronic obstructive pulmonary disease: Code(s): J44.9 - Chronic obstructive pulmonary disease, unspecified Status: Acute Assessment and Plan: History of COPD, quit smoking in 2019 -CTA chest with moderate emphysema, no pulmonary embolism -10/07: Lower extremity venous Dopplers were negative for DVTs (5) Hypoglycemia: Code(s): E16.2 - Hypoglycemia, unspecified Status: Acute Assessment and Plan: Patient developed hyperglycemia overnight requiring D20 infusion. Could be related secondary to decreased appetite and oral intake prior to admission, critical care illness/sepsis, liver dysfunction -tolerating tube feeds which are at goal -TSH levels normal -check cortisols level (6) Sepsis: Code(s): A41.9 - Sepsis, unspecified organism Status: Acute Assessment and Plan: Elevated lactic acid, tachycardia, shortness of breath, tac
[2023-10-10 08:34] LABS: Glucose Point of Care 96 mg/dl (65-105)
--- NOTE | 2023-10-10 09:43 | PM.PNCARD ---
Progress Note: A&P Assessment and Plan (1) Acute on chronic heart failure with reduced ejection fraction (HFrEF, <= 40%) and combined systolic and diastolic dysfunction: Code(s): I50.43 - Acute on chronic combined systolic (congestive) and diastolic (congestive) heart failure Status: Acute Assessment and Plan: Continue with Lasix 40mg IV BID. Please monitor strict I/Os. Since blood pressure is on the softer side at this time, will not initiate heart failure GDMT to avoid hypotension and to have blood pressure room for diuresis. Eventually will plan to add ARNI, Spironolactone, beta tito, SGLT2 inhibitor. (2) LV (left ventricular) mural thrombus: Code(s): I51.3 - Intracardiac thrombosis, not elsewhere classified Status: Acute Assessment and Plan: Continue Heparin drip. Eventually transition to NOAC prior to discharge. Will need a follow up outpatient echocardiogram in 3 months to assess for resolution of thrombus. Patient is at high risk of embolization of thrombus which can lead to stroke. (3) Acute respiratory failure with hypoxia: Code(s): J96.01 - Acute respiratory failure with hypoxia Status: Acute Assessment and Plan: Due to acute on chronic HFrEF. Continue IV diuresis. Continue ventilator management as per ICU team. (4) Sepsis: Code(s): A41.9 - Sepsis, unspecified organism Status: Acute Assessment and Plan: On antibiotics as per ICU team. (5) Anemia: Qualifiers: Anemia type: unspecified type Qualified Code(s): D64.9 - Anemia, unspecified Code(s): D64.9 - Anemia, unspecified Status: Acute Assessment and Plan: Workup and management as per primary team. Plan Recommendations and plan discussed with Commanding Officer Motorized [employer], Dr. Perla. Subjective Date/time seen: 10/10/23 09:43 Interval history: Reason for visit: CHF HPI: This is a 62 year old female with heart failure with reduced LVEF noted in 2019, COPD, history of adult respiratory distress syndrome, GERD, history of pancreatitis who presented with shortness of breath and weakness. Patient is currently intubated at the time of my evaluation, therefore, unable to obtain any history from the patient. No family at bedside to provide history. Therefore, history obtained from the patient's chart and medical team. Patient developed sinus congestion and fevers up to 101 degree F about 2.5 weeks ago. Then had nausea and vomiting for several days. Then developed cough, shortness of breath, lower extremity edema. She was afebrile on arrival with a blood pressure of 149/85 and respiratory rate of 22. SpO2 was reportedly in the 70s on arrival to triage however that is not documented. She had been tachycardic in the 120s. ABG showed a pH of 7.468, pCO2 29.9, PO2 50.6, bicarb 20.7. Labs were significant for WBC count of 18.0, hemoglobin 9.7, platelets 438, PTT 21.5, INR 1.8, PTT 28.1, sodium 132, potassium 4.2, chloride 95, carbon dioxide 15, anion gap 22, BUN 21, creatinine 0.90, glucose 35, lactic acid 14.5, magnesium 2.3, total bilirubin 2.8, AST 1123, ALT 62, alkaline phosphatase 176, proBNP 19803, procalcitonin 0.6, TSH 0.53. Lower extremity venous Doppler ultrasounds were negative for DVT. Chest x-ray showed worsening diffuse lung disease consistent with pulmonary edema versus pneumonia and cardiomegaly. CTA of the chest, abdomen, and pelvis showed diffuse lung disease consistent with pulmonary edema versus pneumonia, mild mediastinal lymphadenopathy, bilateral pyelonephritis, and mild aortic atherosclerosis. Throughout the evening the patient had increasing oxygen requirements and became anxious and agitated. She did not tolerate the BiPAP and was intubated due to impending respiratory failure. On IV Lasix due to acute on chronic CHF. Per reports, patient has not seen a talent acquisition program manager since our group saw her during her hospitalization in March 2019. Unclear if patient has seen any physicians or
[2023-10-10 09:49] LABS: Glucose Point of Care 150 mg/dl (65-105)
[2023-10-10 10:50] LABS: Glucose Point of Care 116 mg/dl (65-105)
[2023-10-10 11:57] LABS: Partial Thromboplastin Time 88.6 Seconds (22.3-36.8)
[2023-10-10 11:57] LABS: Glucose Point of Care 115 mg/dl (65-105)
[2023-10-10] MEDS: cefTRIAXone 2 GM/NS 100 ML 2 GM/100 ML BAG IVPB (13:06)
[2023-10-10] MEDS: HEPARIN SOD/D5W 100 UNITS/ML 25,000 UNITS/250 ML BAG 9 UNITS IV CONT (13:06)
[2023-10-10] MEDS: DEXTROSE 20% 500 ML 20 ML IV CONT (13:07)
[2023-10-10 14:47] LABS: Glucose Point of Care 114 mg/dl (65-105)
[2023-10-10 15:49] LABS: Glucose Point of Care 120 mg/dl (65-105)
[2023-10-10 17:26] LABS: Glucose Point of Care 109 mg/dl (65-105)
[2023-10-10 18:05] LABS: Partial Thromboplastin Time 72.6 Seconds (22.3-36.8)
--- NOTE | 2023-10-10 18:30 | WPDPN ---
Progress Note: A&P Assessment and Plan (1) Acute respiratory failure with hypoxia: Code(s): J96.01 - Acute respiratory failure with hypoxia Status: Acute (2) Acute on chronic heart failure with reduced ejection fraction (HFrEF, <= 40%) and combined systolic and diastolic dysfunction: Code(s): I50.43 - Acute on chronic combined systolic (congestive) and diastolic (congestive) heart failure Status: Acute (3) Lactic acidosis: Code(s): E87.20 - Acidosis, unspecified Status: Acute (4) Pneumonia: Code(s): J18.9 - Pneumonia, unspecified organism Status: Acute (5) Sepsis: Code(s): A41.9 - Sepsis, unspecified organism Status: Acute Plan 10/10/2023: patient with respiratory failure, no vent, patient is found to have LV thrombus on ECHO seen by diet assistant and patient is being anticoagulated with heparin drip, patient is seen by master certified rv technician and managing ventilator. patient is present in the room discuss and answered questions. Subjective Date/time seen: 10/10/23 18:30 Interval history: Pt is intubated in situ treated for sepsis, pneumonia and acute on chronic systolic CHF Slow improvement cxr much the same Echo shows LV thrombus on echocardiogram done this morning on 10/09/2023 heparin infusion added Cardiology and ICU MD are rounding Pt gradually weaning off vent 10/10/2023: patient with respiratory failure, no vent, patient is found to have LV thrombus on ECHO seen by diet assistant and patient is being anticoagulated with heparin drip, patient is seen by master certified rv technician and managing ventilator. patient is present in the room discuss and answered questions. Review of Systems Review of Systems: ROS unobtainable: Yes unobtainable due to endotracheal tube and unobtainable due to medical condition Exam Narrative: Narrative: Pt is intubated o n vent HENMT: Head: normal to in spection Chest: Other: BL decrea sed BS BL Resp: Effort & Inspectio n: respiratory dis tress Auscultatio n: no rhonchi and no wheezes Cardio: Rate: regular rate Rhythm: regular rhythm GI: Inspection: normal to inspection GI Palp: No abdomina l tenderness, No G uarding due to pal pation present (GI ) and No Hepatomeg lore present Auscu ltation: normal elvira wel sounds Objective Data Vital Signs Vital Signs: Vital Signs - 24 hr 10/09/23 19:53 10/09/23 19:53 10/09/23 19:56 Temperature 36.4 C Pulse Rate 89 89 86 Respiratory Rate 20 20 Blood Pressure 98/63 L Pulse Oximetry 98 98 Oxygen Delivery Mechanical Ventilation Fraction of Inspired Oxygen 30 10/09/23 20:09 10/09/23 20:00 10/09/23 20:00 Temperature Pulse Rate 88 102 H 102 H Respiratory Rate 20 20 Blood Pressure Pulse Oximetry Oxygen Delivery Fraction of Inspired Oxygen 10/09/23 20:00 10/09/23 20:00 10/09/23 20:00 Temperature Pulse Rate 102 H Respiratory Rate 20 Blood Pressure Pulse Oximetry Oxygen Delivery Mechanical Ventilation Fraction of Inspired Oxygen 30 10/09/23 22:00 10/09/23 22:00 10/09/23 23:00 Temperature 36.6 C Pulse Rate 84 83 85 Respiratory Rate 20 Blood Pressure 92/61 L Pulse Oximetry 99 98 Oxygen Delivery Mechanical Ventilation Fraction of Inspired Oxygen 30 10/10/23 00:00 10/10/23 00:00 10/10/23 00:00 Temperature Pulse Rate 91 Respiratory Rate Blood Pressure Pulse Oximetry Oxygen Delivery Mechanical Ventilation Fraction of Inspired
[2023-10-10 18:39] LABS: Glucose Point of Care 111 mg/dl (65-105)
[2023-10-10 20:12] LABS: Glucose Point of Care 122 mg/dl (65-105)
[2023-10-11] VITALS (35 sets, daily range): BP systolic 95–130; BP diastolic 52–89; PULSE 97–119; RESP 15–30; TEMP 36.4–37; O2SAT 95–100
[2023-10-11 00:31] LABS: Glucose Point of Care 128 mg/dl (65-105)
[2023-10-11] MEDS: LEVALBUTEROL NEB 1.25 MG/3 ML 0.63 MG INHALATION ×4 (02:31→20:28)
[2023-10-11] MEDS: IPRATROPIUM BR 0.02% INH SOLN 0.5 MG/2.5 ML VIAL INHALATION ×4 (02:31→20:28)
[2023-10-11 04:20] LABS: Glucose Point of Care 110 mg/dl (65-105)
[2023-10-11 04:59] LABS: Alveolar/Arterial O2 Gradient 68.1 mmHg; Base Excess ABG 6.4 mEq/l (+/-2.0); Carboxyhemoglobin 0.5 % THb (0-2.0); Fractional Inspired Oxygen 30 %; HCO3 ABG 31.2 mEq/l (22.0-26.0); Methemoglobin ABG 0.2 %THb (0-1.5); Oxygen Content ABG 12.9 %vol (16.0-22.0); Oxygen Saturation ABG 97.2 % (95.0-100.0); Oxyhemoglobin 96.5 % THb (90.0-100.0); PCO2 ABG 46.5 mmHg (35.0-45.0); PO2 ABG 91.2 mmHg (80.0-100.0); PO2 FiO2 Ratio Arterial Blood 3.04 %; Reduced Hemoglobin 2.8 %THb (0-5.0); Total Hemoglobin 9.4 g/dL (12.0-18.0); pH ABG 7.445 (7.350-7.450)
[2023-10-11 05:06] LABS: Device VENTILATOR; Modified Allen's Test Pass; Site Drawn LEFT RADIAL
[2023-10-11 05:07] LABS: Arterial Blood Gas PEEP 5 cmH2O; Arterial Blood Gas Tidal Volume 400 ml; Arterial Blood Gas Vent Mode CMV; Arterial Blood Gas Ventilator rate 16 /MIN
[2023-10-11 05:24] LABS: Basophils Percent Auto 0.3 % (0.2-1.2); Eosinophils Absolute Auto 0.3 K/mm3 (0-0.3); Eosinophils Percent Auto 3.2 % (0-4.4); Hematocrit 27.6 % (37.0-47.0); Hemoglobin 8.4 g/dL (12.0-15.0); Immature Granulocyte Absolute 0.08 K/mm3 (0.00-0.031); Immature Granulocyte Percent A 0.9 % (0-0.5); Lymphocytes Absolute Auto 1.16 K/mm3 (0.9-3.2); Lymphocytes Percent Auto 13.1 % (18.3-44.2); Mean Corpuscular HGB Conc 30.4 g/dl (32-36); Mean Corpuscular Hemoglobin 24.1 pg (26-34); Mean Corpuscular Volume 79.3 fl (80-100); Mean Platelet Volume 8.9 fl (7.4-10.4); Monocytes Absolute Auto 0.8 K/mm3 (0.1-0.6); Neutrophils Absolute Auto 6.5 K/mm3 (1.3-6.7); Neutrophils Percent Auto 73.5 % (45.5-73.1); Platelet Count Result 320 k/mm3 (150-375); Red Blood Count 3.48 M/mm3 (4.2-5.4); Red Cell Distribution Width 16.6 % (11.5-14.5); White Blood Count 8.8 K/mm3 (4.5-10.0)
[2023-10-11 05:34] LABS: Alanine Aminotransferase 659 U/L (6-35); Albumin Level 2.9 g/dL (3.5-5.1); Alkaline Phosphatase 118 U/L (38-126); Anion Gap 4 mmol/L (4-12); Aspartate Amino Transferase 235 U/L (14-36); Bilirubin,Total 0.9 mg/dL (0.2-1.3); Blood Urea Nitrogen 30 mg/dL (7-17); Calcium 7.8 mg/dL (8.4-10.2); Carbon Dioxide 31 mmol/L (22-30); Chloride 96 mmol/L (98-107); Estimated CRCL calculation 56 ml/min; Estimated Glomerular Filt Rate > 60; Glucose 105 mg/dL (65-110); Magnesium 2.1 mg/dL (1.6-2.3); Phosphorus 2.7 mg/dL (2.5-4.5); Potassium 3.8 mmol/L (3.4-5.0); Sodium 131 mmol/L (137-145)
[2023-10-11 05:54] LABS: Partial Thromboplastin Time 79.6 Seconds (22.3-36.8)
[2023-10-11] MEDS: FENTANYL 2,500MCG/NS250ML(*CRX 2,500 MCG/250 ML BAG 7.5 MCG IV CONT (06:48)
[2023-10-11] MEDS: CENTRAL LINE FLUSH 10 ML IV PUSH ×3 (06:50→19:55)
[2023-10-11] MEDS: MIDAZOLAM 100MG/NS 100ML(*CRX) 100 MG/100 ML BAG IV CONT (06:50)
[2023-10-11 08:10] LABS: Glucose Point of Care 116 mg/dl (65-105)
[2023-10-11] MEDS: PANTOPRAZOLE SODIUM IV 40 MG VIAL IV PUSH ×2 (08:24→19:51)
[2023-10-11] MEDS: POTASSIUM CHLORIDE 20 MEQ PACKET (FOR LIQUID) 40 MEQ PO (08:25)
[2023-10-11] MEDS: FUROSEMIDE INJ 40 MG/4 ML VIAL IV PUSH ×2 (08:25→16:45)
[2023-10-11] MEDS: DOXYCYCLINE 100 MG/NS 100 ML 100 MG/100 ML BAG IVPB ×2 (08:25→19:51)
[2023-10-11] MEDS: MINERAL OIL/WHITE PETROLATUM OINTMENT 1 APPLIC EACH EYE (08:26)
--- NOTE | 2023-10-11 08:52 | PM.PNCARD ---
Progress Note: A&P Assessment and Plan (1) LV (left ventricular) mural thrombus: Code(s): I51.3 - Intracardiac thrombosis, not elsewhere classified Status: Acute (2) Acute on chronic heart failure with reduced ejection fraction (HFrEF, <= 40%) and combined systolic and diastolic dysfunction: Code(s): I50.43 - Acute on chronic combined systolic (congestive) and diastolic (congestive) heart failure Status: Acute Plan 62-year-old patient with severe left ventricular systolic dysfunction. This is not a new diagnosis she was found to have severe LV dysfunction several years ago when she was here and was not compliant with follow-up/evaluation as an outpatient. She does have a previous history of ethanol excess so this certainly could be a persistent alcoholic cardiomyopathy. At this point she the plan needs to be to gently start guideline directed medical therapy so that her hemodynamics improved hopefully and she becomes a candidate for further evaluation. Will start very low-dose of metoprolol succinate today and observe her hemodynamic tolerance of this. The next step would be to start a modest dose of Entresto. We will take this very slowly since her blood pressure is soft. Hopefully she can be extubated today but that remains to be seen Fazal Aguirre MD [facility] Subjective Date/time seen: Date of service: 10/11/23 08:52 Interval history: Follow-up visit in this 62-year-old patient with: Decompensated congestive heart failure with history of severe left ventricular systolic dysfunction, current echocardiogram also shows evidence of LV apical thrombus. Patient remains intubated on the ventilator in the ICU this morning hope is to attempt extubation later today. Has had a good response to diuresis Exam Const: Other: Chronically ill-appearing white female intubated appears older than stated age HENMT: Mouth: Yes moist mucous membranes Eyes: Sclera: sclerae normal Neck: Neck: supple Resp: Auscultation: clear to auscultation bilaterally Other: Auscultation of breath sounds is relatively clear this morning Cardio: Rate: tachycardic Rhythm: regular rhythm GI: GI Palp: Yes Soft to palpation Auscultation: normal bowel sounds Skin: General skin exam: normal color Neuro: Other: Alert and responsive Extrem: Other: Warm, well perfused no edema Objective Data Vital Signs Vital Signs: Vital Signs - 24 hr 10/10/23 10:00 10/10/23 10:38 10/10/23 10:00 Temperature Pulse Rate 118 H 117 H 118 H Respiratory Rate 19 Blood Pressure 127/79 Pulse Oximetry 99 99 Oxygen Delivery Mechanical Ventilation Fraction of Inspired Oxygen 30 10/10/23 10:00 10/10/23 10:00 10/10/23 11:05 Temperature Pulse Rate 118 H 118 H 116 H Respiratory Rate 19 19 16 Blood Pressure Pulse Oximetry Oxygen Delivery Fraction of Inspired Oxygen 10/10/23 11:50 10/10/23 11:05 10/10/23 12:00 Temperature Pulse Rate 113 H 116 H Respiratory Rate 15 16 Blood Pressure Pulse Oximetry Oxygen Delivery Fraction of Inspired Oxygen 30 10/10/23 12:06 10/10/23 12:00 10/10/23 12:00 Temperature 36.7 C Pulse Rate 109 H 110 H Respiratory Rate 18 Blood Pressure 100/65 Pulse Oximetry 97 Oxygen Delivery Mechanical Ventilation Fraction of Inspired Oxygen 30 10/10/23 13:22 10/10/23 13:38 10/10/23 13:39 Temperature Pulse Rate 104 H 104 H 104 H Respiratory Rate 21 H 18 Blood Pressure Pulse Oximetry 99 Oxygen Delivery Mechanical Ventilation Fraction of Inspired Oxygen 30 10/10/23 13:44 10/10/23 14:00 10/10/23 14:00 Temperature Pulse Rate 104 H 102 H 102 H Respiratory Rate 18 16 Blood Pressure 92/59 L Pulse Oximetry 97 Oxygen Delivery Fraction of Inspired Oxygen 10/10/23 13:00 10/10/23 14:48 10/10/23 14:48 Temperature Pulse Rate 105 H 102 H 102 H Respiratory Rate 22 H 16 16 Blood Pres
--- NOTE | 2023-10-11 08:55 | PCRCNOTE ---
Pt placed on 10/5 SBT at 0830, then placed on 8/5 SBT at 0837.
--- NOTE | 2023-10-11 09:04 | WPDINTPN ---
Progress Note: A&P Assessment and Plan (1) Acute respiratory failure: Qualifiers: Respiratory failure complication: hypoxia and hypercapnia Qualified Code(s): J96.01 - Acute respiratory failure with hypoxia; J96.02 - Acute respiratory failure with hypercapnia Code(s): J96.00 - Acute respiratory failure, unspecified whether with hypoxia or hypercapnia Status: Acute Assessment and Plan: Patient presented with acute respiratory failure, increasing shortness of breath, hypoxic in the ER with O2 sats in the 70s on room air on admission. CTA showed diffuse lung disease consistent with pulmonary edema versus pneumonia. -10/07: Lead evening patient was intubated for impending respiratory failure, increasing oxygen requirements and not able to tolerate BiPAP. -patient has diuresed well -chest x-ray this morning: Stable bibasilar haziness and interstitial pulmonary disease. Correlate for pulmonary edema, chronic interstitial disease, atypical infection -continue CMV mode of ventilation, peep of 5, 30% FiO2 -ABGs reviewed, decrease rate to 16 -continue Xopenex and ipratropium nebulizers Care and -have asked the bedside RN to wean off sedation, will place patient on SBT and evaluate for extubation -if patient does not tolerate being off sedation will repeat start Precedex infusion 10/08/2023:CTA scan chest abdomen and pelvis IMPRESSION: 1. Diffuse lung disease, consistent with pulmonary edema versus pneumonia. 2. Mild mediastinal lymphadenopathy, likely reactive. 3. Bilateral pyelonephritis. 4. Mild aortic atherosclerosis. No aneurysm or dissection. (2) Acute on chronic systolic congestive heart failure: Code(s): I50.23 - Acute on chronic systolic (congestive) heart failure Status: Deleted Assessment and Plan: Acute on chronic systolic failure, EF of 25-30% on echocardiogram in March 2019 -patient presented with acute respiratory failure, chest x-ray and CTA chest showed pulmonary edema, -echo cardiogram on 10/09/2023 showed EF of 15-20% as under with worsening cardiomyopathy -continue IV diuresis -cardiology has been consulted, D/W cardiology, continue diuresis and heparin infusion for now. Will add low-dose metoprolol per Cardiology 10/09/2023: Echocardiogram Summary 1. Left ventricular chamber dimension is normal. 2. Left ventricular systolic function is severely reduced, estimated at 15-20%. 3. There is thrombus in the apex of the left ventricle, which measures approximately 1.46cm x 2.05cm. 4. The left ventricular diastolic function is grade I diastolic dysfunction. 5. Right ventricular systolic function is reduced. 6. There is mild tricuspid valve regurgitation. 7. Normal inferior vena cava with no collapse upon inspiration consistent with elevated right atrial pressure, 8 mmHg (3) LV (left ventricular) mural thrombus: Code(s): I51.3 - Intracardiac thrombosis, not elsewhere classified Status: Acute Assessment and Plan: LV thrombus on echocardiogram done this morning on 10/09/2023 -continue heparin infusion per cardiology (4) Chronic obstructive pulmonary disease: Code(s): J44.9 - Chronic obstructive pulmonary disease, unspecified Status: Acute Assessment and Plan: History of COPD, quit smoking in 2019 -CTA chest with moderate emphysema, no pulmonary embolism -10/07: Lower extremity venous Dopplers were negative for DVTs (5) Hypoglycemia: Code(s): E16.2 - Hypoglycemia, unspecified Status: Acute Assessment and Plan: Patient developed hyperglycemia overnight requiring D20 infusion. Could be related secondary to decreased appetite and oral intake prior to admission, critical care illness/sepsis, liver dysfunction -tolerating tube feeds which are at goal -TSH levels normal -cortisol level within normal limits (6) Sepsis: Code(s): A41.9 - Sepsis, unspecified organism Status: Acute Assessment and Lissa
[2023-10-11 09:27] LABS: Glucose Point of Care 111 mg/dl (65-105)
[2023-10-11] MEDS: METOPROLOL SUCCINATE EXT REL 25 MG TABCR PO (09:58)
[2023-10-11] MEDS: polyethylene glycoL 3350 17 GM POWD.PACK PO (10:23)
[2023-10-11 10:45] LABS: Alveolar/Arterial O2 Gradient 65.9 mmHg; Base Excess ABG 6.4 mEq/l (+/-2.0); Fractional Inspired Oxygen 30 %; HCO3 ABG 30.7 mEq/l (22.0-26.0); Oxygen Content ABG 14.4 %vol (16.0-22.0); Oxygen Saturation ABG 97.7 % (95.0-100.0); Oxyhemoglobin 97.5 % THb (90.0-100.0); PCO2 ABG 43.4 mmHg (35.0-45.0); PO2 FiO2 Ratio Arterial Blood 3.23 %; Site Drawn RIGHT RADIAL; Total Hemoglobin 10.4 g/dL (12.0-18.0); pH ABG 7.468 (7.350-7.450)
--- NOTE | 2023-10-11 10:45 | PCNFU ---
Nutrition Follow-Up Complete: Suboptimal nutrition as related to mechanical ventilation as evidenced by NPO/tube feedings. Meet estimated nutritional needs. - Goal being met with tube feeding, currently on hold. Continue with same goals Goal: Pt current nutrition is Vital AF 1.2 @ goal rate 55 ml/h: ON HOLD for breathing trial. Nutrition recommendation: Resume TF at goal rate 55 ml/h after breathing trial if needed; if extubated, diet orders per speech. Last recorded weight is 56.7 kg. Bowel Motility: No bowel movements since 10/06/23. Pt will be started on Miralax. Labs Reviewed: Hgb 8.4, Hct 27.6, Alb 2.9, BUN 30, Glu 131 Meds Noted: Sedation on hold. Rocephin, protonix Skin: WNL Additional Notes: MAP 75. Breathing trial today. Possible extubation. Agree with orders. Following daily in ICU rounds. Will monitor weight, labs, skin, oral intake, meds every Saturday and Saturday. .
[2023-10-11 10:46] LABS: Device VENTILATOR
[2023-10-11 10:47] LABS: Arterial Blood Gas PEEP 5 cmH2O; Arterial Blood Gas Vent Mode SPONTANEOUS; Peak Inspiratory Pressure 10 cmH2O
--- NOTE | 2023-10-11 11:12 | PCRCNOTE ---
Pt extubated at 1100, placed on 3L.
[2023-10-11 11:34] LABS: Glucose Point of Care 120 mg/dl (65-105)
[2023-10-11 12:32] LABS: Haptoglobin 134 mg/dL (43-212)
[2023-10-11] MEDS: cefTRIAXone 2 GM/NS 100 ML 2 GM/100 ML BAG IVPB (13:56)
[2023-10-11] MEDS: HEPARIN SOD/D5W 100 UNITS/ML 25,000 UNITS/250 ML BAG 9 UNITS IV CONT (14:59)
[2023-10-11 16:50] LABS: Glucose Point of Care 118 mg/dl (65-105)
--- NOTE | 2023-10-11 18:10 | WPDPN ---
Progress Note: A&P Assessment and Plan (1) Acute respiratory failure with hypoxia: Code(s): J96.01 - Acute respiratory failure with hypoxia Status: Acute (2) Acute on chronic heart failure with reduced ejection fraction (HFrEF, <= 40%) and combined systolic and diastolic dysfunction: Code(s): I50.43 - Acute on chronic combined systolic (congestive) and diastolic (congestive) heart failure Status: Acute (3) Lactic acidosis: Code(s): E87.20 - Acidosis, unspecified Status: Acute (4) Pneumonia: Code(s): J18.9 - Pneumonia, unspecified organism Status: Acute (5) Sepsis: Code(s): A41.9 - Sepsis, unspecified organism Status: Acute Plan 10/10/2023: patient with respiratory failure, no vent, patient is found to have LV thrombus on ECHO seen by degree clerk and patient is being anticoagulated with heparin drip, patient is seen by clean rice grader and reel tender and managing ventilator. patient is present in the room discuss and answered questions. Interval history 10/11/2023: patient with respiratory failure was given a trial of weaning and patient was able to tolerate and extubated, patient is quite somnolent, patient and her son are present in the room, patient is seen clean rice grader and reel tender and cardiology and patient being anticoagulated with heparin drip, now that patient is off ventilator may switch to oral anticoagulation and possible discharge patient from ICU possibly tomorrow. Subjective Date/time seen: 10/11/23 18:10 Interval history: 10/10/2023: patient with respiratory failure, no vent, patient is found to have LV thrombus on ECHO seen by degree clerk and patient is being anticoagulated with heparin drip, patient is seen by clean rice grader and reel tender and managing ventilator. patient is present in the room discuss and answered questions. Interval history 10/11/2023: patient with respiratory failure was given a trial of weaning and patient was able to tolerate and extubated, patient is quite somnolent, patient and her son are present in the room, patient is seen clean rice grader and reel tender and cardiology and patient being anticoagulated with heparin drip, now that patient is off ventilator may switch to oral anticoagulation and possible discharge patient from ICU possibly tomorrow. Review of Systems Review of Systems: ROS unobtainable: Yes unobtainable due to endotracheal tube and unobtainable due to medical condition Exam Narrative: General: appears chroniclly ill, patient is comfortable NAD HEENT: eyes are clear nonicteric, normocephalic, atraumatic. LUNGS:breathing normal ABD: not distended. SKIN: no obvious rash EXTREMITIES: edema NEURO:somnolent PSYCH:somnolent Objective Data Vital Signs Vital Signs: Vital Signs - 24 hr 10/10/23 18:14 10/10/23 18:15 10/10/23 20:32 Temperature Pulse Rate 97 97 100 Respiratory Rate 16 16 Blood Pressure Pulse Oximetry 96 Oxygen Delivery Mechanical Ventilation Oxygen Flow Rate Fraction of Inspired Oxygen 30 10/10/23 20:34 10/10/23 20:47 10/10/23 20:00 Temperature Pulse Rate 100 99 98 Respiratory Rate 16 16 16 Blood Pressure Pulse Oximetry Oxygen Delivery Oxygen Flow Rate Fraction of Inspired Oxygen 10/10/23 22:00 10/10/23 20:00 10/10/23 22:00 Temperature Pulse Rate 102 H 98 102 H Respiratory Rate 31 H 16 31 H Blood Pressure Pulse Oximetry Oxygen Delivery Oxygen Flow Rate Fraction of Inspired Oxygen 10/10/23 20:00 10/10/23 20:00 10/10/23 20:00 Temperature 36.7 C Pulse Rate 98 Respiratory Rate 16 Blood Pressure 91/62 L Pulse Oximetry 96 Oxygen Delivery Mechanical Ventilation Oxygen Flow Rate Fraction of Inspired Oxygen 30 30 10/10/23 22:00 10/10/23 22:00 10/10/23 20:00 Temperature Pulse Rate 102 H 102 H 99 Respiratory Rate 31 H Blood Pressure 92/52 L Pulse Oximetry 96 Oxygen Delivery Oxygen Flow Rate Fr
[2023-10-11 20:01] LABS: Glucose Point of Care 102 mg/dl (65-105)
[2023-10-11 22:29] LABS: Pneumococcal Antigen Urine NOT DETECTED
[2023-10-11 23:56] LABS: Glucose Point of Care 96 mg/dl (65-105)
[2023-10-12] VITALS (23 sets, daily range): BP systolic 90–153; BP diastolic 59–83; PULSE 92–107; RESP 15–27; TEMP 36.5–36.6; O2SAT 95–100
[2023-10-12] MEDS: LEVALBUTEROL NEB 1.25 MG/3 ML 0.63 MG INHALATION ×4 (01:28→20:28)
[2023-10-12] MEDS: IPRATROPIUM BR 0.02% INH SOLN 0.5 MG/2.5 ML VIAL INHALATION ×4 (01:29→20:28)
[2023-10-12 04:05] LABS: Glucose Point of Care 102 mg/dl (65-105)
[2023-10-12 04:40] LABS: Glucose 59 mg/dL (65-110)
[2023-10-12 04:55] LABS: Basophils Percent Auto 0.4 % (0.2-1.2); Eosinophils Absolute Auto 0.3 K/mm3 (0-0.3); Hematocrit 31.6 % (37.0-47.0); Hemoglobin 9.5 g/dL (12.0-15.0); Immature Granulocyte Absolute 0.08 K/mm3 (0.00-0.031); Immature Granulocyte Percent A 0.8 % (0-0.5); Lymphocytes Percent Auto 16.5 % (18.3-44.2); Mean Corpuscular HGB Conc 30.1 g/dl (32-36); Mean Corpuscular Hemoglobin 24.2 pg (26-34); Mean Corpuscular Volume 80.6 fl (80-100); Mean Platelet Volume 9.1 fl (7.4-10.4); Monocytes Percent Auto 10.2 % (2.6-8.5); Neutrophils Absolute Auto 6.7 K/mm3 (1.3-6.7); Neutrophils Percent Auto 69.1 % (45.5-73.1); Platelet Count Result 355 k/mm3 (150-375); Red Blood Count 3.92 M/mm3 (4.2-5.4); Red Cell Distribution Width 16.6 % (11.5-14.5); White Blood Count 9.7 K/mm3 (4.5-10.0)
[2023-10-12 05:02] LABS: Alanine Aminotransferase 518 U/L (6-35); Albumin Level 3.4 g/dL (3.5-5.1); Alkaline Phosphatase 144 U/L (38-126); Anion Gap 3 mmol/L (4-12); Aspartate Amino Transferase 118 U/L (14-36); Bilirubin,Total 1.1 mg/dL (0.2-1.3); Blood Urea Nitrogen 23 mg/dL (7-17); Calcium 8.9 mg/dL (8.4-10.2); Carbon Dioxide 33 mmol/L (22-30); Chloride 95 mmol/L (98-107); Estimated CRCL calculation 63 ml/min; Estimated Glomerular Filt Rate > 60; Glucose 98 mg/dL (65-110); Phosphorus 3.4 mg/dL (2.5-4.5); Potassium 4.3 mmol/L (3.4-5.0); Sodium 131 mmol/L (137-145)
[2023-10-12 05:04] LABS: Alveolar/Arterial O2 Gradient 47.1 mmHg; Base Excess ABG 5.7 mEq/l (+/-2.0); Carboxyhemoglobin 0.6 % THb (0-2.0); Fractional Inspired Oxygen 28 %; HCO3 ABG 30.4 mEq/l (22.0-26.0); Methemoglobin ABG 0.3 %THb (0-1.5); Oxygen Content ABG 14.8 %vol (16.0-22.0); Oxygen Saturation ABG 97.7 % (95.0-100.0); Oxyhemoglobin 97.1 % THb (90.0-100.0); PCO2 ABG 45.1 mmHg (35.0-45.0); PO2 ABG 99.3 mmHg (80.0-100.0); PO2 FiO2 Ratio Arterial Blood 3.55 %; Total Hemoglobin 10.7 g/dL (12.0-18.0); pH ABG 7.447 (7.350-7.450)
[2023-10-12 05:05] LABS: Device NASAL CANNULA; Modified Allen's Test Pass; Site Drawn LEFT RADIAL
[2023-10-12 05:06] LABS: Partial Thromboplastin Time 111.6 Seconds (22.3-36.8)
[2023-10-12 06:14] LABS: Partial Thromboplastin Time 100.4 Seconds (22.3-36.8)
[2023-10-12] MEDS: CENTRAL LINE FLUSH 10 ML IV PUSH ×3 (06:22→21:15)
[2023-10-12 08:05] LABS: Glucose Point of Care 107 mg/dl (65-105)
[2023-10-12] MEDS: FUROSEMIDE INJ 40 MG/4 ML VIAL IV PUSH ×2 (08:26→16:20)
[2023-10-12] MEDS: PANTOPRAZOLE SODIUM IV 40 MG VIAL IV PUSH ×2 (08:27→20:11)
[2023-10-12] MEDS: DOXYCYCLINE 100 MG/NS 100 ML 100 MG/100 ML BAG IVPB ×2 (08:27→20:11)
--- NOTE | 2023-10-12 08:59 | WPDINTPN ---
Progress Note: A&P Assessment and Plan (1) Acute respiratory failure: Qualifiers: Respiratory failure complication: hypoxia and hypercapnia Qualified Code(s): J96.01 - Acute respiratory failure with hypoxia; J96.02 - Acute respiratory failure with hypercapnia Code(s): J96.00 - Acute respiratory failure, unspecified whether with hypoxia or hypercapnia Status: Acute Assessment and Plan: Patient presented with acute respiratory failure, increasing shortness of breath, hypoxic in the ER with O2 sats in the 70s on room air on admission. CTA showed diffuse lung disease consistent with pulmonary edema versus pneumonia. -10/07: Intubated -10/10: Extubated Currently on 1 L nasal cannula with adequate O2 sats, -patient has been diuresing well with negative fluid balance -continue diuresis -likely cause of respiratory failure was pulmonary edema secondary to pneumonia versus cardiomyopathy and CHF -continue bronchodilators -will have speech evaluate for bedside swallow -PT/OT has been ordered 10/08/2023:CTA scan chest abdomen and pelvis IMPRESSION: 1. Diffuse lung disease, consistent with pulmonary edema versus pneumonia. 2. Mild mediastinal lymphadenopathy, likely reactive. 3. Bilateral pyelonephritis. 4. Mild aortic atherosclerosis. No aneurysm or dissection. (2) Acute on chronic systolic congestive heart failure: Code(s): I50.23 - Acute on chronic systolic (congestive) heart failure Status: Deleted Assessment and Plan: Acute on chronic systolic failure, EF of 25-30% on echocardiogram in March 2019 -patient presented with acute respiratory failure, chest x-ray and CTA chest showed pulmonary edema, -echo cardiogram on 10/09/2023 showed EF of 15-20% as under with worsening cardiomyopathy -continue IV diuresis -appreciate cardiology following the patient. - continue diuresis and heparin infusion for now. -On low-dose metoprolol 10/09/2023: Echocardiogram Summary 1. Left ventricular chamber dimension is normal. 2. Left ventricular systolic function is severely reduced, estimated at 15-20%. 3. There is thrombus in the apex of the left ventricle, which measures approximately 1.46cm x 2.05cm. 4. The left ventricular diastolic function is grade I diastolic dysfunction. 5. Right ventricular systolic function is reduced. 6. There is mild tricuspid valve regurgitation. 7. Normal inferior vena cava with no collapse upon inspiration consistent with elevated right atrial pressure, 8 mmHg (3) LV (left ventricular) mural thrombus: Code(s): I51.3 - Intracardiac thrombosis, not elsewhere classified Status: Acute Assessment and Plan: LV thrombus on echocardiogram done this morning on 10/09/2023 -continue heparin infusion per cardiology (4) Chronic obstructive pulmonary disease: Code(s): J44.9 - Chronic obstructive pulmonary disease, unspecified Status: Acute Assessment and Plan: History of COPD, quit smoking in 2019 -CTA chest with moderate emphysema, no pulmonary embolism -10/07: Lower extremity venous Dopplers were negative for DVTs (5) Hypoglycemia: Code(s): E16.2 - Hypoglycemia, unspecified Status: Acute Assessment and Plan: RESOLVED -off D20 infusion -TSH levels normal -cortisol level within normal limits (6) Sepsis: Code(s): A41.9 - Sepsis, unspecified organism Status: Acute Assessment and Plan: Elevated lactic acid, tachycardia, shortness of breath, tachypnea, hypoxia, elevated LFTs -10/07: Blood cultures -preliminary cultures negative x2 -10/07: Urine culture no growth so for -10/07: Sputum culture pending -continue on ceftriaxone, doxycycline(10/07) continue for total of 5 days, stop dates have been entered in the chart -10/09: Vancomycin was discontinued (7) Pneumonia: Code(s): J18.9 - Pneumonia, unspecified organism Status: Acute Assessment and Plan: Chest x-ray
--- NOTE | 2023-10-12 09:26 | PM.PNCARD ---
Progress Note: A&P Assessment and Plan (1) Acute on chronic heart failure with reduced ejection fraction (HFrEF, <= 40%) and combined systolic and diastolic dysfunction: Code(s): I50.43 - Acute on chronic combined systolic (congestive) and diastolic (congestive) heart failure Status: Acute Plan 62-year-old lady with: Severe systolic left ventricular dysfunction. Starting guideline directed medical therapy. She tolerated modest dose of metoprolol yesterday. Will continue this and add Entresto and spironolactone to her regimen. Continue to follow during this hospitalization and if she does well the expectation would be to perform left heart catheterization during this hospitalization if possible. Her prognosis is certainly guarded and certainly made more challenging by lack of compliance with medical care and follow-up Fazal Aguirre MD [facility] Subjective Date/time seen: Date of service: 10/12/23 09:26 Interval history: Follow-up visit in this 62-year-old patient with: Decompensated congestive heart failure with history of severe left ventricular systolic dysfunction, current echocardiogram also shows evidence of LV apical thrombus. Patient remains intubated on the ventilator in the ICU this morning hope is to attempt extubation later today. Has had a good response to diuresis 10/12/2023: Very good to see patient was extubated yesterday is comfortable on nasal cannula oxygen. Voice is very hoarse because of intubation presumably. She reports no significant complaints at this time. Currently undergoing swallowing study. Long discussion with the patient and her son who was in the room regarding diagnosis of systolic left ventricular dysfunction and the need to treat this medically and the need to discuss catheterization to complete the evaluation. Also reminded them that this is not a new diagnosis she was found to have poor left ventricular function back in 2019 as mentioned in the initial consultation note. Apparently follow-up with this was failed Exam Const: Other: Chronically ill-appearing frail woman appearing older than her stated age with very soft voice comfortable cooperative HENMT: Mouth: Yes moist mucous membranes Other: OETT in place Eyes: Sclera: sclerae normal Neck: Neck: supple Resp: Auscultation: clear to auscultation bilaterally Other: Auscultation of breath sounds is relatively clear this morning Cardio: Rate: regular rate and tachycardic Rhythm: regular rhythm Heart sounds: no murmurs Other: Bilateral lower extremity edema GI: Auscultation: normal bowel sounds Skin: General skin exam: normal color Neuro: Other: Alert and responsive Extrem: Other: Warm, well perfused no edema Psych: Other: Sedated Objective Data Vital Signs Vital Signs: Vital Signs - 24 hr 10/11/23 09:58 10/11/23 09:30 10/11/23 09:30 Temperature Pulse Rate 103 H 102 H 102 H Respiratory Rate 16 16 Blood Pressure Pulse Oximetry Oxygen Delivery Oxygen Flow Rate Fraction of Inspired Oxygen 10/11/23 10:00 10/11/23 10:00 10/11/23 12:00 Temperature Pulse Rate 102 H 102 H Respiratory Rate 16 Blood Pressure 101/62 Pulse Oximetry 97 98 Oxygen Delivery Nasal Cannula Oxygen Flow Rate 3 Fraction of Inspired Oxygen 10/11/23 12:06 10/11/23 12:07 10/11/23 12:00 Temperature Pulse Rate 115 H 115 H 116 H Respiratory Rate 21 H 21 H Blood Pressure Pulse Oximetry Oxygen Delivery Oxygen Flow Rate Fraction of Inspired Oxygen 10/11/23 12:00 10/11/23 13:51 10/11/23 14:08 Temperature 37.0 C Pulse Rate 119 H 107 H 107 H Respiratory Rate 27 H 24 H 25 H Blood Pressure 130/86 Pulse Oximetry 100 Oxygen Delivery Oxygen Flow Rate Fraction of Inspired Oxygen 10/11/23 14:00 10/11/23 14:00 10/11/23 16:00 Temperature Pulse Rate 110 H 110 H Respiratory Rate 30 H Blood
--- NOTE | 2023-10-12 09:49 | PCSTNOTE ---
Please refer to the Bedside Swallow Evaluation in the EMR. Please note, silent aspiration cannot be ruled out at bedside.
--- NOTE | 2023-10-12 10:48 | PCPTNOTE ---
10/13/23 1048/ Hold per nursing as patient is on a femoral line.
--- NOTE | 2023-10-12 10:48 | PCOTNOTE ---
Attempted OT evaluation, however, patient still has femoral line present. Therefore, patient is to be held at this time. Will follow.
--- NOTE | 2023-10-12 11:40 | PCSTNOTE ---
Please refer to the Modified Barium Swallow Evaluation in the EMR.
[2023-10-12] MEDS: SACUBITRIL/VALSARTAN 24-26 MG TABLET 1 TAB PO ×2 (11:51→20:10)
[2023-10-12] MEDS: METOPROLOL SUCCINATE EXT REL 25 MG TABCR PO (11:51)
[2023-10-12] MEDS: SPIRONOLACTONE 25 MG TABLET PO (11:51)
[2023-10-12] MEDS: cefTRIAXone 2 GM/NS 100 ML 2 GM/100 ML BAG IVPB (14:20)
[2023-10-12] MEDS: DICLOFENAC SODIUM 1% 100 GM GEL (*BKC) TOPICAL (14:52)
[2023-10-12 16:24] LABS: Glucose Point of Care 165 mg/dl (65-105)
--- NOTE | 2023-10-12 16:34 | WPDPN ---
Progress Note: A&P Assessment and Plan (1) Acute respiratory failure with hypoxia: Code(s): J96.01 - Acute respiratory failure with hypoxia Status: Acute (2) Acute on chronic heart failure with reduced ejection fraction (HFrEF, <= 40%) and combined systolic and diastolic dysfunction: Code(s): I50.43 - Acute on chronic combined systolic (congestive) and diastolic (congestive) heart failure Status: Acute (3) Lactic acidosis: Code(s): E87.20 - Acidosis, unspecified Status: Acute (4) Pneumonia: Code(s): J18.9 - Pneumonia, unspecified organism Status: Acute (5) Sepsis: Code(s): A41.9 - Sepsis, unspecified organism Status: Acute Plan 10/10/2023: patient with respiratory failure, no vent, patient is found to have LV thrombus on ECHO seen by train control technician and patient is being anticoagulated with heparin drip, patient is seen by bpm architect and managing ventilator. patient is present in the room discuss and answered questions. Interval history 10/11/2023: patient with respiratory failure was given a trial of weaning and patient was able to tolerate and extubated, patient is quite somnolent, patient and her son are present in the room, patient is seen bpm architect and cardiology and patient being anticoagulated with heparin drip, now that patient is off ventilator may switch to oral anticoagulation and possible discharge patient from ICU possibly tomorrow. Interval history 10/12/2023: patient with respiratory failure on 10/10 was given a trial of weaning and patient was able to tolerate and extubated, today patient is more awake, ate her lunch and smiles, patient and her son are present in the room, patient is seen bpm architect and cardiology and patient being anticoagulated with heparin drip, for left ventricle thrombosis, now that patient is off ventilator may switch to oral anticoagulation, patient with cardiomyopathy with reduce EF of 15-20% is being treated with Entresto and spironolactone, and will need cardiac cath to further evaluate, and possible discharge patient from ICU possibly tomorrow. Subjective Date/time seen: 10/12/23 16:34 Interval history: 10/10/2023: patient with respiratory failure, no vent, patient is found to have LV thrombus on ECHO seen by train control technician and patient is being anticoagulated with heparin drip, patient is seen by bpm architect and managing ventilator. patient is present in the room discuss and answered questions. Interval history 10/11/2023: patient with respiratory failure was given a trial of weaning and patient was able to tolerate and extubated, patient is quite somnolent, patient and her son are present in the room, patient is seen bpm architect and cardiology and patient being anticoagulated with heparin drip, now that patient is off ventilator may switch to oral anticoagulation and possible discharge patient from ICU possibly tomorrow. Interval history 10/12/2023: patient with respiratory failure on 10/10 was given a trial of weaning and patient was able to tolerate and extubated, today patient is more awake, ate her lunch and smiles, patient and her son are present in the room, patient is seen bpm architect and cardiology and patient being anticoagulated with heparin drip, for left ventricle thrombosis, now that patient is off ventilator may switch to oral anticoagulation, patient with cardiomyopathy with reduce EF of 15-20% is being treated with Entresto and spironolactone, and will need cardiac cath to further evaluate, and possible discharge patient from ICU possibly tomorrow. Review of Systems Review of Systems: All systems reviewed & are unremarkable except as noted in HPI and below Exam Narrative: General: appears chroniclly ill, patient is comfortable NAD HEENT: eyes are clear nonicteric, normocephalic, atraumatic. LUNGS:breathing normal ABD: not distended. SKIN: no obvious rash
[2023-10-12 17:43] LABS: Pneumococcal Antigen Urine NOT DETECTED
[2023-10-12] MEDS: HEPARIN SOD/D5W 100 UNITS/ML 25,000 UNITS/250 ML BAG 9 UNITS IV CONT (17:47)
[2023-10-12] MEDS: ACETAMINOPHEN 325 MG TABLET 650 MG PO (21:18)
[2023-10-13] VITALS (26 sets, daily range): BP systolic 96–113; BP diastolic 46–75; PULSE 98–108; RESP 16–21; TEMP 36–36.6; O2SAT 96–98
--- NOTE | 2023-10-13 01:41 | ECG_ITS ---
Test Date: 2023-10-13 01:45:19 Measurements Intervals [place] Rate: 101 P: 66 TN: 149 QRS: -1 QRSD: 108 T: 120 QT: 331 QTc: 429 Interpretive Statements SINUS TACHYCARDIA POSSIBLE RIGHT ATRIAL ENLARGEMENT LEFT ATRIAL ENLARGEMENT ST DEVIATION AND MODERATE T-WAVE ABNORMALITY, CONSIDER LATERAL ISCHEMIA ABNORMAL ECG Compared to ECG 10/08/2023 13:18:07 NO SIGNIFICANT CHANGE Electronically Signed On 10-13-2023 07:39:21 CDT by Ncik Whitt D.O.
--- NOTE | 2023-10-13 01:55 | PC.NURSE ---
Patient c/o shortness of breath and chest heaviness. EKG obtained. EKG shown to Dr. Martin. Spoke with Dr. Martin concerning patient not being able to sleep tonight. New orders received.
[2023-10-13] MEDS: LEVALBUTEROL NEB 1.25 MG/3 ML 0.63 MG INHALATION ×4 (02:03→20:37)
[2023-10-13] MEDS: IPRATROPIUM BR 0.02% INH SOLN 0.5 MG/2.5 ML VIAL INHALATION ×4 (02:03→20:00)
[2023-10-13] MEDS: MELATONIN 5 MG TABLET PO ×2 (02:05→20:06)
--- NOTE | 2023-10-13 02:49 | PC.NURSE ---
This patient, Anita Cutler, was transferred to [facility][note 3] on 10/13/23 at 0249. Personal belongings sent with patient. Report given to Nani FALCON. Appropriate documentation sent with patient.
--- NOTE | 2023-10-13 03:12 | PC.NURSE ---
This patient, Anita Cutler, was received from ICU 3 on 10/13/23 at 0249. Patient/family oriented to unit policies and routines
[2023-10-13] MEDS: CENTRAL LINE FLUSH 10 ML IV PUSH ×3 (04:27→20:07)
[2023-10-13 04:45] LABS: Basophils Absolute Auto 0.1 K/mm3 (0.0-0.1); Basophils Percent Auto 0.5 % (0.2-1.2); Eosinophils Absolute Auto 0.3 K/mm3 (0-0.3); Hematocrit 35.4 % (37.0-47.0); Hemoglobin 10.7 g/dL (12.0-15.0); Immature Granulocyte Absolute 0.15 K/mm3 (0.00-0.031); Immature Granulocyte Percent A 1.4 % (0-0.5); Lymphocytes Percent Auto 18.7 % (18.3-44.2); Mean Corpuscular HGB Conc 30.2 g/dl (32-36); Mean Corpuscular Hemoglobin 23.9 pg (26-34); Mean Platelet Volume 9.1 fl (7.4-10.4); Monocytes Absolute Auto 1.2 K/mm3 (0.1-0.6); Monocytes Percent Auto 10.9 % (2.6-8.5); Neutrophils Percent Auto 65.5 % (45.5-73.1); Platelet Count Result 460 k/mm3 (150-375); Red Blood Count 4.48 M/mm3 (4.2-5.4); Red Cell Distribution Width 16.5 % (11.5-14.5); White Blood Count 10.7 K/mm3 (4.5-10.0)
[2023-10-13 04:58] LABS: Partial Thromboplastin Time 116.6 Seconds (22.3-36.8)
[2023-10-13 04:59] LABS: Alanine Aminotransferase 371 U/L (6-35); Albumin Level 3.7 g/dL (3.5-5.1); Alkaline Phosphatase 135 U/L (38-126); Anion Gap 7 mmol/L (4-12); Aspartate Amino Transferase 69 U/L (14-36); Blood Urea Nitrogen 24 mg/dL (7-17); Calcium 9.2 mg/dL (8.4-10.2); Carbon Dioxide 30 mmol/L (22-30); Chloride 93 mmol/L (98-107); Estimated CRCL calculation 44 ml/min; Estimated Glomerular Filt Rate > 60; Glucose 117 mg/dL (65-110); Phosphorus 3.2 mg/dL (2.5-4.5); Sodium 130 mmol/L (137-145)
--- NOTE | 2023-10-13 08:21 | PC.NURSE ---
Pt had approx 30 seconds of SVT, HR up to 202. No c/o of chest pain, pt stated she could feel her heart racing. Notified Dr. Aguirre notified. Verbal order for labs.
--- NOTE | 2023-10-13 08:35 | PCPTNOTE ---
Checked with nursing for evaluation, patient just had a run of SVT so will hold evalaution for now check on patient tomorrow or as time allows.
[2023-10-13] MEDS: DOXYCYCLINE 100 MG/NS 100 ML 100 MG/100 ML BAG IVPB ×2 (09:09→20:05)
[2023-10-13] MEDS: FUROSEMIDE INJ 40 MG/4 ML VIAL IV PUSH ×2 (09:09→16:56)
[2023-10-13] MEDS: METOPROLOL SUCCINATE EXT REL 25 MG TABCR PO (09:09)
[2023-10-13] MEDS: PANTOPRAZOLE SODIUM IV 40 MG VIAL IV PUSH ×2 (09:09→20:05)
--- NOTE | 2023-10-13 09:09 | PCOTNOTE ---
Requested authorization with nursing for evaluation, patient just had a run of SVT so will hold evaluation for now. Will continue to check on patient and assess when able.
[2023-10-13] MEDS: SPIRONOLACTONE 25 MG TABLET PO (09:10)
[2023-10-13] MEDS: SACUBITRIL/VALSARTAN 24-26 MG TABLET 1 TAB PO ×2 (09:10→20:06)
[2023-10-13] MEDS: ACETAMINOPHEN 325 MG TABLET 650 MG PO ×2 (11:43→20:05)
[2023-10-13 12:18] LABS: Partial Thromboplastin Time 79.8 Seconds (22.3-36.8)
--- NOTE | 2023-10-13 12:58 | WPDPN ---
Progress Note: A&P Assessment and Plan (1) Acute respiratory failure with hypoxia: Code(s): J96.01 - Acute respiratory failure with hypoxia Status: Acute (2) Acute on chronic heart failure with reduced ejection fraction (HFrEF, <= 40%) and combined systolic and diastolic dysfunction: Code(s): I50.43 - Acute on chronic combined systolic (congestive) and diastolic (congestive) heart failure Status: Acute (3) Lactic acidosis: Code(s): E87.20 - Acidosis, unspecified Status: Acute (4) Pneumonia: Code(s): J18.9 - Pneumonia, unspecified organism Status: Acute (5) Sepsis: Code(s): A41.9 - Sepsis, unspecified organism Status: Acute Plan 10/10/2023: patient with respiratory failure, no vent, patient is found to have LV thrombus on ECHO seen by adobe architect and patient is being anticoagulated with heparin drip, patient is seen by standard machine stitcher and managing ventilator. patient is present in the room discuss and answered questions. Interval history 10/11/2023: patient with respiratory failure was given a trial of weaning and patient was able to tolerate and extubated, patient is quite somnolent, patient and her son are present in the room, patient is seen standard machine stitcher and cardiology and patient being anticoagulated with heparin drip, now that patient is off ventilator may switch to oral anticoagulation and possible discharge patient from ICU possibly tomorrow. Interval history 10/12/2023: patient with respiratory failure on 10/10 was given a trial of weaning and patient was able to tolerate and extubated, today patient is more awake, ate her lunch and smiles, patient and her son are present in the room, patient is seen standard machine stitcher and cardiology and patient being anticoagulated with heparin drip, for left ventricle thrombosis, now that patient is off ventilator may switch to oral anticoagulation, patient with cardiomyopathy with reduce EF of 15-20% is being treated with Entresto and spironolactone, and will need cardiac cath to further evaluate, and possible discharge patient from ICU possibly tomorrow. Interval history 10/13/2023: patient with respiratory failure on 10/10 was given a trial of weaning and patient was able to tolerate and extubated, on 10/11 patient was transferred to IMU from ICU, today patient is more awake, patient is seen cardiology and patient being anticoagulated with heparin drip, for left ventricle thrombosis, now that patient is off ventilator may switch to oral anticoagulation, patient with cardiomyopathy with reduce EF of 15-20% is being treated with Entresto and spironolactone, and will need cardiac cath to further evaluate, will continue to monitor and follow. Subjective Date/time seen: 10/13/23 12:58 Interval history: 10/10/2023: patient with respiratory failure, no vent, patient is found to have LV thrombus on ECHO seen by adobe architect and patient is being anticoagulated with heparin drip, patient is seen by standard machine stitcher and managing ventilator. patient is present in the room discuss and answered questions. Interval history 10/11/2023: patient with respiratory failure was given a trial of weaning and patient was able to tolerate and extubated, patient is quite somnolent, patient and her son are present in the room, patient is seen standard machine stitcher and cardiology and patient being anticoagulated with heparin drip, now that patient is off ventilator may switch to oral anticoagulation and possible discharge patient from ICU possibly tomorrow. Interval history 10/12/2023: patient with respiratory failure on 10/10 was given a trial of weaning and patient was able to tolerate and extubated, today patient is more awake, ate her lunch and smiles, patient and her son are present in the room, patient is seen standard machine stitcher and cardiology and patient being anticoagulated with heparin drip, for left ventricle thrombosis, now that patien
--- NOTE | 2023-10-13 14:07 | PM.PNCARD ---
Progress Note: A&P Assessment and Plan (1) CHF (congestive heart failure): Code(s): I50.9 - Heart failure, unspecified Status: Acute Plan Severe left ventricular systolic dysfunction being started on standard GDMT for this which I am happy to see that so far she is tolerating well. I will not advance any of her medications today since we just started the Entresto and spironolactone yesterday. Spoke to the patient and family about the concept of performing a coronary angiogram at some point. Fazal Aguirre MD [facility] Subjective Date/time seen: Date of service: 10/13/23 14:07 Interval history: Follow-up visit in this 62-year-old patient with: Decompensated congestive heart failure with history of severe left ventricular systolic dysfunction, current echocardiogram also shows evidence of LV apical thrombus. Patient remains intubated on the ventilator in the ICU this morning hope is to attempt extubation later today. Has had a good response to diuresis 10/12/2023: Very good to see patient was extubated yesterday is comfortable on nasal cannula oxygen. Voice is very hoarse because of intubation presumably. She reports no significant complaints at this time. Currently undergoing swallowing study. Long discussion with the patient and her son who was in the room regarding diagnosis of systolic left ventricular dysfunction and the need to treat this medically and the need to discuss catheterization to complete the evaluation. Also reminded them that this is not a new diagnosis she was found to have poor left ventricular function back in 2019 as mentioned in the initial consultation note. Apparently follow-up with this was failed 10/13/2023: Patient is in IMU, transferred out of ICU, visiting with family members reports that her breathing is getting more comfortable day by day. Only complaint is that she is sleeping poorly but that is not because of shortness of breath. Just not comfortable in the bed. Exam Const: Other: Chronically ill-appearing frail woman appearing older than her stated age with very soft voice comfortable cooperative HENMT: Mouth: Yes moist mucous membranes Other: OETT in place Eyes: Sclera: sclerae normal Neck: Neck: supple Resp: Auscultation: clear to auscultation bilaterally Other: Auscultation of breath sounds is relatively clear this morning Cardio: Rate: regular rate and tachycardic Rhythm: regular rhythm Heart sounds: no murmurs Other: Bilateral lower extremity edema GI: Auscultation: normal bowel sounds Skin: General skin exam: normal color Neuro: Other: Alert and responsive Extrem: Other: Warm, well perfused no edema Psych: Other: Sedated Objective Data Vital Signs Vital Signs: Vital Signs - 24 hr 10/12/23 16:00 10/12/23 16:00 10/12/23 16:00 Temperature 36.6 C Pulse Rate 105 H 105 H Respiratory Rate 20 Blood Pressure 90/59 L Pulse Oximetry 96 98 Oxygen Delivery Room Air 10/12/23 18:00 10/12/23 18:00 10/12/23 20:00 Temperature 36.6 C Pulse Rate 106 H 106 H 106 H Respiratory Rate 19 25 H Blood Pressure 108/77 98/73 L Pulse Oximetry 95 97 Oxygen Delivery 10/12/23 20:00 10/12/23 20:00 10/12/23 20:29 Temperature Pulse Rate 106 H 106 H Respiratory Rate 18 Blood Pressure Pulse Oximetry Oxygen Delivery Room Air 10/12/23 20:39 10/12/23 22:00 10/13/23 02:03 Temperature Pulse Rate 106 H 107 H 99 Respiratory Rate 18 20 Blood Pressure Pulse Oximetry Oxygen Delivery 10/13/23 02:10 10/13/23 00:00 10/13/23 00:00 Temperature Pulse Rate 98 103 H Respiratory Rate 16 Blood Pressure Pulse Oximetry Oxygen Delivery Room Air 10/13/23 00:00 10/13/23 02:00 10/13/23 03:17 Temperature 36.5 C Pulse Rate 103 H 105 H Respiratory Rate 21 H Blood Pressure 99/75 L Pulse Oximetry 97 Oxygen Delivery Room Air 10/13/23 03
[2023-10-13] MEDS: cefTRIAXone 2 GM/NS 100 ML 2 GM/100 ML BAG IVPB (14:24)
[2023-10-13 19:17] LABS: Partial Thromboplastin Time 28.4 Seconds (22.3-36.8)
[2023-10-13] MEDS: DICLOFENAC SODIUM 1% 100 GM GEL (*BKC) TOPICAL (20:08)
[2023-10-13] MEDS: ONDANSETRON INJ 4 MG/2 ML VIAL IV PUSH (21:53)
[2023-10-14] VITALS (21 sets, daily range): BP systolic 93–122; BP diastolic 52–73; PULSE 94–112; RESP 16–20; TEMP 35.9–36.8; O2SAT 94–100
[2023-10-14] MEDS: IPRATROPIUM BR 0.02% INH SOLN 0.5 MG/2.5 ML VIAL INHALATION ×3 (02:03→20:47)
[2023-10-14] MEDS: LEVALBUTEROL NEB 1.25 MG/3 ML 0.63 MG INHALATION ×3 (02:03→20:47)
[2023-10-14] MEDS: METOCLOPRAMIDE HCL INJ 10 MG/2 ML VIAL IV PUSH (02:27)
[2023-10-14] MEDS: diphenhydrAMINE HCl INJ 50 MG/ML VIAL 25 MG IV PUSH (02:27)
[2023-10-14 03:57] LABS: Basophils Absolute Auto 0.1 K/mm3 (0.0-0.1); Basophils Percent Auto 0.5 % (0.2-1.2); Eosinophils Absolute Auto 0.3 K/mm3 (0-0.3); Eosinophils Percent Auto 2.4 % (0-4.4); Hematocrit 32.8 % (37.0-47.0); Immature Granulocyte Absolute 0.13 K/mm3 (0.00-0.031); Immature Granulocyte Percent A 1.2 % (0-0.5); Lymphocytes Absolute Auto 1.55 K/mm3 (0.9-3.2); Lymphocytes Percent Auto 14.2 % (18.3-44.2); Mean Corpuscular HGB Conc 30.5 g/dl (32-36); Mean Corpuscular Volume 78.7 fl (80-100); Mean Platelet Volume 8.7 fl (7.4-10.4); Monocytes Absolute Auto 1.3 K/mm3 (0.1-0.6); Monocytes Percent Auto 11.9 % (2.6-8.5); Neutrophils Absolute Auto 7.6 K/mm3 (1.3-6.7); Neutrophils Percent Auto 69.8 % (45.5-73.1); Platelet Count Result 474 k/mm3 (150-375); Red Blood Count 4.17 M/mm3 (4.2-5.4); Red Cell Distribution Width 16.5 % (11.5-14.5); White Blood Count 10.9 K/mm3 (4.5-10.0)
[2023-10-14 04:08] LABS: Alanine Aminotransferase 270 U/L (6-35); Albumin Level 3.6 g/dL (3.5-5.1); Alkaline Phosphatase 117 U/L (38-126); Anion Gap 9 mmol/L (4-12); Aspartate Amino Transferase 48 U/L (14-36); Bilirubin,Total 0.8 mg/dL (0.2-1.3); Blood Urea Nitrogen 27 mg/dL (7-17); Calcium 9.4 mg/dL (8.4-10.2); Carbon Dioxide 29 mmol/L (22-30); Chloride 91 mmol/L (98-107); Estimated CRCL calculation 34 ml/min; Estimated Glomerular Filt Rate 45; Glucose 114 mg/dL (65-110); Magnesium 1.8 mg/dL (1.6-2.3); Phosphorus 3.5 mg/dL (2.5-4.5); Sodium 129 mmol/L (137-145)
[2023-10-14] MEDS: CENTRAL LINE FLUSH 10 ML IV PUSH ×2 (06:22→21:52)
[2023-10-14] MEDS: METOPROLOL SUCCINATE EXT REL 25 MG TABCR PO (08:55)
[2023-10-14] MEDS: SPIRONOLACTONE 25 MG TABLET PO (08:55)
[2023-10-14] MEDS: SACUBITRIL/VALSARTAN 24-26 MG TABLET 1 TAB PO ×2 (08:55→21:46)
[2023-10-14] MEDS: PANTOPRAZOLE SODIUM IV 40 MG VIAL IV PUSH ×2 (08:55→21:46)
[2023-10-14] MEDS: FUROSEMIDE INJ 40 MG/4 ML VIAL IV PUSH (08:55)
--- NOTE | 2023-10-14 09:44 | PCPTNOTE ---
Pt not safe to participate in skilled therapy due to femoral line present. Will follow.
--- NOTE | 2023-10-14 10:02 | PCOTNOTE ---
Attempted to see pt for OT evaluation. Pt still with a femoral line and movement contraindicated at this time. RN checking to see if line can be removed. Will continue to follow.
--- NOTE | 2023-10-14 11:07 | PC.NURSE ---
verbal order from Dr. Porras to pull the femoral central line
--- NOTE | 2023-10-14 11:28 | PM.PNCARD ---
Progress Note: A&P Assessment and Plan (1) CHF (congestive heart failure): Code(s): I50.9 - Heart failure, unspecified Status: Acute (2) Systolic congestive heart failure: Code(s): I50.20 - Unspecified systolic (congestive) heart failure Status: Acute Assessment and Plan: Continue Entresto, metoprolol, spironolactone. Eventually add Jardiance or Farxiga in a stepwise fashion. Will reduce her furosemide down to 40 mg IV daily. Plan for coronary angiogram (3) Elevated troponin I level: Code(s): R79.89 - Other specified abnormal findings of blood chemistry Status: Acute Assessment and Plan: On likely from plaque rupture (4) Electrolyte imbalance: Code(s): E87.8 - Other disorders of electrolyte and fluid balance, not elsewhere classified Status: Acute Assessment and Plan: BUN and creatinine slightly elevated. Will reduce furosemide. She is also hyponatremic which may be related to CHF or diuretics (5) Cardiomyopathy: Code(s): I42.9 - Cardiomyopathy, unspecified Status: Acute Assessment and Plan: Uncertain etiology to this point. Will need to definitively rule out ischemia via catheterization. In the meantime, titrate meds Subjective Date/time seen: 10/14/23 11:28 Interval history: Follow-up visit in this 62-year-old patient with: Decompensated congestive heart failure with history of severe left ventricular systolic dysfunction, current echocardiogram also shows evidence of LV apical thrombus. Patient remains intubated on the ventilator in the ICU this morning hope is to attempt extubation later today. Has had a good response to diuresis 10/12/2023: Very good to see patient was extubated yesterday is comfortable on nasal cannula oxygen. Voice is very hoarse because of intubation presumably. She reports no significant complaints at this time. Currently undergoing swallowing study. Long discussion with the patient and her son who was in the room regarding diagnosis of systolic left ventricular dysfunction and the need to treat this medically and the need to discuss catheterization to complete the evaluation. Also reminded them that this is not a new diagnosis she was found to have poor left ventricular function back in 2019 as mentioned in the initial consultation note. Apparently follow-up with this was failed 10/13/2023: Patient is in IMU, transferred out of ICU, visiting with family members reports that her breathing is getting more comfortable day by day. Only complaint is that she is sleeping poorly but that is not because of shortness of breath. Just not comfortable in the bed. Date of service 10/14/2023: Has some abdominal discomfort but no chest pain, shortness of breath Review of Systems Review of Systems: All systems reviewed & are unremarkable except as noted in HPI and below Constitutional: Constitutional: Denies body ache(s) Eyes: Eyes: Denies blurry vision ENT: Denies Normal hearing present Cardiovascular: Cardiovascular: Denies chest pain Respiratory: Respiratory: Denies chest congestion Gastrointestinal: Gastrointestinal: Reports abdominal pain Musculoskeletal: Musculoskeletal: Denies myalgias Exam Const: Other: Chronically ill-appearing frail woman appearing older than her stated age with very soft voice comfortable cooperative HENMT: Mouth: Yes moist mucous membranes Eyes: Sclera: sclerae normal Neck: Neck: supple Resp: Auscultation: clear to auscultation bilaterally Cardio: Rate: regular rate Rhythm: regular rhythm Heart sounds: no murmurs GI: Auscultation: normal bowel sounds Skin: General skin exam: normal color Neuro: Speech: normal speech Other: Alert and responsive Extrem: General: normal to inspection Other: Warm, well perfused no edema Psych: Mental Status: mental status grossly normal Other: Sedated Objective Data Vital Signs Vital Sig
--- NOTE | 2023-10-14 11:30 | PCNFU ---
Addendum entered by Rani Ruiz, RD, LDN 10/14/23 11:36: Nutrition Follow-Up Complete: Suboptimal nutrition as related to mechanical ventilation as evidenced by NPO/tube feedings. - Resolved Goal: Meet estimated nutritional needs. - Goal is being met PO, Continue with same goal Pt current nutrition is Heart healthy diet, soft & bite sized level 6; moderately thickened liquids. Nutrition recommendation: Oral nutrition supplement: Glucerna BID for additional 220 kcal and 10 g protein each Last recorded weight is 53.5 kg. Bowel Motility: No BMs are charted Labs Reviewed: Hgb 10, Hct 32.8, Na 129, BUN 27, Cre 1.2, Glu 114 Meds Noted: Entresto, Heparin, Rocephin, protonix Skin: WNL Additional Notes: Extubated 7/6, Soft bite sized diet and moderately thickened liquids per speech. Intakes are fair to good, 50-80%. Glucerna BID for additional nutrition. Continue current diet orders. Agree with orders Will monitor weight, labs, skin, oral intake, meds every 5 days Original Note: Nutrition Follow-Up Complete: Suboptimal nutrition as related to mechanical ventilation as evidenced by NPO/tube feedings. - Resolved Goal: Meet estimated nutritional needs. - Goal is being met PO, Continue with same goal Pt current nutrition is Heart healthy diet, soft & bite sized level 6; moderately thickened liquids. Nutrition recommendation: Oral nutrition supplement: Ensure Compact BID for additional 220 kcal and 9 g protein each Last recorded weight is 53.5 kg. Bowel Motility: No BMs are charted Labs Reviewed: Hgb 10, Hct 32.8, Na 129, BUN 27, Cre 1.2, Glu 114 Meds Noted: Entresto, Heparin, Rocephin, protonix Skin: WNL Additional Notes: Extubated 7/6, Soft bite sized diet and moderately thickened liquids per speech. Intakes are fair to good, 50-80%. Adding Ensure Compact for additional nutrition. Continue current diet orders. Agree with orders Will monitor weight, labs, skin, oral intake, meds every 5 days
[2023-10-14] MEDS: HEPARIN SODIUM 5,000 UNITS/ML VIAL 4500 UNITS IV PUSH (11:40)
[2023-10-14] MEDS: HEPARIN SOD/D5W 100 UNITS/ML 25,000 UNITS/250 ML BAG 10 UNITS IV CONT (11:41)
[2023-10-14 12:16] LABS: Basophils Absolute Auto 0.1 K/mm3 (0.0-0.1); Basophils Percent Auto 0.6 % (0.2-1.2); Eosinophils Absolute Auto 0.2 K/mm3 (0-0.3); Eosinophils Percent Auto 1.6 % (0-4.4); Hematocrit 36.3 % (37.0-47.0); Hemoglobin 10.9 g/dL (12.0-15.0); Immature Granulocyte Absolute 0.12 K/mm3 (0.00-0.031); Immature Granulocyte Percent A 1.3 % (0-0.5); Lymphocytes Absolute Auto 1.09 K/mm3 (0.9-3.2); Lymphocytes Percent Auto 11.5 % (18.3-44.2); Mean Corpuscular Hemoglobin 23.9 pg (26-34); Mean Corpuscular Volume 79.6 fl (80-100); Mean Platelet Volume 8.8 fl (7.4-10.4); Monocytes Percent Auto 10.7 % (2.6-8.5); Neutrophils Absolute Auto 7.1 K/mm3 (1.3-6.7); Neutrophils Percent Auto 74.3 % (45.5-73.1); Platelet Count Result 514 k/mm3 (150-375); Red Blood Count 4.56 M/mm3 (4.2-5.4); Red Cell Distribution Width 16.6 % (11.5-14.5); White Blood Count 9.5 K/mm3 (4.5-10.0)
[2023-10-14 12:22] LABS: Prothrombin Time 13.8 Seconds (11.1-14.7)
[2023-10-14 12:23] LABS: Partial Thromboplastin Time 28.7 Seconds (22.3-36.8)
[2023-10-14 13:25] LABS: Lipase 274 U/L (23-300)
--- NOTE | 2023-10-14 15:39 | PCRCNOTE ---
Window of time for administration has passed. See next scheduled administration.
--- NOTE | 2023-10-14 16:26 | WPDGICN ---
Assessment and Plan Assessment and plan (1) Elevated liver enzymes: Code(s): R74.8 - Abnormal levels of other serum enzymes Status: Acute Assessment and Plan: on admission with severe lactic acidosis, CHF exacerbation and respiratory failure this has been trending down now CT scan noted possible sludge vs stone bile duct. She needs to get MRCP before making any decision about ERCP- she is high risk given cardiomyopathy, recent intubation and LV thrombus- on heparin gtt- will be risky to attempt ercp with sphincterotomy if using blood thinners (2) Acidosis, lactic: Code(s): E87.20 - Acidosis, unspecified Status: Acute Assessment and Plan: resolved (3) Respiratory failure: Code(s): J96.90 - Respiratory failure, unspecified, unspecified whether with hypoxia or hypercapnia Status: Acute Assessment and Plan: improved, extubated (4) Acute on chronic heart failure with reduced ejection fraction (HFrEF, <= 40%) and combined systolic and diastolic dysfunction: Code(s): I50.43 - Acute on chronic combined systolic (congestive) and diastolic (congestive) heart failure Status: Acute Assessment and Plan: by cardiology (5) LV (left ventricular) mural thrombus: Code(s): I51.3 - Intracardiac thrombosis, not elsewhere classified Status: Acute Assessment and Plan: on blood thinner (6) Cardiomyopathy: Code(s): I42.9 - Cardiomyopathy, unspecified Status: Acute GI Consult Note Consult date/time: 10/14/23 16:26 Reason for consult: elevated liver enzymes, possible bile duct stone HPI: Anita Cutler is a 62 year old female with significant past medical history of ARDS in 2019 secondary to COVID-19, COPD, collagenous colitis, gastric ulcer about 4 years ago with pancreatitis, history of tobacco abuse quit in 2019, history of alcohol abuse quit in 2019, systolic heart failure. She was admitted initially on 10/08/2023 with complains of shortness of breath and weakness, she had progressive SOB for 2 weeks and finally came to ER. She was on respiratory failure, also had acute on chronic systolic failure, ECHO found LV thrombus, she was intubated and admitted to ICU, on admission had elevated lactic acid 14 with transaminases 1000's. She is seeing by cardiology, extubated and on iv heparin, breathing much better and moved to IMU. Liver enzymes trending down now 60-300's, normal bili. Had CT scan a/p that showed Borderline dilation of the common bile duct and main pancreatic duct with subtle increased intraluminal density at the distal common bile duct which suggests possibility of partially obstructing gallstones or sludge. Review of Systems Constitutional: Constitutional: Reports fatigue and Reports lethargy Eyes: Eyes: Denies blurry vision ENT: Reports Normal hearing present Cardiovascular: Comments: chf exacerbation Respiratory: Respiratory: Reports dyspnea on exertion Gastrointestinal: Gastrointestinal: Reports abdominal pain (chronic pain) and Reports nausea Genitourinary: Comments: [place] in place Musculoskeletal: Musculoskeletal: Denies neck pain Integumentary/Breasts: Skin/Breast: Denies rash Neurologic: Denies Abnormal speech present Psychiatric: Psychiatric: Denies behavioral changes [facility] Past Medical History Medical History (Updated 10/14/23 @ 11:34 by Jamil Noonan MD) Adult respiratory distress syndrome (03/2019) Cardiomyopathy Chronic obstructive pulmonary disease Collagenous colitis Diarrhea Gastric ulcer Gastritis Gastroesophageal reflux disease History of alcohol abuse Quit drinking in March 2019. History of tobacco abuse Quit smoking in March 2019. Systolic congestive heart failure Surgical History Surgical History History of bilateral cataract extraction History of section History of D&C History of tonsillectomy
--- NOTE | 2023-10-14 17:05 | PC.NURSE ---
patient complaining of abdominal pain, notified Dr. Porras, verbal order for Morphine 2mg Q4H PRN.
[2023-10-14] MEDS: MORPHINE SULFATE (*CRX) 2 MG/ML INJ IV PUSH ×2 (17:49→21:51)
--- NOTE | 2023-10-14 17:50 | WPDPN ---
Progress Note: A&P Assessment and Plan (1) Acute respiratory failure with hypoxia: Code(s): J96.01 - Acute respiratory failure with hypoxia Status: Acute (2) Acute on chronic heart failure with reduced ejection fraction (HFrEF, <= 40%) and combined systolic and diastolic dysfunction: Code(s): I50.43 - Acute on chronic combined systolic (congestive) and diastolic (congestive) heart failure Status: Acute (3) Lactic acidosis: Code(s): E87.20 - Acidosis, unspecified Status: Acute (4) Pneumonia: Code(s): J18.9 - Pneumonia, unspecified organism Status: Acute (5) Sepsis: Code(s): A41.9 - Sepsis, unspecified organism Status: Acute Plan 10/10/2023: patient with respiratory failure, no vent, patient is found to have LV thrombus on ECHO seen by ob nurse and patient is being anticoagulated with heparin drip, patient is seen by director of community life and managing ventilator. patient is present in the room discuss and answered questions. Interval history 10/11/2023: patient with respiratory failure was given a trial of weaning and patient was able to tolerate and extubated, patient is quite somnolent, patient and her son are present in the room, patient is seen director of community life and cardiology and patient being anticoagulated with heparin drip, now that patient is off ventilator may switch to oral anticoagulation and possible discharge patient from ICU possibly tomorrow. Interval history 10/12/2023: patient with respiratory failure on 10/10 was given a trial of weaning and patient was able to tolerate and extubated, today patient is more awake, ate her lunch and smiles, patient and her son are present in the room, patient is seen director of community life and cardiology and patient being anticoagulated with heparin drip, for left ventricle thrombosis, now that patient is off ventilator may switch to oral anticoagulation, patient with cardiomyopathy with reduce EF of 15-20% is being treated with Entresto and spironolactone, and will need cardiac cath to further evaluate, and possible discharge patient from ICU possibly tomorrow. Interval history 10/13/2023: patient with respiratory failure on 10/10 was given a trial of weaning and patient was able to tolerate and extubated, on 10/11 patient was transferred to IMU from ICU, today patient is more awake, patient is seen cardiology and patient being anticoagulated with heparin drip, for left ventricle thrombosis, now that patient is off ventilator may switch to oral anticoagulation, patient with cardiomyopathy with reduce EF of 15-20% is being treated with Entresto and spironolactone, and will need cardiac cath to further evaluate, will continue to monitor and follow. Interval history 10/14/2023: patient with respiratory failure on 10/10 was given a trial of weaning and patient was able to tolerate and extubated, on 10/11 patient was transferred to IMU from ICU, today patient is more awake, patient is seen cardiology and patient being anticoagulated with heparin drip, for left ventricle thrombosis, now that patient is off ventilator may switch to oral anticoagulation, patient with cardiomyopathy with reduce EF of 15-20% is being treated with Entresto and spironolactone, and will need cardiac cath to further evaluate, today patient continue to have epigastric pain to further evaluate Ct scan of the abdomen was ordered which showed Borderline dilation of the common bile duct and main pancreatic duct with subtle increased intraluminal density at the distal common bile duct which suggests possibility of partially obstructing gallstones or sludge. Correlate with liver function tests, lipase levels and could consider MRCP for more definitive determination. to further evaluate will order MRCP and consult GI for their opinion. will monitor. Subjective Date/time seen: 10/14/23 17:50 Interval history: 10/10/2023: patient with respiratory failure, no vent, patient
[2023-10-14 18:34] LABS: Partial Thromboplastin Time 170.2 Seconds (22.3-36.8)
[2023-10-14] MEDS: MIRTAZAPINE 7.5 MG TABLET PO (21:46)
[2023-10-15] VITALS (23 sets, daily range): BP systolic 89–126; BP diastolic 57–92; PULSE 95–119; RESP 16–20; TEMP 36.5–37.1; O2SAT 91–100
[2023-10-15] MEDS: IPRATROPIUM BR 0.02% INH SOLN 0.5 MG/2.5 ML VIAL INHALATION ×4 (01:41→19:58)
[2023-10-15] MEDS: LEVALBUTEROL NEB 1.25 MG/3 ML 0.63 MG INHALATION ×4 (01:41→19:59)
[2023-10-15 02:00] LABS: Partial Thromboplastin Time 112.6 Seconds (22.3-36.8)
[2023-10-15] MEDS: MORPHINE SULFATE (*CRX) 2 MG/ML INJ IV PUSH ×4 (03:08→20:34)
[2023-10-15 03:18] LABS: Legionella pneumophila Ag Ur NOT DETECTED
[2023-10-15 03:18] LABS: Legionella pneumophila Ag Ur NOT DETECTED
[2023-10-15 04:13] LABS: Basophils Absolute Auto 0.1 K/mm3 (0.0-0.1); Basophils Percent Auto 0.8 % (0.2-1.2); Eosinophils Absolute Auto 0.3 K/mm3 (0-0.3); Hematocrit 34.9 % (37.0-47.0); Hemoglobin 10.2 g/dL (12.0-15.0); Immature Granulocyte Percent A 1.1 % (0-0.5); Lymphocytes Absolute Auto 2.26 K/mm3 (0.9-3.2); Lymphocytes Percent Auto 25.8 % (18.3-44.2); Mean Corpuscular HGB Conc 29.2 g/dl (32-36); Mean Corpuscular Hemoglobin 23.7 pg (26-34); Mean Corpuscular Volume 81.2 fl (80-100); Mean Platelet Volume 8.7 fl (7.4-10.4); Monocytes Absolute Auto 1.3 K/mm3 (0.1-0.6); Monocytes Percent Auto 14.4 % (2.6-8.5); Neutrophils Absolute Auto 4.8 K/mm3 (1.3-6.7); Neutrophils Percent Auto 54.9 % (45.5-73.1); Platelet Count Result 473 k/mm3 (150-375); Red Cell Distribution Width 16.9 % (11.5-14.5); White Blood Count 8.8 K/mm3 (4.5-10.0)
[2023-10-15 04:29] LABS: Albumin Level 3.7 g/dL (3.5-5.1); Anion Gap 9 mmol/L (4-12); Blood Urea Nitrogen 24 mg/dL (7-17); Carbon Dioxide 28 mmol/L (22-30); Chloride 96 mmol/L (98-107); Estimated CRCL calculation 47 ml/min; Estimated Glomerular Filt Rate > 60; Glucose 96 mg/dL (65-110); Magnesium 2.1 mg/dL (1.6-2.3); Potassium 3.9 mmol/L (3.4-5.0); Sodium 133 mmol/L (137-145)
[2023-10-15 04:52] LABS: Anisocytosis 2+; Burr Cells 2+; Ovalocytes 1+; Platelet Estimate Increased (Adequate)
[2023-10-15 04:53] LABS: Schistocytes Rare
[2023-10-15] MEDS: CENTRAL LINE FLUSH 10 ML IV PUSH (06:34)
[2023-10-15 07:43] LABS: Alanine Aminotransferase 207 U/L (6-35); Albumin Level 3.7 g/dL (3.5-5.1); Alkaline Phosphatase 107 U/L (38-126); Aspartate Amino Transferase 55 U/L (14-36); Lipase 160 U/L (23-300)
[2023-10-15] MEDS: FUROSEMIDE INJ 40 MG/4 ML VIAL IV PUSH (08:21)
[2023-10-15] MEDS: METOPROLOL SUCCINATE EXT REL 25 MG TABCR PO (08:21)
[2023-10-15] MEDS: SACUBITRIL/VALSARTAN 24-26 MG TABLET 1 TAB PO ×2 (08:21→20:34)
[2023-10-15] MEDS: SPIRONOLACTONE 25 MG TABLET PO (08:21)
[2023-10-15] MEDS: PANTOPRAZOLE SODIUM IV 40 MG VIAL IV PUSH (08:21)
[2023-10-15 09:32] LABS: Partial Thromboplastin Time 82.1 Seconds (22.3-36.8)
--- NOTE | 2023-10-15 11:59 | PC.NURSE ---
Dr. Porras at bedside, verbal orders to hold PT/OT for now, but okayed patient may be up to chair, change IVP Protonix to PO and patient may resume diet.
--- NOTE | 2023-10-15 12:07 | PCOTNOTE ---
Per RN, Patient not to be seen for therapy services this date per MD. RN states she is waiting on clarification on Patient's orders before able to be seen. OT will check back tomorrow for an update.
--- NOTE | 2023-10-15 12:22 | PCPTNOTE ---
On 10/15/23, the student, [Isabella Tavera], provided care and completed [facility] documentation on this patient. I have reviewed the student's documentation and agree with the findings.
--- NOTE | 2023-10-15 13:56 | PC.NURSE ---
Spoke with Dr. Egan concerning PT/OT for patient. Dr. Egan gave verbal consent to resume PT/OT and NPO after midnight orders for possible cardiac cath tomorrow.
--- NOTE | 2023-10-15 14:28 | WPDPN ---
Progress Note: A&P Assessment and Plan (1) Acute respiratory failure with hypoxia: Code(s): J96.01 - Acute respiratory failure with hypoxia Status: Acute (2) Acute on chronic heart failure with reduced ejection fraction (HFrEF, <= 40%) and combined systolic and diastolic dysfunction: Code(s): I50.43 - Acute on chronic combined systolic (congestive) and diastolic (congestive) heart failure Status: Acute (3) Lactic acidosis: Code(s): E87.20 - Acidosis, unspecified Status: Acute (4) Pneumonia: Code(s): J18.9 - Pneumonia, unspecified organism Status: Acute (5) Sepsis: Code(s): A41.9 - Sepsis, unspecified organism Status: Acute Plan 10/10/2023: patient with respiratory failure, no vent, patient is found to have LV thrombus on ECHO seen by drafter structural and patient is being anticoagulated with heparin drip, patient is seen by sole stapler welt and managing ventilator. patient is present in the room discuss and answered questions. Interval history 10/11/2023: patient with respiratory failure was given a trial of weaning and patient was able to tolerate and extubated, patient is quite somnolent, patient and her son are present in the room, patient is seen sole stapler welt and cardiology and patient being anticoagulated with heparin drip, now that patient is off ventilator may switch to oral anticoagulation and possible discharge patient from ICU possibly tomorrow. Interval history 10/12/2023: patient with respiratory failure on 10/10 was given a trial of weaning and patient was able to tolerate and extubated, today patient is more awake, ate her lunch and smiles, patient and her son are present in the room, patient is seen sole stapler welt and cardiology and patient being anticoagulated with heparin drip, for left ventricle thrombosis, now that patient is off ventilator may switch to oral anticoagulation, patient with cardiomyopathy with reduce EF of 15-20% is being treated with Entresto and spironolactone, and will need cardiac cath to further evaluate, and possible discharge patient from ICU possibly tomorrow. Interval history 10/13/2023: patient with respiratory failure on 10/10 was given a trial of weaning and patient was able to tolerate and extubated, on 10/11 patient was transferred to IMU from ICU, today patient is more awake, patient is seen cardiology and patient being anticoagulated with heparin drip, for left ventricle thrombosis, now that patient is off ventilator may switch to oral anticoagulation, patient with cardiomyopathy with reduce EF of 15-20% is being treated with Entresto and spironolactone, and will need cardiac cath to further evaluate, will continue to monitor and follow. Interval history 10/14/2023: patient with respiratory failure on 10/10 was given a trial of weaning and patient was able to tolerate and extubated, on 10/11 patient was transferred to IMU from ICU, today patient is more awake, patient is seen cardiology and patient being anticoagulated with heparin drip, for left ventricle thrombosis, now that patient is off ventilator may switch to oral anticoagulation, patient with cardiomyopathy with reduce EF of 15-20% is being treated with Entresto and spironolactone, and will need cardiac cath to further evaluate, today patient continue to have epigastric pain to further evaluate Ct scan of the abdomen was ordered which showed Borderline dilation of the common bile duct and main pancreatic duct with subtle increased intraluminal density at the distal common bile duct which suggests possibility of partially obstructing gallstones or sludge. Correlate with liver function tests, lipase levels and could consider MRCP for more definitive determination. to further evaluate will order MRCP and consult GI for their opinion. will monitor. Interval history 10/15/2023: patient with respiratory failure on 10/10 was given a trial of weaning and patient was able to tolerate
--- NOTE | 2023-10-15 15:27 | PCSTNOTE ---
The patient treatment was not able to be completed on 10/14 due to patient refusal, states she is exhausted and has not gotten any rest all day. Requested therapist return tomorrow. Will plan to continue treatment per plan of care.
--- NOTE | 2023-10-15 15:41 | PC.NURSE ---
pt crying because she is so exhausted, pt has not slept in several days.
--- NOTE | 2023-10-15 16:51 | WPDGIPROGNO ---
Progress Note: A&P Assessment and Plan (1) Biliary sludge: Code(s): K83.8 - Other specified diseases of biliary tract Status: Acute Assessment and Plan: mrcp reviewed and no choledocholithiasis, only small amount of sludge in duct. No need of ERCP plus she is high risk since had recent episode of respiratory failure with cardiomyopathy and use of heparin gtt after LV thrombus ok to advance diet liver enzymes on admission elevated from cardiac event and severe lactic acidosis, trending down she can follow-up in office, she claims to have many years of GI discomfort including nausea, probably we can do EGD as outpatient (2) Cardiomyopathy: Code(s): I42.9 - Cardiomyopathy, unspecified Status: Acute Assessment and Plan: by cardiology (3) Acute on chronic heart failure with reduced ejection fraction (HFrEF, <= 40%) and combined systolic and diastolic dysfunction: Code(s): I50.43 - Acute on chronic combined systolic (congestive) and diastolic (congestive) heart failure Status: Acute (4) LV (left ventricular) mural thrombus: Code(s): I51.3 - Intracardiac thrombosis, not elsewhere classified Status: Acute Assessment and Plan: on heparin (5) Transaminitis: Code(s): R74.01 - Elevation of levels of liver transaminase levels Status: Acute (6) Lactic acidosis: Code(s): E87.20 - Acidosis, unspecified Status: Acute (7) Acute respiratory failure with hypoxia: Code(s): J96.01 - Acute respiratory failure with hypoxia Status: Acute Assessment and Plan: resolved, required intubation Subjective Date/time seen: 10/15/23 16:51 Interval history: no changes, she is comfortable, abdominal pain but is chronic and unchanged- patient says that for years she had nausea Review of Systems Review of Systems: All systems reviewed & are unremarkable except as noted in HPI and below Exam Const: General: comfortable Other: Chronically ill-appearing frail woman appearing older than her stated age HENMT: Mouth: Yes moist mucous membranes Eyes: Sclera: sclerae normal Neck: Neck: supple Resp: Auscultation: clear to auscultation bilaterally Cardio: Rate: regular rate Rhythm: regular rhythm Heart sounds: no murmurs GI: GI Palp: Yes Soft to palpation and Yes Tenderness to palpation present (GI) (mild ttp in upper abdomen, no rebound) Auscultation: normal bowel sounds Skin: General skin exam: normal color Neuro: Speech: normal speech Other: Alert and responsive Extrem: General: normal to inspection Other: Warm, well perfused no edema Psych: Mental Status: mental status grossly normal Other: Sedated Objective Data Vital Signs Vital Signs: Vital Signs - 24 hr 10/14/23 18:00 10/14/23 20:00 10/14/23 20:49 Temperature 98.3 F Pulse Rate 106 H 101 H 102 H Respiratory Rate 18 16 Blood Pressure 122/73 Pulse Oximetry 99 Oxygen Delivery Fraction of Inspired Oxygen 10/14/23 20:56 10/14/23 20:00 10/14/23 20:00 Temperature Pulse Rate 104 H 104 H 104 H Respiratory Rate 16 16 Blood Pressure Pulse Oximetry 99 Oxygen Delivery Room Air Fraction of Inspired Oxygen 30 10/14/23 22:00 10/15/23 00:00 10/15/23 01:43 Temperature 98.5 F Pulse Rate 100 97 98 Respiratory Rate 18 16 Blood Pressure 126/59 L Pulse Oximetry 99 Oxygen Delivery Fraction of Inspired Oxygen 10/15/23 01:57 10/15/23 00:00 10/15/23 04:00 Temperature 97.8 F Pulse Rate 100 104 H 96 Respiratory Rate 16 16 20 Blood Pressure 104/57 L Pulse Oximetry 99 98 Oxygen Delivery Room Air Fraction of Inspired Oxygen 30 10/15/23 00:00 10/15/23 02:00 10/15/23 04:00 Temperature Pulse Rate 101 H 101 H 95 Respiratory Rate Blood Pressure Pulse Oximetry Oxygen Delivery Fraction of Inspired Oxygen 10/15/23 06:00 10/15/23 07:55 10/15/23 08:06 Temperature 9
[2023-10-15 17:54] LABS: Partial Thromboplastin Time 60.2 Seconds (22.3-36.8)
[2023-10-15] MEDS: HEPARIN SODIUM 5,000 UNITS/ML VIAL 2000 UNITS IV PUSH (18:21)
[2023-10-15 19:18] LABS: Mycoplasma IgM Antibody Titer 80 U/mL
[2023-10-15] MEDS: MIRTAZAPINE 7.5 MG TABLET PO (20:34)
[2023-10-15] MEDS: MELATONIN 5 MG TABLET PO (20:34)
[2023-10-15] MEDS: HEPARIN SOD/D5W 100 UNITS/ML 25,000 UNITS/250 ML BAG 8 UNITS IV CONT (20:35)
[2023-10-16] VITALS (32 sets, daily range): BP systolic 84–124; BP diastolic 47–80; PULSE 85–117; RESP 12–26; TEMP 36.4–36.8; O2SAT 96–100
[2023-10-16 01:05] LABS: Partial Thromboplastin Time 157.1 Seconds (22.3-36.8)
[2023-10-16] MEDS: IPRATROPIUM BR 0.02% INH SOLN 0.5 MG/2.5 ML VIAL INHALATION ×4 (01:54→20:44)
[2023-10-16] MEDS: LEVALBUTEROL NEB 1.25 MG/3 ML 0.63 MG INHALATION ×4 (01:54→20:44)
[2023-10-16 05:31] LABS: Alanine Aminotransferase 161 U/L (6-35); Albumin Level 3.8 g/dL (3.5-5.1); Alkaline Phosphatase 104 U/L (38-126); Anion Gap 9 mmol/L (4-12); Aspartate Amino Transferase 41 U/L (14-36); Bilirubin,Total 1.1 mg/dL (0.2-1.3); Blood Urea Nitrogen 31 mg/dL (7-17); Calcium 9.3 mg/dL (8.4-10.2); Carbon Dioxide 30 mmol/L (22-30); Chloride 93 mmol/L (98-107); Estimated CRCL calculation 26 ml/min; Estimated Glomerular Filt Rate 33; Glucose 97 mg/dL (65-110); Lipase 157 U/L (23-300); Magnesium 2.2 mg/dL (1.6-2.3); Potassium 5.2 mmol/L (3.4-5.0); Sodium 132 mmol/L (137-145)
[2023-10-16] MEDS: MORPHINE SULFATE (*CRX) 2 MG/ML INJ IV PUSH ×3 (07:40→20:15)
[2023-10-16] MEDS: SACUBITRIL/VALSARTAN 24-26 MG TABLET 1 TAB PO ×2 (08:17→20:15)
[2023-10-16] MEDS: METOPROLOL SUCCINATE EXT REL 25 MG TABCR PO (08:17)
[2023-10-16] MEDS: SPIRONOLACTONE 25 MG TABLET PO (08:18)
[2023-10-16] MEDS: PANTOPRAZOLE 40 MG TABLET PO (08:18)
[2023-10-16] MEDS: FUROSEMIDE INJ 40 MG/4 ML VIAL IV PUSH (08:18)
[2023-10-16 08:51] LABS: Partial Thromboplastin Time 66.4 Seconds (22.3-36.8)
[2023-10-16] MEDS: HEPARIN SODIUM 5,000 UNITS/ML VIAL 2000 UNITS IV PUSH (09:19)
--- NOTE | 2023-10-16 09:42 | PM.PNCARD ---
Progress Note: A&P Assessment and Plan (1) Acute on chronic heart failure with reduced ejection fraction (HFrEF, <= 40%) and combined systolic and diastolic dysfunction: Code(s): I50.43 - Acute on chronic combined systolic (congestive) and diastolic (congestive) heart failure Status: Acute Assessment and Plan: Continue Toprol 25mg once daily. Continue Entresto 24/26 mg BID Continue Spironolactone 25mg once daily. Will stop Lasix as patient appears clinically euvolemic and given CAESAR. Cardiac catheterization today for ischemic evaluation. Further recommendations pending results of [facility]. Discussed Life Vest with the patient, she is agreeable. Order placed. (2) LV (left ventricular) mural thrombus: Code(s): I51.3 - Intracardiac thrombosis, not elsewhere classified Status: Acute Assessment and Plan: Continue Heparin drip. Will plan to transition to Eliquis after cardiac catheterization. (3) Elevated troponin: Code(s): R79.89 - Other specified abnormal findings of blood chemistry Status: Acute Assessment and Plan: Due to CHF, unlikely from plaque rupture. (4) Biliary sludge: Code(s): K83.8 - Other specified diseases of biliary tract Status: Acute Assessment and Plan: GI following. No need for ERCP right now as she is high risk. She is to follow up with them as outpatient. (5) Acute kidney injury: Code(s): N17.9 - Acute kidney failure, unspecified Status: Resolved Assessment and Plan: CAESAR likely from overdiuresis. Will stop Lasix as patient appears clinically euvolemic. Monitor renal function. Plan Recommendations and plan discussed with Hospitalist. Subjective Date/time seen: 10/16/23 09:42 Interval history: Reason for visit: CHF HPI: This is a 62 year old female with heart failure with reduced LVEF noted in 2019, COPD, history of adult respiratory distress syndrome, GERD, history of pancreatitis who presented with shortness of breath and weakness. Patient is currently intubated at the time of my evaluation, therefore, unable to obtain any history from the patient. No family at bedside to provide history. Therefore, history obtained from the patient's chart and medical team. Patient developed sinus congestion and fevers up to 101 degree F about 2.5 weeks ago. Then had nausea and vomiting for several days. Then developed cough, shortness of breath, lower extremity edema. She was afebrile on arrival with a blood pressure of 149/85 and respiratory rate of 22. SpO2 was reportedly in the 70s on arrival to triage however that is not documented. She had been tachycardic in the 120s. ABG showed a pH of 7.468, pCO2 29.9, PO2 50.6, bicarb 20.7. Labs were significant for WBC count of 18.0, hemoglobin 9.7, platelets 438, PTT 21.5, INR 1.8, PTT 28.1, sodium 132, potassium 4.2, chloride 95, carbon dioxide 15, anion gap 22, BUN 21, creatinine 0.90, glucose 35, lactic acid 14.5, magnesium 2.3, total bilirubin 2.8, AST 1123, ALT 62, alkaline phosphatase 176, proBNP 42237, procalcitonin 0.6, TSH 0.53. Lower extremity venous Doppler ultrasounds were negative for DVT. Chest x-ray showed worsening diffuse lung disease consistent with pulmonary edema versus pneumonia and cardiomegaly. CTA of the chest, abdomen, and pelvis showed diffuse lung disease consistent with pulmonary edema versus pneumonia, mild mediastinal lymphadenopathy, bilateral pyelonephritis, and mild aortic atherosclerosis. Throughout the evening the patient had increasing oxygen requirements and became anxious and agitated. She did not tolerate the BiPAP and was intubated due to impending respiratory failure. On IV Lasix due to acute on chronic CHF. Per reports, patient has not seen a field underwriter since our group saw her during her hospitalization in March 2019. Unclear if patient has seen any physicians or medical provider as an outpatient since then. Echocardiogram this admission shows: LVEF 15-20%
[2023-10-16] MEDS: ASPIRIN 81 MG CHEWABLE TABLET 324 MG PO (10:00)
--- NOTE | 2023-10-16 10:02 | PC.NURSE ---
Alert and oriented, sitting in bed with family at the bedside. Denies chest pain or shortness of breath at this time. VS stable. engine monitor remains on and functioning at this time. No acute distress noted at this time.
--- NOTE | 2023-10-16 10:44 | WPDMODSED ---
Moderate Sedation Note-Pt Data Patient Data Diagnosis: Heart failure with reduced LVEF Present Complaint: Heart failure with reduced LVEF Procedure to be performed/Plan: Coronary angiography, left heart cath, +/- PCI Allergies Allergy/AdvReac Type Severity Reaction Status Date / Time erythromycin base Allergy Unknown Verified 10/08/23 14:23 Penicillins Allergy Hives Verified 10/09/23 08:21 azithromycin AdvReac Cramping Verified 10/08/23 14:23 of the Muscles bupropion [From Wellbutrin] AdvReac Gastrointestinal Verified 10/08/23 14:23 Upset Home Medications Medication Instructions Recorded Confirmed Type Lactobacillus 1 cap PO DAILY 10/08/23 10/08/23 History acidophilus-Bifidobac.animalis 2.5 billion cell capsule (Daily Probiotic) diclofenac sodium 1 % topical gel 2 gm topical QID PRN MUSCLE PAIN 10/08/23 10/08/23 History psyllium 1 packet PO DAILY 10/08/23 10/08/23 History Current Medications: Active Medications Acetaminophen (Acetaminophen 325 Mg Tablet) 650 mg PO Q6H PRN PRN Reason: Mild Pain (1-3) or Fever Last Admin: 10/13/23 20:05 Dose: 650 mg Dextrose (Dextrose 50% 25 Gm/50 Ml Syringe) 12.5 gm IV PUSH PRN PRN; Protocol PRN Reason: Hypoglycemia Last Admin: 10/10/23 00:10 Dose: 12.5 gm Diclofenac Sodium (Diclofenac Sodium 1% 100 Gm Gel (*Bkc)) 0 applic TOPICAL QID PRN PRN Reason: MUSCLE PAIN Last Admin: 10/13/23 20:08 Dose: 1 applic Glucagon (Glucagon For Inj 1 Mg Vial) 1 mg IM PRN PRN; Protocol PRN Reason: Hypoglycemia Last Admin: 10/10/23 03:02 Dose: 1 mg Glucose (Glucose Oral Gel 15 Gm Of Glucse In 37.5 Gm Tube) 15 gm PO PRN PRN; Protocol PRN Reason: Hypoglycemia Heparin Sodium (Porcine) (Heparin Sodium 5,000 Units/Ml Vial) 4,500 units IV PUSH PRN PRN PRN Reason: aPTT less than 55 seconds Heparin Sodium (Porcine) (Heparin Sodium 5,000 Units/Ml Vial) 2,000 units IV PUSH PRN PRN PRN Reason: aPTT 55 - 70 seconds Last Admin: 10/16/23 09:19 Dose: 2,000 units Dextrose (Dextrose 5% 1,000 Ml) 1,000 mls @ 100 mls/hr IVPB PRN PRN; Protocol PRN Reason: Hypoglycemia Heparin Sodium/Dextrose (Heparin Sodium/D5w 100 Units/Ml) 25,000 units in 250 mls @ 7 mls/hr IV CONT .Q24H EFRAIN; Protocol Last Titration: 10/16/23 09:19 Dose: 700 units/hr, 7 mls/hr Ipratropium [place] (Ipratropium Br 0.02% Inh Soln 0.5 Mg/2.5 Ml Vial) 0.5 mg INHALATION Q6HRT [facility] Last Admin: 10/16/23 09:22 Dose: 0.5 mg Levalbuterol HCl (Levalbuterol Neb 1.25 Mg/3 Ml) 0.63 mg INHALATION Q6HRT [facility] Last Admin: 10/16/23 09:22 Dose: 0.63 mg Melatonin (Melatonin 5 Mg Tablet) 5 mg PO HS PRN PRN Reason: Insomnia Last Admin: 10/15/23 20:34 Dose: 5 mg Metoprolol Succinate (Metoprolol Succinate Ext Rel 25 Mg Tabcr) [address] [facility] Last Admin: 10/16/23 08:17 Dose: 25 mg Mirtazapine (Mirtazapine 7.5 Mg Tablet) 7.5 mg PO HS [facility] Last Admin: 10/15/23 20:34 Dose: 7.5 mg Morphine Sulfate (Morphine Sulfate (*Crx) 2 Mg/Ml Inj) 2 mg IV PUSH Q4H PRN PRN Reason: Pain Rated 7-10 Last Admin: 10/16/23 07:40 Dose: 2 mg Pantoprazole Sodium (Pantoprazole 40 Mg Tablet) [address] [facility] Last Admin: 10/16/23 08:18 Dose: 40 mg Sacubitril/Valsartan (Sacubitril/Valsartan 24-26 Mg Tablet) 1 tab PO Q12HR [facility] Last Admin: 10/16/23 08:17 Dose: 1 tab Spironolactone (Spironolactone 25 Mg Tablet) [facility] Last Admin: 10/16/23 08:18 Dose: 25 mg Sedation/Anesthesia: No previous sedation/anesthesia problems (including family history). [facility] Past Medical History Medical History Adult respiratory distress syndrome (03/2019) Biliary sludge Cardiomyopathy Chronic obstructive pulmonary disease Collagenous colitis Diarrhea Gastric ulcer Gastritis Gastroesophageal reflux disease History of alcohol abuse Quit drinking in March 2019. History of tobacco abuse Quit smoking in March 2019. Systolic congestive h
--- NOTE | 2023-10-16 11:16 | WPDCARDPROC ---
Cardiac Cath Procedure Note Date of procedure:: 10/16/23 Performing physician:: CATHETERIZATION LABORATORY REPORT Procedure Date: 10/16/2023 Risk Prevention Engineer: Trip Egan M.D., [facility]? Referring Physician: Trip Egan M.D. ? Anesthesia: Versed and Fentanyl were ordered and given in my presence at 10:45, procedure ended at 11:10. Supervision of nurse monitored moderate sedation with Versed and Fentanyl was provided for 25 minutes. Total of Versed 1mg and Fentanyl 25mcg were administered by the Hard[employer] Floor Sander RN Tamara Rouse. Pre-op Diagnosis: Coronary artery disease Post-op Diagnosis: Mild-moderate coronary artery disease of the major epicardial arteries. Branch vessel disease with obstructive coronary artery disease -- The second diagonal branch is a small caliber vessel with ostial disease of 70-80%. OM-1 is a small caliber branch with an 80% stenosis in its proximal portion. Procedure(s): 1. Moderate sedation. 2. Ultrasound-guided access of the right radial artery 3. Coronary angiography Access Site: Right radial artery Brief History and Clinical Indications: Patient is a 62 year old female referred for [facility] for ischemic evaluation for HFrEF. All risks, benefits and alternatives to left heart catheterization with or without percutaneous coronary intervention was discussed at length with the patient. Risk of complications including but not limited to bleeding, infection, arrhythmia, stroke, worsening kidney function, blood loss, groin hematoma, limb loss, emergency coronary artery bypass grafting, and even were discussed with the patient and all questions were answered. The patient understood and wished to proceed. Time out called, patient name, date of , medical record number, allergies, procedure performed, identify Risk Prevention Engineer, patient and staff member concurred with accurate data, procedure carried on. Findings: LEFT HEART CATHETERIZATION FINDINGS: 1. Left main: The left main coronary artery is widely patent without any significant obstructive disease. 2. Left anterior descending: Heavy calcifications seen in the proximal and mid LAD. The proximal LAD has mild 40-50% stenosis. The mid LAD has a moderate 50-60% stenosis. The distal LAD has luminal irregularities. The LAD wraps the apex. The first diagonal branch has luminal irregularities. The second diagonal branch is a small caliber vessel with ostial disease of 70-80%. 3. Left circumflex: The left circumflex is a co-dominant vessel. The left circumflex has mild diffuse disease. OM-1 is a small caliber branch with an 80% stenosis in its proximal portion. 4. Right coronary artery: The RCA is a co-dominant vessel. The mid RCA has mild 40-50% disease. The distal RCA has mild diffuse disease. No significant obstructive angiographic disease. 5. Left ventricle: The aortic valve was not crossed due to known LV thrombus. Description of Procedure: Informed consent signed and placed in the chart. Patient transferred to cleaning laborer room. Prepped and draped in usual sterile fashion. 2% lidocaine injected subcutaneously in right wrist area. 22-gauge venipuncture catheter used to access the right radial artery under ultrasound guidance. 6-FR slender sheath placed in right radial artery. Nitroglycerine and Verapamil were given intraarterial through the sheath. Versacore wire advanced under fluoroscopy 5F Tig 4 diagnostic catheter engaged Left Main Coronary Artery. 5F FR 4 diagnostic catheter engaged Right Coronary Artery Multiple orthogonal angiogram obtained and reviewed Hemostasis was achieved by application of TR band. Post Operative Condition: Stable No significant blood loss Disposition: Floor Plan: The patient will be monitored in the recovery area. Branch vessel coronary artery disease is unlikely to be the main etiology for heart failure with reduced LVEF (the heart failure is out of proportion to the degree of CAD). Given no anginal symptom
--- NOTE | 2023-10-16 11:58 | SUR.PHASEII ---
Primary nurse Delia returned call. EZEKIEL Lin stated blue fingers and bottom of left toes was a new finding from this morning, was not there during morning assessment. Informed her that it was present prior to arriving to the cathlab, but the toes was a new finding for this staff. Will notify Dr Egan.
--- NOTE | 2023-10-16 12:00 | SUR.PHASEII ---
Addendum entered by Jaqueline Krause RN 10/16/23 12:17: Time stamp needs to be changed to 9225 Original Note: Problems with obtaining pulse ox on right or left hand. R hand with blue fingertips, left hand slightly blue at the fingertips - warm blanket applied to left hand, still unsuccessful of obtaining accurate pulse ox. Pulse ox placed on one of the patient's right smaller toes, pulse ox obtained. Called primary nurse Delia to speak with her about findings, unavailable. Left message to call back.
--- NOTE | 2023-10-16 12:00 | SUR.PHASEII ---
Dr Egan here to see patient. Observed fingers and toes, states the left hand covered with the blanket is pink, believes patient might have some prior circulation issues.
[2023-10-16 12:19] LABS: Cholesterol 169 mg/dL (0-200); HDL Direct 70 mg/dL; Triglycerides 112 mg/dL (<150)
--- NOTE | 2023-10-16 12:27 | SUR.PHASEII ---
Warm blanket applied to patient's hands and feet.
[2023-10-16 12:31] LABS: LDL Cholesterol Direct 76 mg/dL
--- NOTE | 2023-10-16 12:58 | PC.NURSE ---
Patient remains off the floor at this time in the cardiac cath lab manager.
--- NOTE | 2023-10-16 14:43 | PCSTNOTE ---
The patient treatment was not able to be completed on 10/15 due to patient leaving for and at cardiac laboratory technical specialist. Will plan to continue treatment per plan of care.
--- NOTE | 2023-10-16 17:55 | WPDPN ---
Progress Note: A&P Assessment and Plan (1) Acute respiratory failure with hypoxia: Code(s): J96.01 - Acute respiratory failure with hypoxia Status: Acute (2) Acute on chronic heart failure with reduced ejection fraction (HFrEF, <= 40%) and combined systolic and diastolic dysfunction: Code(s): I50.43 - Acute on chronic combined systolic (congestive) and diastolic (congestive) heart failure Status: Acute (3) Lactic acidosis: Code(s): E87.20 - Acidosis, unspecified Status: Acute (4) Pneumonia: Code(s): J18.9 - Pneumonia, unspecified organism Status: Acute (5) Sepsis: Code(s): A41.9 - Sepsis, unspecified organism Status: Acute Plan 10/10/2023: patient with respiratory failure, no vent, patient is found to have LV thrombus on ECHO seen by bus trolley and taxi instructor and patient is being anticoagulated with heparin drip, patient is seen by music theory professor and managing ventilator. patient is present in the room discuss and answered questions. Interval history 10/11/2023: patient with respiratory failure was given a trial of weaning and patient was able to tolerate and extubated, patient is quite somnolent, patient and her son are present in the room, patient is seen music theory professor and cardiology and patient being anticoagulated with heparin drip, now that patient is off ventilator may switch to oral anticoagulation and possible discharge patient from ICU possibly tomorrow. Interval history 10/12/2023: patient with respiratory failure on 10/10 was given a trial of weaning and patient was able to tolerate and extubated, today patient is more awake, ate her lunch and smiles, patient and her son are present in the room, patient is seen music theory professor and cardiology and patient being anticoagulated with heparin drip, for left ventricle thrombosis, now that patient is off ventilator may switch to oral anticoagulation, patient with cardiomyopathy with reduce EF of 15-20% is being treated with Entresto and spironolactone, and will need cardiac cath to further evaluate, and possible discharge patient from ICU possibly tomorrow. Interval history 10/13/2023: patient with respiratory failure on 10/10 was given a trial of weaning and patient was able to tolerate and extubated, on 10/11 patient was transferred to IMU from ICU, today patient is more awake, patient is seen cardiology and patient being anticoagulated with heparin drip, for left ventricle thrombosis, now that patient is off ventilator may switch to oral anticoagulation, patient with cardiomyopathy with reduce EF of 15-20% is being treated with Entresto and spironolactone, and will need cardiac cath to further evaluate, will continue to monitor and follow. Interval history 10/14/2023: patient with respiratory failure on 10/10 was given a trial of weaning and patient was able to tolerate and extubated, on 10/11 patient was transferred to IMU from ICU, today patient is more awake, patient is seen cardiology and patient being anticoagulated with heparin drip, for left ventricle thrombosis, now that patient is off ventilator may switch to oral anticoagulation, patient with cardiomyopathy with reduce EF of 15-20% is being treated with Entresto and spironolactone, and will need cardiac cath to further evaluate, today patient continue to have epigastric pain to further evaluate Ct scan of the abdomen was ordered which showed Borderline dilation of the common bile duct and main pancreatic duct with subtle increased intraluminal density at the distal common bile duct which suggests possibility of partially obstructing gallstones or sludge. Correlate with liver function tests, lipase levels and could consider MRCP for more definitive determination. to further evaluate will order MRCP and consult GI for their opinion. will monitor. Interval history 10/15/2023: patient with respiratory failure on 10/10 was given a trial of weaning and patient was able to tolerate
[2023-10-16] MEDS: MIRTAZAPINE 7.5 MG TABLET PO (20:15)
[2023-10-17] VITALS (16 sets, daily range): BP systolic 105–128; BP diastolic 55–68; PULSE 88–108; RESP 17–20; TEMP 36.3–37; O2SAT 95–100
[2023-10-17] MEDS: MORPHINE SULFATE (*CRX) 2 MG/ML INJ IV PUSH ×2 (02:02→09:03)
[2023-10-17 02:11] LABS: Partial Thromboplastin Time 85.2 Seconds (22.3-36.8)
[2023-10-17] MEDS: LEVALBUTEROL NEB 1.25 MG/3 ML 0.63 MG INHALATION ×3 (03:35→13:10)
[2023-10-17] MEDS: IPRATROPIUM BR 0.02% INH SOLN 0.5 MG/2.5 ML VIAL INHALATION ×3 (03:37→13:10)
[2023-10-17 06:30] LABS: Alanine Aminotransferase 122 U/L (6-35); Albumin Level 3.2 g/dL (3.5-5.1); Alkaline Phosphatase 92 U/L (38-126); Anion Gap 8 mmol/L (4-12); Aspartate Amino Transferase 34 U/L (14-36); Bilirubin,Total 0.8 mg/dL (0.2-1.3); Blood Urea Nitrogen 29 mg/dL (7-17); Calcium 8.8 mg/dL (8.4-10.2); Carbon Dioxide 25 mmol/L (22-30); Chloride 94 mmol/L (98-107); Estimated CRCL calculation 30 ml/min; Estimated Glomerular Filt Rate 38; Glucose 77 mg/dL (65-110); Lipase 166 U/L (23-300); Magnesium 1.8 mg/dL (1.6-2.3); Potassium 4.5 mmol/L (3.4-5.0); Sodium 127 mmol/L (137-145)
[2023-10-17 08:37] LABS: Partial Thromboplastin Time 86.5 Seconds (22.3-36.8)
[2023-10-17] MEDS: SPIRONOLACTONE 25 MG TABLET PO (08:44)
[2023-10-17] MEDS: PANTOPRAZOLE 40 MG TABLET PO (08:44)
[2023-10-17] MEDS: SACUBITRIL/VALSARTAN 24-26 MG TABLET 1 TAB PO (08:44)
[2023-10-17] MEDS: EMPAGLIFLOZIN 10 MG TABLET PO (08:44)
[2023-10-17] MEDS: ASPIRIN 81 MG ENTERIC TABLET PO (08:44)
[2023-10-17] MEDS: METOPROLOL SUCCINATE EXT REL 25 MG TABCR PO (08:45)
[2023-10-17] MEDS: ATORVASTATIN 40 MG TABLET 80 MG PO (08:45)
--- NOTE | 2023-10-17 09:21 | PM.PNCARD ---
Progress Note: A&P Assessment and Plan (1) Acute on chronic heart failure with reduced ejection fraction (HFrEF, <= 40%) and combined systolic and diastolic dysfunction: Code(s): I50.43 - Acute on chronic combined systolic (congestive) and diastolic (congestive) heart failure Status: Acute Assessment and Plan: Continue Toprol, increase to 37.5 mg once daily - having some brief suns of NSVT. Continue Entresto 24/26 mg BID Continue Spironolactone 25mg once daily. Continue jardiance 10mg daily Cardiac catheterization yesterday did not show any obstructive CAD Discussed Life Vest with the patient, she is agreeable. Order placed. OK for discharge from a cardiac perspective when LifeVest is placed (2) LV (left ventricular) mural thrombus: Code(s): I51.3 - Intracardiac thrombosis, not elsewhere classified Status: Acute Assessment and Plan: On heparin drip, will shift to Eliquis today. (3) Elevated troponin: Code(s): R79.89 - Other specified abnormal findings of blood chemistry Status: Acute Assessment and Plan: Due to CHF (4) Biliary sludge: Code(s): K83.8 - Other specified diseases of biliary tract Status: Acute Assessment and Plan: GI following. No need for ERCP right now as she is high risk. She is to follow up with them as outpatient. (5) Acute kidney injury: Code(s): N17.9 - Acute kidney failure, unspecified Status: Resolved Assessment and Plan: CAESAR likely from overdiuresis. Lasix discontinued Monitor renal function. Subjective Date/time seen: 10/17/23 09:21 Interval history: Reason for visit: CHF HPI: This is a 62 year old female with heart failure with reduced LVEF noted in 2019, COPD, history of adult respiratory distress syndrome, GERD, history of pancreatitis who presented with shortness of breath and weakness. Patient is currently intubated at the time of my evaluation, therefore, unable to obtain any history from the patient. No family at bedside to provide history. Therefore, history obtained from the patient's chart and medical team. Patient developed sinus congestion and fevers up to 101 degree F about 2.5 weeks ago. Then had nausea and vomiting for several days. Then developed cough, shortness of breath, lower extremity edema. She was afebrile on arrival with a blood pressure of 149/85 and respiratory rate of 22. SpO2 was reportedly in the 70s on arrival to triage however that is not documented. She had been tachycardic in the 120s. ABG showed a pH of 7.468, pCO2 29.9, PO2 50.6, bicarb 20.7. Labs were significant for WBC count of 18.0, hemoglobin 9.7, platelets 438, PTT 21.5, INR 1.8, PTT 28.1, sodium 132, potassium 4.2, chloride 95, carbon dioxide 15, anion gap 22, BUN 21, creatinine 0.90, glucose 35, lactic acid 14.5, magnesium 2.3, total bilirubin 2.8, AST 1123, ALT 62, alkaline phosphatase 176, proBNP 81370, procalcitonin 0.6, TSH 0.53. Lower extremity venous Doppler ultrasounds were negative for DVT. Chest x-ray showed worsening diffuse lung disease consistent with pulmonary edema versus pneumonia and cardiomegaly. CTA of the chest, abdomen, and pelvis showed diffuse lung disease consistent with pulmonary edema versus pneumonia, mild mediastinal lymphadenopathy, bilateral pyelonephritis, and mild aortic atherosclerosis. Throughout the evening the patient had increasing oxygen requirements and became anxious and agitated. She did not tolerate the BiPAP and was intubated due to impending respiratory failure. On IV Lasix due to acute on chronic CHF. Per reports, patient has not seen a webbing weaver since our group saw her during her hospitalization in March 2019. Unclear if patient has seen any physicians or medical provider as an outpatient since then. Echocardiogram this admission shows: LVEF 15-20%, thrombus in the LV apex, grade 1 diastolic dysfunction, reduced RVSF, mild TR. Date of service 10/09: Remains intubated, however,
[2023-10-17] MEDS: METOPROLOL SUCCINATE EXT REL 12.5 MG TABCR PO (10:37)
--- NOTE | 2023-10-17 13:10 | PCOTNOTE ---
Patient out of the room at this time. Patient went down to have a swallow study performed.
--- NOTE | 2023-10-17 14:15 | PCSTNOTE ---
Please refer to the Modified Barium Swallow Evaluation in the EMR.
--- NOTE | 2023-10-17 14:47 | PM.DS ---
DS: Admitting Diagnosis Discharge Date 10/16/2013 Admitting Diagnosis Shortness of breath and weakness. DS: Discharge Diagnosis Discharge Diagnosis (1) Cardiomyopathy: Code(s): I42.9 - Cardiomyopathy, unspecified Status: Acute (2) Biliary sludge: Code(s): K83.8 - Other specified diseases of biliary tract Status: Acute (3) Acute on chronic heart failure with reduced ejection fraction (HFrEF, <= 40%) and combined systolic and diastolic dysfunction: Code(s): I50.43 - Acute on chronic combined systolic (congestive) and diastolic (congestive) heart failure Status: Acute DS: Summary Hospital Course Hospital Course: patient with respiratory failure on 10/10 was given a trial of weaning and patient was able to tolerate and extubated, on 10/11 patient was transferred to IMU from ICU, today patient is more awake, patient is seen cardiology and patient being anticoagulated with heparin drip, for left ventricle thrombosis, now that patient is off ventilator may switch to oral anticoagulation, patient with cardiomyopathy with reduce EF of 15-20% is being treated with Entresto and spironolactone, and will need cardiac cath to further evaluate, today patient continue to have epigastric pain to further evaluate Ct scan of the abdomen was ordered which showed Borderline dilation of the common bile duct and main pancreatic duct with subtle increased intraluminal density at the distal common bile duct which suggests possibility of partially obstructing gallstones or sludge. Correlate with liver function tests, lipase levels and could consider MRCP for more definitive determination to further evaluate patient had MRCP which showed no stone in CBD however there is some sludge, GI is not recommending ERCP as patient is high risk due to anticoagulation and cardiomyopathy. today patient was had cardiac cath, it showed some coronary artery disease but not significant blockage to warrant a stent, will monitor. Patient remains clinically stable patient is eating now. patient remains clinically stable was seen by her supervisor home energy consultant recommended LifeVest, which patient is currently wearing it, patient is switched to Eliquis for anticoagulation, will discharge today and patient will follow up with her supervisor home energy consultant and primary care provider as soon as possible Time Spent with Patient Time attestation: Total time spent providing and/or coordinating discharge services: Exam Narrative: General: appears chroniclly ill, patient is comfortable NAD HEENT: eyes are clear nonicteric, normocephalic, atraumatic. LUNGS:breathing normal ABD: not distended. SKIN: no obvious rash EXTREMITIES: edema NEURO:somnolent PSYCH:somnolent DS: Data Data Completed and Pending Labs on day of discharge: Labs from last 24 hours 10/17/23 10/17/23 08:12 01:50 APTT 86.5 H 85.2 H Sodium 127 L Potassium 4.5 Chloride 94 L Carbon Dioxide 25 Anion Gap 8 BUN 29 H Creatinine 1.40 H Estim Creat Clear Calc 30 Estimated GFR 38 L Glucose 77 Calcium 8.8 Magnesium 1.8 Total Bilirubin 0.8 AST 34 ALT 122 H Alkaline Phosphatase 92 Total Protein 6.0 L Albumin 3.2 L Lipase 166 Discharge Plan Discharge Consulting providers: Amy Perla; Mohamud Sher; Trip Egan; Fazal Aguirre; Jamil Noonan; Edgar Heard; Jayshree Lazo; Beatrice Florez; Camilo Holliday; Nick Whitt; Hanane Frank; Temo Mercer V.; Blu Nazario Discharging Clinician: Thuy Porras Patient Disposition: Home, Self-Care Activity: as tolerated Diet: as tolerated and other - see discharge instructions Discharge Instructions: patient to follow discharge care instruction from her supervisor home energy consultant and follow up as scheduled, patient to follow up with her primary care provider as soon as possible. Pt to continue mildly thickened liquids and regular diet.
[2023-10-17] MEDS: APIXABAN 5 MG TABLET PO (15:04)
--- NOTE | 2023-10-22 21:27 | PM.EVENT ---
Event Note Event Note Event Note: today patient's called stating that last night patient that patient was dizzy and hallucinating, he suspected Jardiance and mirtazapine may have caused the symptoms and he has discontinue those medications, Futher stats patient with dizziness she has fever, recommended if the patient has dizziness and fever, should go to an ER, he stated currently she is doing fine, he will monitor and if symptoms worsen he will go to ER. patient is scheduled to be seen by her primary care on SaturdayOctober 24.
== END 2023-10-17 16:45 | disposition home or self-care (01) | DRG 720 ==
LOC: ANHED 14:12 → ANHIMU 14:34 → ANHICU 17:03 → ANHIMU 10-13 03:10
PROVIDERS: Internal Medicine; Physician Assistant; Admitting Provider Internal Medicine; Emergency Provider Emergency Medicine; Visit Provider Family Medicine
PROC: 4A023N7 Measurement of Cardiac Sampling and Pressure, Left Heart, Percutaneous Approach (ICD-10-PCS; CPT 93454; principal; 2023-10-16 09:45)
DX: A41.9 Sepsis, unspecified organism (principal); J18.9 Pneumonia, unspecified organism; J96.01 Acute respiratory failure with hypoxia; J96.02 Acute respiratory failure with hypercapnia; I50.43 Acute on chronic combined systolic (congestive) and diastolic (congestive) heart failure; K83.8 Other specified diseases of biliary tract; I42.8 Other cardiomyopathies; N17.8 Other acute kidney failure; T50.2X5A Adverse effect of carbonic-anhydrase inhibitors, benzothiadiazides and other diuretics, initial encounter; I51.3 Intracardiac thrombosis, not elsewhere classified; I25.10 Atherosclerotic heart disease of native coronary artery without angina pectoris; E16.2 Hypoglycemia, unspecified; E87.8 Other disorders of electrolyte and fluid balance, not elsewhere classified; D64.9 Anemia, unspecified; R73.9 Hyperglycemia, unspecified; J44.0 Chronic obstructive pulmonary disease with (acute) lower respiratory infection; K21.9 Gastro-esophageal reflux disease without esophagitis; Z98.42 Cataract extraction status, left eye; Z98.41 Cataract extraction status, right eye; Z87.891 Personal history of nicotine dependence; Z20.822 Contact with and (suspected) exposure to COVID-19; Z86.16 Personal history of COVID-19
CPT/HCPCS: 31500; 36415; 36600; 71045; 71275; 74174; 74177; 74183; 76376; 76705; 80053; 80061; 80069; 80074; 80076; 81003; 82375; 82533; 82550; 82607; 82728; 82746; 82805; 82948; 83010; 83050; 83540; 83550; 83605; 83615; 83690; 83735; 83880; 84100; 84145; 84443; 84484; 85025; 85610; 85652; 85730; 86140; 86738; 86850; 86900; 86901; 87040; 87070; 87086; 87205; 87449; 87637; 87641; 87899; 92610; 92611; 93005; 93454; 93970; 94002; 94003; 94640; 96374; 96375; 97110; 97161; 97166; 97530; 97535; 99285; A9270; A9577; C1751; C1769; C1887; C1894; C8929; J0330; J0696; J1200; J1610; J1644; J1940; J2060; J2250; J2270; J2305; J2405; J2470; J2765; J3010; J3370; J3475; J3480; J7040; Q9957; Q9967